=== PATIENT | female | born 1945 | race Caucasian/White ===

== ENCOUNTER → 2020-07-08 08:22 | Outpatient (BNVA) | payer MEDICARE, SELFPAY | PROVIDERS: PCP Internal Medicine; Visit Provider Internal Medicine | DX: Z86.73 Personal history of transient ischemic attack (TIA), and cerebral infarction without residual deficits (principal); Z51.81 Encounter for therapeutic drug level monitoring; Z79.01 Long term (current) use of anticoagulants | CPT/HCPCS: 85610 ==

== ENCOUNTER → 2020-07-23 08:20 | Outpatient (BNVA) | payer MEDICARE, SELFPAY | PROVIDERS: PCP Internal Medicine; Visit Provider Internal Medicine | DX: Z86.73 Personal history of transient ischemic attack (TIA), and cerebral infarction without residual deficits (principal); Z51.81 Encounter for therapeutic drug level monitoring; Z79.01 Long term (current) use of anticoagulants | CPT/HCPCS: 85610; 99211 ==

== ENCOUNTER → 2020-08-06 08:47 | Outpatient (BNVA) | payer MEDICARE, SELFPAY | PROVIDERS: PCP Internal Medicine; Visit Provider Internal Medicine | DX: Z86.73 Personal history of transient ischemic attack (TIA), and cerebral infarction without residual deficits (principal); Z79.01 Long term (current) use of anticoagulants; Z51.81 Encounter for therapeutic drug level monitoring | CPT/HCPCS: 85610; 99211 ==

== ENCOUNTER → 2020-08-25 08:59 | Outpatient (BNVA) | payer MEDICARE, SELFPAY | PROVIDERS: PCP Internal Medicine; Visit Provider Internal Medicine | DX: Z86.73 Personal history of transient ischemic attack (TIA), and cerebral infarction without residual deficits (principal); Z51.81 Encounter for therapeutic drug level monitoring; Z79.01 Long term (current) use of anticoagulants | CPT/HCPCS: 85610; 99211 ==

== ENCOUNTER → 2020-09-09 08:49 | Outpatient (BNVA) | payer MEDICARE, SELFPAY | PROVIDERS: PCP Internal Medicine; Visit Provider Internal Medicine | DX: Z86.73 Personal history of transient ischemic attack (TIA), and cerebral infarction without residual deficits (principal); Z51.81 Encounter for therapeutic drug level monitoring; Z79.01 Long term (current) use of anticoagulants | CPT/HCPCS: 85610; 99211 ==

== ENCOUNTER → 2020-09-30 08:47 | Outpatient (BNVA) | payer MEDICARE, SELFPAY | PROVIDERS: PCP Internal Medicine; Visit Provider Internal Medicine | DX: Z86.73 Personal history of transient ischemic attack (TIA), and cerebral infarction without residual deficits (principal); Z51.81 Encounter for therapeutic drug level monitoring; Z79.01 Long term (current) use of anticoagulants | CPT/HCPCS: 85610; 99211 ==

== ENCOUNTER → 2020-10-30 08:01 | Outpatient (BNVA) | payer MEDICARE, SELFPAY | PROVIDERS: PCP Internal Medicine; Visit Provider Internal Medicine | DX: Z86.73 Personal history of transient ischemic attack (TIA), and cerebral infarction without residual deficits (principal); Z51.81 Encounter for therapeutic drug level monitoring; Z79.01 Long term (current) use of anticoagulants | CPT/HCPCS: 85610; 99211 ==

== ENCOUNTER → 2020-11-27 08:00 | Outpatient (BNVA) | payer MEDICARE, SELFPAY | PROVIDERS: PCP Internal Medicine; Visit Provider Internal Medicine | DX: Z86.73 Personal history of transient ischemic attack (TIA), and cerebral infarction without residual deficits (principal); Z51.81 Encounter for therapeutic drug level monitoring; Z79.01 Long term (current) use of anticoagulants | CPT/HCPCS: 85610; 99211 ==

== ENCOUNTER → 2020-12-04 10:01 | Outpatient (BNV) | payer MEDICARE, SELFPAY | PROVIDERS: PCP Internal Medicine; Visit Provider Internal Medicine Medical Oncology | DX: Z86.711 Personal history of pulmonary embolism (principal); Z79.01 Long term (current) use of anticoagulants | CPT/HCPCS: 99212; 99213; 99214 ==

== ENCOUNTER → 2020-12-25 08:02 | Outpatient (BNVA) | payer MEDICARE, SELFPAY | PROVIDERS: PCP Internal Medicine; Visit Provider Internal Medicine | DX: Z86.718 Personal history of other venous thrombosis and embolism (principal); Z51.81 Encounter for therapeutic drug level monitoring; Z79.01 Long term (current) use of anticoagulants | CPT/HCPCS: 85610; 99211 ==

== ENCOUNTER 2021-01-14 12:29 | Emergency (ER) | payer MEDICARE, SELFPAY ==
--- NOTE | 2021-01-14 | ECG_ITS ---
Test Reason : CHEST PAIN Blood Pressure : / mmHG Vent. Rate : 097 BPM Atrial Rate : 097 BPM P-R Int : 150 ms QRS Dur : 070 ms QT Int : 368 ms P-R-T Axes : 038 -06 -09 degrees QTc Int : 467 ms Sinus rhythm with occasional Premature ventricular complexes Nonspecific T wave abnormality Abnormal ECG When compared with ECG of 01-DEC-2018 20:02, Premature ventricular complexes are now Present Referred By: Generic ED Physician Electronically Signed By:SHIRA PORTER
--- NOTE | ~2021-01-14 | XR_ITS ---
EXAMINATION: XR CHEST CLINICAL INFORMATION: Chest pain COMPARISON: Chest radiographs 12/01/2018, 04/05/2016 TECHNIQUE: Portable upright AP view of the chest was obtained. FINDINGS: There is no pneumothorax or pneumomediastinum. No airspace consolidation or definite groundglass opacity. The costophrenic sulci are clear. There is some tapering left lateral base consistent with areolar tissue. The hilar and mediastinal contours are unremarkable. No visible acute bony abnormality. XR/XR chest 1V IMPRESSION: Unremarkable examination.
--- NOTE | ~2021-01-14 | CT_ITS ---
EXAMINATION: CT ANGIOGRAM OF THE CHEST WITH AND WITHOUT CONTRAST CLINICAL INFORMATION: Reason for Exam Dissection study COMPARISON: CT chest 06/20/2014 TECHNIQUE: Prior to contrast administration, noncontrast localization images were obtained. Subsequently, multidetector volumetric imaging was performed from the thoracic inlet to the pubic symphysis through the chest, abdomen, and pelvis following the administration of 70 mL Omnipaque 350 intravenous contrast. No contrast reaction reported Sagittal, coronal, and MIP oblique sagittal (through the chest only) reformatted images were obtained on the CT workstation, uploaded to PACS, and reviewed. Images were not evaluated on an independent dedicated 3-D workstation and 3-D images were not reconstructed. This CT examination was performed using dose optimization techniques as appropriate, variously including the following: *Automated exposure control *Adjustment of mA and/or kV according to patient size (this includes techniques or standardized protocols for targeted exams where dose is matched to indication/reason for exam; i.e. extremities or head) *Use of iterative reconstruction technique Total exam dose-length product: 382 mGy-cm VASCULAR FINDINGS: The thoracic aorta appears normal without aneurysm or dissection. Motion artifact at the base of the aorta limits evaluation. A three-vessel branching pattern is present with widely patent great vessels. The small visualized portion of the abdominal aorta is unremarkable. Although not carried out for evaluation of the pulmonary arteries or pulmonary veins, no gross abnormality is seen. NONVASCULAR FINDINGS: LUNG: No focal consolidation, nodules or masses. Mild scarring is present at the right lung base. PLEURA: No pleural effusion or pneumothorax. MEDIASTINUM: Normal heart size. No pericardial effusion. No hilar or mediastinal lymphadenopathy. CHEST WALL/AXILLA: No axillary or internal mammary lymphadenopathy. OSSEOUS STRUCTURES: No acute or suspicious osseous abnormality. VISUALIZED ABDOMEN: Cholelithiasis is present. No other significant findings in the visualized upper abdomen. CT/CT angio chest IMPRESSION: No evidence of aortic dissection or aneurysm.
[2021-01-14 12:36] VITALS: BP 168/81; PULSE 99; RESP 18; TEMP 36.9; O2SAT 99; BMI 37.0
[2021-01-14 13:43] VITALS: BP 153/87; PULSE 78; RESP 18; TEMP 37.1; O2SAT 98
--- NOTE | 2021-01-14 13:48 | ED.CHESTPAIN ---
HPI - Chest Pain General Chief Complaint: Chest Pain Stated Complaint: chest pain Time Seen by Provider: 01/14/21 13:48 Source: patient Mode of arrival: ambulatory Limitations: no limitations History of Present Illness HPI narrative: 75-year-old female below noted past medical history presenting today with complaint of upper back pain states she has history of chronic back pain however she took some Tylenol did not help much. States did have some pain radiating to his chest and hard time taking a deep breath in. States the back pain is and between the shoulder blades in the upper back. She otherwise denies any recent illness. No recent travel. No sick contacts. No lower extremity swelling. MD complaint: other (Chest and upper back pain) Onset (ago): day(s) (Two days) Timing of current episode: episodic and other (Worse with certain movements resolved with holding still) Onset: other (Movement) Pain location: parasternal Pain radiation: back Severity: moderate Quality: aching Exacerbating factors: exertion Treatment prior to arrival: none Related Data Home Medications Medication Instructions Recorded Confirmed alendronate 70 mg tablet 70 mg PO QWEEK 10/30/20 10/30/20 ergocalciferol (vitamin D2) 1,250 1,250 mcg PO 10/30/20 10/30/20 mcg (50,000 unit) capsule hydrochlorothiazide 25 mg tablet 25 mg PO QAM 10/30/20 10/30/20 levothyroxine 25 mcg tablet 25 mcg PO QAM 10/30/20 10/30/20 metoprolol tartrate 25 mg tablet 25 mg PO DAILY 10/30/20 10/30/20 pantoprazole 20 mg tablet,delayed 20 mg PO DAILY 10/30/20 10/30/20 release simvastatin 20 mg tablet 20 mg PO BEDTIME 10/30/20 10/30/20 Previous Rx's Medication Instructions Recorded warfarin 2.5 mg tablet See Rx Instructions .ROUTE 07/08/20 .COMPLEX #90 tab cephalexin 250 mg PO BID 7 Days #14 tab 01/14/21 lidocaine 1 patch TOPICAL Q24H PRN #15 ea 01/14/21 Allergies Allergy/AdvReac Type Severity Reaction Status Date / Time raspberry [RASPBERRY] AdvReac Mild RASH Verified 01/14/21 12:35 cat dander [CATS] AdvReac Unknown RASH Verified 04/15/21 12:35 Review of Systems Review of Systems: Constitutional: No Weight loss, No Fever, No Chills, No Night Sweats, No Fatigue, No Malaise ENT/Mouth: No Hearing loss, No Ear Pain, No Nasal Congestion, No Sinus Pain, No Hoarseness, No sore throat, No Rhinorrhea, No Swallowing Difficulty Eyes: No Eye Pain, No Swelling, No Redness, No Foreign Body, No Discharge, No Vision Changes Cardiovascular: No SOB, No Dyspnea on Exertion, No Orthopnea, No Edema, No Palpitations Respiratory: No Cough, No Sputum, No Wheezing, No Smoke Exposure, No Dyspnea Gastrointestinal: No Nausea, No Vomiting, No Diarrhea, No Constipation, No abdominal Pain, No Hematochezia, No Melena Genitourinary: no irregular bleeding, No Dysuria, No Urinary Frequency, No Hematuria, No Urinary Incontinence, No Urgency, No Flank Pain, No Urinary Flow Changes, No Hesitancy Musculoskeletal: No joint pain, No Myalgias, No Joint Swelling, back pain is noted per HPI Skin: No Skin Lesions, No rash Neuro: No Weakness, No Numbness, No Paresthesias, No Loss of Consciousness, No Dizziness, No Headache Psych: No Social Issues Heme/Lymph: No Bruising, No Bleeding,No Lymphadenopathy Endocrine: No Polyuria, No Polydipsia, No Temperature Intolerance Yes all other systems are reviewed and are negative [facility] Past Medical History [facility] Narrative: Atrial septal aneurysm Cerebrovascular disease DVT Hypercholesteremia Hypertension Hypothyroidism Pulmonary embolism Chronically anticoagulated on Coumadin Surgical History (Updated 12/04/20 @ 10:35 by Diamante Barron MD) Hx of hernia repair Family History Family History (Updated 12/04/20 @ 10:21 by Fernanda Enrique) Mother Family hx of colon cancer Family hx of melanoma Brother Family history of throat cancer Sister Acute Crohn's disease Social History Social History (Updated 12/04/20 @ 10:19 by Fernanda Enrique) Alcohol intake: never Smoking Status: Never smoker Use of substances other than those prescribed or required for medical reasons: No Advance Directives: No Advance Directives Information Provided: Yes Physical Exam Vital Signs: Vital Signs: Last Vital Signs Temp 99.0 F 01/14/21 19:55 Pulse 75 01/14/21 19:55 Resp 14 01/14/21 19:55 BP 146/74 H 01/14/21 19:55 Pulse Ox 97 01/14/21 19:55 Body Mass Index 37.0 Reviewed Const: General: cooperative and healthy appearing; No acute distress or intoxicated appearing Nutritional Appearance: average body habitus Orientation/consciousness: patient oriented x3 HENMT: Head: Yes normal to inspection Ears: hearing grossly normal bilaterally Eyes: General: appearance normal, both eyes and all related structures Visual Alves: normal visual alves by confrontation Neck: Neck: Yes normal visual inspection, No positive Brudzinski's sign, No positive Kernig's sign and No tender Thyroid: Thyroid normal Chest: Chest palpation & inspection: normal inspection of the chest Resp: Effort & Inspection: normal respiratory effort Auscultation: clear to auscultation bilaterally Cardio: Jugular venous distension: no JVD Rhythm: regular rhythm Heart sounds: S1 normal heart sound present and S2 normal heart sound present GI: Inspection: Yes normal to inspection Palpation (GI): Soft to palpation Percussion: Yes normal to percussion Auscultation: normal bowel sounds : General: Yes no CVA tenderness Back/Spine/Pelvis: Back: no CVA tenderness Thoracic/Lumbar Spine: paraspinal muscle tenderness (Over the thoracic region mid, bilaterally.) Skin: General skin exam: no rashes or lesions noted Neuro: General: patient oriented x3 Extrem: General: Yes normal to inspection Course Reevaluation(s) Reevaluation #1: Daughter who present at bedside assisting me a history patient recently purchased a washer and dryer she has been lifting laundry basket and complaining of back pain afterwards. AP and exam consistent with pain musculoskeletal etiology, labs show overly infected UA she has no other symptoms no fever. Abdominal exam is benign. Labs otherwise without leukocytosis serial troponin without delta CT of the chest without evidence of dissection. She is anticoagulated with Coumadin elevated level advised to hold off 1 day. States her pain resolved with lidocaine patch/Tylenol. She did get a bed ambulatory with steady gait to the bathroom. Labs/findings/plan reviewed her clearly lifestyle modification daughter with sister more with her ADLs and limit which she picks up. MDM - Chest Pain Lab Data Result diagrams: 01/14/21 15:37 01/14/21 15:37 Labs: Lab Results 01/14/21 01/14/21 01/14/21 Range/Units 15:09 15:37 15:37 WBC 8.9 (4.8-10.8) X10*3/uL RBC 4.02 L (4.20-5.50) X10*6/uL Hgb 12.3 (12.0-16.0) g/dl Hct 36.3 L (37-47) % MCV 90.3 (80-98) fL MCH 30.6 (27.0-33.0) pg MCHC 33.9 (31.0-35.0) g/dl RDW 13.8 (11.0-16.0) % Plt Count 187 (160-400) X10*3/uL MPV 11.5 (9.4-12.3) fL Immature Gran % (Auto) 0.1 (0.0-0.4) % Neut % (Auto) 82.8 H (45-73) % Lymph % (Auto) 10.4 L (20-40) % [place] % (Auto) 6.6 (2-11) % Eos % (Auto) 0.0 (0-4) % Baso % (Auto) 0.1 (0-2) % Lymph # (Auto) 0.9 L (1.2-4.9) X10*3/uL [place] # (Auto) 0.6 (0.1-1.2) X10*3/uL Eos # (Auto) 0.0 (0.0-0.4) X10*3/uL Baso # (Auto) 0.0 (0.0-0.2) X10*3/uL Abs Immat Gran (auto) 0.01 (0.00-0.03) X10*3/uL Absolute Neuts (auto) 7.4 (2.0-8.3) X10*3/uL Absolute Nucleated RBC 0.000 (0.0-0.012) X10*3/uL Nucleated RBC % (auto) 0.0 (0.0-0.2) /100WBC PT 49.2 H (10.8-13.0) SEC INR 4.1 H (0.9-1.1) APTT 47.3 H (24.1-38.0) SEC Sodium (135-145) mmol/L Potassium (3.3-5.1) mmol/L Chloride (96-108) mmol/L Carbon Dioxide (22-29) mmol/L Anion Gap (12-20) BUN (9-16) mg/dL Creatinine (0.5-1.4) mg/dL Estim Creat Clear Calc Estimated GFR Random Glucose (60-115) mg/dL Calcium (8.4-10.2) mg/dL Total Bilirubin (0.0-1.0) mg/dL AST (5-31) U/L ALT (0-31) U/L Alkaline Phosphatase (39-117) U/L Troponin I High Sens (<3.5-17.0) ng/L B-Natriuretic Peptide (<100) pg/mL Total Protein (6.5-8.0) g/dL Albumin (3.5-5.0) g/dL Urine Color Urine Appearance Urine pH (5.0-8.0) Ur Specific [place] (1.005-1.025) Urine Protein (NEG-TRACE) MG/DL Urine Glucose (UA) (NEG) MG/DL Urine Ketones (NEG) MG/DL Urine Blood (NEG) Urine Nitrite (NEG) Ur Leukocyte Esterase (NEG) Urine RBC (0) /HPF Urine WBC (0-4) /HPF Ur Squamous Epith Cells /LPF Urine Bacteria /LPF COVID-19 ([place]) Cancelled COVID-19 Clin Com Cancelled 01/14/21 01/14/21 01/14/21 Range/Units 15:37 15:37 15:37 WBC (4.8-10.8) X10*3/uL RBC (4.20-5.50) X10*6/uL Hgb (12.0-16.0) g/dl Hct (37-47) % MCV (80-98) fL MCH (27.0-33.0) pg MCHC (31.0-35.0) g/dl RDW (11.0-16.0) % Plt Count (160-400) X10*3/uL MPV (9.4-12.3) fL Immature Gran % (Auto) (0.0-0.4) % Neut % (Auto) (45-73) % Lymph % (Auto) (20-40) % [place] % (Auto) (2-11) % Eos % (Auto) (0-4) % Baso % (Auto) (0-2) % Lymph # (Auto) (1.2-4.9) X10*3/uL [place] # (Auto) (0.1-1.2) X10*3/uL Eos # (Auto) (0.0-0.4) X10*3/uL Baso # (Auto) (0.0-0.2) X10*3/uL Abs Immat Gran (auto) (0.00-0.03) X10*3/uL Absolute Neuts (auto) (2.0-8.3) X10*3/uL Absolute Nucleated RBC (0.0-0.012) X10*3/uL Nucleated RBC % (auto) (0.0-0.2) /100WBC PT (10.8-13.0) SEC INR (0.9-1.1) APTT (24.1-38.0) SEC Sodium 134 L (135-145) mmol/L Potassium 4.0 (3.3-5.1) mmol/L Chloride 97 (96-108) mmol/L Carbon Dioxide 26 (22-29) mmol/L Anion Gap 15 (12-20) BUN 11 (9-16) mg/dL Creatinine 0.67 (0.5-1.4) mg/dL Estim Creat Clear Calc 72.8 Estimated GFR > 60 Random Glucose 97 (60-115) mg/dL Calcium 8.5 D (8.4-10.2) mg/dL Total Bilirubin 1.0 (0.0-1.0) mg/dL AST 15 (5-31) U/L ALT 9 (0-31) U/L Alkaline Phosphatase 58 (39-117) U/L Troponin I High Sens 6.2 (<3.5-17.0) ng/L B-Natriuretic Peptide 90 (<100) pg/mL Total Protein 6.4 L (6.5-8.0) g/dL Albumin 3.5 (3.5-5.0) g/dL Urine Color Urine Appearance Urine pH (5.0-8.0) Ur Specific [place] (1.005-1.025) Urine Protein (NEG-TRACE) MG/DL Urine Glucose (UA) (NEG) MG/DL Urine Ketones (NEG) MG/DL Urine Blood (NEG) Urine Nitrite (NEG) Ur Leukocyte Esterase (NEG) Urine RBC (0) /HPF Urine WBC (0-4) /HPF Ur Squamous Epith Cells /LPF Urine Bacteria /LPF COVID-19 ([place]) COVID-19 Clin Com 01/14/21 01/14/21 01/14/21 Range/Units 15:54 17:04 18:38 WBC (4.8-10.8) X10*3/uL RBC (4.20-5.50) X10*6/uL Hgb (12.0-16.0) g/dl Hct (37-47) % MCV (80-98) fL MCH (27.0-33.0) pg MCHC (31.0-35.0) g/dl RDW (11.0-16.0) % Plt Count (160-400) X10*3/uL MPV (9.4-12.3) fL Immature Gran % (Auto) (0.0-0.4) % Neut % (Auto) (45-73) % Lymph % (Auto) (20-40) % [place] % (Auto) (2-11) % Eos % (Auto) (0-4) % Baso % (Auto) (0-2) % Lymph # (Auto) (1.2-4.9) X10*3/uL [place] # (Auto) (0.1-1.2) X10*3/uL Eos # (Auto) (0.0-0.4) X10*3/uL Baso # (Auto) (0.0-0.2) X10*3/uL Abs Immat Gran (auto) (0.00-0.03) X10*3/uL Absolute Neuts (auto) (2.0-8.3) X10*3/uL Absolute Nucleated RBC (0.0-0.012) X10*3/uL Nucleated RBC % (auto) (0.0-0.2) /100WBC PT (10.8-13.0) SEC INR (0.9-1.1) APTT (24.1-38.0) SEC Sodium (135-145) mmol/L Potassium (3.3-5.1) mmol/L Chloride (96-108) mmol/L Carbon Dioxide (22-29) mmol/L Anion Gap (12-20) BUN (9-16) mg/dL Creatinine (0.5-1.4) mg/dL Estim Creat Clear Calc Estimated GFR Random Glucose (60-115) mg/dL Calcium (8.4-10.2) mg/dL Total Bilirubin (0.0-1.0) mg/dL AST (5-31) U/L ALT (0-31) U/L Alkaline Phosphatase (39-117) U/L Troponin I High Sens 7.0 (<3.5-17.0) ng/L B-Natriuretic Peptide (<100) pg/mL Total Protein (6.5-8.0) g/dL Albumin (3.5-5.0) g/dL Urine Color YELLOW Urine Appearance CLOUDY Urine pH 6.5 (5.0-8.0) Ur Specific [place] 1.010 (1.005-1.025) Urine Protein NEG (NEG-TRACE) MG/DL Urine Glucose (UA) NEG (NEG) MG/DL Urine Ketones 15 (NEG) MG/DL Urine Blood 3+ H (NEG) Urine Nitrite POS H (NEG) Ur Leukocyte Esterase 2+ H (NEG) Urine RBC 1-4 (0) /HPF Urine WBC 15-29 H (0-4) /HPF Ur Squamous Epith Cells TRACE /LPF Urine Bacteria 3+ /LPF COVID-19 ([place]) Negative COVID-19 Clin Com See Note Imaging Data Chest CTA: Radiologist's impression: [address] Scan ReportSigned Patient: Mary Harvey [facility]#: [id number]: 7Acct:[id number]/Sex: 75 / FADM Date: 01/14/21Loc: Victor M Evans: Ordering Physician: Ezio Snow NP Date of Service: 01/14/21 Procedure(s): CT angio chest Accession Number(s): [id number] cc: Ezio Snow [employer]~ EXAMINATION: CT ANGIOGRAM OF THE CHEST WITH AND WITHOUT CONTRAST CLINICAL INFORMATION: Reason for Exam Dissection study COMPARISON: CT chest 06/20/2014 TECHNIQUE: Prior to contrast administration, noncontrast localization images were obtained. Subsequently, multidetector volumetric imaging was performed from the thoracic inlet to the pubic symphysis through the chest, abdomen, and pelvis following the administration of 70 mL Omnipaque 350 intravenous contrast. No contrast reaction reported Sagittal, coronal, and MIP oblique sagittal (through the chest only) reformatted images were obtained on the CT workstation, uploaded to PACS, and reviewed. Images were not evaluated on an independent dedicated 3-D workstation and 3-D images were not reconstructed. This CT examination was performed using dose optimization techniques as appropriate, variously including the following: *Automated exposure control *Adjustment of mA and/or kV according to patient size (this includes techniques or standardized protocols for targeted exams where dose is matched to indication/reason for exam; i.e. extremities or head) *Use of iterative reconstruction technique Total exam dose-length product: 382 mGy-cm VASCULAR FINDINGS: The thoracic aorta appears normal without aneurysm or dissection. Motion artifact at the base of the aorta limits evaluation. A three-vessel branching pattern is present with widely patent great vessels. The small visualized portion of the abdominal aorta is unremarkable. Although not carried out for evaluation of the pulmonary arteries or pulmonary veins, no gross abnormality is seen. NONVASCULAR FINDINGS: LUNG: No focal consolidation, nodules or masses. Mild scarring is present at the right lung base. PLEURA: No pleural effusion or pneumothorax. MEDIASTINUM: Normal heart size. No pericardial effusion. No hilar or mediastinal lymphadenopathy. CHEST WALL/AXILLA: No axillary or internal mammary lymphadenopathy. OSSEOUS STRUCTURES: No acute or suspicious osseous abnormality. VISUALIZED ABDOMEN: Cholelithiasis is present. No other significant findings in the visualized upper abdomen. CT/CT angio chest IMPRESSION: No evidence of aortic dissection or aneurysm. Dictated By:SHANICE MILLER MDSigned By:<Electronically signed by SHANICE MILLER MD in [place]>01/14/21 1722 DD/ 1459TD/TT: Feather Maker: ZEV Chest x-ray: Radiologist's impression: [address] [id number] ReportSigned Patient: Mary Harvey [facility]#: [id number]: 7Acct:[id number]/Sex: 75 / FADM Date: 01/14/21Loc: HO.EDAttending Dr: Ordering Physician: Ezio Snow NP Date of Service: 01/14/21 Procedure(s): XR chest 1V Accession Number(s): [id number] cc: Ezio Snow [employer]~ EXAMINATION: XR CHEST CLINICAL INFORMATION: Chest pain COMPARISON: Chest radiographs 12/01/2018, 04/05/2016 TECHNIQUE: Portable upright AP view of the chest was obtained. FINDINGS: There is no pneumothorax or pneumomediastinum. No airspace consolidation or definite groundglass opacity. The costophrenic sulci are clear. There is some tapering left lateral base consistent with areolar tissue. The hilar and mediastinal contours are unremarkable. No visible acute bony abnormality. XR/XR chest 1V IMPRESSION: Unremarkable examination. Dictated By:SHANICE VIDALigned By:<Electronically signed by SHANICE VIDAL MD in OV>01/14/21 1437 DD/ 1349TD/TT: Feather Maker: ECG Data ECG #1: Interpretation: Sinus rhythm with occasional Premature ventricular complexes Rate 97 Nonspecific T wave abnormality Abnormal ECG When compared with ECG of 01-DEC-2018 20:02, Premature ventricular complexes are now Present Discharge Plan Discharge Clinical Impression: Acute thoracic myofascial strain, Urinary tract infection Patient Disposition: Home, Self-Care Instructions: Thoracic Back Strain (ED), Urinary Urgency and Frequency (DC) Additional Instructions: I know you have purchased your new laundry equipment You need to take it easy do not 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 The blood work and CT scan of your chest looks okay Your urine test shows a given her urinary tract infection For your back pain of IV lidocaine patch and he can also take [id number] Tylenol for the pain if needed For the urinary tract infection also on antibiotic twice a day for 7 days make sure you take the full course Follow-up with your primary care doctor in the next 3-7 days Return if any concerns or worsening symptoms Thank you Prescriptions: New cephalexin 250 mg tablet 250 mg PO BID 7 Days Qty: 14 RF: 0 lidocaine 4 % adhesive patch,medicated 1 patch topical Q24H PRN (Reason: pain) Qty: 15 RF: 0 No Action warfarin 2.5 mg tablet See Rx Instructions mg .ROUTE .COMPLEX Qty: 90 RF: 0 metoprolol tartrate 25 mg tablet 25 mg PO DAILY RF: 0 simvastatin 20 mg tablet 20 mg PO BEDTIME RF: 0 hydrochlorothiazide 25 mg tablet 25 mg PO QAM RF: 0 levothyroxine 25 mcg tablet 25 mcg PO QAM RF: 0 ergocalciferol (vitamin D2) 1,250 mcg (50,000 unit) capsule 1,250 mcg PO RF: 0 pantoprazole 20 mg tablet,delayed release (DR/EC) 20 mg PO DAILY RF: 0 alendronate 70 mg tablet 70 mg PO QWEEK RF: 0 Referrals: Larry Meyers MD [Primary Care Provider] - 3 days Interventions: ED Discharge Assessment Last Done: 01/14/21 20:08 Discharge Date/Time: 01/14/21 20:10
--- NOTE | 2021-01-14 14:10 | PC.NURSE ---
PT REPORTS SOB, CHEST PAIN, NSR ON MONITOR. LS CTA. NO EDEMA. BS HYPER-ACTIVE X4. SKIN PINK, WARM, AND DRY. PT REPORTS SHE HAD A HERNIA CONSULT SCHEDULE FOR TODAY BUT WAS RESCHEDULED TO 02/04. PT ON COUMADIN. PT SEEN BY ED PROVIDER. DAUGHTER AT BEDSIDE.
[2021-01-14] MEDS: Lidocaine 4 % Patch ADH..PATCH 1 PATCH TRANSDERMA (14:47)
[2021-01-14] MEDS: Acetaminophen 325 MG TABLET 975 MG PO (14:48)
[2021-01-14] MEDS: 0.9 % Sodium Chloride 500 ML IV (14:53)
[2021-01-14 15:43] LABS: MANUAL DIFF FLAG NO
[2021-01-14 15:45] LABS: Basophils Percent Auto 0.1 % (0-2); Hematocrit 36.3 % (37-47); Hemoglobin 12.3 g/dl (12.0-16.0); Imm Gran Abs Auto 0.01 X10*3/uL (0.00-0.03); Imm Gran Pct Auto 0.1 % (0.0-0.4); Lymphocytes Absolute Auto 0.9 X10*3/uL (1.2-4.9); Lymphocytes Percent Auto 10.4 % (20-40); Mean Corpuscular HGB Conc 33.9 g/dl (31.0-35.0); Mean Corpuscular Hemoglobin 30.6 pg (27.0-33.0); Mean Corpuscular Volume 90.3 fL (80-98); Mean Platelet Volume 11.5 fL (9.4-12.3); Monocytes Absolute Auto 0.6 X10*3/uL (0.1-1.2); Monocytes Percent Auto 6.6 % (2-11); Neutrophils Absolute Auto 7.4 X10*3/uL (2.0-8.3); Neutrophils Percent Auto 82.8 % (45-73); Platelet Count 187 X10*3/uL (160-400); Red Blood Count 4.02 X10*6/uL (4.20-5.50); Red Cell Distribution Width 13.8 % (11.0-16.0); White Blood Count 8.9 X10*3/uL (4.8-10.8)
[2021-01-14 16:12] LABS: Troponin-I High Sensitivity 6.2 ng/L (<3.5-17.0)
[2021-01-14 16:13] LABS: B Type Natriuretic Peptide 90 pg/mL (<100)
[2021-01-14 16:15] LABS: INTERNATIONAL NORM RATIO 4.1 (0.9-1.1); Prothrombin Time 49.2 SEC (10.8-13.0)
[2021-01-14 16:18] LABS: Partial Thromboplastin Time 47.3 SEC (24.1-38.0)
[2021-01-14 16:22] LABS: COVID-19 Test Negative (Negative)
[2021-01-14 16:26] LABS: Alanine Aminotransferase 9 U/L (0-31); Albumin Level 3.5 g/dL (3.5-5.0); Alkaline Phosphatase 58 U/L (39-117); Anion Gap 15 (12-20); Aspartate Amino Transferase 15 U/L (5-31); Blood Urea Nitrogen 11 mg/dL (9-16); Calcium 8.5 mg/dL (8.4-10.2); Carbon Dioxide 26 mmol/L (22-29); Chloride 97 mmol/L (96-108); Creatinine Clr Calc Pharmacy 72.8; Estimated Glomerular Filt Rate > 60; Glucose Random 97 mg/dL (60-115); Sodium 134 mmol/L (135-145); Total Protein 6.4 g/dL (6.5-8.0)
[2021-01-14] MEDS: iohexoL 350 MG/ML 100 ML INFUS..BTL IV (17:02)
[2021-01-14 17:22] LABS: Glucose Urine UA NEG (NEG); Leukocyte Esterase Urine 2+ (NEG); Nitrite Urine POS (NEG); PH 6.5 (5.0-8.0); UACC Culture Trigger YES; Urine Blood 3+ (NEG); Urine Ketones 15 MG/DL (NEG); Urine Protein NEG (NEG-TRACE)
[2021-01-14 17:25] LABS: Appearance Urine CLOUDY; Color Urine YELLOW
[2021-01-14 17:52] LABS: Bacteria Urine 3+ /LPF; Squamous Epithelial Cell Urine TRACE /LPF; UACC CULT YES
[2021-01-14 18:39] VITALS: BP 154/77; PULSE 82; RESP 16; TEMP 37.1; O2SAT 98
[2021-01-14] MEDS: cefTRIAXone sodium 1 GM in 0.9 % Sodium Chloride 50 ML IV (19:13)
[2021-01-14 19:14] VITALS: BP 136/76; PULSE 76; RESP 16; O2SAT 96
--- NOTE | 2021-01-14 19:16 | PC.NURSE ---
1gram Ceftriaxone infusing per MAR, no cultures or lactic ordered at this time per BRIQUETTE MACHINE OPERATOR
[2021-01-14 19:55] VITALS: BP 146/74; PULSE 75; RESP 14; TEMP 37.2; O2SAT 97
== END 2021-01-14 20:10 | disposition home or self-care (01) ==
PROVIDERS: Nurse Practitioner Primary Care; Emergency Provider Internal Medicine; PCP Internal Medicine
DX: S29.012A Strain of muscle and tendon of back wall of thorax, initial encounter (principal); N39.0 Urinary tract infection, site not specified; R07.9 Chest pain, unspecified; M54.6 Pain in thoracic spine; R07.81 Pleurodynia; X58.XXXA Exposure to other specified factors, initial encounter; Y93.9 Activity, unspecified; Y92.9 Unspecified place or not applicable; Y99.9 Unspecified external cause status; Z20.822 Contact with and (suspected) exposure to COVID-19; Z79.899 Other long term (current) drug therapy
CPT/HCPCS: 36415; 71045; 71275; 80053; 81001; 83880; 84484; 85025; 85610; 85730; 87086; 87088; 87186; 87635; 93005; 96361; 96365; 99285; J0696; Q9967

== ENCOUNTER → 2021-01-15 15:08 | Outpatient (BNVA) | payer MEDICARE, SELFPAY | PROVIDERS: PCP Internal Medicine; Visit Provider Internal Medicine | DX: Z86.73 Personal history of transient ischemic attack (TIA), and cerebral infarction without residual deficits (principal); Z79.01 Long term (current) use of anticoagulants; Z51.81 Encounter for therapeutic drug level monitoring | CPT/HCPCS: Q3014 ==

== ENCOUNTER → 2021-01-22 08:04 | Outpatient (BNVA) | payer MEDICARE, SELFPAY | PROVIDERS: PCP Internal Medicine; Visit Provider Internal Medicine | DX: Z86.73 Personal history of transient ischemic attack (TIA), and cerebral infarction without residual deficits (principal); Z79.01 Long term (current) use of anticoagulants; Z51.81 Encounter for therapeutic drug level monitoring | CPT/HCPCS: 85610; 99211 ==

== ENCOUNTER 2021-02-02 10:50 | Outpatient (REF) | payer MEDICARE, SELFPAY ==
[2021-02-02 11:59] LABS: Glucose Urine UA NEG (NEG); Leukocyte Esterase Urine NEG (NEG); Nitrite Urine NEG (NEG); Specific Gravity - Urine >= 1.030 (1.005-1.025); Urine Blood 1+ (NEG); Urine Ketones NEG (NEG); Urine Protein NEG (NEG-TRACE)
[2021-02-02 12:05] LABS: Appearance Urine CLEAR; Color Urine YELLOW
[2021-02-02 12:32] LABS: RBC Urine 0-2 /HPF (0); Squamous Epithelial Cell Urine 1+ /LPF
== END 2021-02-02 10:51 | disposition home or self-care (01) ==
LOC: HO.LNP 10:50
PROVIDERS: Visit Provider Internal Medicine
DX: N30.01 Acute cystitis with hematuria (principal)
CPT/HCPCS: 81001; 87086

== ENCOUNTER → 2021-02-04 10:59 | Outpatient (BNVA) | payer MEDICARE, SELFPAY | PROVIDERS: PCP Internal Medicine; Visit Provider Internal Medicine | DX: K43.2 Incisional hernia without obstruction or gangrene (principal); I26.99 Other pulmonary embolism without acute cor pulmonale; J30.81 Allergic rhinitis due to animal (cat) (dog) hair and dander; Z91.018 Allergy to other foods; Z86.73 Personal history of transient ischemic attack (TIA), and cerebral infarction without residual deficits; Z79.01 Long term (current) use of anticoagulants; Z79.899 Other long term (current) drug therapy; Z51.81 Encounter for therapeutic drug level monitoring | CPT/HCPCS: 85610; 99211; 99212 ==

== ENCOUNTER → 2021-02-18 08:51 | Outpatient (BNVA) | payer MEDICARE, SELFPAY | PROVIDERS: PCP Internal Medicine; Visit Provider Internal Medicine | DX: Z86.73 Personal history of transient ischemic attack (TIA), and cerebral infarction without residual deficits (principal); Z51.81 Encounter for therapeutic drug level monitoring; Z79.01 Long term (current) use of anticoagulants | CPT/HCPCS: 85610; 99211 ==

== ENCOUNTER → 2021-03-03 08:35 | Outpatient (BNVA) | payer MEDICARE, SELFPAY | PROVIDERS: PCP Internal Medicine; Referring Provider Internal Medicine; Visit Provider Internal Medicine | DX: I26.99 Other pulmonary embolism without acute cor pulmonale (principal); Q21.1 Atrial septal defect; I10 Essential (primary) hypertension | CPT/HCPCS: 99212 ==

== ENCOUNTER → 2021-03-11 08:02 | Outpatient (BNVA) | payer MEDICARE, SELFPAY | PROVIDERS: PCP Internal Medicine; Visit Provider Internal Medicine | DX: Z86.73 Personal history of transient ischemic attack (TIA), and cerebral infarction without residual deficits (principal); Z51.81 Encounter for therapeutic drug level monitoring; Z79.01 Long term (current) use of anticoagulants | CPT/HCPCS: 85610; 99211 ==

== ENCOUNTER → 2021-03-25 08:02 | Outpatient (BNVA) | payer MEDICARE, SELFPAY | PROVIDERS: PCP Internal Medicine; Visit Provider Internal Medicine | DX: Z86.73 Personal history of transient ischemic attack (TIA), and cerebral infarction without residual deficits (principal); Z51.81 Encounter for therapeutic drug level monitoring; Z79.01 Long term (current) use of anticoagulants | CPT/HCPCS: 85610; 99211 ==

== ENCOUNTER → 2021-04-12 08:06 | Outpatient (BNVA) | payer MEDICARE, SELFPAY | PROVIDERS: PCP Internal Medicine; Visit Provider Internal Medicine | DX: Z86.73 Personal history of transient ischemic attack (TIA), and cerebral infarction without residual deficits (principal); Z51.81 Encounter for therapeutic drug level monitoring; Z79.01 Long term (current) use of anticoagulants | CPT/HCPCS: 85610; 99211 ==

== ENCOUNTER 2021-04-12 10:09 | Outpatient (REF) | payer MEDICARE, SELFPAY ==
[2021-04-12 10:12] LABS: MANUAL DIFF FLAG NO
[2021-04-12 10:27] LABS: Basophils Percent Auto 0.6 % (0-2); Eosinophils Absolute Auto 0.1 X10*3/uL (0.0-0.4); Eosinophils Percent Auto 0.9 % (0-4); Hematocrit 39.4 % (37-47); Imm Gran Abs Auto 0.03 X10*3/uL (0.00-0.03); Imm Gran Pct Auto 0.4 % (0.0-0.4); Lymphocytes Percent Auto 29.9 % (20-40); Mean Corpuscular Hemoglobin 30.4 pg (27.0-33.0); Mean Corpuscular Volume 92.3 fL (80-98); Monocytes Absolute Auto 0.6 X10*3/uL (0.1-1.2); Monocytes Percent Auto 8.4 % (2-11); Neutrophils Absolute Auto 4.1 X10*3/uL (2.0-8.3); Neutrophils Percent Auto 59.8 % (45-73); Platelet Count 242 X10*3/uL (160-400); Red Blood Count 4.27 X10*6/uL (4.20-5.50); Red Cell Distribution Width 14.4 % (11.0-16.0); White Blood Count 6.8 X10*3/uL (4.8-10.8)
[2021-04-12 10:58] LABS: Alanine Aminotransferase 7 U/L (0-31); Albumin Level 3.8 g/dL (3.5-5.0); Alkaline Phosphatase 59 U/L (39-117); Anion Gap 18 (12-20); Aspartate Amino Transferase 16 U/L (5-31); Bilirubin Total 0.6 mg/dL (0.0-1.0); Blood Urea Nitrogen 12 mg/dL (9-16); Calcium 9.6 mg/dL (8.4-10.2); Carbon Dioxide 25 mmol/L (22-29); Chloride 98 mmol/L (96-108); Cholesterol 149 mg/dL; Estimated Glomerular Filt Rate > 60; Glucose Fasting 84 mg/dL (60-99); HDL Cholesterol 73 mg/dL; LDL Cholesterol Calculated 56 mg/dl; Potassium 3.7 mmol/L (3.3-5.1); Sodium 137 mmol/L (135-145); Total Protein 7.2 g/dL (6.5-8.0); Triglycerides 103 mg/dL
[2021-04-12 11:08] LABS: Glucose Urine UA NEG (NEG); Leukocyte Esterase Urine NEG (NEG); Nitrite Urine NEG (NEG); PH 6.5 (5.0-8.0); Specific Gravity - Urine 1.015 (1.005-1.025); Urine Blood 2+ (NEG); Urine Ketones NEG (NEG); Urine Protein NEG (NEG-TRACE)
[2021-04-12 11:12] LABS: Appearance Urine CLEAR; Color Urine YELLOW
[2021-04-12 11:20] LABS: TSH reflex Free T4 2.67 uIU/mL (0.32-4.0); Vitamin D 25-OH Total 28.4 ng/mL (>30)
[2021-04-12 11:28] LABS: Reflex LDLD? No
[2021-04-12 11:48] LABS: Renal Epithelial Cells Urine 1+ /LPF; Squamous Epithelial Cell Urine 1+ /LPF
== END 2021-04-12 10:10 | disposition home or self-care (01) ==
LOC: HO.LNP 10:09
PROVIDERS: Visit Provider Internal Medicine
DX: Z00.00 Encounter for general adult medical examination without abnormal findings (principal); E78.00 Pure hypercholesterolemia, unspecified; E03.9 Hypothyroidism, unspecified; E55.9 Vitamin D deficiency, unspecified
CPT/HCPCS: 80053; 80061; 81001; 81003; 82306; 84443; 85025

== ENCOUNTER → 2021-04-26 08:00 | Outpatient (BNVA) | payer MEDICARE, SELFPAY | PROVIDERS: PCP Internal Medicine; Visit Provider Internal Medicine | DX: Z86.73 Personal history of transient ischemic attack (TIA), and cerebral infarction without residual deficits (principal); Z51.81 Encounter for therapeutic drug level monitoring; Z79.01 Long term (current) use of anticoagulants | CPT/HCPCS: 85610; 99211 ==

== ENCOUNTER → 2021-05-10 08:35 | Outpatient (BNVA) | payer MEDICARE, SELFPAY | PROVIDERS: PCP Internal Medicine; Visit Provider Internal Medicine | DX: Z86.73 Personal history of transient ischemic attack (TIA), and cerebral infarction without residual deficits (principal); Z51.81 Encounter for therapeutic drug level monitoring; Z79.01 Long term (current) use of anticoagulants | CPT/HCPCS: 85610; 99211 ==

== ENCOUNTER → 2021-06-01 08:02 | Outpatient (BNVA) | payer MEDICARE, SELFPAY | PROVIDERS: PCP Internal Medicine; Visit Provider Internal Medicine | DX: Z86.73 Personal history of transient ischemic attack (TIA), and cerebral infarction without residual deficits (principal); Z51.81 Encounter for therapeutic drug level monitoring; Z79.01 Long term (current) use of anticoagulants | CPT/HCPCS: 85610; 99211 ==

== ENCOUNTER → 2021-06-17 08:12 | Outpatient (BNVA) | payer MEDICARE, SELFPAY | PROVIDERS: PCP Internal Medicine; Visit Provider Internal Medicine | DX: Z86.73 Personal history of transient ischemic attack (TIA), and cerebral infarction without residual deficits (principal); Z51.81 Encounter for therapeutic drug level monitoring; Z79.01 Long term (current) use of anticoagulants | CPT/HCPCS: 85610; 99211 ==

== ENCOUNTER → 2021-07-01 09:12 | Outpatient (BNVA) | payer MEDICARE, SELFPAY | PROVIDERS: PCP Internal Medicine; Visit Provider Internal Medicine | DX: Z86.73 Personal history of transient ischemic attack (TIA), and cerebral infarction without residual deficits (principal); Z51.81 Encounter for therapeutic drug level monitoring; Z79.01 Long term (current) use of anticoagulants | CPT/HCPCS: 85610; 99211 ==

== ENCOUNTER 2021-07-09 11:24 | Outpatient (REF) | payer MEDICARE, SELFPAY | END 2021-07-09 11:25 | disposition home or self-care (01) | LOC: HO.LAB 11:24 | PROVIDERS: PCP Internal Medicine; Visit Provider Internal Medicine | DX: Z20.822 Contact with and (suspected) exposure to COVID-19 (principal) | CPT/HCPCS: C9803; U0003; U0005 ==

== ENCOUNTER → 2021-07-21 08:48 | Outpatient (BNVA) | payer MEDICARE, SELFPAY | PROVIDERS: PCP Internal Medicine; Visit Provider Internal Medicine | DX: Z86.73 Personal history of transient ischemic attack (TIA), and cerebral infarction without residual deficits (principal); Z51.81 Encounter for therapeutic drug level monitoring; Z79.01 Long term (current) use of anticoagulants | CPT/HCPCS: 85610; 99211 ==

== ENCOUNTER → 2021-07-27 09:39 | Outpatient (BNVA) | payer MEDICARE, SELFPAY | PROVIDERS: PCP Internal Medicine; Visit Provider Internal Medicine | DX: Z79.01 Long term (current) use of anticoagulants (principal) | CPT/HCPCS: 85610; 99211 ==

== ENCOUNTER → 2021-08-17 09:13 | Outpatient (BNVA) | payer MEDICARE, SELFPAY | PROVIDERS: PCP Internal Medicine; Visit Provider Internal Medicine | DX: Z86.73 Personal history of transient ischemic attack (TIA), and cerebral infarction without residual deficits (principal); Z51.81 Encounter for therapeutic drug level monitoring; Z79.01 Long term (current) use of anticoagulants | CPT/HCPCS: 85610; 99211 ==

== ENCOUNTER → 2021-08-31 08:31 | Outpatient (BNVA) | payer MEDICARE, SELFPAY | PROVIDERS: PCP Internal Medicine; Visit Provider Internal Medicine | DX: Z86.73 Personal history of transient ischemic attack (TIA), and cerebral infarction without residual deficits (principal); Z51.81 Encounter for therapeutic drug level monitoring; Z79.01 Long term (current) use of anticoagulants | CPT/HCPCS: 85610; 99211 ==

== ENCOUNTER 2021-09-06 08:18 | Outpatient (REF) | payer MEDICARE, SELFPAY | END 2021-09-06 08:19 | disposition home or self-care (01) | LOC: HO.LAB 08:18 | PROVIDERS: PCP Internal Medicine; Visit Provider Internal Medicine | DX: Z20.822 Contact with and (suspected) exposure to COVID-19 (principal) | CPT/HCPCS: C9803; U0003; U0005 ==

== ENCOUNTER → 2021-09-14 08:03 | Outpatient (BNVA) | payer MEDICARE, SELFPAY | PROVIDERS: PCP Internal Medicine; Visit Provider Internal Medicine | DX: Z86.73 Personal history of transient ischemic attack (TIA), and cerebral infarction without residual deficits (principal); Z51.81 Encounter for therapeutic drug level monitoring; Z79.01 Long term (current) use of anticoagulants | CPT/HCPCS: 85610; 99211 ==

== ENCOUNTER → 2021-09-28 08:03 | Outpatient (BNVA) | payer MEDICARE, SELFPAY | PROVIDERS: PCP Internal Medicine; Visit Provider Internal Medicine | DX: Z86.73 Personal history of transient ischemic attack (TIA), and cerebral infarction without residual deficits (principal); Z51.81 Encounter for therapeutic drug level monitoring; Z79.01 Long term (current) use of anticoagulants | CPT/HCPCS: 85610; 99211 ==

== ENCOUNTER → 2021-10-12 08:01 | Outpatient (BNVA) | payer MEDICARE, SELFPAY | PROVIDERS: PCP Internal Medicine; Visit Provider Internal Medicine | DX: Z86.73 Personal history of transient ischemic attack (TIA), and cerebral infarction without residual deficits (principal); Z51.81 Encounter for therapeutic drug level monitoring; Z79.01 Long term (current) use of anticoagulants | CPT/HCPCS: 85610; 99211 ==

== ENCOUNTER 2021-10-14 10:12 | Outpatient (REF) | payer MEDICARE, SELFPAY ==
[2021-10-14 11:34] LABS: Alanine Aminotransferase 10 U/L (0-31); Albumin Level 3.9 g/dL (3.5-5.0); Alkaline Phosphatase 61 U/L (39-117); Aspartate Amino Transferase 18 U/L (5-31); Bilirubin Direct 0.3 mg/dL (0.0-0.5); Bilirubin Total 0.7 mg/dL (0.0-1.0); Cholesterol 156 mg/dL; HDL Cholesterol 73 mg/dL; LDL Cholesterol Calculated 66 mg/dl; Total Protein 7.2 g/dL (6.5-8.0); Triglycerides 88 mg/dL
[2021-10-14 11:57] LABS: Reflex LDLD? No
== END 2021-10-14 10:13 | disposition home or self-care (01) ==
LOC: HO.LNP 10:12
PROVIDERS: Visit Provider Internal Medicine
DX: E78.00 Pure hypercholesterolemia, unspecified (principal)
CPT/HCPCS: 80061; 80076

== ENCOUNTER → 2021-11-02 07:59 | Outpatient (BNVA) | payer MEDICARE, SELFPAY | PROVIDERS: PCP Internal Medicine; Visit Provider Internal Medicine | DX: Z86.73 Personal history of transient ischemic attack (TIA), and cerebral infarction without residual deficits (principal); Z51.81 Encounter for therapeutic drug level monitoring; Z79.01 Long term (current) use of anticoagulants | CPT/HCPCS: 85610; 99211 ==

== ENCOUNTER → 2021-11-30 08:10 | Outpatient (BNVA) | payer MEDICARE, SELFPAY | PROVIDERS: PCP Internal Medicine; Visit Provider Internal Medicine | DX: Z86.73 Personal history of transient ischemic attack (TIA), and cerebral infarction without residual deficits (principal); Z51.81 Encounter for therapeutic drug level monitoring; Z79.01 Long term (current) use of anticoagulants | CPT/HCPCS: 85610; 99211 ==

== ENCOUNTER → 2021-12-23 09:50 | Outpatient (BNVA) | payer MEDICARE, SELFPAY | PROVIDERS: PCP Internal Medicine; Visit Provider Internal Medicine | DX: Z86.73 Personal history of transient ischemic attack (TIA), and cerebral infarction without residual deficits (principal); Z51.81 Encounter for therapeutic drug level monitoring; Z79.01 Long term (current) use of anticoagulants | CPT/HCPCS: 85610; 99211 ==

== ENCOUNTER → 2022-01-13 08:07 | Outpatient (BNVA) | payer MEDICARE, SELFPAY | PROVIDERS: PCP Internal Medicine; Visit Provider Internal Medicine | DX: Z86.73 Personal history of transient ischemic attack (TIA), and cerebral infarction without residual deficits (principal); Z79.01 Long term (current) use of anticoagulants; Z51.81 Encounter for therapeutic drug level monitoring | CPT/HCPCS: 85610; 99211 ==

== ENCOUNTER → 2022-02-16 09:02 | Outpatient (BNVA) | payer MEDICARE, SELFPAY | PROVIDERS: PCP Internal Medicine; Visit Provider Internal Medicine | DX: Z86.73 Personal history of transient ischemic attack (TIA), and cerebral infarction without residual deficits (principal); Z79.01 Long term (current) use of anticoagulants; Z51.81 Encounter for therapeutic drug level monitoring | CPT/HCPCS: 85610; 99211 ==

== ENCOUNTER → 2022-03-03 08:33 | Outpatient (BNVA) | payer MEDICARE, SELFPAY | PROVIDERS: PCP Internal Medicine; Referring Provider Internal Medicine; Visit Provider Internal Medicine | DX: Q21.1 Atrial septal defect (principal); I26.99 Other pulmonary embolism without acute cor pulmonale; I10 Essential (primary) hypertension | CPT/HCPCS: 93005; 99212 ==

== ENCOUNTER 2022-03-09 09:28 | Emergency (ER) | payer MEDICARE, SELFPAY ==
--- NOTE | ~2022-03-09 | XR_ITS ---
EXAMINATION: XR HAND, LEFT CLINICAL INFORMATION: Tenderness COMPARISON: None TECHNIQUE: PA, lateral, and oblique views of the left hand. FINDINGS: There is degeneration at the base of the thumb. This appears moderate. There is also degeneration at the interphalangeal joint and MCP joint of the first digit. There is no evidence for an acute bony erosion. Degenerative change at the level of the styloid some calcific dystrophic change associated. Degenerative changes scattered in the wrist bones. XR/XR hand LT min 3V IMPRESSION: Degenerative changes most noted at the base of the thumb on the left. Degeneration appears moderate here. No acute finding.
[2022-03-09 09:32] VITALS: BP 160/90; PULSE 87; RESP 18; TEMP 36.6; O2SAT 97; BMI 35.2
--- NOTE | 2022-03-09 11:30 | ED_ITS ---
HPI - Extremity Problem General Chief complaint: Extremity Problem Stated complaint: L hand pain Time Seen by Provider: 03/09/22 11:30 Source: patient Mode of arrival: ambulatory Limitations: no limitations History of Present Illness HPI Narrative: 76-year-old female presents with left hand pain. Patient has had cellulitis in the hand in the past. Her hand is red and warm, the symptoms started 4 days ago. There is no trauma, patient is not sure if a bug her. Patient is not a diabetic. Related Data Home Medications Medication Instructions Recorded Confirmed alendronate 70 mg tablet 70 mg PO QWEEK 10/30/20 03/03/22 ergocalciferol (vitamin D2) 1,250 1,250 mcg PO QMONTH 10/30/20 03/03/22 mcg (50,000 unit) capsule hydrochlorothiazide 25 mg tablet 25 mg PO QAM 10/30/20 03/03/22 levothyroxine 25 mcg tablet 25 mcg PO QAM 10/30/20 03/03/22 metoprolol tartrate 25 mg tablet 25 mg PO DAILY 10/30/20 03/03/22 pantoprazole 20 mg tablet,delayed 20 mg PO DAILY 10/30/20 03/03/22 release (Protonix) simvastatin 20 mg tablet 20 mg PO BEDTIME 10/30/20 03/03/22 aspirin 81 mg tablet,delayed 81 mg PO DAILY 02/18/21 03/03/22 release (Adult Aspirin Regimen) Previous Rx's Medication Instructions Recorded warfarin 2.5 mg tablet See Rx Instructions .Route 07/08/20 .COMPLEX #90 tabs cephalexin 500 mg capsule 500 mg PO QID 7 days #28 caps 03/09/22 prednisone 20 mg tablet 60 mg PO DAILY 5 days #15 tabs 03/09/22 Allergies Allergy/AdvReac Type Severity Reaction Status Date / Time cat dander [CATS] AdvReac Mild RASH Verified 02/16/22 09:20 raspberry [RASPBERRY] AdvReac Mild RASH Verified 02/16/22 09:20 Review of Systems Constitutional: Constitutional: Denies body ache(s), Denies chills, Denies fatigue, Denies fever(s), Denies headache(s), Denies malaise and Denies weakness Eyes: Eyes: Denies diplopia ENT: Denies headache(s) Cardiovascular: Cardiovascular: Denies chest pain, Denies syncope, Denies leg edema, Denies lightheadedness, Denies Loss of Consciousness, Denies palpitations and Denies dyspnea Respiratory: Respiratory: Denies chest congestion, Denies cough and Denies dyspnea Gastrointestinal: Gastrointestinal: Denies abdominal pain, Denies hematochezia, Denies constipation, Denies diarrhea and Denies vomiting Musculoskeletal: Musculoskeletal: Reports other ( Left hand pain) Integumentary/Breasts: Skin/Breast: Reports erythema and Denies skin swelling Comments: warmth to dorsum left hand Neurologic: Denies confusion, Denies syncope, Denies headache(s) and Denies weakness Psychiatric: Psychiatric: Denies anxiety, Denies confusion and Denies depression Endocrine: Endocrine: Denies fatigue and Denies palpitations PMFSH Past Medical History Medical History Current use of anticoagulant therapy Essential hypertension Other pulmonary embolism without acute cor pulmonale PFO (patent foramen ovale) Pulmonary embolism Surgical History History of umbilical hernia repair (12/07/18) Family History Family History Mother Family hx of colon cancer Family hx of melanoma Brother Family history of throat cancer Sister Acute Crohn's disease Social History Social History Household Members: None Housing: Condominium Are you a primary director of primary care to a significant other at home: No Do you presently have visiting nurse or other home services: No Alcohol intake: never Patient Tobacco Use Status: Never used Tobacco Advance Directives: Yes Advance Directives Information Provided: No Advance Directives on File: No service: No Current occupational status: retired Physical Exam Vital Signs: Vital Signs: Last Vital Signs Temp 98 F 03/09/22 09:32 Pulse 87 03/09/22 09:32 Resp 18 03/09/22 09:32 BP 160/90 H 03/09/22 09:32 Pulse Ox 97 03/09/22 09:32 O2 Del Method 03/09/22 09:32 BMI result Body Mass Index 35.2 Const: General: No confusion Nutritional Appearance: well nourished Orientation/consciousness: No confusion Limitations: no limitations Eyes: Conjunctivae: conjunctivae normal Pupils: Equal, round and reactive pupils present EOM: EOMs intact bilaterally Neck: Neck: Yes full ROM, Yes no lymphadenopathy and Yes supple Resp: Effort & Inspection: normal respiratory effort and able to speak in complete sentences Auscultation: clear to auscultation bilaterally, no crackles, no rales, no rhonchi and no wheezes Cardio: Rate: regular rate Rhythm: regular rhythm Heart sounds: S1 normal heart sound present and S2 normal heart sound present GI: Inspection: Yes normal to inspection Palpation (GI): Soft to palpation, nontender, no guarding and not rigid Percussion: Yes normal to percussion Auscultation: normal bowel sounds Skin: General skin exam: no rashes or lesions noted Neuro: General: No confusion Cranial nerves: Yes Equal, round and reactive pupils present Extrem: Left upper extremity: normal capillary refill, no joint enlargement and hand Details: normal capillary refill, neuromotor exam normal, neurosensory exam normal, tenderness (snuffbox tenderness, and left thumb MCP joint tenderness) and normal ROM of fingers; no cyanosis and no edema Psych: Appearance: grossly normal Affect: normal affect Attitude: cooperative Thought process: Normal thought process present Course Course Course Narrative: 76-year-old female presents for atraumatic left hand pain that started 4 days ago. On exam, patient has red, and warm skin on the dorsum of her left hand, she is tender to palpate in her MCP joint of her left thumb, and she is tender over her snuffbox in her left wrist . Immobilize patient in thumb spica, prescribed prednisone and Keflex, follow up with Orthopedics XR/XR hand LT min 3V IMPRESSION: Degenerative changes most noted at the base of the thumb on the left. Degeneration appears moderate here. No acute finding. Discharge Plan Discharge Clinical Impression: Arthralgia of hand, left, Tenderness of anatomical snuffbox Patient Disposition: Home, Self-Care Additional Instructions: I have referred you to orthopedics. If you have not heard from them by the end of the day tomorrow, please call them at the following number [phone] please wear the thumb spica Velcro splint we have provided until you are seen and released by orthopedics. Please rest, ice, elevate your left hand. I have prescribed both prednisone for inflammation and an antibiotic for possible cellulitis. Prescriptions: New prednisone 20 mg tablet 60 mg PO DAILY 5 Days Qty: 15 0RF cephalexin 500 mg capsule 500 mg PO QID 7 Days Qty: 28 0RF No Action warfarin 2.5 mg tablet See Rx Instructions .ROUTE .COMPLEX Qty: 90 0RF Protocol: Dose Management Condition: Monday (Week One) Dose/Route: 3.75 mg Instruction: 1.5 x 2.5 mg tablets Condition: Monday Dose/Route: 2.5 mg Instruction: 1 x 2.5 mg tablet Condition: Monday Dose/Route: 2.5 mg Instruction: 1 x 2.5 mg tablet Condition: Monday Dose/Route: 2.5 mg Instruction: 1 x 2.5 mg tablet Condition: Dose/Route: 3.75 mg Instruction: 1.5 x 2.5 mg tablets Condition: Monday Dose/Route: 2.5 mg Instruction: 1 x 2.5 mg tablet Condition: Monday Dose/Route: 2.5 mg Instruction: 1 x 2.5 mg tablet Condition: Monday (Week Two) Dose/Route: 3.75 mg Instruction: 1.5 x 2.5 mg tablets Condition: Monday Dose/Route: 2.5 mg Instruction: 1 x 2.5 mg tablet Condition: Monday Dose/Route: 2.5 mg Instruction: 1 x 2.5 mg tablet Condition: Monday Dose/Route: 2.5 mg Instruction: 1 x 2.5 mg tablet Condition: Dose/Route: 3.75 mg Instruction: 1.5 x 2.5 mg tablets Condition: Monday Dose/Route: 2.5 mg Instruction: 1 x 2.5 mg tablet Condition: Monday Dose/Route: 2.5 mg Instruction: 1 x 2.5 mg tablet Protocol Text: Adjustment Start Date: Monday02/16/22 INR Value: 3.1 INR Date: 02/16/22 Recheck Date: 03/18/22 Additional Instructions: jolie irvin Rx Instructions: 3.75mg x4days/ 2.5mg mwf; 3.75mg x4days/ 2.5mg mwf metoprolol tartrate 25 mg tablet 25 mg PO DAILY simvastatin 20 mg tablet 20 mg PO BEDTIME hydrochlorothiazide 25 mg tablet 25 mg PO QAM levothyroxine 25 mcg tablet 25 mcg PO QAM ergocalciferol (vitamin D2) 1,250 mcg (50,000 unit) capsule 1,250 mcg PO QMONTH Rx Instructions: twice a month pantoprazole [Protonix] 20 mg tablet,delayed release (DR/EC) 20 mg PO DAILY alendronate 70 mg tablet 70 mg PO QWEEK aspirin [Adult Aspirin Regimen] 81 mg tablet,delayed release (DR/EC) 81 mg PO DAILY Referrals: Davian Man MD [Physician] - Interventions: ED Discharge Assessment Last Done: 03/09/22 13:58 Discharge Date/Time: 03/09/22 14:00
== END 2022-03-09 14:00 | disposition home or self-care (01) ==
PROVIDERS: Emergency Provider Emergency Medicine; PCP Internal Medicine
DX: M19.042 Primary osteoarthritis, left hand (principal); M79.642 Pain in left hand; I10 Essential (primary) hypertension; Z86.711 Personal history of pulmonary embolism; Z79.01 Long term (current) use of anticoagulants
CPT/HCPCS: 29125; 73130; 99283

== ENCOUNTER → 2022-03-10 13:58 | Outpatient (BNVA) | payer MEDICARE, SELFPAY | PROVIDERS: PCP Internal Medicine; Visit Provider Internal Medicine | DX: Z86.73 Personal history of transient ischemic attack (TIA), and cerebral infarction without residual deficits (principal); Z79.01 Long term (current) use of anticoagulants; Z51.81 Encounter for therapeutic drug level monitoring | CPT/HCPCS: Q3014 ==

== ENCOUNTER → 2022-03-16 08:01 | Outpatient (BNVA) | payer MEDICARE, SELFPAY | PROVIDERS: PCP Internal Medicine; Visit Provider Internal Medicine | DX: Z86.73 Personal history of transient ischemic attack (TIA), and cerebral infarction without residual deficits (principal); Z51.81 Encounter for therapeutic drug level monitoring; Z79.01 Long term (current) use of anticoagulants | CPT/HCPCS: 85610; 99211 ==

== ENCOUNTER → 2022-03-23 08:04 | Outpatient (BNVA) | payer MEDICARE, SELFPAY | PROVIDERS: PCP Internal Medicine; Visit Provider Internal Medicine | DX: Z86.73 Personal history of transient ischemic attack (TIA), and cerebral infarction without residual deficits (principal); Z79.01 Long term (current) use of anticoagulants; Z51.81 Encounter for therapeutic drug level monitoring | CPT/HCPCS: 85610; 99211 ==

== ENCOUNTER → 2022-04-13 07:55 | Outpatient (BNVA) | payer MEDICARE, SELFPAY | PROVIDERS: PCP Internal Medicine; Visit Provider Internal Medicine | DX: Z86.73 Personal history of transient ischemic attack (TIA), and cerebral infarction without residual deficits (principal); Z79.01 Long term (current) use of anticoagulants; Z51.81 Encounter for therapeutic drug level monitoring | CPT/HCPCS: 85610; 99211 ==

== ENCOUNTER 2022-04-14 10:42 | Outpatient (REF) | payer MEDICARE, SELFPAY ==
[2022-04-14 10:48] LABS: MANUAL DIFF FLAG NO
[2022-04-14 11:20] LABS: Basophils Absolute Auto 0.1 X10*3/uL (0.0-0.2); Basophils Percent Auto 0.7 % (0-2); Eosinophils Absolute Auto 0.1 X10*3/uL (0.0-0.4); Eosinophils Percent Auto 1.2 % (0-4); Hematocrit 37.7 % (37.0-47.0); Hemoglobin 12.5 g/dl (12.0-16.0); Imm Gran Abs Auto 0.03 X10*3/uL (0.00-0.03); Imm Gran Pct Auto 0.4 % (0.0-0.4); Lymphocytes Absolute Auto 2.2 X10*3/uL (1.2-4.9); Lymphocytes Percent Auto 31.7 % (20-40); Mean Corpuscular HGB Conc 33.2 g/dl (31.0-35.0); Mean Corpuscular Hemoglobin 29.8 pg (27.0-33.0); Mean Platelet Volume 12.3 fL (9.4-12.3); Monocytes Absolute Auto 0.7 X10*3/uL (0.1-1.2); Monocytes Percent Auto 10.6 % (2-11); Neutrophils Absolute Auto 3.8 x10*3/uL (2.0-8.3); Neutrophils Percent Auto 55.4 % (45-73); Platelet Count 243 X10*3/uL (160-400); Red Blood Count 4.19 X10*6/uL (4.20-5.50); Red Cell Distribution Width 15.5 % (11.0-16.0); White Blood Count 6.8 X10*3/uL (4.8-10.8)
[2022-04-14 11:22] LABS: Appearance Urine CLEAR; Color Urine YELLOW; Glucose Urine UA NEG (NEG); Leukocyte Esterase Urine TRACE (NEG); Nitrite Urine NEG (NEG); Specific Gravity - Urine 1.025 (1.005-1.025); Urine Blood 2+ (NEG); Urine Ketones NEG (NEG); Urine Protein NEG (NEG-TRACE)
[2022-04-14 11:37] LABS: Alanine Aminotransferase 10 U/L (0-31); Albumin Level 3.8 g/dL (3.5-5.0); Alkaline Phosphatase 56 U/L (39-117); Anion Gap 14 (12-20); Aspartate Amino Transferase 17 U/L (5-31); Bilirubin Total 0.7 mg/dL (0.0-1.0); Blood Urea Nitrogen 16 mg/dL (9-16); Calcium 8.9 mg/dL (8.4-10.2); Carbon Dioxide 25 mmol/L (22-29); Chloride 101 mmol/L (96-108); Cholesterol 160 mg/dL; Estimated Glomerular Filt Rate > 60; Glucose Fasting 89 mg/dL (60-99); HDL Cholesterol 69 mg/dL; LDL Cholesterol Calculated 71 mg/dl; Potassium 3.6 mmol/L (3.3-5.1); Sodium 136 mmol/L (135-145); Total Protein 6.7 g/dL (6.5-8.0); Triglycerides 100 mg/dL
[2022-04-14 12:00] LABS: TSH reflex Free T4 2.63 uIU/mL (0.32-4.0); Vitamin D 25-OH Total 27.2 ng/mL (>30)
[2022-04-14 12:51] LABS: Bacteria Urine 4+ /LPF; Squamous Epithelial Cell Urine 1+ /LPF
[2022-04-14 12:52] LABS: RBC Urine 0-2 /HPF (0)
== END 2022-04-14 10:43 | disposition home or self-care (01) ==
LOC: HO.LNP 10:42
PROVIDERS: Visit Provider Internal Medicine
DX: Z00.00 Encounter for general adult medical examination without abnormal findings (principal); E78.00 Pure hypercholesterolemia, unspecified; E03.9 Hypothyroidism, unspecified; E55.9 Vitamin D deficiency, unspecified; I10 Essential (primary) hypertension
CPT/HCPCS: 80053; 80061; 81001; 82306; 84443; 85025

== ENCOUNTER → 2022-05-11 07:58 | Outpatient (BNVA) | payer MEDICARE, SELFPAY | PROVIDERS: PCP Internal Medicine; Visit Provider Internal Medicine | DX: Z86.73 Personal history of transient ischemic attack (TIA), and cerebral infarction without residual deficits (principal); Z79.01 Long term (current) use of anticoagulants; Z51.81 Encounter for therapeutic drug level monitoring | CPT/HCPCS: 85610; 99211 ==

== ENCOUNTER → 2022-05-25 08:52 | Outpatient (BNVA) | payer MEDICARE, SELFPAY | PROVIDERS: PCP Internal Medicine; Visit Provider Internal Medicine | DX: Z86.73 Personal history of transient ischemic attack (TIA), and cerebral infarction without residual deficits (principal); Z79.01 Long term (current) use of anticoagulants; Z51.81 Encounter for therapeutic drug level monitoring | CPT/HCPCS: 85610; 99211 ==

== ENCOUNTER → 2022-06-07 09:39 | Outpatient (BNVA) | payer MEDICARE, SELFPAY | PROVIDERS: PCP Internal Medicine; Visit Provider Internal Medicine | DX: Z86.73 Personal history of transient ischemic attack (TIA), and cerebral infarction without residual deficits (principal); Z79.01 Long term (current) use of anticoagulants; Z51.81 Encounter for therapeutic drug level monitoring | CPT/HCPCS: 85610; 99211 ==

== ENCOUNTER → 2022-06-21 09:21 | Outpatient (BNVA) | payer MEDICARE, SELFPAY | PROVIDERS: PCP Internal Medicine; Visit Provider Internal Medicine | DX: Z86.73 Personal history of transient ischemic attack (TIA), and cerebral infarction without residual deficits (principal); Z79.01 Long term (current) use of anticoagulants; Z51.81 Encounter for therapeutic drug level monitoring | CPT/HCPCS: 85610; 99211 ==

== ENCOUNTER → 2022-07-05 09:05 | Outpatient (BNVA) | payer MEDICARE, SELFPAY | PROVIDERS: PCP Internal Medicine; Visit Provider Internal Medicine | DX: Z86.73 Personal history of transient ischemic attack (TIA), and cerebral infarction without residual deficits (principal); Z79.01 Long term (current) use of anticoagulants; Z51.81 Encounter for therapeutic drug level monitoring | CPT/HCPCS: 85610; 99211 ==

== ENCOUNTER → 2022-07-25 08:37 | Outpatient (BNVA) | payer MEDICARE, SELFPAY | PROVIDERS: PCP Internal Medicine; Visit Provider Internal Medicine | DX: Z86.73 Personal history of transient ischemic attack (TIA), and cerebral infarction without residual deficits (principal); Z79.01 Long term (current) use of anticoagulants; Z51.81 Encounter for therapeutic drug level monitoring | CPT/HCPCS: 85610; 99211 ==

== ENCOUNTER → 2022-08-08 08:47 | Outpatient (BNVA) | payer MEDICARE, SELFPAY | PROVIDERS: PCP Internal Medicine; Visit Provider Internal Medicine | DX: Z86.73 Personal history of transient ischemic attack (TIA), and cerebral infarction without residual deficits (principal); Z79.01 Long term (current) use of anticoagulants; Z51.81 Encounter for therapeutic drug level monitoring | CPT/HCPCS: 85610; 99211 ==

== ENCOUNTER → 2022-08-29 09:08 | Outpatient (BNVA) | payer MEDICARE, SELFPAY | PROVIDERS: PCP Internal Medicine; Visit Provider Internal Medicine | DX: Z86.73 Personal history of transient ischemic attack (TIA), and cerebral infarction without residual deficits (principal); Z79.01 Long term (current) use of anticoagulants; Z51.81 Encounter for therapeutic drug level monitoring | CPT/HCPCS: 85610; 99211 ==

== ENCOUNTER 2022-09-13 10:20 | Outpatient (REF) | payer MEDICARE, SELFPAY ==
--- NOTE | ~2022-09-13 | MM_ITS ---
EXAMINATION: BONE DENSITOMETRY CLINICAL INDICATION: Menopause. COMPARISON: Baseline BD dated 01/05/2016. TECHNIQUE: Using a [employer] DXA System (software version: 13.1) manufactured by [employer], dual-energy x-ray absorptiometry was performed of the lumbar spine and left hip. The images are of good technical quality. Summary results are attached. FINDINGS: AP SPINE L1-L4: Current: BMD 1.263 g/cm2, Z-score 1.9, T-score 0.7, normal, 23.6% increase from baseline (<5% change is not significant). Baseline: BMD 1.022 g/cm2. LEFT FEMUR, NECK: Current: BMD 0.998 g/cm2, Z-score 1.3, T-score -0.3, normal. Baseline: BMD 0.754 g/cm2. LEFT FEMUR, TOTAL: Current: BMD 0.932 g/cm2, Z-score 0.8, T-score -0.6, normal, 6.0% increase from baseline (<5% change is not significant). Baseline: BMD 0.879 g/cm2. IDENTIFIED RISK FACTORS: Menopause, hyperthyroid, secondary osteoporosis. HISTORY OF FRACTURE: None listed. MEDICATIONS: Vitamin D, bisphosphonate. MM/XR DEXA axial skeleton IMPRESSION: 1. DIAGNOSIS: Normal bone density based on the lowest T-score value of -0.6 in the total femur applying World Health Organization criteria. 2. 10-YEAR FRACTURE RISK PREDICTION, FRAX: According to the guidelines, FRAX calculation should only be performed on patients in the osteopenia bone density category. Therefore, FRAX was not performed on this patient. 3. Treatment Recommendations: NOF guidelines recommend consideration for treatment in postmenopausal women and men age 50 and older presenting with the following: -A hip or vertebral (clinical or morphometric) fracture. -T-score less than or equal to -2.5 at the femoral neck or spine after appropriate evaluation to exclude secondary causes. -Low bone mass at the hip or spine and a 10-year fracture probability by FRAX of greater than or equal to 3% for hip fracture or greater than or equal to 20% for major osteoporotic fracture based on the [place] adapted WHO algorithm. 4. Other Recommendations: All treatment decisions require clinical judgment and consideration of individual patient factors, including patient preferences, comorbidities, previous drug use, risk factors not captured in the FRAX model (e.g. frailty, falls, vitamin D deficiency, increased bone turnover, interval significant decline in bone density) and possible under or overestimation of fracture risk by FRAX. FUTURE SCAN RECOMMENDATION: People with diagnosed cases of osteoporosis or at high risk for fracture should have regular bone mineral density tests. For patients eligible for Medicare, routine testing is allowed once every 2 years. The testing frequency can be increased to one year for patients who have rapidly progressing disease, those who are receiving or discontinuing medical therapy to restore bone mass, or have additional risk factors.
== END 2022-09-13 10:21 | disposition home or self-care (01) ==
LOC: HO.MAMMO 10:20
PROVIDERS: PCP Internal Medicine; Visit Provider Internal Medicine
DX: Z13.820 Encounter for screening for osteoporosis (principal); Z78.0 Asymptomatic menopausal state
CPT/HCPCS: 77080

== ENCOUNTER → 2022-09-19 08:26 | Outpatient (BNVA) | payer MEDICARE, SELFPAY | PROVIDERS: PCP Internal Medicine; Visit Provider Internal Medicine | DX: Z86.73 Personal history of transient ischemic attack (TIA), and cerebral infarction without residual deficits (principal); Z79.01 Long term (current) use of anticoagulants; Z51.81 Encounter for therapeutic drug level monitoring | CPT/HCPCS: 85610; 99211 ==

== ENCOUNTER 2022-10-13 10:29 | Outpatient (REF) | payer MEDICARE, SELFPAY ==
[2022-10-13 12:13] LABS: Alanine Aminotransferase 13 U/L (0-31); Albumin Level 3.8 g/dL (3.5-5.0); Alkaline Phosphatase 60 U/L (39-117); Aspartate Amino Transferase 19 U/L (5-31); Bilirubin Direct 0.3 mg/dL (0.0-0.5); Bilirubin Total 0.7 mg/dL (0.0-1.0); Cholesterol 159 mg/dL; HDL Cholesterol 71 mg/dL; LDL Cholesterol Calculated 66 mg/dl; Total Protein 6.7 g/dL (6.5-8.0); Triglycerides 112 mg/dL
[2022-10-13 14:14] LABS: Reflex LDLD? No
== END 2022-10-13 10:30 | disposition home or self-care (01) ==
LOC: HO.LNP 10:29
PROVIDERS: Visit Provider Internal Medicine
DX: E78.00 Pure hypercholesterolemia, unspecified (principal)
CPT/HCPCS: 80061; 80076

== ENCOUNTER → 2022-10-17 08:40 | Outpatient (BNVA) | payer MEDICARE, SELFPAY | PROVIDERS: PCP Internal Medicine; Visit Provider Internal Medicine | DX: Z86.73 Personal history of transient ischemic attack (TIA), and cerebral infarction without residual deficits (principal); Z79.01 Long term (current) use of anticoagulants; Z51.81 Encounter for therapeutic drug level monitoring | CPT/HCPCS: 85610; 99211 ==

== ENCOUNTER → 2022-11-18 08:51 | Outpatient (BNVA) | payer MEDICARE, SELFPAY | PROVIDERS: PCP Internal Medicine; Visit Provider Internal Medicine | DX: Z86.73 Personal history of transient ischemic attack (TIA), and cerebral infarction without residual deficits (principal); Z79.01 Long term (current) use of anticoagulants; Z51.81 Encounter for therapeutic drug level monitoring | CPT/HCPCS: 85610; 99211 ==

== ENCOUNTER → 2022-12-02 08:57 | Outpatient (BNVA) | payer MEDICARE, SELFPAY | PROVIDERS: PCP Internal Medicine; Visit Provider Internal Medicine | DX: Z86.73 Personal history of transient ischemic attack (TIA), and cerebral infarction without residual deficits (principal); Z79.01 Long term (current) use of anticoagulants; Z51.81 Encounter for therapeutic drug level monitoring | CPT/HCPCS: 85610; 99211 ==

== ENCOUNTER 2022-12-17 06:48 | Emergency (ER) | payer MEDICARE, SELFPAY ==
--- NOTE | ~2022-12-17 | XR_ITS ---
EXAMINATION: XR KNEE, RIGHT CLINICAL INFORMATION: Right knee pain. COMPARISON: Right knee radiographs dated 06/19/2014. TECHNIQUE: AP and lateral views of the right knee. FINDINGS: Severe medial compartment joint space narrowing with prominent bony remodeling and subchondral sclerosis. Tricompartmental marginal osteophytes. No acute fracture or dislocation. Moderate joint effusion. Partially visualized varicosities within the peripheral soft tissues. No abnormal soft tissue calcification. XR/XR knee RT 2V IMPRESSION: Tricompartmental osteoarthritis, most severe within the medial compartment. Moderate joint effusion. Findings have significantly progressed when compared to the radiographs from 2013.
--- NOTE | ~2022-12-17 | US_ITS ---
EXAMINATION: US VENOUS WITH DOPPLER LOWER EXTREMITY, RIGHT CLINICAL INFORMATION: Right leg pain and swelling. Evaluate for deep vein thrombosis. COMPARISON: Lower extremity venous ultrasound dated 04/05/2016. TECHNIQUE: Ultrasound of the deep veins is performed from the hip to the calf with compression sonography and color and pulse Doppler assessment. Spectral analysis with color-flow imaging is performed. FINDINGS: There is normal venous compression and respiratory variation and augmented flow. The visualized common femoral vein, superficial femoral vein, profunda femoral vein, popliteal vein, and the trifurcation region shows no evidence of deep venous thrombosis. Keane's cyst within the popliteal fossa measuring up to 4.4 x 1.5 x 2.1 cm. If the patient's symptoms persist, followup ultrasound in 5 days 7 days might be of value to exclude proximal propagation from a non-visualized calf vein. US/US venous duplex LE RT IMPRESSION: 1. No DVT demonstrated in the right lower extremity. 2. Small Keane's cyst.
[2022-12-17 07:00] VITALS: BP 140/75; BP 147/84; PULSE 92; PULSE 99; RESP 20; TEMP 36.4; O2SAT 96; O2SAT 98; BMI 36.1
--- NOTE | 2022-12-17 07:37 | ED.EXTPRO ---
HPI - Extremity Problem General Chief complaint: Extremity Problem Stated complaint: Leg Pain Time Seen by Provider: 12/17/22 07:01 Source: patient and EMS Mode of arrival: EMS Limitations: no limitations History of Present Illness HPI Narrative: 77-year-old female came in by ambulance complaining of right knee pain and inability to bear weight on the right knee lower extremity. Patient declined any injury, fall, trauma to the right knee. The right knee pain is worsening with movement and walking. Related Data Home Medications Medication Instructions Recorded Confirmed ergocalciferol (vitamin D2) 1,250 1,250 mcg PO QMONTH 10/30/20 12/02/22 mcg (50,000 unit) capsule hydrochlorothiazide 25 mg tablet 25 mg PO QAM 10/30/20 12/02/22 levothyroxine 25 mcg tablet 25 mcg PO QAM 10/30/20 12/02/22 metoprolol tartrate 25 mg tablet 25 mg PO DAILY 10/30/20 12/02/22 pantoprazole 20 mg tablet,delayed 20 mg PO DAILY 10/30/20 12/02/22 release (Protonix) simvastatin 20 mg tablet 20 mg PO BEDTIME 10/30/20 12/02/22 aspirin 81 mg tablet,delayed 81 mg PO DAILY 02/18/21 12/02/22 release (Adult Aspirin Regimen) Previous Rx's Medication Instructions Recorded warfarin 2.5 mg tablet See Rx Instructions .Route 07/08/20 .COMPLEX #90 tabs Allergies Allergy/AdvReac Type Severity Reaction Status Date / Time cat dander [CATS] AdvReac Mild RASH Verified 12/02/22 08:58 raspberry [RASPBERRY] AdvReac Mild RASH Verified 12/02/22 08:58 Review of Systems Review of Systems: All other systems are reviewed and are negative Constitutional: Reports as per HPI and Reports no additional constitutional complaints Eyes: Reports as per HPI and Reports no additional eye complaints Reports system reviewed and no additional complaints, except as documented Cardiovascular: Reports as per HPI and Reports no additional cardiovascular complaints Respiratory: Reports as per HPI and Reports no additional respiratory complaints Gastrointestinal: Reports as per HPI and Reports no additional gastrointestinal complaints Genitourinary: Reports no additional female genitourinary complaints Musculoskeletal: Reports no additional musculoskeletal complaints Skin/Breast: Reports system reviewed and no additional complaints, except as docu Psychiatric: Reports no additional psychiatric complaints Endocrine: Reports no additional endocrine complaints Hematologic/Lymphatic: Reports no additional hematologic/lymphatic complaints Allergic/Immunologic: Reports no additional allergic/immunologic complaints Reports system reviewed and no additional complaints, except as documented and Reports Abnormal speech present [facility] Past Medical History Medical History Current use of anticoagulant therapy Essential hypertension Other pulmonary embolism without acute cor pulmonale PFO (patent foramen ovale) Pulmonary embolism Surgical History History of umbilical hernia repair (12/07/18) Family History Family History Mother Family hx of colon cancer Family hx of melanoma Brother Family history of throat cancer Sister Acute Crohn's disease Social History Social History Household Members: None Housing: Apartment Are you a primary critical care physician assistant to a significant other at home: No Do you presently have visiting nurse or other home services: No Alcohol intake: never Patient Tobacco Use Status: Never used Tobacco Smoked in Last 30 Days: No Use of substances other than those prescribed or required for medical reasons: No Advance Directives: Yes Advance Directives on File: No service: No Current occupational status: retired Physical Exam Vital Signs: Vital Signs: Last Vital Signs Temp 97.7 F 12/17/22 08:15 Pulse 71 12/17/22 08:15 Resp 17 12/17/22 08:15 BP 154/74 H 12/17/22 08:15 Pulse Ox 97 12/17/22 08:15 O2 Del Method 12/17/22 08:15 BMI result Body Mass Index 36.1 Vital signs have been reviewed as appeared to be correct. Blood pressure normal. Heart rate normal. Respiration rate normal. Temperature normal. Oxygen saturation normal. Appearance: Alert. Oriented X3. No acute distress. Head: Normal external exam. Normocephalic. Atraumatic. No Parra signs noted. No raccoon eyes noted Eyes: PERRLA. EOMI. Conjunctiva and sclera normal. Eyelids normal. ENT: TM's Normal. Pharynx normal. Uvula midline. Moist mucous membranes. No trismus noted. No drooling noted. No muffled voice noted. Neck: Normal inspection. Neck supple. FROM. No adenopathy. Thyroid Normal. No meningeal signs. No neck mass noted. CVS: Normal heart rate and rhythm. Heart sound normal. No murmurs noted. Pulses normal throughout. Respiratory: No respiratory distress. Painless inspiration. Breath sounds normal. No wheezes/rales/rhonchi noted. Chest nontender. No accessory muscle usage noted or decreased air movement noted. Abdomen: Soft and nontender. Bowel sounds normal in all 4 quadrants. No distention noted. No organomegaly noted. No visible injury noted. Back: No CVA tenderness. Full range of motion noted. Skin: Skin warm and dry. Normal skin color. Normal skin turgor. No rashes/lesions/lacerations noted. Extremities: Right knee exam: No deformity, step-off, neurovascular exam is intact, full range of motion of the right knee, stable ligamentous exam. Neuro: Oriented X 3. Cranial nerve exam: II-XII are grossly intact No motor deficit. No sensory deficit. Reflexes normal. Course Course Course Narrative: Right knee arthralgia and joint effusion, physical exam x-ray is consistent with possible arthritis due to gout attack. Will start the patient on 5 days of prednisone. Medical Decision Making Differential Diagnosis Differential Diagnoses: The differential diagnosis associated with the presentation includes (Ligamentous injury, fracture, dislocation/subluxation of the knee, arthritis, gout, DVT.) Independent Interpretation I performed an independent interpretation of an: Plain X-Ray (Right knee : No acute fracture or subluxation or dislocation.) and Ultrasound (Right lower extremity ultrasound: No DVT.) Radiology Impression Discussion of test interpretation with radiology: I have reviewed the radiologist's reading. Discharge Plan Discharge Clinical Impression: Arthralgia Patient Disposition: Home, Self-Care Instructions: Arthralgia (ED) Prescriptions: No Action warfarin 2.5 mg tablet See Rx Instructions .ROUTE .COMPLEX Qty: 90 0RF Protocol: Dose Management Condition: Monday (Week One) Dose/Route: 2.5 mg Instruction: 1 x 2.5 mg tablet Condition: Monday Dose/Route: 2.5 mg Instruction: 1 x 2.5 mg tablet Condition: Monday Dose/Route: 2.5 mg Instruction: 1 x 2.5 mg tablet Condition: Monday Dose/Route: 2.5 mg Instruction: 1 x 2.5 mg tablet Condition: Dose/Route: 2.5 mg Instruction: 1 x 2.5 mg tablet Condition: Monday Dose/Route: 2.5 mg Instruction: 1 x 2.5 mg tablet Condition: Monday Dose/Route: 2.5 mg Instruction: 1 x 2.5 mg tablet Condition: Monday (Week Two) Dose/Route: 2.5 mg Instruction: 1 x 2.5 mg tablet Condition: Monday Dose/Route: 2.5 mg Instruction: 1 x 2.5 mg tablet Condition: Monday Dose/Route: 2.5 mg Instruction: 1 x 2.5 mg tablet Condition: Monday Dose/Route: 2.5 mg Instruction: 1 x 2.5 mg tablet Condition: Dose/Route: 2.5 mg Instruction: 1 x 2.5 mg tablet Condition: Monday Dose/Route: 2.5 mg Instruction: 1 x 2.5 mg tablet Condition: Monday Dose/Route: 2.5 mg Instruction: 1 x 2.5 mg tablet Protocol Text: Adjustment Start Date: Monday12/02/22 INR Value: 2.2 INR Date: 12/02/22 Recheck Date: 12/30/22 Additional Instructions: EAT A MIX OF REDS AND GREENS Rx Instructions: 3.75mg x4days/ 2.5mg mwf; 3.75mg x4days/ 2.5mg mwf metoprolol tartrate 25 mg tablet 25 mg PO DAILY simvastatin 20 mg tablet 20 mg PO BEDTIME hydrochlorothiazide 25 mg tablet 25 mg PO QAM levothyroxine 25 mcg tablet 25 mcg PO QAM ergocalciferol (vitamin D2) 1,250 mcg (50,000 unit) capsule 1,250 mcg PO QMONTH Rx Instructions: twice a month pantoprazole [Protonix] 20 mg tablet,delayed release (DR/EC) 20 mg PO DAILY aspirin [Adult Aspirin Regimen] 81 mg tablet,delayed release (DR/EC) 81 mg PO DAILY Referrals: Larry Meyers MD [Primary Care Provider] - Davian Man MD [Physician] -
[2022-12-17 08:15] VITALS: BP 154/74; PULSE 71; RESP 17; TEMP 36.5; O2SAT 97
== END 2022-12-17 10:32 | disposition home or self-care (01) ==
PROVIDERS: Emergency Provider Emergency Medicine; PCP Internal Medicine
DX: M17.11 Unilateral primary osteoarthritis, right knee (principal); M71.21 Synovial cyst of popliteal space [Baker], right knee; M25.561 Pain in right knee; I10 Essential (primary) hypertension; Z86.711 Personal history of pulmonary embolism; Z79.02 Long term (current) use of antithrombotics/antiplatelets; Z79.82 Long term (current) use of aspirin; Z79.01 Long term (current) use of anticoagulants
CPT/HCPCS: 73560; 93971; 99284

== ENCOUNTER → 2022-12-23 13:58 | Outpatient (BNVA) | payer MEDICARE, SELFPAY | PROVIDERS: PCP Internal Medicine; Visit Provider Internal Medicine | DX: Z79.01 Long term (current) use of anticoagulants (principal) ==

== ENCOUNTER → 2022-12-30 08:55 | Outpatient (BNVA) | payer MEDICARE, SELFPAY | PROVIDERS: PCP Internal Medicine; Visit Provider Internal Medicine | DX: Z86.73 Personal history of transient ischemic attack (TIA), and cerebral infarction without residual deficits (principal); Z79.01 Long term (current) use of anticoagulants; Z51.81 Encounter for therapeutic drug level monitoring | CPT/HCPCS: 85610; 99211 ==

== ENCOUNTER → 2023-01-26 08:29 | Outpatient (BNVA) | payer MEDICARE, SELFPAY | PROVIDERS: PCP Internal Medicine; Visit Provider Internal Medicine | DX: Z86.73 Personal history of transient ischemic attack (TIA), and cerebral infarction without residual deficits (principal); Z79.01 Long term (current) use of anticoagulants; Z51.81 Encounter for therapeutic drug level monitoring | CPT/HCPCS: 85610; 99211 ==

== ENCOUNTER → 2023-02-23 07:59 | Outpatient (BNVA) | payer MEDICARE, SELFPAY | PROVIDERS: PCP Internal Medicine; Visit Provider Internal Medicine | DX: Z86.73 Personal history of transient ischemic attack (TIA), and cerebral infarction without residual deficits (principal); Z79.01 Long term (current) use of anticoagulants; Z51.81 Encounter for therapeutic drug level monitoring | CPT/HCPCS: 85610; 99211 ==

== ENCOUNTER → 2023-03-29 10:49 | Outpatient (BNVA) | payer MEDICARE, SELFPAY | PROVIDERS: PCP Internal Medicine; Visit Provider Internal Medicine | DX: Z86.73 Personal history of transient ischemic attack (TIA), and cerebral infarction without residual deficits (principal); Z79.01 Long term (current) use of anticoagulants; Z51.81 Encounter for therapeutic drug level monitoring | CPT/HCPCS: 85610; 99211 ==

== ENCOUNTER 2023-04-13 11:51 | Outpatient (REF) | payer MEDICARE, SELFPAY ==
[2023-04-13 11:55] LABS: MANUAL DIFF FLAG NO
[2023-04-13 12:59] LABS: Basophils Percent Auto 0.7 % (0-2); Eosinophils Absolute Auto 0.1 X10*3/uL (0.0-0.4); Eosinophils Percent Auto 1.7 % (0-4); Hematocrit 38.1 % (37.0-47.0); Hemoglobin 12.6 g/dl (12.0-16.0); Imm Gran Abs Auto 0.01 X10*3/uL (0.00-0.03); Imm Gran Pct Auto 0.2 % (0.0-0.4); Lymphocytes Absolute Auto 1.9 X10*3/uL (1.2-4.9); Lymphocytes Percent Auto 31.7 % (20-40); Mean Corpuscular HGB Conc 33.1 g/dl (31.0-35.0); Mean Corpuscular Hemoglobin 29.9 pg (27.0-33.0); Mean Corpuscular Volume 90.3 fL (80.0-98.0); Mean Platelet Volume 12.1 fL (9.4-12.3); Monocytes Absolute Auto 0.5 X10*3/uL (0.1-1.2); Monocytes Percent Auto 8.5 % (2-11); Neutrophils Absolute Auto 3.5 x10*3/uL (2.0-8.3); Neutrophils Percent Auto 57.2 % (45-73); Platelet Count 215 X10*3/uL (160-400); Red Blood Count 4.22 X10*6/uL (4.20-5.50); Red Cell Distribution Width 14.7 % (11.0-16.0)
[2023-04-13 13:05] LABS: Appearance Urine Cloudy; Color Urine Yellow; Glucose Urine UA Negative (Negative); Leukocyte Esterase Urine Large (3+) (Negative); Nitrite Urine Negative (Negative); PH 5.5 (5.0-9.0); Specific Gravity - Urine 1.015 (1.005-1.025); UMIC TRIGGER UACC YES; Urine Blood Small (1+) (Negative); Urine Ketones Negative (Negative); Urine Protein Negative (Neg-Trace)
[2023-04-13 13:23] LABS: Bacteria Urine 4+ (None Seen); Hyaline Casts Urine 0-2 /LPF (0-2); RBC Urine 0-2 /HPF (0-2); Squamous Epithelial Cell Urine 0-2 /HPF (0-2); UACC Culture Trigger YES; WBC Clumps Urine Present; WBC Urine >50 /HPF (0-5)
[2023-04-13 13:39] LABS: Alanine Aminotransferase 8 U/L (0-31); Albumin Level 3.6 g/dL (3.5-5.0); Alkaline Phosphatase 55 U/L (39-117); Anion Gap 16 (12-20); Aspartate Amino Transferase 17 U/L (5-31); Bilirubin Total 0.8 mg/dL (0.0-1.0); Blood Urea Nitrogen 14 mg/dL (9-16); Calcium 9.9 mg/dL (8.4-10.2); Carbon Dioxide 25 mmol/L (22-29); Chloride 98 mmol/L (96-108); Cholesterol 149 mg/dL; Estimated Glomerular Filt Rate > 60; Glucose Fasting 84 mg/dL (60-99); HDL Cholesterol 68 mg/dL; LDL Cholesterol Calculated 63 mg/dl; Potassium 3.8 mmol/L (3.3-5.1); Sodium 135 mmol/L (135-145); Triglycerides 92 mg/dL
[2023-04-13 13:46] LABS: TSH reflex Free T4 3.63 uIU/mL (0.32-4.0); Vitamin D 25-OH Total 26.4 ng/mL (>30)
== END 2023-04-13 11:52 | disposition home or self-care (01) ==
LOC: HO.LNP 11:51
PROVIDERS: Visit Provider Internal Medicine
DX: Z00.00 Encounter for general adult medical examination without abnormal findings (principal); E03.9 Hypothyroidism, unspecified; E78.00 Pure hypercholesterolemia, unspecified; E55.9 Vitamin D deficiency, unspecified; I10 Essential (primary) hypertension; R82.90 Unspecified abnormal findings in urine
CPT/HCPCS: 80053; 80061; 81001; 82306; 84443; 85025; 87086; 87088; 87186

== ENCOUNTER 2023-04-27 08:41 | Outpatient (AMB) | payer MEDICARE, SELFPAY ==
--- NOTE | 2023-04-27 09:02 | MHC.OFFVISCO ---
Intake Intake Visit Reasons: Anticoagulation Allergies cat dander [CATS] Adverse Reaction (Mild, Verified 04/27/23 08:52) RASH raspberry [RASPBERRY] Adverse Reaction (Mild, Verified 04/27/23 08:52) RASH Medication List - Last Reconciled 04/27/23 by Meenu Mcconnell RN aspirin (Adult Aspirin Regimen) 81 mg PO DAILY ergocalciferol (vitamin D2) 1,250 mcg PO QMONTH hydrochlorothiazide 25 mg PO QAM levothyroxine 25 mcg PO QAM metoprolol tartrate 25 mg PO DAILY pantoprazole (Protonix) 20 mg PO DAILY simvastatin 20 mg PO BEDTIME warfarin See Protocol 3.75mg x4days/ 2.5mg mwf; 3.75mg x4days/ 2.5mg mwf Nursing Note Amb to [facility] accomp by daughter, cynthia weel, sts she has an appt with Dr Qureshi after this visit Medications and supplements reviewed, sts she was on antibiotic a couple weeks ago, can't remember the name, it was for a UTI I didn't know I had gentle reminder to call us with any medication changes especially antibiotics No other changes in health, diet, medications, or supplements Denies any unusual signs and symptoms of bruising, bleeding Denies any new Chest pain, SOB, or clotting INR: 2.3 in therapeutic range Nutritional guidance given: balance greens and reds in diet, be consistent, watch the reds of summer Dose: continue usual dosing;2.5mg daily F/U INR: 4 weeks Patient verbalizes understanding of instructions given with accurate read back/ teach back of dosing Anti-Coag Initial Assessment Social Hx Patient Tobacco Use Status: Never used Tobacco alcohol intake: never Alcohol intake frequency: does not drink Coding Level of Care Code Est Patient Level 1 Diagnoses Current use of anticoagulant therapy Z79.01 Time Spent (min) 15 Results AMB INR Fingerstick AMB INR Fingerstick 2.3 Last Edit by Meenu Mcconnell RN on 04/27/23 09:01 interface failure Assessment & Plan Assessment & Plan (1) Current use of anticoagulant therapy: Code(s): Z79.01 - nursing home (current) use of anticoagulants Category: Medical
[2023-04-27 09:26] LABS: ~PT, ~INR - Anti Coag Clinic 2.3 (0.9-1.1)
== END 2023-04-27 09:09 | disposition home or self-care (01) ==
LOC: HO.ACS 08:41
PROVIDERS: PCP Internal Medicine; Visit Provider Internal Medicine
DX: Z79.01 Long term (current) use of anticoagulants (principal)

== ENCOUNTER → 2023-04-27 08:41 | Outpatient (BNVA) | payer MEDICARE, SELFPAY | PROVIDERS: PCP Internal Medicine; Visit Provider Internal Medicine | DX: Q21.10 Atrial septal defect, unspecified (principal); I26.99 Other pulmonary embolism without acute cor pulmonale; I10 Essential (primary) hypertension; Z86.73 Personal history of transient ischemic attack (TIA), and cerebral infarction without residual deficits; Z79.01 Long term (current) use of anticoagulants; Z51.81 Encounter for therapeutic drug level monitoring | CPT/HCPCS: 85610; 93005; 99211; 99212 ==

== ENCOUNTER 2023-04-27 09:12 | Outpatient (AMB) | payer MEDICARE, SELFPAY ==
--- NOTE | 2023-04-27 09:49 | MHC.OFFVIS ---
Intake Vital Signs 04/27/23 09:53 Height 5 ft Weight 180 lb 5.41 oz BMI 35.2 BP 132/86 Blood Pressure Location Lt brachial Position Sitting Pulse 67 Intake Visit Reasons: R/S 1 year follow up Intake Note: 1 year follow up Filling Hauler Required: No Accompanied by: Self / Same As Patient Allergies cat dander [CATS] Adverse Reaction (Mild, Verified 04/27/23 09:54) RASH raspberry [RASPBERRY] Adverse Reaction (Mild, Verified 04/27/23 09:54) RASH Medication List - Last Reconciled 04/27/23 by Raman Qureshi MD aspirin (Adult Aspirin Regimen) 81 mg PO DAILY ergocalciferol (vitamin D2) 1,250 mcg PO QMONTH hydrochlorothiazide 25 mg PO QAM levothyroxine 25 mcg PO QAM metoprolol tartrate 25 mg PO DAILY pantoprazole (Protonix) 20 mg PO DAILY simvastatin 20 mg PO BEDTIME warfarin See Protocol 3.75mg x4days/ 2.5mg mwf; 3.75mg x4days/ 2.5mg mwf HPI HPI Comments History of Present Illness Details Mary returns for follow-up regarding patent foramen ovale and prior strokes. Overall, no specific cardiac symptoms. No complaints like angina or shortness of breath or palpitations or in fact anything cardiac sounding. [facility] Medical History Current use of anticoagulant therapy Essential hypertension Other pulmonary embolism without acute cor pulmonale PFO (patent foramen ovale) Pulmonary embolism Surgical History History of umbilical hernia repair (12/07/18) Family History Mother Family hx of colon cancer Family hx of melanoma Brother Family history of throat cancer Sister Acute Crohn's disease Social History Household Members: None Housing: Apartment Are you a primary assistant child care teacher to a significant other at home: No Do you presently have visiting nurse or other home services: No Alcohol intake: never Patient Tobacco Use Status: Never used Tobacco service: No Current occupational status: retired Review of Systems Const Denies chills, Denies fatigue, Denies fever(s), Denies frequent falls, Denies weakness, Denies weight gain and Denies weight loss ENT Denies dizziness Card Denies chest pain, Denies leg edema, Denies lightheadedness, Denies palpitations, Denies dyspnea, Denies dyspnea on exertion, Denies orthopnea and Denies other (Loss of consciousness) Resp Denies cough, Denies dyspnea and Denies dyspnea on exertion GI Denies hematochezia and Denies change in bowel habits Musc Denies abnormal gait, Denies muscle weakness, Denies numbness, Denies radiating pain into limb and Denies tingling Neuro Denies abnormal gait, Denies dizziness, Denies frequent falls, Denies numbness, Denies tingling and Denies weakness Endo Denies fatigue and Denies palpitations Physical Exam Vital Signs: Last Vital Signs Pulse 67 04/27/23 09:53 BP 132/86 04/27/23 09:53 BMI result Body Mass Index 35.2 Const General: comfortable and no acute distress Orientation/consciousness: patient oriented x3 HEENT Other: Unremarkable Head: Yes normal to inspection Neck Neck: Yes normal visual inspection Chest Chest palpation & inspection: normal inspection of the chest Resp Auscultation: clear to auscultation bilaterally Cardio Palpation: normal PMI Heart sounds: S1 normal heart sound present, S2 normal heart sound present, no gallops, no murmurs and no rubs GI Palpation (GI): Soft to palpation Back/Spine/Pelvis Other: unremarkable Skin General skin exam: no rashes or lesions noted Neuro General: patient oriented x3 Extrem General: Yes normal to inspection Psych Mental Status: mental status grossly normal Office Procedures EKG Details: EKG with sinus rhythm at 67/Min; no significant ST-T changes and otherwise unremarkable. [place] [address]-[id number], Complete Results AMB INR Fingerstick AMB INR Fingerstick 2.3 Last Edit by Meenu Mcconnell RN on 04/27/23 09:01 interface failure Assessment & Plan Assessment & Plan (1) PFO (patent foramen ovale): Code(s): Q21.1 - Atrial septal defect Plan: Diagnosed in 2006. She has been on aspirin and Coumadin for the last few years and generally doing good. She started Coumadin only in 2013 after the diagnosis of pulmonary embolism and has not had any events since. No further changes at this time. (2) Other pulmonary embolism without acute cor pulmonale: Code(s): I26.99 - Other pulmonary embolism without acute cor pulmonale Plan: In 2013. Fairly extensive and unprovoked. Long-term anticoagulation. No concerns from patient. (3) Essential hypertension: Code(s): I10 - Essential (primary) hypertension Plan: Stable. Coding Level of Care Code Est Pt Level 3 (34117) Diagnoses PFO (patent foramen ovale) Q21.1 Other pulmonary embolism without acute cor pulmonale I26.99 Essential hypertension I10 CPT Codes EKG - CPT: 42897-[id number], Complete ([id number])
[2023-04-27 09:53] VITALS: BP 132/86; PULSE 67; BMI 35.2
== END 2023-04-27 10:13 | disposition home or self-care (01) ==
PROVIDERS: PCP Internal Medicine; Referring Provider Internal Medicine; Visit Provider Internal Medicine
DX: Q21.10 Atrial septal defect, unspecified (principal); I26.99 Other pulmonary embolism without acute cor pulmonale; I10 Essential (primary) hypertension
CPT/HCPCS: 93010; 99213

== ENCOUNTER 2023-05-01 17:52 | Outpatient (REF) | payer MEDICARE, SELFPAY ==
[2023-05-01 18:01] LABS: Appearance Urine Clear; Color Urine Yellow; Glucose Urine UA Negative (Negative); Leukocyte Esterase Urine Negative (Negative); Nitrite Urine Negative (Negative); UMIC TRIGGER UACC YES; Urine Blood Trace (Negative); Urine Ketones Negative (Negative); Urine Protein Negative (Neg-Trace)
[2023-05-01 18:06] LABS: Bacteria Urine None Seen (None Seen); Hyaline Casts Urine 0-2 /LPF (0-2); WBC Urine 0-5 /HPF (0-5)
== END 2023-05-01 17:53 | disposition home or self-care (01) ==
LOC: HO.LNP 17:52
PROVIDERS: PCP Internal Medicine; Visit Provider Internal Medicine
DX: R31.9 Hematuria, unspecified (principal)
CPT/HCPCS: 81001

== ENCOUNTER 2023-05-25 08:11 | Outpatient (AMB) | payer MEDICARE, SELFPAY ==
[2023-05-25 08:21] LABS: Prothrombin Time Whole Bld POC 28.4 sec (11.1-13.5); ~PT, ~INR - Anti Coag Clinic 2.4 (0.9-1.1)
--- NOTE | 2023-05-25 08:21 | MHC.OFFVISCO ---
Intake Intake Visit Reasons: Anticoagulation Allergies cat dander [CATS] Adverse Reaction (Mild, Verified 05/25/23 08:17) RASH raspberry [RASPBERRY] Adverse Reaction (Mild, Verified 05/25/23 08:17) RASH Medication List - Last Reconciled 05/25/23 by Yolande Vogt RN aspirin (Adult Aspirin Regimen) 81 mg PO DAILY ergocalciferol (vitamin D2) 1,250 mcg PO QMONTH hydrochlorothiazide 25 mg PO QAM levothyroxine 25 mcg PO QAM metoprolol tartrate 25 mg PO DAILY pantoprazole (Protonix) 20 mg PO DAILY simvastatin 20 mg PO BEDTIME warfarin See Protocol 3.75mg x4days/ 2.5mg mwf; 3.75mg x4days/ 2.5mg mwf Nursing Note INR: [2.4-in therapeutic range Medications and supplements reviewed- no changes No changes in health, diet, medications, or supplements, Denies any signs and symptoms of bleeding or bruising or clotting. Bleeding, bruising, clotting discussed Nutritional guidance given Dose: 2.5mg x 7 F/U INR: 4 weeks Patient verbalizes understanding of instructions given kris rendon present for visit Anti-Coag Initial Assessment Social Hx Patient Tobacco Use Status: Never used Tobacco alcohol intake: never Alcohol intake frequency: does not drink Coding Level of Care Code Est Patient Level 1 Diagnoses Current use of anticoagulant therapy Z79.01 Results AMB INR Fingerstick AMB INR Fingerstick 2.4 Last Edit by Yolande Vogt RN on 05/25/23 08:21 Assessment & Plan Assessment & Plan (1) Current use of anticoagulant therapy: 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
== END 2023-05-25 08:30 | disposition home or self-care (01) ==
LOC: HO.ACS 08:11
PROVIDERS: PCP Internal Medicine; Visit Provider Internal Medicine
DX: Z79.01 Long term (current) use of anticoagulants (principal)

== ENCOUNTER → 2023-05-25 08:11 | Outpatient (BNVA) | payer MEDICARE, SELFPAY | PROVIDERS: PCP Internal Medicine; Visit Provider Internal Medicine | DX: Z86.73 Personal history of transient ischemic attack (TIA), and cerebral infarction without residual deficits (principal); Z79.01 Long term (current) use of anticoagulants; Z51.81 Encounter for therapeutic drug level monitoring | CPT/HCPCS: 85610; 99211 ==

== ENCOUNTER → 2023-06-22 09:04 | Outpatient (BNVA) | payer MEDICARE, SELFPAY | PROVIDERS: PCP Internal Medicine; Visit Provider Internal Medicine | DX: Z86.73 Personal history of transient ischemic attack (TIA), and cerebral infarction without residual deficits (principal); Z79.01 Long term (current) use of anticoagulants; Z51.81 Encounter for therapeutic drug level monitoring | CPT/HCPCS: 85610; 99211 ==

== ENCOUNTER 2023-07-20 09:01 | Outpatient (AMB) | payer MEDICARE, SELFPAY ==
--- NOTE | 2023-07-20 09:22 | MHC.OFFVISCO ---
Intake Intake Visit Reasons: Anticoagulation Allergies cat dander [CATS] Adverse Reaction (Mild, Verified 07/20/23 09:17) RASH raspberry [RASPBERRY] Adverse Reaction (Mild, Verified 07/20/23 09:17) RASH Medication List - Last Reconciled 07/20/23 by Yolande Vogt, RN aspirin (Adult Aspirin Regimen) 81 mg PO DAILY ergocalciferol (vitamin D2) 1,250 mcg PO QMONTH hydrochlorothiazide 25 mg PO QAM levothyroxine 25 mcg PO QAM metoprolol tartrate 25 mg PO DAILY pantoprazole (Protonix) 20 mg PO DAILY simvastatin 20 mg PO BEDTIME warfarin See Protocol 3.75mg x4days/ 2.5mg mwf; 3.75mg x4days/ 2.5mg mwf Nursing Note INR: 2.3- in therapeutic range 2-3 Medications and supplements reviewed- flu shot 3 weeks ago No changes in health, diet, medications, or supplements, Denies any signs and symptoms of bleeding or bruising or clotting. Bleeding, bruising, clotting discussed Nutritional guidance given Dose: 2.5mg x 7 F/U INR: 4 weeks Patient verbalizes understanding of instructions given pt with increased stress with grandaughter miscarriage, issues with daughter Anti-Coag Initial Assessment Social Hx Patient Tobacco Use Status: Never used Tobacco alcohol intake: never Alcohol intake frequency: does not drink Coding Level of Care Code Est Patient Level 1 Diagnoses Current use of anticoagulant therapy Z79.01 Assessment & Plan Assessment & Plan (1) Current use of anticoagulant therapy: Code(s): Z79.01 - residential (current) use of anticoagulants Category: Medical Medications: Changed From warfarin See Protocol 3.75mg x4days/ 2.5mg mwf; 3.75mg x4days/ 2.5mg mwf 90 tabs 0RF To warfarin 2.5 mg See Protocol PO DAILY 90 tabs 0RF
[2023-07-20 09:23] LABS: Prothrombin Time Whole Bld POC 27.8 sec (11.1-13.5); ~PT, ~INR - Anti Coag Clinic 2.3 (0.9-1.1)
== END 2023-07-20 09:29 | disposition home or self-care (01) ==
LOC: HO.ACS 09:01
PROVIDERS: PCP Internal Medicine; Visit Provider Internal Medicine
DX: Z79.01 Long term (current) use of anticoagulants (principal)

== ENCOUNTER → 2023-07-20 09:01 | Outpatient (BNVA) | payer MEDICARE, SELFPAY | PROVIDERS: PCP Internal Medicine; Visit Provider Internal Medicine | DX: Z86.73 Personal history of transient ischemic attack (TIA), and cerebral infarction without residual deficits (principal); Z79.01 Long term (current) use of anticoagulants; Z51.81 Encounter for therapeutic drug level monitoring | CPT/HCPCS: 85610; 99211 ==

== ENCOUNTER 2023-08-18 10:20 | Outpatient (AMB) | payer MEDICARE, SELFPAY ==
[2023-08-18 10:42] LABS: Prothrombin Time Whole Bld POC 24.2 sec (11.1-13.5)
--- NOTE | 2023-08-18 10:45 | MHC.OFFVISCO ---
Intake Intake Visit Reasons: Anticoagulation Allergies cat dander [CATS] Adverse Reaction (Mild, Verified 08/18/23 10:36) RASH raspberry [RASPBERRY] Adverse Reaction (Mild, Verified 08/18/23 10:36) RASH Medication List - Last Reconciled 08/18/23 by Fany Leger RN aspirin (Adult Aspirin Regimen) 81 mg PO DAILY ergocalciferol (vitamin D2) 1,250 mcg PO QMONTH hydrochlorothiazide 25 mg PO QAM levothyroxine 25 mcg PO QAM metoprolol tartrate 25 mg PO DAILY pantoprazole (Protonix) 20 mg PO DAILY simvastatin 20 mg PO BEDTIME warfarin 2.5 mg See Protocol PO DAILY Nursing Note INR: 2.0 in therapeutic range Medications and supplements reviewed No changes in health, diet, medications, or supplements, Denies any signs and symptoms of bleeding or bruising or clotting. Bleeding, bruising, clotting discussed Nutritional guidance given Dose: 2.5MG DAILY F/U INR: 4 WEEKS Patient verbalizes understanding of instructions given Anti-Coag Initial Assessment Social Hx Patient Tobacco Use Status: Never used Tobacco alcohol intake: never Alcohol intake frequency: does not drink Coding Level of Care Code Est Patient Level 1 Diagnoses Current use of anticoagulant therapy Z79.01 Assessment & Plan Assessment & Plan (1) Current use of anticoagulant therapy: Code(s): Z79.01 - [facility] (current) use of anticoagulants Category: Medical
== END 2023-08-18 10:47 | disposition home or self-care (01) ==
LOC: HO.ACS 10:20
PROVIDERS: PCP Internal Medicine; Visit Provider Internal Medicine
DX: Z79.01 Long term (current) use of anticoagulants (principal)

== ENCOUNTER → 2023-08-18 10:20 | Outpatient (BNVA) | payer MEDICARE, SELFPAY | PROVIDERS: PCP Internal Medicine; Visit Provider Internal Medicine | DX: Z86.73 Personal history of transient ischemic attack (TIA), and cerebral infarction without residual deficits (principal); Z79.01 Long term (current) use of anticoagulants; Z51.81 Encounter for therapeutic drug level monitoring | CPT/HCPCS: 85610; 99211 ==

== ENCOUNTER 2023-09-15 09:41 | Outpatient (AMB) | payer MEDICARE, SELFPAY ==
[2023-09-15 09:51] LABS: Prothrombin Time Whole Bld POC 29.8 sec (11.1-13.5); ~PT, ~INR - Anti Coag Clinic 2.5 (0.9-1.1)
--- NOTE | 2023-09-15 09:55 | MHC.OFFVISCO ---
Intake Intake Visit Reasons: Anticoagulation Allergies cat dander [CATS] Adverse Reaction (Mild, Verified 09/15/23 09:44) RASH raspberry [RASPBERRY] Adverse Reaction (Mild, Verified 09/15/23 09:44) RASH Medication List - Last Reconciled 09/15/23 by Fany Leger RN aspirin (Adult Aspirin Regimen) 81 mg PO DAILY ergocalciferol (vitamin D2) 1,250 mcg PO QMONTH hydrochlorothiazide 25 mg PO QAM levothyroxine 25 mcg PO QAM metoprolol tartrate 25 mg PO DAILY pantoprazole (Protonix) 20 mg PO DAILY simvastatin 20 mg PO BEDTIME warfarin 2.5 mg See Protocol PO DAILY Nursing Note INR: 2.5 in therapeutic range Medications and supplements reviewed No changes in health, diet, medications, or supplements, Denies any signs and symptoms of bleeding or bruising or clotting. 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
== END 2023-09-15 09:57 | disposition home or self-care (01) ==
LOC: HO.ACS 09:41
PROVIDERS: PCP Internal Medicine; Visit Provider Internal Medicine
DX: Z79.01 Long term (current) use of anticoagulants (principal)

== ENCOUNTER → 2023-09-15 09:41 | Outpatient (BNVA) | payer MEDICARE, SELFPAY | PROVIDERS: PCP Internal Medicine; Visit Provider Internal Medicine | DX: Z86.73 Personal history of transient ischemic attack (TIA), and cerebral infarction without residual deficits (principal); Z79.01 Long term (current) use of anticoagulants; Z51.81 Encounter for therapeutic drug level monitoring | CPT/HCPCS: 85610; 99211 ==

== ENCOUNTER → 2023-10-19 10:49 | Outpatient (BNVA) | payer MEDICARE, SELFPAY | PROVIDERS: PCP Internal Medicine; Visit Provider Internal Medicine | DX: Z86.73 Personal history of transient ischemic attack (TIA), and cerebral infarction without residual deficits (principal); Z79.01 Long term (current) use of anticoagulants; Z51.81 Encounter for therapeutic drug level monitoring | CPT/HCPCS: 85610; 99211 ==

== ENCOUNTER 2023-10-23 11:50 | Outpatient (REF) | payer MEDICARE, SELFPAY ==
[2023-10-23 12:53] LABS: Alanine Aminotransferase 9 U/L (0-31); Albumin Level 3.9 g/dL (3.5-5.0); Alkaline Phosphatase 60 U/L (39-117); Aspartate Amino Transferase 19 U/L (5-31); Bilirubin Direct 0.3 mg/dL (0.0-0.5); Bilirubin Total 0.7 mg/dL (0.0-1.0); Cholesterol 153 mg/dL (<200); HDL Cholesterol 76 mg/dL (>40); LDL Cholesterol Calculated 56 mg/dL (<100); Total Protein 7.5 g/dL (6.5-8.0); Triglycerides 109 mg/dL (<150)
[2023-10-23 14:47] LABS: Reflex LDLD? No
== END 2023-10-23 11:51 | disposition home or self-care (01) ==
LOC: HO.LNP 11:50
PROVIDERS: Visit Provider Internal Medicine
DX: E78.00 Pure hypercholesterolemia, unspecified (principal)
CPT/HCPCS: 80061; 80076

== ENCOUNTER 2023-11-02 09:43 | Outpatient (AMB) | payer MEDICARE, SELFPAY ==
[2023-11-02 09:57] LABS: Prothrombin Time Whole Bld POC 23.7 sec (11.1-13.5)
--- NOTE | 2023-11-02 10:02 | MHC.OFFVISCO ---
Intake Intake Visit Reasons: Anticoagulation Allergies cat dander [CATS] Adverse Reaction (Mild, Verified 11/02/23 09:55) RASH raspberry [RASPBERRY] Adverse Reaction (Mild, Verified 11/02/23 09:55) RASH Medication List - Last Reconciled 11/02/23 by Fany Leger RN aspirin (Adult Aspirin Regimen) 81 mg PO DAILY ergocalciferol (vitamin D2) 1,250 mcg PO QMONTH hydrochlorothiazide 25 mg PO QAM levothyroxine 25 mcg PO QAM metoprolol tartrate 25 mg PO DAILY pantoprazole (Protonix) 20 mg PO DAILY simvastatin 20 mg PO BEDTIME warfarin 2.5 mg See Protocol PO DAILY Nursing Note INR: 2.0 in therapeutic range Medications and supplements reviewed RECOVERED FROM COLD ATE SEVERAL GREENS TO LOWER PREVIOUS INR S/P COLD Denies any signs and symptoms of bleeding or bruising or clotting. Bleeding, bruising, clotting discussed Nutritional guidance given Dose: 2.5MG DAILY F/U INR: BACK TO 1 MONTH Patient verbalizes understanding of instructions given Anti-Coag Initial Assessment Social Hx Patient Tobacco Use Status: Never used Tobacco alcohol intake: never Alcohol intake frequency: does not drink Coding Level of Care Code Est Patient Level 1 Diagnoses Current use of anticoagulant therapy Z79.01 Assessment & Plan Assessment & Plan (1) Current use of anticoagulant therapy: Code(s): Z79.01 - custodial (current) use of anticoagulants Category: Medical
== END 2023-11-02 10:05 | disposition home or self-care (01) ==
LOC: HO.ACS 09:43
PROVIDERS: PCP Internal Medicine; Visit Provider Internal Medicine
DX: Z79.01 Long term (current) use of anticoagulants (principal)

== ENCOUNTER → 2023-11-02 09:43 | Outpatient (BNVA) | payer MEDICARE, SELFPAY | PROVIDERS: PCP Internal Medicine; Visit Provider Internal Medicine | DX: Z86.73 Personal history of transient ischemic attack (TIA), and cerebral infarction without residual deficits (principal); Z51.81 Encounter for therapeutic drug level monitoring; Z79.01 Long term (current) use of anticoagulants | CPT/HCPCS: 85610; 99211 ==

== ENCOUNTER 2023-11-30 09:33 | Outpatient (AMB) | payer MEDICARE, SELFPAY ==
[2023-11-30 09:48] LABS: Prothrombin Time Whole Bld POC 38.5 sec (11.1-13.5); ~PT, ~INR - Anti Coag Clinic 3.2 (0.9-1.1)
--- NOTE | 2023-11-30 09:54 | MHC.OFFVISCO ---
Intake Intake Visit Reasons: Anticoagulation Allergies cat dander [CATS] Adverse Reaction (Mild, Verified 11/30/23 09:38) RASH raspberry [RASPBERRY] Adverse Reaction (Mild, Verified 11/30/23 09:38) RASH Medication List - Last Reconciled 11/30/23 by Fany Leger RN aspirin (Adult Aspirin Regimen) 81 mg PO DAILY ergocalciferol (vitamin D2) 1,250 mcg PO QMONTH hydrochlorothiazide 25 mg PO QAM levothyroxine 25 mcg PO QAM metoprolol tartrate 25 mg PO DAILY pantoprazole (Protonix) 20 mg PO DAILY simvastatin 20 mg PO BEDTIME warfarin 2.5 mg See Protocol PO DAILY Nursing Note INR: 3.2 OUT OF therapeutic range Medications and supplements reviewed- taking more tylenol for arthritis Had less greens because INR was 2.0 last visit Denies any signs and symptoms of bleeding or bruising or clotting. Bleeding, bruising, clotting discussed Nutritional guidance given- review food list weekly, when taking more tylenol than usual eat an extra serving of greens Dose: keep same dose for now 2.5mg daily, if INR cont be to over range then decrease weekly dose F/U INR: 4wks Patient verbalizes understanding of instructions given Anti-Coag Initial Assessment Social Hx Patient Tobacco Use Status: Never used Tobacco alcohol intake: never Alcohol intake frequency: does not drink Coding Level of Care Code Est Patient Level 1 Diagnoses Current use of anticoagulant therapy Z79.01 Assessment & Plan Assessment & Plan (1) Current use of anticoagulant therapy: Code(s): Z79.01 - intermediate (current) use of anticoagulants Category: Medical
== END 2023-11-30 09:58 | disposition home or self-care (01) ==
LOC: HO.ACS 09:33
PROVIDERS: PCP Internal Medicine; Visit Provider Internal Medicine
DX: Z79.01 Long term (current) use of anticoagulants (principal)

== ENCOUNTER → 2023-11-30 09:33 | Outpatient (BNVA) | payer MEDICARE, SELFPAY | PROVIDERS: PCP Internal Medicine; Visit Provider Internal Medicine | DX: Z95.2 Presence of prosthetic heart valve (principal); Z79.01 Long term (current) use of anticoagulants; Z51.81 Encounter for therapeutic drug level monitoring | CPT/HCPCS: 85610; 99211 ==

== ENCOUNTER 2023-12-28 08:02 | Outpatient (AMB) | payer MEDICARE, SELFPAY ==
[2023-12-28 08:15] LABS: Prothrombin Time Whole Bld POC 24.2 sec (11.1-13.5)
--- NOTE | 2023-12-28 08:18 | MHC.OFFVISCO ---
Intake Intake Visit Reasons: Anticoagulation Allergies cat dander [CATS] Adverse Reaction (Mild, Verified 12/28/23 08:09) RASH raspberry [RASPBERRY] Adverse Reaction (Mild, Verified 12/28/23 08:09) RASH Medication List - Last Reconciled 12/28/23 by Meenu Mcconnell RN aspirin (Adult Aspirin Regimen) 81 mg PO DAILY ergocalciferol (vitamin D2) 1,250 mcg PO QMONTH hydrochlorothiazide 25 mg PO QAM levothyroxine 25 mcg PO QAM metoprolol tartrate 25 mg PO DAILY pantoprazole (Protonix) 20 mg PO DAILY simvastatin 20 mg PO BEDTIME warfarin 2.5 mg See Protocol PO DAILY Nursing Note Amb to [facility] accomp by daughter, feeling well Medications and supplements reviewed No changes in health, diet, medications, or supplements Denies any unusual signs and symptoms of bruising, bleeding Denies any new Chest pain, SOB, or clotting INR: 2.0 just in therapeutic range Nutritional guidance given: no greens today or tomorrow then balance greens and reds in diet sts she is not really a green eater but then she sts she does eat brocolli, asparagus, and sometime the canned spinach- reviewed power of those greens and to keep them to once or twice a week sts that is what she usually does Dose: continue usual dosing;2.5mg daily F/U INR: 4 weeks Patient and daughter verbalizes understanding of instructions given with accurate read back/ teach back of dosing Anti-Coag Initial Assessment Social Hx Patient Tobacco Use Status: Never used Tobacco alcohol intake: never Alcohol intake frequency: does not drink Coding Level of Care Code Est Patient Level 1 Diagnoses Current use of anticoagulant therapy Z79.01 Time Spent (min) 15 Assessment & Plan Assessment & Plan (1) Current use of anticoagulant therapy: 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
== END 2023-12-28 08:23 | disposition home or self-care (01) ==
LOC: HO.ACS 08:02
PROVIDERS: PCP Internal Medicine; Visit Provider Internal Medicine
DX: Z79.01 Long term (current) use of anticoagulants (principal)

== ENCOUNTER → 2023-12-28 08:02 | Outpatient (BNVA) | payer MEDICARE, SELFPAY | PROVIDERS: PCP Internal Medicine; Visit Provider Internal Medicine | DX: Z86.73 Personal history of transient ischemic attack (TIA), and cerebral infarction without residual deficits (principal); Z79.01 Long term (current) use of anticoagulants; Z51.81 Encounter for therapeutic drug level monitoring | CPT/HCPCS: 85610; 99211 ==

== ENCOUNTER 2024-01-25 07:59 | Outpatient (AMB) | payer MEDICARE, SELFPAY ==
[2024-01-25 08:12] LABS: Prothrombin Time Whole Bld POC 29.9 sec (11.1-13.5); ~PT, ~INR - Anti Coag Clinic 2.5 (0.9-1.1)
--- NOTE | 2024-01-25 08:13 | MHC.OFFVISCO ---
Intake Intake Visit Reasons: Anticoagulation Allergies cat dander [CATS] Adverse Reaction (Mild, Verified 01/25/24 08:07) RASH raspberry [RASPBERRY] Adverse Reaction (Mild, Verified 01/25/24 08:07) RASH Medication List - Last Reconciled 01/25/24 by Fany Leger RN aspirin (Adult Aspirin Regimen) 81 mg PO DAILY ergocalciferol (vitamin D2) 1,250 mcg PO QMONTH hydrochlorothiazide 25 mg PO QAM levothyroxine 25 mcg PO QAM metoprolol tartrate 25 mg PO DAILY pantoprazole (Protonix) 20 mg PO DAILY simvastatin 20 mg PO BEDTIME warfarin 2.5 mg See Protocol PO DAILY Nursing Note INR: 2.5 in therapeutic range Medications and supplements reviewed No changes in health, diet, medications, or supplements, Denies any signs and symptoms of bleeding or bruising or clotting. Bleeding, bruising, clotting discussed Nutritional guidance given - REVEIW LIST WEEKLY EAT A MIX Dose: 2.5MG DAILY F/U INR: 4 WEEKS Patient verbalizes understanding of instructions given Anti-Coag Initial Assessment Social Hx Patient Tobacco Use Status: Never used Tobacco alcohol intake: never Alcohol intake frequency: does not drink Coding Level of Care Code Est Patient Level 1 Diagnoses Current use of anticoagulant therapy Z79.01 Assessment & Plan Assessment & Plan (1) Current use of anticoagulant therapy: Code(s): Z79.01 - assisted (current) use of anticoagulants Category: Medical
== END 2024-01-25 08:16 | disposition home or self-care (01) ==
LOC: HO.ACS 07:59
PROVIDERS: PCP Internal Medicine; Visit Provider Internal Medicine
DX: Z79.01 Long term (current) use of anticoagulants (principal)

== ENCOUNTER → 2024-01-25 07:59 | Outpatient (BNVA) | payer MEDICARE, SELFPAY | PROVIDERS: PCP Internal Medicine; Visit Provider Internal Medicine | DX: Z86.73 Personal history of transient ischemic attack (TIA), and cerebral infarction without residual deficits (principal); Z51.81 Encounter for therapeutic drug level monitoring; Z79.01 Long term (current) use of anticoagulants | CPT/HCPCS: 85610; 99211 ==

== ENCOUNTER 2024-02-22 07:59 | Outpatient (AMB) | payer MEDICARE, SELFPAY ==
[2024-02-22 08:10] LABS: Prothrombin Time Whole Bld POC 24.6 sec (11.1-13.5)
--- NOTE | 2024-02-22 08:10 | MHC.OFFVISCO ---
Intake Intake Visit Reasons: Anticoagulation Allergies cat dander [CATS] Adverse Reaction (Mild, Verified 02/22/24 08:06) RASH raspberry [RASPBERRY] Adverse Reaction (Mild, Verified 02/22/24 08:06) RASH Medication List - Last Reconciled 02/22/24 by Yolande Vogt RN aspirin (Adult Aspirin Regimen) 81 mg PO DAILY ergocalciferol (vitamin D2) 1,250 mcg PO QMONTH hydrochlorothiazide 25 mg PO QAM levothyroxine 25 mcg PO QAM metoprolol tartrate 25 mg PO DAILY pantoprazole (Protonix) 20 mg PO DAILY simvastatin 20 mg PO BEDTIME warfarin 2.5 mg See Protocol PO DAILY Nursing Note INR: 2.0- in therapeutic range of 2-3 Medications and supplements reviewed- no changes No changes in health, diet, medications, or supplements, Denies any signs and symptoms of bleeding or bruising or clotting. 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
== END 2024-02-22 08:14 | disposition home or self-care (01) ==
LOC: HO.ACS 07:59
PROVIDERS: PCP Internal Medicine; Visit Provider Internal Medicine
DX: Z79.01 Long term (current) use of anticoagulants (principal)

== ENCOUNTER → 2024-02-22 07:59 | Outpatient (BNVA) | payer MEDICARE, SELFPAY | PROVIDERS: PCP Internal Medicine; Visit Provider Internal Medicine | DX: Z86.73 Personal history of transient ischemic attack (TIA), and cerebral infarction without residual deficits (principal); Z79.01 Long term (current) use of anticoagulants; Z51.81 Encounter for therapeutic drug level monitoring | CPT/HCPCS: 85610; 99211 ==

== ENCOUNTER 2024-03-21 08:01 | Outpatient (AMB) | payer MEDICARE, SELFPAY ==
[2024-03-21 08:14] LABS: Prothrombin Time Whole Bld POC 28.6 sec (11.1-13.5); ~PT, ~INR - Anti Coag Clinic 2.4 (0.9-1.1)
--- NOTE | 2024-03-21 08:17 | MHC.OFFVISCO ---
Intake Intake Visit Reasons: Anticoagulation Allergies cat dander [CATS] Adverse Reaction (Mild, Verified 03/21/24 08:09) RASH raspberry [RASPBERRY] Adverse Reaction (Mild, Verified 03/21/24 08:09) RASH Medication List - Last Reconciled 03/21/24 by Meenu Mcconnell, RN aspirin (Adult Aspirin Regimen) 81 mg PO DAILY ergocalciferol (vitamin D2) 1,250 mcg PO QMONTH hydrochlorothiazide 25 mg PO QAM levothyroxine 25 mcg PO QAM metoprolol tartrate 25 mg PO DAILY pantoprazole (Protonix) 20 mg PO DAILY simvastatin 20 mg PO BEDTIME warfarin 2.5 mg See Protocol PO DAILY Nursing Note Amb to [facility] feeling well, accomp by daughter Medications and supplements reviewed No changes in health, diet, medications, or supplements, Denies any signs and symptoms of bleeding, bruising, or clotting. 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
== END 2024-03-21 08:21 | disposition home or self-care (01) ==
LOC: HO.ACS 08:01
PROVIDERS: PCP Internal Medicine; Visit Provider Internal Medicine
DX: Z79.01 Long term (current) use of anticoagulants (principal)

== ENCOUNTER → 2024-03-21 08:01 | Outpatient (BNVA) | payer MEDICARE, SELFPAY | PROVIDERS: PCP Internal Medicine; Visit Provider Internal Medicine | DX: Z86.73 Personal history of transient ischemic attack (TIA), and cerebral infarction without residual deficits (principal); Z79.01 Long term (current) use of anticoagulants; Z51.81 Encounter for therapeutic drug level monitoring | CPT/HCPCS: 85610; 99211 ==

== ENCOUNTER 2024-04-16 11:14 | Outpatient (REF) | payer MEDICARE, SELFPAY ==
[2024-04-16 11:18] LABS: MANUAL DIFF FLAG NO
[2024-04-16 11:36] LABS: Appearance Urine Hazy; Color Urine Yellow; Glucose Urine UA Negative (Negative); Leukocyte Esterase Urine Large (3+) (Negative); Nitrite Urine Negative (Negative); UMIC TRIGGER UACC YES; Urine Blood Moderate (2+) (Negative); Urine Ketones Negative (Negative); Urine Protein Trace mg/dL (Neg-Trace)
[2024-04-16 11:42] LABS: Basophils Absolute Auto 0.1 X10*3/uL (0.0-0.2); Basophils Percent Auto 0.9 % (0-2); Eosinophils Absolute Auto 0.1 X10*3/uL (0.0-0.4); Eosinophils Percent Auto 1.7 % (0-4); Hematocrit 37.6 % (37.0-47.0); Hemoglobin 12.7 g/dl (12.0-16.0); Imm Gran Abs Auto 0.01 X10*3/uL (0.00-0.03); Imm Gran Pct Auto 0.1 % (0.0-0.4); Lymphocytes Absolute Auto 2.4 X10*3/uL (1.2-4.9); Lymphocytes Percent Auto 34.2 % (20-40); Mean Corpuscular HGB Conc 33.8 g/dl (31.0-35.0); Mean Corpuscular Hemoglobin 30.2 pg (27.0-33.0); Mean Corpuscular Volume 89.5 fL (80.0-98.0); Mean Platelet Volume 11.5 fL (9.4-12.3); Monocytes Absolute Auto 0.6 X10*3/uL (0.1-1.2); Monocytes Percent Auto 8.6 % (2-11); Neutrophils Absolute Auto 3.7 x10*3/uL (2.0-8.3); Neutrophils Percent Auto 54.5 % (45-73); Platelet Count 269 X10*3/uL (160-400); Red Cell Distribution Width 14.8 % (11.0-16.0); White Blood Count 6.9 X10*3/uL (4.8-10.8)
[2024-04-16 11:47] LABS: Bacteria Urine 4+ (None Seen); Hyaline Casts Urine 0-2 /LPF (0-2); Squamous Epithelial Cell Urine 0-2 /HPF (0-2); UACC Culture Trigger YES; WBC Urine >50 /HPF (0-5)
[2024-04-16 12:11] LABS: Alanine Aminotransferase 10 U/L (0-31); Albumin Level 3.8 g/dL (3.5-5.0); Alkaline Phosphatase 57 U/L (39-117); Anion Gap 17 (12-20); Aspartate Amino Transferase 18 U/L (5-31); Bilirubin Total 0.8 mg/dL (0.0-1.0); Blood Urea Nitrogen 13 mg/dL (9-16); Calcium 9.8 mg/dL (8.4-10.2); Carbon Dioxide 24 mmol/L (22-29); Chloride 98 mmol/L (96-108); Cholesterol 148 mg/dL (<200); Estimated Glomerular Filt Rate > 60; Glucose Fasting 87 mg/dL (60-99); HDL Cholesterol 65 mg/dL (>40); LDL Cholesterol Calculated 61 mg/dL (<100); Potassium 3.5 mmol/L (3.3-5.1); Sodium 135 mmol/L (135-145); TSH reflex Free T4 3.73 uIU/mL (0.32-4.0); Total Protein 7.1 g/dL (6.5-8.0); Triglycerides 112 mg/dL (<150); Vitamin D 25-OH Total 7.7 ng/mL (>30)
== END 2024-04-16 11:15 | disposition home or self-care (01) ==
LOC: HO.LNP 11:14
PROVIDERS: Visit Provider Internal Medicine
DX: Z00.00 Encounter for general adult medical examination without abnormal findings (principal); E78.00 Pure hypercholesterolemia, unspecified; E03.9 Hypothyroidism, unspecified; E55.9 Vitamin D deficiency, unspecified; I10 Essential (primary) hypertension; R82.90 Unspecified abnormal findings in urine
CPT/HCPCS: 80053; 80061; 81001; 82306; 84443; 85025; 87086; 87088; 87186

== ENCOUNTER 2024-04-18 08:01 | Outpatient (AMB) | payer MEDICARE, SELFPAY ==
[2024-04-18 08:10] LABS: Prothrombin Time Whole Bld POC 22.3 sec (11.1-13.5); ~PT, ~INR - Anti Coag Clinic 1.9 (0.9-1.1)
--- NOTE | 2024-04-18 08:12 | MHC.OFFVISCO ---
Intake Intake Visit Reasons: Anticoagulation Allergies cat dander [CATS] Adverse Reaction (Mild, Verified 04/18/24 08:04) RASH raspberry [RASPBERRY] Adverse Reaction (Mild, Verified 04/18/24 08:04) RASH Medication List - Last Reconciled 04/18/24 by Fany Leger RN aspirin (Adult Aspirin Regimen) 81 mg PO DAILY ergocalciferol (vitamin D2) 1,250 mcg PO QMONTH hydrochlorothiazide 25 mg PO QAM levothyroxine 25 mcg PO QAM metoprolol tartrate 25 mg PO DAILY pantoprazole (Protonix) 20 mg PO DAILY simvastatin 20 mg PO BEDTIME warfarin 2.5 mg See Protocol PO DAILY Nursing Note INR: 1.9 ALMOST in therapeutic range- STARTED INSTANT BREAKFAST Medications and supplements reviewed No changes in health, medications, or supplements, Denies any signs and symptoms of bleeding or bruising or clotting. 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
== END 2024-04-18 08:16 | disposition home or self-care (01) ==
LOC: HO.ACS 08:01
PROVIDERS: PCP Internal Medicine; Visit Provider Internal Medicine
DX: Z79.01 Long term (current) use of anticoagulants (principal)

== ENCOUNTER → 2024-04-18 08:01 | Outpatient (BNVA) | payer MEDICARE, SELFPAY | PROVIDERS: PCP Internal Medicine; Visit Provider Internal Medicine | DX: Z86.73 Personal history of transient ischemic attack (TIA), and cerebral infarction without residual deficits (principal); Z79.01 Long term (current) use of anticoagulants; Z51.81 Encounter for therapeutic drug level monitoring | CPT/HCPCS: 85610; 99211 ==

== ENCOUNTER → 2024-04-22 10:30 | Outpatient (BNVA) | payer MEDICARE, SELFPAY | PROVIDERS: PCP Internal Medicine; Visit Provider Internal Medicine | DX: Z79.01 Long term (current) use of anticoagulants (principal) ==

== ENCOUNTER 2024-04-29 09:56 | Outpatient (AMB) | payer MEDICARE, SELFPAY ==
[2024-04-29 10:06] VITALS: BP 120/64; PULSE 79; BMI 36.2
--- NOTE | 2024-04-29 10:06 | A.OFFVIS_ITS ---
Vital Signs 04/29/24 10:06 Height 5 ft Weight 185 lb 3.013 oz BMI 36.2 BP 120/64 Blood Pressure Location Lt brachial Position Sitting Pulse 79 Pulse Source Monitor Intake Visit Reasons: 1 yr f/up Allergies cat dander [CATS] Adverse Reaction (Mild, Verified 04/22/24 10:20) RASH raspberry [RASPBERRY] Adverse Reaction (Mild, Verified 04/22/24 10:20) RASH Medication List - Last Reconciled 04/29/24 by Raman Qureshi MD aspirin (Adult Aspirin Regimen) 81 mg PO DAILY ergocalciferol (vitamin D2) 1,250 mcg PO QMONTH hydrochlorothiazide 25 mg PO QAM levothyroxine 25 mcg PO QAM metoprolol tartrate 25 mg PO DAILY pantoprazole (Protonix) 20 mg PO DAILY simvastatin 20 mg PO BEDTIME warfarin 2.5 mg See Protocol PO DAILY HPI Comments Details: Mary returns for follow-up regarding patent foramen ovale and prior strokes. Clinically, she states she is feeling excellent. Absolutely no cardiac symptoms like angina or in fact anything of concern. She is getting along well with no limitations. [facility] Medical History Current use of anticoagulant therapy Essential hypertension Other pulmonary embolism without acute cor pulmonale PFO (patent foramen ovale) Pulmonary embolism Surgical History History of umbilical hernia repair (12/07/18) Family History Mother Family hx of colon cancer Family hx of melanoma Brother Family history of throat cancer Sister Acute Crohn's disease Social History Household Members: None Housing: Apartment Are you a primary after school caregiver to a significant other at home: No Do you presently have visiting nurse or other home services: No Alcohol intake: never Patient Tobacco Use Status: Never used Tobacco service: No Current occupational status: retired Review of Systems Const Denies weakness ENT Denies dizziness Card Denies chest pain, Denies chest pain with activity, Denies syncope, Denies rapid heart rate, Denies pedal edema, Denies edema, Denies leg edema, Denies lightheadedness, Denies palpitations, Denies dyspnea, Denies dyspnea on exertion and Denies orthopnea Resp Denies cough, Denies dyspnea and Denies dyspnea on exertion GI Denies hematochezia and Denies change in stool character Musc Denies abnormal gait, Denies muscle cramps, Denies muscle weakness, Denies numbness, Denies radiating pain into limb and Denies tingling Neuro Denies abnormal gait, Denies dizziness, Denies syncope, Denies numbness, Denies tingling and Denies weakness Endo Denies palpitations Physical Exam Vital Signs: Last Vital Signs Pulse 79 04/29/24 10:06 BP 120/64 04/29/24 10:06 BMI result Body Mass Index 36.2 Const General: comfortable and no acute distress Orientation/consciousness: patient oriented x3 HEENT Other: Unremarkable Head: Yes normal to inspection Neck Neck: Yes normal visual inspection Chest Chest palpation & inspection: normal inspection of the chest Resp Auscultation: clear to auscultation bilaterally Cardio Palpation: normal PMI Heart sounds: S1 normal heart sound present, S2 normal heart sound present, no gallops, no murmurs and no rubs GI Palpation (GI): Soft to palpation Back/Spine/Pelvis Other: unremarkable Skin General skin exam: no rashes or lesions noted Neuro General: patient oriented x3 Extrem General: Yes normal to inspection Psych Mental Status: mental status grossly normal Office Procedures EKG Details: EKG with sinus rhythm at 79/Min; left ventricle hypertrophy pattern; low-voltage complexes in the anterior leads suspect mostly related to lead placement. Of note, even in the past she has had low-voltage complexes in the anterior leads. [id number]-[id number], Complete Assessment & Plan Assessment & Plan (1) PFO (patent foramen ovale): Code(s): Q21.1 - Atrial septal defect Category: Medical Plan: Diagnosed in 2006. She has been on aspirin and Coumadin for many years and generally doing good. She started Coumadin only in 2013 after the diagnosis of pulmonary embolism and has not had any events since. No further changes at this time. (2) Other pulmonary embolism without acute cor pulmonale: Code(s): I26.99 - Other pulmonary embolism without acute cor pulmonale Category: Medical Plan: In 2013. Fairly extensive and unprovoked. Long-term anticoagulation. No concerns from patient. (3) Essential hypertension: Code(s): I10 - Essential (primary) hypertension Category: Medical Plan: Reviewing the blood pressure trend over the last few years, it has been up and down. The last 3 record blood pressures are within range. However, EKG does show LVH findings. We can get an echocardiogram as there is also low voltage in anterior leads -which is probably all from lead placement. We will ensure the re is no wall motion finding. Orders: Orders CA echo transthoracic complete Today I10 - Essential (primary) hypertension, R94.31 - Abnormal electrocardiogram [ECG] [EKG] Coding Level of Care Code Est Pt Level 4 (51196) Diagnoses PFO (patent foramen ovale) Q21.1 Other pulmonary embolism without acute cor pulmonale I26.99 Essential hypertension I10 CPT Codes EKG - CPT: 32169-[id number], Complete ([id number])
== END 2024-04-29 10:26 | disposition home or self-care (01) ==
PROVIDERS: PCP Internal Medicine; Visit Provider Internal Medicine
DX: Q21.10 Atrial septal defect, unspecified (principal); I26.99 Other pulmonary embolism without acute cor pulmonale; I10 Essential (primary) hypertension
CPT/HCPCS: 93010; 99214

== ENCOUNTER → 2024-04-29 09:56 | Outpatient (BNVA) | payer MEDICARE, SELFPAY | PROVIDERS: PCP Internal Medicine; Visit Provider Internal Medicine | DX: Q21.12 Patent foramen ovale (principal); I26.99 Other pulmonary embolism without acute cor pulmonale; R94.31 Abnormal electrocardiogram [ECG] [EKG]; I10 Essential (primary) hypertension; I69.30 Unspecified sequelae of cerebral infarction; Z79.01 Long term (current) use of anticoagulants; Z51.81 Encounter for therapeutic drug level monitoring | CPT/HCPCS: 81001; 85610; 87086; 93005; 99211; 99212 ==

== ENCOUNTER 2024-04-29 10:31 | Outpatient (AMB) | payer MEDICARE, SELFPAY ==
[2024-04-29 11:01] LABS: Prothrombin Time Whole Bld POC 23.8 sec (11.1-13.5)
--- NOTE | 2024-04-29 11:20 | MHC.OFFVISCO ---
Intake Intake Visit Reasons: Anticoagulation Allergies cat dander [CATS] Adverse Reaction (Mild, Verified 04/29/24 10:49) RASH raspberry [RASPBERRY] Adverse Reaction (Mild, Verified 04/29/24 10:49) RASH Medication List - Last Reconciled 04/29/24 by Fany Leger RN aspirin (Adult Aspirin Regimen) 81 mg PO DAILY ergocalciferol (vitamin D2) 1,250 mcg PO QMONTH hydrochlorothiazide 25 mg PO QAM levothyroxine 25 mcg PO QAM metoprolol tartrate 25 mg PO DAILY pantoprazole (Protonix) 20 mg PO DAILY simvastatin 20 mg PO BEDTIME warfarin 2.5 mg See Protocol PO DAILY Nursing Note PT.STATES THAT SHE FINISHED ANTIBIOTIC 3-4 DAYS AGO. SHE DENIES ANY CP,SOB,DIET/MED CHANGES,FALLS OR SX OF BLEEDING. WILL RESUME 2.5MGM DAILY AND FOLLOW-UP ON 05/23. GOOD UNDERSTANDING OF DOSING INSTR. Anti-Coag Initial Assessment Social Hx Patient Tobacco Use Status: Never used Tobacco alcohol intake: never Alcohol intake frequency: does not drink Coding Level of Care Code Est Patient Level 1 Diagnoses Current use of anticoagulant therapy Z79.01 Results AMB INR Fingerstick AMB INR Fingerstick 2.0 Last Edit by Consuelo Knowles RN on 04/29/24 10:58 Assessment & Plan Assessment & Plan (1) Current use of anticoagulant therapy: Code(s): Z79.01 - residential (current) use of anticoagulants Category: Medical
== END 2024-04-29 11:22 | disposition home or self-care (01) ==
LOC: HO.ACS 10:31
PROVIDERS: PCP Internal Medicine; Visit Provider Internal Medicine
DX: Z79.01 Long term (current) use of anticoagulants (principal)

== ENCOUNTER 2024-04-29 11:23 | Outpatient (REF) | payer MEDICARE, SELFPAY ==
[2024-04-29 11:46] LABS: Appearance Urine Clear; Color Urine Yellow; Glucose Urine UA Negative (Negative); Leukocyte Esterase Urine Small (1+) (Negative); Nitrite Urine Negative (Negative); UMIC TRIGGER UACC YES; Urine Blood Moderate (2+) (Negative); Urine Ketones Negative (Negative); Urine Protein Trace mg/dL (Neg-Trace)
[2024-04-29 11:53] LABS: Bacteria Urine None Seen (None Seen); Squamous Epithelial Cell Urine >20 /HPF (0-2); UACC Culture Trigger YES
== END 2024-04-29 11:24 | disposition home or self-care (01) ==
LOC: HO.LNP 11:23
PROVIDERS: Visit Provider Internal Medicine
DX: Z13.89 Encounter for screening for other disorder (principal)
CPT/HCPCS: 81001; 87086

== ENCOUNTER → 2024-05-13 09:44 | Outpatient (REF) | payer MEDICARE, SELFPAY ==
--- NOTE | 2024-05-13 09:46 | CA_ITS ---
Transthoracic Echocardiogram Patient (Last, First, Middle): Mary Harvey A Gender: Female Date of : 1945 Age: 79 Procedure Date: 05/13/2024 Procedure Type: Transthoracic Echocardiogram Location: OP Height: 152.4 cm Weight: 82.1 kg BSA: 1.79 m2 Heart Rate: bpm BP: 120 / 64 mmHg Hospice Case Manager: MARTIN Referring MD: Raman Qureshi MD Symptoms: R94.31 - Abnormal electrocardiogram [ECG] [EKG] Study Quality: Fair ECG Rhythm: Sinus Conclusions: - The left ventricular systolic function is normal. The calculated ejection fraction is 58% by biplane method. - The left atrium is moderately dilated. - No obvious valvular pathology seen on this study. Findings Left Ventricle Normal left ventricular cavity size. There is normal left ventricular wall thickness. The left ventricular systolic function is normal. The calculated ejection fraction is 58% by biplane method. There is no evidence of regional wall motion abnormalities. Diastolic function is normal for age. Right Ventricle Mildly increased right ventricular cavity size. There is normal right ventricular systolic function. Atria The left atrium is moderately dilated. The right atrium is normal in size. Aortic Valve There is mild calcification of the aortic valve. There is no aortic valve stenosis. There is no aortic valve regurgitation. Mitral Valve The mitral valve appears normal. There is trace mitral valve regurgitation. There is no mitral valve stenosis. Pulmonic Valve The pulmonic valve is likely normal. Tricuspid Valve There is trace tricuspid valve regurgitation. Tricuspid regurgitation envelope is inadequate for calculation of right ventricular systolic pressure. Great Vessels The aortic annulus, sinuses of valsalva, sino tubular ridge, and asc aorta are normal in size. Venous The inferior vena cava is normal in size and collapses greater than 50% with inspiration. Pericardium/Pleural There is no evidence of pericardial effusion. Prior Study Comparison No significant change compared to prior study dated: 01/16/2019. Recommendations, Care & Conclusions No obvious valvular pathology seen on this study. Measurements 2D Linear Measurements IVSd: 0.91 0.6-0.9/0.6-1.0 cm LVIDd: 3.94 3.9-5.3/4.2-5.9 cm LVIDd Index: 2.20 2.4-3.2/2.2-3.1 cm/m2 LVIDs: 2.17 2.0-3.6 cm LVPWd: 0.92 0.7-1.1 cm LA Diam: 3.70 2.7-3.8/3.0-4.0 cm LAIDs Index: 2.07 1.5-2.3 cm/m2 LV Mass: 136.28 67-162/88-224 g LV Mass Index: 76.13 43-95/49-115 g/m2 LVOT Diam: 1.90 3.0+(-)1.3 cm 2D Systolic Function EF 4C: 62.70 >55% EF 2C: 59.80 >55% EF BiP: 57.80 >55% Mitral Valve MV Pk E: 0.84 MV PK A: 0.69 MV Decel Time: 240.00 E/A: 1.20 E'Lateral: 9.14 E'Medial: 7.94 E/E' Med: 10.60 E/E' Lat: 9.20 PHT: 70.00 MVA PHT: 3.14 Decel [place]: 3.52 Aortic Valve AoV Pk Ha: 1.27 AoV Mn Ha: 0.85 AoV VTI: 0.27 AoV Pk Grad: 6.00 Aov Mn Grad: 3.00 PEDRO Cont.VTI: 2.16 LVOT LVOT Pk Ha: 0.99 LVOT Mn Ha: 0.62 LVOT VTI: 0.21 LVOT Pk Grad: 4.00 LVOT Mn Grad: 2.00 LVOT Diam: 1.90 LVOT Area: 2.84 Diastolic Function MV Pk E: 0.84 MV Pk A: 0.69 E/A: 1.20 E'Medial: 7.94 E/E' Med: 10.60 E' Laterial: 9.14 E/E' Lat: 9.20 Right Ventricle TAPSE (mm): 23.20 TVS' Ha: 14.90 Tricuspid Valve RA Press: 3.00 Great Vessels Aorta Sinus of Valsalva: 3.17 2.0-3.[address] [place]: 2.84 1.7-3.4 cm Ao Asc: 3.40 2.1-3.4 cm Updated in Other Vendor System with Status of Final Raman Qureshi MD electronically signed on 05/13/2024 11:57:06 AM with status of Final
== END ==
LOC: HO.CARD 09:44
PROVIDERS: PCP Internal Medicine; Visit Provider Internal Medicine
DX: I10 Essential (primary) hypertension (principal); R94.31 Abnormal electrocardiogram [ECG] [EKG]
CPT/HCPCS: 93306

== ENCOUNTER → 2024-05-13 09:46 | Outpatient (BNV) | payer MEDICARE, SELFPAY | PROVIDERS: PCP Internal Medicine; Visit Provider Internal Medicine | DX: I35.8 Other nonrheumatic aortic valve disorders (principal) | CPT/HCPCS: 93306 ==

== ENCOUNTER 2024-05-23 08:00 | Outpatient (AMB) | payer MEDICARE, SELFPAY ==
[2024-05-23 08:12] LABS: Prothrombin Time Whole Bld POC 29.2 sec (11.1-13.5); ~PT, ~INR - Anti Coag Clinic 2.4 (0.9-1.1)
--- NOTE | 2024-05-23 08:16 | MHC.OFFVISCO ---
Intake Intake Visit Reasons: Anticoagulation Allergies cat dander [CATS] Adverse Reaction (Mild, Verified 05/23/24 08:02) RASH raspberry [RASPBERRY] Adverse Reaction (Mild, Verified 05/23/24 08:02) RASH Medication List - Last Reconciled 05/23/24 by Fany Leger RN aspirin (Adult Aspirin Regimen) 81 mg PO DAILY ergocalciferol (vitamin D2) 1,250 mcg PO QMONTH hydrochlorothiazide 25 mg PO QAM levothyroxine 25 mcg PO QAM metoprolol tartrate 25 mg PO DAILY pantoprazole (Protonix) 20 mg PO DAILY simvastatin 20 mg PO BEDTIME warfarin 2.5 mg See Protocol PO DAILY Nursing Note INR: 2.4 in therapeutic range Medications and supplements reviewed No changes in health, diet, medications, or supplements, Denies any signs and symptoms of bleeding or bruising or clotting. Bleeding, bruising, clotting discussed Nutritional guidance given Dose: 2.5MG DAILY F/U INR: 4 WEEKS Patient verbalizes understanding of instructions given Anti-Coag Initial Assessment Social Hx Patient Tobacco Use Status: Never used Tobacco alcohol intake: never Alcohol intake frequency: does not drink Coding Level of Care Code Est Patient Level 1 Diagnoses Current use of anticoagulant therapy Z79.01 Results AMB INR Fingerstick AMB INR Fingerstick 2.4 Last Edit by Fany Leger RN on 05/23/24 08:13 MANUAL ENTRY Assessment & Plan Assessment & Plan (1) Current use of anticoagulant therapy: Code(s): Z79.01 - FPC (current) use of anticoagulants Category: Medical
== END 2024-05-23 08:17 | disposition home or self-care (01) ==
LOC: HO.ACS 08:00
PROVIDERS: PCP Internal Medicine; Visit Provider Internal Medicine
DX: Z79.01 Long term (current) use of anticoagulants (principal)

== ENCOUNTER → 2024-05-23 08:00 | Outpatient (BNVA) | payer MEDICARE, SELFPAY | PROVIDERS: PCP Internal Medicine; Visit Provider Internal Medicine | DX: Z86.73 Personal history of transient ischemic attack (TIA), and cerebral infarction without residual deficits (principal); Z79.01 Long term (current) use of anticoagulants; Z51.81 Encounter for therapeutic drug level monitoring | CPT/HCPCS: 85610; 99211 ==

== ENCOUNTER 2024-06-20 08:44 | Outpatient (AMB) | payer MEDICARE, SELFPAY ==
[2024-06-20 08:55] LABS: Prothrombin Time Whole Bld POC 31.4 sec (11.1-13.5); ~PT, ~INR - Anti Coag Clinic 2.6 (0.9-1.1)
--- NOTE | 2024-06-20 09:01 | MHC.OFFVISCO ---
Intake Intake Visit Reasons: Anticoagulation Allergies cat dander [CATS] Adverse Reaction (Mild, Verified 06/20/24 08:50) RASH raspberry [RASPBERRY] Adverse Reaction (Mild, Verified 06/20/24 08:50) RASH Medication List - Last Reconciled 06/20/24 by Consuelo Knowles RN aspirin (Adult Aspirin Regimen) 81 mg PO DAILY ergocalciferol (vitamin D2) 1,250 mcg PO QMONTH hydrochlorothiazide 25 mg PO QAM levothyroxine 25 mcg PO QAM metoprolol tartrate 25 mg PO DAILY pantoprazole (Protonix) 20 mg PO DAILY simvastatin 20 mg PO BEDTIME warfarin 2.5 mg See Protocol PO DAILY Nursing Note NO CP,SOB,DIET/MED CHANGES,FALLS OR SX OF BLEEDING. CONTINUE 2.5MGM DAILY AND FOLLOW-UP IN 4 WEEKS. GOOD UNDERSTANDING OF DOSING INSTR. 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
== END 2024-06-20 09:03 | disposition home or self-care (01) ==
LOC: HO.ACS 08:44
PROVIDERS: PCP Internal Medicine; Visit Provider Internal Medicine
DX: Z79.01 Long term (current) use of anticoagulants (principal)

== ENCOUNTER → 2024-06-20 08:44 | Outpatient (BNVA) | payer MEDICARE, SELFPAY | PROVIDERS: PCP Internal Medicine; Visit Provider Internal Medicine | DX: Z86.73 Personal history of transient ischemic attack (TIA), and cerebral infarction without residual deficits (principal); Z79.01 Long term (current) use of anticoagulants; Z51.81 Encounter for therapeutic drug level monitoring | CPT/HCPCS: 85610; 99211 ==

== ENCOUNTER 2024-07-18 09:02 | Outpatient (AMB) | payer MEDICARE, SELFPAY ==
[2024-07-18 09:09] LABS: Prothrombin Time Whole Bld POC 39.3 sec (11.1-13.5); ~PT, ~INR - Anti Coag Clinic 3.3 (0.9-1.1)
--- NOTE | 2024-07-18 09:17 | MHC.OFFVISCO ---
Intake Intake Visit Reasons: Anticoagulation Allergies cat dander [CATS] Adverse Reaction (Mild, Verified 07/18/24 09:04) RASH raspberry [RASPBERRY] Adverse Reaction (Mild, Verified 07/18/24 09:04) RASH Medication List - Last Reconciled 07/18/24 by Meenu Chaney RN aspirin (Adult Aspirin Regimen) 81 mg PO DAILY ergocalciferol (vitamin D2) 1,250 mcg PO QMONTH hydrochlorothiazide 25 mg PO QAM levothyroxine 25 mcg PO QAM metoprolol tartrate 25 mg PO DAILY pantoprazole (Protonix) 20 mg PO DAILY simvastatin 20 mg PO BEDTIME warfarin 2.5 mg See Protocol PO DAILY Nursing Note INR 3.3?out of therapeutic range of 2-3 Medications and supplements reviewed Patient status: well Medications or supplements: no changes Diet: usual diet for pt Denies any signs and symptoms of bleeding or clotting or unusual bruising Bleeding, bruising, clotting discussed Nutritional guidance given: to have a serving of greens today. Food list reviewed. Pt states she doesn't like greens and will have ensure today and tomorrow. Dose: decrease today's dose to 1.25mg (2.5mg) then resume usual dose of 2.5mg daily F/U INR Date : 4 weeks?? Patient verbalizing understanding of instructions given. 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
== END 2024-07-18 09:21 | disposition home or self-care (01) ==
LOC: HO.ACS 09:02
PROVIDERS: PCP Internal Medicine; Visit Provider Internal Medicine
DX: Z79.01 Long term (current) use of anticoagulants (principal)

== ENCOUNTER → 2024-07-18 09:02 | Outpatient (BNVA) | payer MEDICARE, SELFPAY | PROVIDERS: PCP Internal Medicine; Visit Provider Internal Medicine | DX: Z86.73 Personal history of transient ischemic attack (TIA), and cerebral infarction without residual deficits (principal); Z79.01 Long term (current) use of anticoagulants; Z51.81 Encounter for therapeutic drug level monitoring | CPT/HCPCS: 85610; 99211 ==

== ENCOUNTER 2024-08-15 08:25 | Outpatient (AMB) | payer MEDICARE, SELFPAY ==
[2024-08-15 08:32] LABS: ~PT, ~INR - Anti Coag Clinic 2.1 (0.9-1.1)
--- NOTE | 2024-08-15 08:38 | MHC.OFFVISCO ---
Intake Intake Visit Reasons: Anticoagulation Allergies cat dander [CATS] Adverse Reaction (Mild, Verified 08/15/24 08:26) RASH raspberry [RASPBERRY] Adverse Reaction (Mild, Verified 08/15/24 08:26) RASH Medication List - Last Reconciled 08/15/24 by Meenu Chaney, RN aspirin (Adult Aspirin Regimen) 81 mg PO DAILY ergocalciferol (vitamin D2) 1,250 mcg PO QMONTH hydrochlorothiazide 25 mg PO QAM levothyroxine 25 mcg PO QAM metoprolol tartrate 25 mg PO DAILY pantoprazole (Protonix) 20 mg PO DAILY simvastatin 20 mg PO BEDTIME warfarin 2.5 mg See Protocol PO DAILY Nursing Note INR: 2.1 in therapeutic range of 2-3 Medications and supplements reviewed No changes in health, diet, medications, or supplements, Denies any signs and symptoms of bleeding or bruising or clotting. 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
== END 2024-08-15 08:39 | disposition home or self-care (01) ==
LOC: HO.ACS 08:25
PROVIDERS: PCP Internal Medicine; Visit Provider Internal Medicine
DX: Z79.01 Long term (current) use of anticoagulants (principal)

== ENCOUNTER → 2024-08-15 08:25 | Outpatient (BNVA) | payer MEDICARE, SELFPAY | PROVIDERS: PCP Internal Medicine; Visit Provider Internal Medicine | DX: Z86.73 Personal history of transient ischemic attack (TIA), and cerebral infarction without residual deficits (principal); Z79.01 Long term (current) use of anticoagulants; Z51.81 Encounter for therapeutic drug level monitoring | CPT/HCPCS: 85610; 99211 ==

== ENCOUNTER 2024-09-12 08:04 | Outpatient (AMB) | payer MEDICARE, SELFPAY ==
--- OUTSIDE RECORDS SUMMARY | 2024-09-12 08:08 | XMS_ITS ---
Author Organization Larry Meyers MD Address [address] [place] [phone] Care Team Providers Care Telegraphic Service Dispatcher Name Role Phone Larry Meyers Primary Care Provider [phone] ALLERGIES No Known Allergies REASON FOR VISIT CBACK HEMATURIA, Audio [phone] MEDICATIONS Medication SIG (Take, Route, Frequency, Duration) Notes [...] Active Vitamin D (Ergocalciferol) 1 .25 MG (25370 UT) take 1 capsule by mouth 2 times a month.. Orally once a week for 90 days Active Aspir-81 81 MG 1 tablet Orally Once a day for 30 day(s) Active Simvastatin 20 MG 1 tablet in the evening Orally Once a day for 90 days Active PROBLEMS Problem Type ICD Code Onset Dates Problem Status W/U Status Risk SNOMED Code Notes Problem Microscopic hematuria (R31.29) Active confirmed [id number] VITAL SIGNS BMI 37.62 kg/m2 05/16/2024 Height 58 in 05/16/2024 Weight 180 lbs 05/16/2024 weight 180 at home BP not ta marcela at home Encounters Encounter Location Date Provider Diagnosis Larry Meyers MD [address] [place] [phone] 05/16/2024 Larry Meyers Microscopic hematuria R31.29 ASSESSMENTS Encounter Date Diagnosis Assessment Notes Treatment Notes Treatment Clinical Notes 05/16/2024 Microscopic hematuria (ICD-10 - R31.29) has been evaluated with cysto and cat scan so no need for further evaluation PLAN OF TREATMENT Treatment Notes Assessment Notes Microscopic hematuria has been evaluated with cysto and cat scan so no need for further evaluation Next Appt Details Provider Name:Larry house, 10/24/2024 07:45:00 AM, [address] [place] [address], [phone], Provider Name:Larry house, 04/21/2025 07:15:00 AM, [address] [place] [address], [phone], Provider Name:Larry house, 04/28/2025 10:30:00 AM, [address] [place] [address], [phone], History and Physical Notes * HPI (History of Present Illness) Category Sub-Category Detail Notes Symptom(s) Telehealth Location of prov ider rendering services:: [address] [place] [address], [place] [phone] Location of patient:: at address listed in [...]
--- OUTSIDE RECORDS SUMMARY | 2024-09-12 08:08 | XMS_ITS | Patient Health Record ---
Author Organization Larry Meyers MD Address [address] [place] [id number] Care Team Providers Care Senior Integration Developer Name Role Phone Larry Meyers Primary Care Provider ALLERGIES No Known Allergies RESULTS Component Value Reference Range Notes INR WHOLE BLOOD POC Reviewed date:09/15/2023 10:49:50 AM Interpretation: Performing Lab:[facility], [address] [place] [phone] Notes/Report: PT, INR - Anti Coag Clinic 2.5 0.9-1.1 METER #: [id number] INTERNATIONAL NORMALIZED RATIO (INR) REFERENCE RANGES Reference Range For patients not on anticoagulant therapy: 0.9 - 1.1 INR ranges for oral anticoagulant therapy: For prevention and treatment of venous thrombosis and pulmonary embolism: 2.0 - 3.0 For acute myocardial infarction with aspirin therapy: 2.0 - 3.0 For acute myocardial infarction without aspirin therapy: 3.0 - 4.0 For patients with mechanical prosthetic heart valves: 2.5 - 3.5 Prothrombin Time Whole Bld P OC Reviewed date:09/15/2023 12:24:28 PM Interpretation: Performing Lab:[facility], [address] [place] [phone] Notes/Report: Prothrombin Time Whole Bld POC 29.8 11.1-13.5 sec INR WHOLE BLOOD POC Reviewed date:10/19/2023 11:47:53 AM Interpretation: Performing Lab:[facility], [address] [place] [phone] Notes/Report: PT, INR - Anti Coag Clinic 3.7 0.9-1.1 METER #: [id number] INTERNATIONAL NORMALIZED RATIO (INR) REFERENCE RANGES Reference Range For patients not on anticoagulant therapy: 0.9 - 1.1 INR ranges for oral anticoagulant therapy: For prevention and treatment of venous thrombosis and pulmonary embolism: 2.0 - 3.0 For acute myocardial infarction with aspirin therapy: 2.0 - 3.0 For acute myocardial infarction without aspirin therapy: 3.0 - 4.0 For patients with mechanical prosthetic heart valves: 2.5 - 3.5 Prothrombin Time Whole Bld P OC Reviewed date:10/19/2023 11:48:02 AM Interpretation: Performing Lab:[facility], [address] [place] [phone] Notes/Report: Prothrombin Time Whole Bld POC 44.2 11.1-13.5 sec Hold Gold Reviewed date:10/23/2023 12:25:48 PM Interpretation: Performing Lab:[facility], [address] [place] [phone] Notes/Report: Hold Gold See Note Specimen held untested for 24 hours; Call to request Chemistry testing. Liver Panel Reviewed date:10/23/2023 05:14:27 PM Interpretation: Performing Lab:[facility], [address] [place] [phone] Notes/Report: Bilirubin Total 0.7 0.0-1.0 mg/dL Bilirubin Direct 0.3 0.0-0.5 mg/dL Aspartate Amino Transferase 19 5-31 U/L Alanine Aminotransferase 9 0-31 U/L Total Protein 7.5 6.5-8.0 g/dL Albumin Level 3.9 3.5-5.0 g/dL Alkaline Phosphatase 60 39-117 U/L Lipid Panel with Reflex Reviewed date:10/23/2023 05:14:00 PM Interpretation: Performing Lab:[facility], [address] [place] [phone] Notes/Report: Triglycerides 109 <150 mg/dL Desirable Triglyceride: less than 150 mg/dL Borderline High Triglyceride 150-199 mg/dL High Triglyceride: 200-499 mg/dL Very High Triglyceride: greater than or equal to 5OO mg/dL Cholesterol 153 <200 mg/dL Desirable Cholesterol: less than 200 mg/dL Borderline High Cholesterol: 200-239 mg/dL High Cholesterol: greater than 239 mg/dL LDL Cholesterol Calculated 56 <100 mg/dL Desirable LDL: less than 100 mg/dL Near Optimal/Above Optimal LDL: 110-129 mg/dL Borderline High LDL: 130-159 mg/dL High LDL: 160-189 mg/dL Very High LDL: greater than or equal to 190 mg/dL HDL Cholesterol 76 >40 mg/dL Desirable HDL: greater than 40 mg/dL Note: This HDL assay may give artificially low results in patients with liver disease. INR WHOLE BLOOD POC Reviewed date:11/02/2023 12:12:43 PM Interpretation: Performing Lab:[facility], [address] [place] [phone] Notes/Report: PT, INR - Anti Coag Clinic 2.0 0.9-1.1 METER #: [id number] INTERNATIONAL NORMALIZED RATIO (INR) REFERENCE RANGES Reference Range For patients not on anticoagulant therapy: 0.9 - 1.1 INR ranges for oral anticoagulant therapy: For prevention and treatment of venous thrombosis and pulmonary embolism: 2.0 - 3.0 For acute myocardial infarction with aspirin therapy: 2.0 - 3.0 For acute myocardial infarction without aspirin therapy: 3.0 - 4.0 For patients with mechanical prosthetic heart valves: 2.5 - 3.5 Prothrombin Time Whole Bld P OC Reviewed date:11/02/2023 12:13:01 PM Interpretation: Performing Lab:[facility], [address] [place] [phone] Notes/Report: Prothrombin Time Whole Bld POC 23.7 11.1-13.5 sec INR WHOLE BLOOD POC Reviewed date:11/30/2023 12:33:39 PM Interpretation: Performing Lab:[facility], [address] [place] [phone] Notes/Report: PT, INR - Anti Coag Clinic 3.2 0.9-1.1 METER #: [id number] INTERNATIONAL NORMALIZED RATIO (INR) REFERENCE RANGES Reference Range For patients not on anticoagulant therapy: 0.9 - 1.1 INR ranges for oral anticoagulant therapy: For prevention and treatment of venous thrombosis and pulmonary embolism: 2.0 - 3.0 For acute myocardial infarction with aspirin therapy: 2.0 - 3.0 For acute myocardial infarction without aspirin therapy: 3.0 - 4.0 For patients with mechanical prosthetic heart valves: 2.5 - 3.5 Prothrombin Time Whole Bld P OC Reviewed date:11/30/2023 12:37:53 PM Interpretation: Performing Lab:[facility], [address] [place] [phone] Notes/Report: Prothrombin Time Whole Bld POC 38.5 11.1-13.5 sec INR WHOLE BLOOD POC Reviewed date:12/28/2023 12:42:50 PM Interpretation: Performing Lab:[facility], [address] [place] [phone] Notes/Report: PT, INR - Anti Coag Clinic 2.0 0.9-1.1 METER #: [id number] INTERNATIONAL NORMALIZED RATIO (INR) REFERENCE RANGES Reference Range For patients not on anticoagulant therapy: 0.9 - 1.1 INR ranges for oral anticoagulant therapy: For prevention and treatment of venous thrombosis and pulmonary embolism: 2.0 - 3.0 For acute myocardial infarction with aspirin therapy: 2.0 - 3.0 For acute myocardial infarction without aspirin therapy: 3.0 - 4.0 For patients with mechanical prosthetic heart valves: 2.5 - 3.5 Prothrombin Time Whole Bld P OC Reviewed date:12/28/2023 12:43:22 PM Interpretation: Performing Lab:[address] [phone] Notes/Report: Prothrombin Time Whole Bld POC 24.2 11.1-13.5 sec INR WHOLE BLOOD POC Reviewed date:01/25/2024 12:26:20 PM Interpretation: Performing Lab:[address] [phone] Notes/Report: PT, INR - Anti Coag Clinic 2.5 0.9-1.1 METER #: [id number] INTERNATIONAL NORMALIZED RATIO (INR) REFERENCE RANGES Reference Range For patients not on anticoagulant therapy: 0.9 - 1.1 INR ranges for oral anticoagulant therapy: For prevention and treatment of venous thrombosis and pulmonary embolism: 2.0 - 3.0 For acute myocardial infarction with aspirin therapy: 2.0 - 3.0 For acute myocardial infarction without aspirin therapy: 3.0 - 4.0 For patients with mechanical prosthetic heart valves: 2.5 - 3.5 Prothrombin Time Whole Bld P OC Reviewed date:01/25/2024 04:56:46 PM Interpretation: Performing Lab:[facility], [address] [place] [phone] Notes/Report: Prothrombin Time Whole Bld POC 29.9 11.1-13.5 sec INR WHOLE BLOOD POC Reviewed date:02/22/2024 12:25:12 PM Interpretation: Performing Lab:[facility], [address] [place] [phone] Notes/Report: PT, INR - Anti Coag Clinic 2.0 0.9-1.1 METER #: [id number] INTERNATIONAL NORMALIZED RATIO (INR) REFERENCE RANGES Reference Range For patients not on anticoagulant therapy: 0.9 - 1.1 INR ranges for oral anticoagulant therapy: For prevention and treatment of venous thrombosis and pulmonary embolism: 2.0 - 3.0 For acute myocardial infarction with aspirin therapy: 2.0 - 3.0 For acute myocardial infarction without aspirin therapy: 3.0 - 4.0 For patients with mechanical prosthetic heart valves: 2.5 - 3.5 Prothrombin Time Whole Bld P OC Reviewed date:02/22/2024 12:25:19 PM Interpretation: Performing Lab:[facility], [address] [place] [phone] Notes/Report: Prothrombin Time Whole Bld POC 24.6 11.1-13.5 sec INR WHOLE BLOOD POC Reviewed date:03/21/2024 01:21:54 PM Interpretation: Performing Lab:[facility], [address] [place] [phone] Notes/Report: PT, INR - Anti Coag Clinic 2.4 0.9-1.1 METER #: [id number] INTERNATIONAL NORMALIZED RATIO (INR) REFERENCE RANGES Reference Range For patients not on anticoagulant therapy: 0.9 - 1.1 INR ranges for oral anticoagulant therapy: For prevention and treatment of venous thrombosis and pulmonary embolism: 2.0 - 3.0 For acute myocardial infarction with aspirin therapy: 2.0 - 3.0 For acute myocardial infarction without aspirin therapy: 3.0 - 4.0 For patients with mechanical prosthetic heart valves: 2.5 - 3.5 Prothrombin Time Whole Bld P OC Reviewed date:03/21/2024 05:06:31 PM Interpretation: Performing Lab:[facility], [address] [place] [phone] Notes/Report: Prothrombin Time Whole Bld POC 28.6 11.1-13.5 sec Urine Culture Reviewed date:04/18/2024 12:41:01 PM Interpretation: Performing Lab:[facility], [address] [place] [phone] Notes/Report: O:ESCCOL Escherichia coli Urine Culture Quant Urine Culture > 100,000 cfu/mL Ampicillin 8 Ceftriaxone <=0.25 Gentamicin <=1 Levofloxacin <=0.12 Nitrofurantoin <=16 Trimethoprim/Sulfamethoxaz ole <=20 Complete Blood Count Auto Di ff Reviewed date:04/16/2024 12:40:26 PM Interpretation: Performing Lab:[facility], [address] [place] [phone] Notes/Report: White Blood Count 6.9 4.8-10.8 X10*3/uL Red Blood Count 4.20 4.20-5.50 X10*6/uL Hemoglobin 12.7 12.0-16.0 g/dl Hematocrit 37.6 37.0-47.0 % Mean Corpuscular Volume 89.5 80.0-98.0 fL Mean Corpuscular Hemoglobin 30.2 27.0-33.0 pg Mean Corpuscular HGB Conc 33.8 31.0-35.0 g/dl Red Cell Distribution Width 14.8 11.0-16.0 % Platelet Count 269 160-400 X10*3/uL Mean Platelet Volume 11.5 9.4-12.3 fL Neutrophils Percent Auto 54.5 45-73 % Imm Gran Pct Auto 0.1 0.0-0.4 % Lymphocytes Percent Auto 34.2 20-40 % Monocytes Percent Auto 8.6 2-11 % Eosinophils Percent Auto 1.7 0-4 % Basophils Percent Auto 0.9 0-2 % NRBC Pct Auto 0.0 0.0-0.2 /100WBC Neutrophils Absolute Auto 3.7 2.0-8.3 x10*3/u L Imm Gran Abs Auto 0.01 0.00-0.03 X10*3/uL Lymphocytes Absolute Auto 2.4 1.2-4.9 X10*3/u L Monocytes Absolute Auto 0.6 0.1-1.2 X10*3/uL Eosinophils Absolute Auto 0.1 0.0-0.4 X10*3/u L Basophils Absolute Auto 0.1 0.0-0.2 X10*3/uL NRBC Abs Auto 0.000 0.0-0.012 X10*3/uL Comprehensive [place]. Panel Fa st Reviewed date:04/16/2024 12:39:33 PM Interpretation: Performing Lab:[address] [phone] Notes/Report: Sodium 135 135-145 mmol/L Potassium 3.5 3.3-5.1 mmol/L Chloride 98 96-108 mmol/L Carbon Dioxide 24 22-29 mmol/L Anion Gap 17 12-20 Blood Urea Nitrogen 13 9-16 mg/dL Creatinine 0.82 0.5-1.4 mg/dL Estimated Glomerular Filt Rate > 60 NOTE: For -[place] individuals, multiply the result by 1.210. Chronic Kidney Disease: Estimated GFR < 60 mL/min/1.73m2 Severe Kidney Disease: Estimated GFR < 15 mL/min/1.73m2 Glucose Fasting 87 60-99 mg/dL Calcium 9.8 8.4-10.2 mg/dL Bilirubin Total 0.8 0.0-1.0 mg/dL Aspartate Amino Transferase 18 5-31 U/L Alanine Aminotransferase 10 0-31 U/L Total Protein 7.1 6.5-8.0 g/dL Albumin Level 3.8 3.5-5.0 g/dL Alkaline Phosphatase 57 39-117 U/L Lipid Panel Reviewed date:04/16/2024 12:31:07 PM Interpretation: Performing Lab:[address], [place] [address] Notes/Report: Triglycerides 112 <150 mg/dL Desirable Triglyceride: less than 150 mg/dL Borderline High Triglyceride 150-199 mg/dL High Triglyceride: 200-499 mg/dL Very High Triglyceride: greater than or equal to 5OO mg/dL Cholesterol 148 <200 mg/dL Desirable Cholesterol: less than 200 mg/dL Borderline High Cholesterol: 200-239 mg/dL High Cholesterol: greater than 239 mg/dL LDL Cholesterol Calculated 61 <100 mg/dL Desirable LDL: less than 100 mg/dL Near Optimal/Above Optimal LDL: 110-129 mg/dL Borderline High LDL: 130-159 mg/dL High LDL: 160-189 mg/dL Very High LDL: greater than or equal to 190 mg/dL HDL Cholesterol 65 >40 mg/dL Desirable HDL: greater than 40 mg/dL Note: This HDL assay may give artificially low results in patients with liver disease. Vitamin D 25-OH Total Reviewed date:04/23/2024 12:41:55 PM Interpretation:see back 04-23-24 Performing Lab:[address] [phone] Notes/Report: Vitamin D 25-OH Total 7.7 >30 ng/mL Health Based Reference Values* < 20 ng/mL Deficient 20-30 ng/mL Insufficient > 30 ng/mL Sufficient *Thang JEROME. N Engl J Med. 2007;357:266-280 Care must be taken in interpreting Vitamin D results from different laboratories and methodologies. Published data demonstrated that results from patients undergoing hemodialysis may show a negative bias when tested with various automated 25-OH vitamin D assays when compared to LC-MS/MS. When testing samples from patients whose predominant form of Vitamin D is Vitamin D2, such as patients receiving Vitamin D2 supplementation, results that are subtherapeutic should be confirmed with another method such as LC-MS/MS. TSH reflex Free T4 Reviewed date:04/16/2024 12:29:07 PM Interpretation: Performing Lab:[address] [phone] Notes/Report: TSH reflex Free T4 3.73 0.32-4.0 uIU/mL UA ClnCatch+Micro w/rflx Cul t Reviewed date:04/16/2024 12:42:18 PM Interpretation: Performing Lab:[facility], [address] [place] [phone] Notes/Report: Urine, Clean Catch Color Urine Yellow Appearance Urine Hazy PH 7.0 5.0-9.0 Glucose Urine UA Negative Negative mg/dL Urine Blood Moderate (2+) Negative Specific [place] - Urine 1.010 1.005-1.025 Urine Protein Trace Neg-Trace mg/dL Urine Ketones Negative Negative mg/dL Nitrite Urine Negative Negative Leukocyte Esterase Urine Large (3+) Negative RBC Urine 11-20 0-2 /HPF WBC Urine >50 0-5 /HPF Squamous Epithelial Cell Urine 0-2 0-2 /HPF Bacteria Urine 4+ None Seen Hyaline Casts Urine 0-2 0-2 /LPF INR WHOLE BLOOD POC Reviewed date:04/18/2024 11:55:43 AM Interpretation: Performing Lab:[facility], [address] [place] [phone] Notes/Report: PT, INR - Anti Coag Clinic 1.9 0.9-1.1 METER #: [id number] INTERNATIONAL NORMALIZED RATIO (INR) REFERENCE RANGES Reference Range For patients not on anticoagulant therapy: 0.9 - 1.1 INR ranges for oral anticoagulant therapy: For prevention and treatment of venous thrombosis and pulmonary embolism: 2.0 - 3.0 For acute myocardial infarction with aspirin therapy: 2.0 - 3.0 For acute myocardial infarction without aspirin therapy: 3.0 - 4.0 For patients with mechanical prosthetic heart valves: 2.5 - 3.5 Prothrombin Time Whole Bld P OC Reviewed date:04/18/2024 11:37:30 AM Interpretation: Performing Lab:[facility], [address] [place] [phone] Notes/Report: Prothrombin Time Whole Bld POC 22.3 11.1-13.5 sec UA ClnCatch+Micro w/rflx Cul t Reviewed date:05/16/2024 08:57:31 AM Interpretation:YSABEL 05/16 Performing Lab:[facility], [address] [place] [phone] Notes/Report: Urine, Clean Catch Color Urine Yellow Appearance Urine Clear PH 6.0 5.0-9.0 Glucose Urine UA Negative Negative mg/dL Urine Blood Moderate (2+) Negative Specific [place] - Urine 1.020 1.005-1.025 Urine Protein Trace Neg-Trace mg/dL Urine Ketones Negative Negative mg/dL Nitrite Urine Negative Negative Leukocyte Esterase Urine Small (1+) Negative RBC Urine 6-10 0-2 /HPF WBC Urine 6-10 0-5 /HPF Squamous Epithelial Cell Urine >20 0-2 /HPF Bacteria Urine None Seen None Seen Hyaline Casts Urine 3-5 0-2 /LPF INR WHOLE BLOOD POC Reviewed date:04/29/2024 12:07:08 PM Interpretation: Performing Lab:[facility], [address] [place] [phone] Notes/Report: PT, INR - Anti Coag Clinic 2.0 0.9-1.1 METER #: [id number] INTERNATIONAL NORMALIZED RATIO (INR) REFERENCE RANGES Reference Range For patients not on anticoagulant therapy: 0.9 - 1.1 INR ranges for oral anticoagulant therapy: For prevention and treatment of venous thrombosis and pulmonary embolism: 2.0 - 3.0 For acute myocardial infarction with aspirin therapy: 2.0 - 3.0 For acute myocardial infarction without aspirin therapy: 3.0 - 4.0 For patients with mechanical prosthetic heart valves: 2.5 - 3.5 Prothrombin Time Whole Bld P OC Reviewed date:04/29/2024 12:10:17 PM Interpretation: Performing Lab:[facility], [address] [place] [phone] Notes/Report: Prothrombin Time Whole Bld POC 23.8 11.1-13.5 sec Urine Culture Reviewed date:04/30/2024 12:30:43 PM Interpretation: Performing Lab:[facility], [address] [place] [phone] Notes/Report: Urine Culture No growth. INR WHOLE BLOOD POC Reviewed date:05/23/2024 02:14:47 PM Interpretation: Performing Lab:[facility], [address] [place] [phone] Notes/Report: PT, INR - Anti Coag Clinic 2.4 0.9-1.1 METER #: [id number] INTERNATIONAL NORMALIZED RATIO (INR) REFERENCE RANGES Reference Range For patients not on anticoagulant therapy: 0.9 - 1.1 INR ranges for oral anticoagulant therapy: For prevention and treatment of venous thrombosis and pulmonary embolism: 2.0 - 3.0 For acute myocardial infarction with aspirin therapy: 2.0 - 3.0 For acute myocardial infarction without aspirin therapy: 3.0 - 4.0 For patients with mechanical prosthetic heart valves: 2.5 - 3.5 Prothrombin Time Whole Bld P OC Reviewed date:05/23/2024 12:36:22 PM Interpretation: Performing Lab:[facility], [address] [place] [phone] Notes/Report: Prothrombin Time Whole Bld POC 29.2 11.1-13.5 sec INR WHOLE BLOOD POC Reviewed date:06/20/2024 12:15:42 PM Interpretation: Performing Lab:[facility], [address] [place] [phone] Notes/Report: PT, INR - Anti Coag Clinic 2.6 0.9-1.1 METER #: [id number] INTERNATIONAL NORMALIZED RATIO (INR) REFERENCE RANGES Reference Range For patients not on anticoagulant therapy: 0.9 - 1.1 INR ranges for oral anticoagulant therapy: For prevention and treatment of venous thrombosis and pulmonary embolism: 2.0 - 3.0 For acute myocardial infarction with aspirin therapy: 2.0 - 3.0 For acute myocardial infarction without aspirin therapy: 3.0 - 4.0 For patients with mechanical prosthetic heart valves: 2.5 - 3.5 Prothrombin Time Whole Bld P OC Reviewed date:06/20/2024 11:32:36 AM Interpretation: Performing Lab:[facility], [address] [place] [phone] Notes/Report: Prothrombin Time Whole Bld POC 31.4 11.1-13.5 sec INR WHOLE BLOOD POC Reviewed date:07/18/2024 05:14:34 PM Interpretation: Performing Lab:[facility], [address] [place] [phone] Notes/Report: PT, INR - Anti Coag Clinic 3.3 0.9-1.1 METER #: [id number] INTERNATIONAL NORMALIZED RATIO (INR) REFERENCE RANGES Reference Range For patients not on anticoagulant therapy: 0.9 - 1.1 INR ranges for oral anticoagulant therapy: For prevention and treatment of venous thrombosis and pulmonary embolism: 2.0 - 3.0 For acute myocardial infarction with aspirin therapy: 2.0 - 3.0 For acute myocardial infarction without aspirin therapy: 3.0 - 4.0 For patients with mechanical prosthetic heart valves: 2.5 - 3.5 Prothrombin Time Whole Bld P OC Reviewed date:07/18/2024 09:21:50 PM Interpretation: Performing Lab:[facility], [address] [place] [phone] Notes/Report: Prothrombin Time Whole Bld POC 39.3 11.1-13.5 sec INR WHOLE BLOOD POC Reviewed date:08/15/2024 12:42:03 PM Interpretation: Performing Lab:[facility], [address] [place] [phone] Notes/Report: PT, INR - Anti Coag Clinic 2.1 0.9-1.1 METER #: [id number] INTERNATIONAL NORMALIZED RATIO (INR) REFERENCE RANGES Reference Range For patients not on anticoagulant therapy: 0.9 - 1.1 INR ranges for oral anticoagulant therapy: For prevention and treatment of venous thrombosis and pulmonary embolism: 2.0 - 3.0 For acute myocardial infarction with aspirin therapy: 2.0 - 3.0 For acute myocardial infarction without aspirin therapy: 3.0 - 4.0 For patients with mechanical prosthetic heart valves: 2.5 - 3.5 Prothrombin Time Whole Bld P OC Reviewed date:08/15/2024 12:41:55 PM Interpretation: Performing Lab:[facility], [address] [place] [phone] Notes/Report: Prothrombin Time Whole Bld POC 25.0 11.1-13.5 sec REASON FOR REFERRAL No Information MEDICATIONS Medication SIG (Take, Route, Frequency, Duration) Notes Start Date End Date Status Cephalexin 500 MG 1 capsule Orally 2 times a day for 7 days 04/17/2023 Active Vitamin D (Ergocalciferol) 1 .25 MG (25981 UT) take 1 capsule by mouth 2 times a month.. Orally once a week for 90 days Active Warfarin Sodium 2.5 MG 1 tablet Orally O nce a day Active hydroCHLOROthiazide 25 MG TAKE ONE TABLE T BY MOUTH EVERY MORNING for 90 Active Metoprolol Tartrate 25 MG TAKE ONE TABLE T BY MOUTH EVERY DAY WITH FOOD Orally ONCE A DAY for 90 days Active Levothyroxine Sodium 25 MCG TAKE ONE TAB LET BY MOUTH EVERY MORNING ON AN EMPTY STOMACH for 90 Active Simvastatin 20 MG TAKE ONE TABLET BY MOUTH EVERY DAY IN THE EVENING for 90 Active Pantoprazole Sodium 20 MG TAKE ONE TABLE T BY MOUTH EVERY DAY for 30 Active Aspir-81 81 MG 1 tablet Orally Once a day for 30 day(s) Active IMMUNIZATIONS Vaccine Route Administration Date Status Comme nts Flu Vaccine IM Intramuscular 05/24/2017 Administered Had f geno vaccine while a patient of Dr. Ace Delacruz's. PPSV23 (Pnemovax) Unknown 06/19/2014 Administered Had a t C Tetanus IM Intramuscular 12/25/[address] [facility] Fluarix Quadrivalent IM Intramuscular [facility] IM Intramuscular 10/29/2018 Administered Fluarix Quadrivalent IM Intramuscular 06/11/2019 [facility] PPSV23 (Pnemovax) IM Intramuscular 06/20/2019 Administered Fluarix Quadrivalent IM Intramuscular [facility] Influenza High Dose IM Intramuscular 08/02/2021 Administer ed Influenza High Dose IM Intramuscular 07/08/2022 Administer ed Influenza High Dose IM Intramuscular 06/23/2023 Administer ed Influenza High Dose IM Intramuscular 06/10/2024 Administer ed Covid Vaccine Unknown 04/15/2021 Refused SOCIAL HISTORY Tobacco Use: Social History Observation Description Date Details (start date - stop date) Never Smoker NA - NA Sex Assigned At : Social History Observation Description Sex Assigned At Unknown Tobacco Use/Smoking Question Answer Notes Patient is a nonsmoker Additional Findings: Tobacco Non-User Cu rrent non-smoker, currently using no form of tobacco Alcohol Screen Question Answer Notes Did you have a drink containing alcohol in the p ast year? 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) Active confirmed 00238894 Problem History of CVA (cerebrovascular accident) (Z86.73) Active confirmed 024765517 Problem PFO (patent foramen ovale) (Q21.1) Active confirmed 596108536 Problem Reflux gastritis (K29.60) Active confirmed 05228310 Problem Other specified menopausal and perimenopausal disorders (N95.8) Active confirmed 145612999 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 42501803 Problem Vitamin D deficiency (E55.9) Active confirmed 41996815 Problem Essential hypertensi on (I10) Active confirmed 26846063 Problem Hypercholesteremia (E78.00) Active confirmed 58970096 Problem Acute idiopathic gou t of right hand (M10.041) Active confirmed Problem Age-related osteoporosis without current pathological fracture (M81.0) Active confirmed [id number] Problem Microscopic hematuri a (R31.29) Active confirmed [id number] VITAL SIGNS Blood pressure diastolic 80 mm Hg 04/23/2024 km ght is up 8 pounds since 10-30-23 Height 58 in 05/16/2024 weight 180 at h ome BP not taken at home Blood pressure systolic 124 mm Hg 04/23/2024 weig ht is up 8 pounds since 10-30-23 Weight 180 lbs 05/16/2024 weight 180 at h ome BP not taken at home BMI 37.62 kg/m2 05/16/2024 weight 180 at h ome BP not taken at home Encounters Encounter Location Date Provider Diagnosis Larry Meyers MD [address] [place] [address] [id number] 04/23/2024 Larry Meyers Vitamin D deficiency E55.9 ; Annual physical exam Z00.00 ; Microscopic hematuria R31.29 ; History of pulmonary embolism Z86.711 ; Clotting disorder D68.9 ; Acquired hypothyroidism E03.9 ; Reflux gastritis K29.60 ; Essential hypertension I10 and Depression screening Z13.31 Larry Meyers MD [address] [place] [address] [id number] 04/16/2024 Larry Meyers Blood tests for routine general physical examination Z00.00 ; Elevated cholesterol E78.00 ; Acquired hypothyroidism E03.9 ; Vitamin D deficiency E55.9 and Essential hypertension I10 Larry Meyers MD [address] [place] [address] [id number] 10/23/2023 Larry Meyers Elevated cholesterol E78.00 Larry Meyers MD [address] [place] [address] [id number] 04/29/2024 Larry Meyers After care Z51.89 Larry Meyers MD [address] [place] [address] [id number] 06/10/2024 Larry Meyers Encounter for immunization Z23 Larry Meyers MD [address] [place] [address] [id number] 01/02/2024 Larry Meyers Vitamin D deficiency E55.9 Larry Meyers MD [address] [place] [address] [id number] 04/18/2024 Larry Meyers Acute cystitis with hematuria N30.01 Larry Meyers MD [address] [place] [address] [id number] 09/09/2024 Larry Meyers Essential hypertensi on I10 Larry Meyers MD [address] [place] [address] [id number] 10/30/2023 Larry Meyers Viral syndrome B34.9 Larry Meyers MD [address] [place] [address] [id number] 05/16/2024 Larry Meyers Microscopic hematuri a R31.29 ASSESSMENTS Encounter Date Diagnosis Assessment Notes Treatment Notes Treatment Clinical Notes 04/23/2024 Vitamin D deficiency (ICD-10 - E55.9) stable, will continue current regiment 04/23/2024 Annual physical exam (ICD-10 - Z00.00) labs reviewed and discussed with patient 04/16/2024 Elevated cholesterol (ICD-10 - E78.00) 04/16/2024 Blood tests for routine general physical examination (ICD-10 - Z00.00) 10/23/2023 Elevated cholesterol (ICD-10 - E78.00) 06/10/2024 Encounter for immunization (ICD-10 - Z23) 01/02/2024 Vitamin D deficiency (ICD-10 - E55.9) 04/18/2024 Acute cystitis with hematuria (ICD-10 - N30.01) 09/09/2024 Essential hypertension (ICD-10 - I10) 10/30/2023 Viral syndrome (ICD-10 - B34.9) never got vaccine for covid. had been exposed. will recheck in next 2 days 05/16/2024 Microscopic hematuri a (ICD-10 - R31.29) has been evaluated with cysto and cat scan so no need for further evaluation 04/23/2024 Microscopic hematuri a (ICD-10 - R31.29) evaluated by dr liang 04/16/2024 Acquired hypothyroidism (ICD-10 - E03.9) 04/29/2024 After care (ICD-10 - Z51.89) 04/23/2024 History of pulmonary embolism (ICD-10 - Z86.711) nno further problems on warfarin 04/16/2024 Vitamin D deficiency (ICD-10 - E55.9) 04/23/2024 Clotting disorder (ICD-10 - D68.9) 04/16/2024 Essential hypertension (ICD-10 - I10) 04/23/2024 Acquired hypothyroidism (ICD-10 - E03.9) stable, will continue current regiment 04/23/2024 Reflux gastritis (ICD-10 - K29.60) stable, will continue current regiment 04/23/2024 Essential hypertension (ICD-10 - I10) stable, will continue current regiment 04/23/2024 Depression screening (ICD-10 - Z13.31) negative screen PLAN OF TREATMENT Pending Test Test Name Order Date BONE DENSITY DEXA 04/14/2020 MAMMOGRAM DIGITAL BILATERAL SCREEN 04/14 XR DEXA axial skeleton 04/19/2022 Future Test Test Name Order Date Vitamin D 25-OH Total 10/24/2024 Next Appt Details Provider Name:Larry house, 10/24/2024 07:45:00 AM, [address] [place] [address], [address], [phone], Provider Name:Larry danielsonr, 04/21/2025 07:15:00 AM, [address] [place] [address], [address], [phone], Provider Name:Larry house, 04/28/2025 10:30:00 AM, [address] [place] [address], [address], [phone], Insurance Providers Payer Name Payer Address Payer Phone Subscriber Number Group Number Insured Name Patient Relationship to Insured Coverage Start Date Coverage End Date [facility] are [employer] [address] [address] [place] [address] [phone] [id number] Regina Mary trejo Self - patient is the insured MEDICARE NHIC [employer] [address] [place] [id number] Mary Turcios Self - patient is the insured MEDICAL (GENERAL) HISTORY Medical History History ICD Code Stroke X 2 in 11/08 and 08/10 Refuses Colonoscopy 04/20/18; refused 04/02 019 hematuria chronic and has been evaluated Surgical History Surgery Date(Month/Year) Repair gallstone ileius & Umbilical Serg ia (Dr. Wilson) 11/2018
--- OUTSIDE RECORDS SUMMARY | 2024-09-12 08:08 | XMS_ITS ---
Author Organization Larry Meyers MD Address [address] [place] [address] [phone] Care Team Providers Care Entry Level Assistant Manager Name Role Phone Larry Meyers Primary Care Provider [phone] REASON FOR VISIT HDF IMMUNIZATIONS Vaccine Route Administration Date Status Comme nts Influenza High Dose IM Intramuscular 06/10/2024 Administer ed Encounters Encounter Location Date Provider Diagnosis Larry Meyers MD [address] [place] [address] [place] [address] [id number] 06/10/2024 Larry Meyers Encounter for immunization Z23 ASSESSMENTS Encounter Date Diagnosis Assessment Notes Treatment Notes Treatment Clinical Notes 06/10/2024 Encounter for immunization (ICD-10 - Z23) PLAN OF TREATMENT Next Appt Details Provider Name:Larry house, 10/24/2024 07:45:00 AM, [address] [place] [address], [phone], Provider Name:Larry house, 04/21/2025 07:15:00 AM, [address] [place] [address], [phone], Provider Name:Larry house, 04/28/2025 10:30:00 AM, [address], [address], [place], [place], [phone],
--- OUTSIDE RECORDS SUMMARY | 2024-09-12 08:08 | XMS_ITS ---
Author Organization Larry Meyers MD Address [address] [place] [address] [phone] Care Team Providers Care Machine Maintenance Repairer Name Role Phone Mira Larry Primary Care Provider [phone] REASON FOR VISIT REFILL METAPROLOL MEDICATIONS Medication SIG (Take, Route, Frequency, Duration) Notes Start Date End Date Status Metoprolol Tartrate 25 MG TAKE ONE TABLE T BY MOUTH EVERY DAY WITH FOOD Orally ONCE A DAY for 90 days Active Encounters Encounter Location Date Provider Diagnosis Larry Meyers MD [address] [place] [address] [id number] 09/09/2024 Larry Meyers Essential hypertension I10 ASSESSMENTS Encounter Date Diagnosis Assessment Notes Treatment Notes Treatment Clinical Notes 09/09/2024 Essential hypertension (ICD-10 - I10) PLAN OF TREATMENT Medication Medication Name Sig Start Date Stop Date Notes Metoprolol Tartrate 25 MG TAKE ONE TABLE T BY MOUTH EVERY DAY WITH FOOD Orally ONCE A DAY for 90 days Next Appt Details Provider Name:Larry house, 10/24/2024 07:45:00 AM, 10 [facility], [address] [place] [address], [phone], Provider Name:Larry house, 04/21/2025 07:15:00 AM, [address], [address], [place], [phone], Provider Name:Larry house, 04/28/2025 10:30:00 AM, [address] [place] [address], [address], [place], [phone],
[2024-09-12 08:19] LABS: Prothrombin Time Whole Bld POC 28.3 sec (11.1-13.5); ~PT, ~INR - Anti Coag Clinic 2.4 (0.9-1.1)
--- NOTE | 2024-09-12 08:22 | MHC.OFFVISCO ---
Intake Intake Visit Reasons: Anticoagulation Allergies cat dander [CATS] Adverse Reaction (Mild, Verified 09/12/24 08:15) RASH raspberry [RASPBERRY] Adverse Reaction (Mild, Verified 09/12/24 08:15) RASH Medication List - Last Reconciled 09/12/24 by Meenu Chaney, RN aspirin (Adult Aspirin Regimen) 81 mg PO DAILY ergocalciferol (vitamin D2) 1,250 mcg PO QMONTH hydrochlorothiazide 25 mg PO QAM levothyroxine 25 mcg PO QAM metoprolol tartrate 25 mg PO DAILY pantoprazole (Protonix) 20 mg PO DAILY simvastatin 20 mg PO BEDTIME warfarin 2.5 mg See Protocol PO DAILY Nursing Note INR: 2.4 in therapeutic range of 2-3 Medications and supplements reviewed No changes in health, diet, medications, or supplements, Denies any signs and symptoms of bleeding or bruising or clotting. 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
== END 2024-09-12 08:23 | disposition home or self-care (01) ==
LOC: HO.ACS 08:04
PROVIDERS: PCP Internal Medicine; Visit Provider Internal Medicine
DX: Z79.01 Long term (current) use of anticoagulants (principal)

== ENCOUNTER → 2024-09-12 08:04 | Outpatient (BNVA) | payer MEDICARE, SELFPAY | PROVIDERS: PCP Internal Medicine; Visit Provider Internal Medicine | DX: Z86.73 Personal history of transient ischemic attack (TIA), and cerebral infarction without residual deficits (principal); Z79.01 Long term (current) use of anticoagulants; Z51.81 Encounter for therapeutic drug level monitoring | CPT/HCPCS: 85610; 99211 ==

== ENCOUNTER 2024-10-10 09:58 | Outpatient (AMB) | payer MEDICARE, SELFPAY ==
--- NOTE | 2024-10-10 10:12 | MHC.OFFVISCO ---
Intake Intake Visit Reasons: Anticoagulation Allergies cat dander [CATS] Adverse Reaction (Mild, Verified 10/10/24 09:59) RASH raspberry [RASPBERRY] Adverse Reaction (Mild, Verified 10/10/24 09:59) RASH Medication List - Last Reconciled 10/10/24 by Fany Leger RN aspirin (Adult Aspirin Regimen) 81 mg PO DAILY ergocalciferol (vitamin D2) 1,250 mcg PO QMONTH hydrochlorothiazide 25 mg PO QAM levothyroxine 25 mcg PO QAM metoprolol tartrate 25 mg PO DAILY pantoprazole (Protonix) 20 mg PO DAILY simvastatin 20 mg PO BEDTIME warfarin 2.5 mg See Protocol PO DAILY Nursing Note INR: 3.4 OUT therapeutic range Medications and supplements reviewed- TAKING MORE TYLENOL RECENTLY FOR ARTHRITIS WAS WELL OVER THE HOLIDAYS Denies any signs and symptoms of bleeding or bruising or clotting. Bleeding, bruising, clotting discussed Nutritional guidance given - make sure to eat more greens during the week when taking more tylenol Dose: keep same dose - eat greens today F/U INR: 1 month Patient verbalizes understanding of instructions given Anti-Coag Initial Assessment Social Hx Patient Tobacco Use Status: Never used Tobacco alcohol intake: never Alcohol intake frequency: does not drink Questionnaires HAS-BLED Does the patient had uncontrolled Hypertension?: No Does the patient have renal disease?: No Does the patient have liver disease?: No Does the patient have a history of stroke?: Yes Has the patient had major bleeding or predisposition to bleeding?: No Does the patient have labile INRs?: No Is the patient over 65 years of age?: Yes Is the patient on medications that gives them a predisposition to bleeding?: Yes Does the patient use alcohol?: No HAS-BLED Score: 3 CHADSVASC Age: 75 or over Gender: Female Does the patient have a history of CHF?: No Does the patient have a history of Hypertension?: Yes Does the patient have a history of Stroke/TIA/Thromboembolism?: Yes Does the patient have a history of Vascular Disease (prior GA, PAD or aortic plaque)?: No Does the patient have a history of Diabetes?: No CHADS VACS Score: 6 Ana Prediction Score Rsk VTE Active Cancer: No Previous VTE, excluding superficial vein thrombosis: Yes Reduced mobility: Yes Already known Thrombophilic Condition: No With-in last month Trauma and/or Surgery: No Elderly 70 year or older: Yes Heart and/or Respiratory Failure: No Acute Myocardial infarction and/or Ischemic Stroke: Yes Acute Infection and/or Rheumatologic Disorder: Yes Obesity (BMI 30 or greater): Yes Ongoing Hormonal Treatment: No Score: 10 Ana Score less than 4; Low Risk of VTE Ana Score 4 or greater; High Risk of VTE Coding Level of Care Code Est Patient Level 1 Diagnoses Current use of anticoagulant therapy Z79.01 Results AMB INR Fingerstick AMB INR Fingerstick 3.4 Last Edit by Fany Leger RN on 10/10/24 10:06 MANUAL ENTRY Assessment & Plan Assessment & Plan (1) Current use of anticoagulant therapy: Code(s): Z79.01 - intermediate frame tender (current) use of anticoagulants Category: Medical
--- OUTSIDE RECORDS SUMMARY | 2024-10-10 10:28 | XMS_ITS ---
Author Organization Larry Meyers MD Address [address] [place] [address] [phone] Care Team Providers Care Switchboard Wire Worker Helper Name Role Phone Larry Meyers Primary Care Provider REASON FOR VISIT HDF IMMUNIZATIONS Vaccine Route Administration Date Status Comme nts Influenza High Dose IM Intramuscular 06/10/2024 Administer ed Encounters Encounter Location Date Provider Diagnosis Larry Meyers MD 10 [facility] [address] [place] [address] [phone] 06/10/2024 Larry Meyers Encounter for immunization Z23 ASSESSMENTS Encounter Date Diagnosis Assessment Notes Treatment Notes Treatment Clinical Notes 06/10/2024 Encounter for immunization (ICD-10 - Z23) PLAN OF TREATMENT Next Appt Details Provider Name:Larry house, 10/24/2024 07:45:00 AM, [address] [place] [address], [phone], Provider Name:Larry house, 04/21/2025 07:15:00 AM, [address] [place] [address], [phone], Provider Name:Larry house, 04/28/2025 10:30:00 AM, [address], [address], [place], [place], [phone],
--- OUTSIDE RECORDS SUMMARY | 2024-10-10 10:28 | XMS_ITS ---
Author Organization Larry Meyers MD Address [address] [place] [address] [phone] Care Team Providers Care Hot Shot Name Role Phone Mira Larry Primary Care Provider REASON FOR VISIT refill MEDICATIONS Medication SIG (Take, Route, Fr equency, Duration) Notes Start Date End Date Status Warfarin Sodium 2.5 MG 1 tablet Orally O nce a day for 90 days Active Encounters Encounter Location Date Provider Diagnosis Larry Meyers MD [address] [place] [address] [phone] 10/08/2024 Larry Meyers Clotting disorder D68.9 ASSESSMENTS Encounter Date Diagnosis Assessment Notes Treatment Notes Treatment Clinical Notes 10/08/2024 Clotting disorder (ICD-10 - D68.9) PLAN OF TREATMENT Medication Medication Name Sig Start Date Stop Date Notes Warfarin Sodium 2.5 MG 1 tablet Orally O nce a day for 90 days Next Appt Details Provider Name:Larry house, 10/24/2024 07:45:00 AM, 10 [facility], [address] [place] [address], [phone], Provider Name:Larry house, 04/21/2025 07:15:00 AM, [address], [address], [place], [phone], Provider Name:Larry house, 04/28/2025 10:30:00 AM, [address], [address], [place], [phone],
--- OUTSIDE RECORDS SUMMARY | 2024-10-10 10:28 | XMS_ITS ---
Author Organization Larry Meyers MD Address [address] [place] [phone] Care Team Providers Care Psychologist Experimental Name Role Phone Mira Larry Primary Care Provider [phone] REASON FOR VISIT REFILL METAPROLOL MEDICATIONS Medication SIG (Take, Route, Frequency, Duration) Notes Start Date End Date Status Metoprolol Tartrate 25 MG TAKE ONE TABLE T BY MOUTH EVERY DAY WITH FOOD Orally ONCE A DAY for 90 days Active Encounters Encounter Location Date Provider Diagnosis Larry Meyers MD [address] [place] [id number] 09/09/2024 Larry Meyers Essential hypertension I10 ASSESSMENTS [...] Provider Name:Larry house, 10/24/2024 07:45:00 AM, [address] [facility], [address] [place] [address], [phone], Provider Name:Larry house, 04/21/2025 07:15:00 AM, [address], [address], [place], [phone], Provider Name:Larry house, 04/28/2025 10:30:00 AM, [address] [place] [address], [address], [place], [phone],
--- OUTSIDE RECORDS SUMMARY | 2024-10-10 10:29 | XMS_ITS | Patient Health Record ---
Author Organization Larry Meyers MD Address [address] [place] [phone] Care Team Providers Care Cork Sorter Name Role Phone Larry Meyers Primary Care Provider [phone] ALLERGIES No Known Allergies RESULTS Component Value Reference Range Notes INR WHOLE BLOOD POC Reviewed date:10/19/2023 11:47:53 AM Interpretation: Performing Lab:[facility], [address] [place] [phone] Notes/Report: PT, INR - [facility] 3.7 0.9-1.1 METER #: [id number] INTERNATIONAL NORMALIZED RATIO (INR) REFERENCE RANGES Reference [...] OC Reviewed date:10/19/2023 11:48:02 AM Interpretation: Performing Lab:[facility], [address] [place] [phone] Notes/Report: Prothrombin Time Whole Bld POC 44.2 11.1-13.5 sec Darien Rodriguez Reviewed date:10/23/2023 12:25:48 PM Interpretation: Performing Lab:[facility], [address] [place] [phone] Notes/Report: Darien Rodriguez See Note Specimen held untested for 24 hours; Call to request Chemistry testing. Liver Panel Reviewed date:10/23/2023 05:14:27 PM Interpretation: Performing Lab:[facility], [address] [place] [phone] Notes/Report: Bilirubin Total 0.7 0.0-1.0 mg/dL Bilirubin Direct 0.3 0.0-0.5 mg/dL Aspartate Amino Transferase 19 5-31 U/L Alanine Aminotransferase 9 0-31 U/L Total Protein 7.5 6.5-8.0 g/dL Albumin Level 3.9 3.5-5.0 g/dL Alkaline Phosphatase 60 39-117 U/L Lipid Panel with Reflex Reviewed date:10/23/2023 05:14:00 PM Interpretation: Performing Lab:[facility], [address] [place] [phone] Notes/Report: Triglycerides 109 <150 mg/dL Desirable Triglyceride: [...] POC Reviewed date:11/02/2023 12:12:43 PM Interpretation: Performing Lab:[facility], [address] [place] [phone] Notes/Report: PT, INR - [facility] 2.0 0.9-1.1 METER #: [id number] INTERNATIONAL NORMALIZED RATIO (INR) REFERENCE RANGES Reference [...] OC Reviewed date:11/02/2023 12:13:01 PM Interpretation: Performing Lab:[facility], [address] [place] [phone] Notes/Report: Prothrombin Time Whole Bld POC 23.7 11.1-13.5 sec INR WHOLE BLOOD POC Reviewed date:11/30/2023 12:33:39 PM Interpretation: Performing Lab:[facility], [address] [place] [phone] Notes/Report: PT, INR - [facility] 3.2 0.9-1.1 METER #: [id number] INTERNATIONAL NORMALIZED RATIO (INR) REFERENCE RANGES Reference [...] OC Reviewed date:11/30/2023 12:37:53 PM Interpretation: Performing Lab:[facility], [address] [place] [phone] Notes/Report: Prothrombin Time Whole Bld POC 38.5 11.1-13.5 sec INR WHOLE BLOOD POC Reviewed date:12/28/2023 12:42:50 PM Interpretation: Performing Lab:[facility], [address] [place] [phone] Notes/Report: PT, INR - [facility] 2.0 0.9-1.1 METER #: [id number] INTERNATIONAL NORMALIZED RATIO (INR) REFERENCE RANGES Reference [...] OC Reviewed date:12/28/2023 12:43:22 PM Interpretation: Performing Lab:[facility], [address] [place] [phone] Notes/Report: Prothrombin Time Whole Bld POC 24.2 11.1-13.5 sec INR WHOLE BLOOD POC Reviewed date:01/25/2024 12:26:20 PM Interpretation: Performing Lab:[facility], [address] [place] [phone] Notes/Report: PT, INR - [facility] 2.5 0.9-1.1 METER #: [id number] INTERNATIONAL NORMALIZED RATIO (INR) REFERENCE RANGES Reference [...] OC Reviewed date:01/25/2024 04:56:46 PM Interpretation: Performing Lab:[facility], [address] [place] [phone] Notes/Report: Prothrombin Time Whole Bld POC 29.9 11.1-13.5 sec INR WHOLE BLOOD POC Reviewed date:02/22/2024 12:25:12 PM Interpretation: Performing Lab:[facility], [address] [place] [phone] Notes/Report: PT, INR - [facility] 2.0 0.9-1.1 METER #: [id number] INTERNATIONAL NORMALIZED RATIO (INR) REFERENCE RANGES Reference [...] OC Reviewed date:02/22/2024 12:25:19 PM Interpretation: Performing Lab:[address] [phone] Notes/Report: Prothrombin Time Whole Bld POC 24.6 11.1-13.5 sec INR WHOLE BLOOD POC Reviewed date:03/21/2024 01:21:54 PM Interpretation: Performing Lab:[facility], [address] [place] [phone] Notes/Report: PT, INR - [facility] 2.4 0.9-1.1 METER #: [id number] INTERNATIONAL NORMALIZED RATIO (INR) REFERENCE RANGES Reference [...] OC Reviewed date:03/21/2024 05:06:31 PM Interpretation: Performing Lab:[facility], [address] [place] [phone] Notes/Report: Prothrombin Time Whole Bld POC 28.6 11.1-13.5 sec Urine Culture Reviewed date:04/18/2024 12:41:01 PM Interpretation: Performing Lab:[facility], [address] [place] [phone] Notes/Report: O:ESCCOL Escherichia coli Urine Culture Quant Urine Culture > 100,000 cfu/mL Ampicillin 8 Ceftriaxone <=0.25 Gentamicin <=1 Levofloxacin <=0.12 Nitrofurantoin <=16 Trimethoprim/Sulfamethoxaz ole <=20 Complete Blood Count Auto Di ff Reviewed date:04/16/2024 12:40:26 PM Interpretation: Performing Lab:[facility], [address] [place] [phone] Notes/Report: White Blood Count 6.9 4.8-10.8 X10*3/uL [...] NRBC Abs Auto 0.000 0.0-0.012 X10*3/uL Comprehensive [place]. Panel Fa st Reviewed date:04/16/2024 12:39:33 PM Interpretation: Performing Lab:[facility], [address] [place] [phone] Notes/Report: Sodium 135 135-145 mmol/L Potassium 3.5 3.3-5.1 mmol/L Chloride 98 96-108 mmol/L Carbon Dioxide 24 22-29 mmol/L Anion Gap 17 12-20 Blood Urea Nitrogen 13 9-16 mg/dL Creatinine 0.82 0.5-1.4 mg/dL Estimated Glomerular Filt Rate > 60 NOTE: For -[place]old[place] individuals, multiply the result by 1.210. Chronic [...] Panel Reviewed date:04/16/2024 12:31:07 PM Interpretation: Performing Lab:[facility], [address] [place] [phone] Notes/Report: Triglycerides 112 <150 mg/dL Desirable Triglyceride: [...] date:04/23/2024 12:41:55 PM Interpretation:see back 04-23-24 Performing Lab:[facility], [address] [place] [phone] Notes/Report: Vitamin D 25-OH Total 7.7 >30 [...] T4 Reviewed date:04/16/2024 12:29:07 PM Interpretation: Performing Lab:[facility], [address] [place] [phone] Notes/Report: TSH reflex Free T4 3.73 0.32-4.0 uIU/mL UA ClnCatch+Micro w/rflx Cul t Reviewed date:04/16/2024 12:42:18 PM Interpretation: Performing Lab:[facility], [address] [place] [phone] Notes/Report: Urine, Clean Catch Color Urine Yellow Appearance Urine Hazy PH 7.0 5.0-9.0 Glucose Urine UA Negative Negative mg/dL Urine Blood Moderate (2+) Negative Specific [place] - Urine 1.010 1.005-1.025 Urine Protein Trace Neg-Trace mg/dL Urine Ketones Negative Negative mg/dL Nitrite Urine Negative Negative Leukocyte Esterase Urine Large (3+) Negative RBC Urine 11-20 0-2 /HPF WBC Urine >50 0-5 /HPF Squamous Epithelial Cell Urine 0-2 0-2 /HPF Bacteria Urine 4+ None Seen Hyaline Casts Urine 0-2 0-2 /LPF INR WHOLE BLOOD POC Reviewed date:04/18/2024 11:55:43 AM Interpretation: Performing Lab:[facility], [address] [place] [phone] Notes/Report: PT, INR - Anti Coag Clinic 1.9 0.9-1.1 METER #: [id number] INTERNATIONAL NORMALIZED RATIO (INR) REFERENCE RANGES Reference [...] OC Reviewed date:04/18/2024 11:37:30 AM Interpretation: Performing Lab:[facility], [address] [place] [phone] Notes/Report: Prothrombin Time Whole Bld POC 22.3 11.1-13.5 sec UA ClnCatch+Micro w/rflx Cul t Reviewed date:05/16/2024 08:57:31 AM Interpretation:YSABEL 05/16 Performing Lab:[facility], [address] [place] [phone] Notes/Report: Urine, Clean Catch Color Urine Yellow Appearance Urine Clear PH 6.0 5.0-9.0 Glucose Urine UA Negative Negative mg/dL Urine Blood Moderate (2+) Negative Specific [place] - Urine 1.020 1.005-1.025 Urine Protein Trace Neg-Trace mg/dL Urine Ketones Negative Negative mg/dL Nitrite Urine Negative Negative Leukocyte Esterase Urine Small (1+) Negative RBC Urine 6-10 0-2 /HPF WBC Urine 6-10 0-5 /HPF Squamous Epithelial Cell Urine >20 0-2 /HPF Bacteria Urine None Seen None Seen Hyaline Casts Urine 3-5 0-2 /LPF INR WHOLE BLOOD POC Reviewed date:04/29/2024 12:07:08 PM Interpretation: Performing Lab:[facility], [address] [place] [phone] Notes/Report: PT, INR - [facility]ag Clinic 2.0 0.9-1.1 METER #: [id number] INTERNATIONAL NORMALIZED RATIO (INR) REFERENCE RANGES Reference [...] OC Reviewed date:04/29/2024 12:10:17 PM Interpretation: Performing Lab:[facility], [address] [place] [phone] Notes/Report: Prothrombin Time Whole Bld POC 23.8 11.1-13.5 sec Urine Culture Reviewed date:04/30/2024 12:30:43 PM Interpretation: Performing Lab:[facility], [address] [place] [phone] Notes/Report: Urine Culture No growth. INR WHOLE BLOOD POC Reviewed date:05/23/2024 02:14:47 PM Interpretation: Performing Lab:[facility], [address] [place] [phone] Notes/Report: PT, INR - [facility]ag [facility] 2.4 0.9-1.1 METER #: [id number] INTERNATIONAL NORMALIZED RATIO (INR) REFERENCE RANGES Reference [...] OC Reviewed date:05/23/2024 12:36:22 PM Interpretation: Performing Lab:[facility], [address] [place] [phone] Notes/Report: Prothrombin Time Whole Bld POC 29.2 11.1-13.5 sec INR WHOLE BLOOD POC Reviewed date:06/20/2024 12:15:42 PM Interpretation: Performing Lab:[facility], [address] [place] [phone] Notes/Report: PT, INR - [facility] 2.6 0.9-1.1 METER #: [id number] INTERNATIONAL NORMALIZED RATIO (INR) REFERENCE RANGES Reference [...] OC Reviewed date:06/20/2024 11:32:36 AM Interpretation: Performing Lab:[facility], [address] [place] [phone] Notes/Report: Prothrombin Time Whole Bld POC 31.4 11.1-13.5 sec INR WHOLE BLOOD POC Reviewed date:07/18/2024 05:14:34 PM Interpretation: Performing Lab:[facility], [address] [place] [phone] Notes/Report: PT, INR - [facility] 3.3 0.9-1.1 METER #: [id number] INTERNATIONAL NORMALIZED RATIO (INR) REFERENCE RANGES Reference [...] OC Reviewed date:07/18/2024 09:21:50 PM Interpretation: Performing Lab:[facility], [address] [place] [phone] Notes/Report: Prothrombin Time Whole Bld POC 39.3 11.1-13.5 sec INR WHOLE BLOOD POC Reviewed date:08/15/2024 12:42:03 PM Interpretation: Performing Lab:[facility], [address] [place] [phone] Notes/Report: PT, INR - [facility] 2.1 0.9-1.1 METER #: [id number] INTERNATIONAL NORMALIZED RATIO (INR) REFERENCE RANGES Reference [...] OC Reviewed date:08/15/2024 12:41:55 PM Interpretation: Performing Lab:[facility], [address] [place] [phone] Notes/Report: Prothrombin Time Whole Bld POC 25.0 11.1-13.5 sec INR WHOLE BLOOD POC Reviewed date:09/12/2024 08:28:06 AM Interpretation: Performing Lab:[facility], [address] [place] [phone] Notes/Report: PT, INR - [facility] 2.4 0.9-1.1 METER #: [id number] INTERNATIONAL NORMALIZED RATIO (INR) REFERENCE RANGES Reference [...] Prothrombin Time Whole Bld P OC Reviewed date:09/12/2024 08:28:13 AM Interpretation: Performing Lab:[facility], [address] [place] [phone] Notes/Report: Prothrombin Time Whole Bld POC 28.3 11.1-13.5 sec REASON FOR REFERRAL No Information MEDICATIONS Medication SIG (Take, Route, Frequency, Duration) Notes Start Date End Date Status Cephalexin 500 MG 1 capsule Orally 2 times a day for 7 days 04/17/2023 Active Vitamin D (Ergocalciferol) 1 .25 MG (12700 UT) take 1 capsule by mouth 2 times a month.. Orally once a week for 90 days Active hydroCHLOROthiazide 25 MG TAKE ONE TABLE [...] Once a day for 30 day(s) Active Warfarin Sodium 2.5 MG 1 tablet Orally O nce a day for 90 days Active IMMUNIZATIONS Vaccine Route Administration Date Status Comme nts Flu Vaccine IM Intramuscular 05/24/2017 Administered Had f geno vaccine while a patient of Dr. Ace Delacruz's. PPSV23 (Pnemovax) Unknown 06/19/2014 Administered Had a t [facility] Tetanus IM Intramuscular 12/25/[address] [facility] Fluarix Quadrivalent IM Intr[facility]cular [facility] 13 IM Intramuscular 10/29/2018 Administered Fluarix Quadrivalent IM Intramuscular 06/11/2019 [facility] PPSV23 (Pnemovax) IM Intramuscular 06/20/2019 Administered Fluarix Quadrivalent IM Intramuscular 05/27/2020 [facility] Influenza High Dose IM Intramuscular [...] History of pulmonary embolism (Z86.711) Active confirmed 398390078 Problem Clotting disorder (D68.9) Active confirmed 54318541 Problem Elevated cholesterol (E78.00) Active confirmed 01516184 Problem Acquired hypothyroidism (E03.9) Active confirmed 547839205 Problem 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) Active confirmed 27976346 Problem History of CVA (cerebrovascular accident) (Z86.73) Active confirmed 057765644 Problem PFO (patent foramen ovale) (Q21.1) Active confirmed 038864688 Problem Reflux gastritis (K29.60) Active confirmed 45642273 Problem Other specified menopausal and perimenopausal disorders (N95.8) Active confirmed 378088563 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 02941414 Problem Vitamin D deficiency (E55.9) Active confirmed 68713035 Problem Essential hypertensi on (I10) Active confirmed 37899856 Problem Hypercholesteremia (E78.00) Active confirmed 91419138 Problem Acute idiopathic gou t of right hand (M10.041) Active confirmed Problem Age-related osteoporosis without current pathological fracture (M81.0) Active confirmed 05311161 Problem Microscopic hematuri a (R31.29) Active confirmed 711486761 VITAL SIGNS Blood pressure diastolic 80 mm [...] Larry Meyers MD [address] [place] [id number] 04/23/2024 Larry Meyers Vitamin D deficiency E55.9 ; Annual physical exam Z00.00 ; Microscopic hematuria R31.29 ; History of pulmonary embolism Z86.711 ; Clotting disorder D68.9 ; Acquired hypothyroidism E03.9 ; Reflux gastritis K29.60 ; Essential hypertension I10 and Depression screening Z13.31 Larry Meyers MD [address] [place] [id number] 04/16/2024 Larry Meyers Blood tests for routine general physical examination Z00.00 ; Elevated cholesterol E78.00 ; Acquired hypothyroidism E03.9 ; Vitamin D deficiency E55.9 and Essential hypertension I10 Larry Meyers MD [address] [place] [id number] 10/23/2023 Larry Meyers Elevated cholesterol E78.00 Larry Meyers MD [address] [place] [id number] 04/29/2024 Larry Meyers After care Z51.89 Larry Meyers MD [address] [place] [id number] 06/10/2024 Larry Meyers Encounter for immunization Z23 Larry Meyers MD [address] [place] [id number] 01/02/2024 Larry Meyers Vitamin D deficiency E55.9 Larry Meyers MD [address] [place] [address] [id number] 04/18/2024 Larry Meyers Acute cystitis with hematuria N30.01 Larry Meyers MD [address] [place] [id number] 09/09/2024 Larry Meyers Essential hypertensi on I10 Larry Meyers MD [address] [place] [address] [id number] 10/08/2024 Larry Meyers Clotting disorder D68.9 Larry Meyers MD [address] [place] [id number] 10/30/2023 Larry Meyers Viral syndrome B34.9 Larry Meyers MD [address] [place] [id number] 05/16/2024 Larry Meyers Microscopic hematuri a R31.29 [...] N30.01) 09/09/2024 Essential hypertension (ICD-10 - I10) 10/08/2024 Clotting disorder (ICD-10 - D68.9) 10/30/2023 Viral syndrome (ICD-10 - B34.9) never [...] Details Provider Name:Larry house, 10/24/2024 07:45:00 AM, [address] [place] [address] Drive, [address], [place], [place], [phone], Provider Name:Larry house, 04/21/2025 07:15:00 AM, [address] [place] [address] Drive, [address], [place], [place], [phone], Provider Name:Larry house, 04/28/2025 10:30:00 AM, [address] [facility] [address], [address], [place], [place], [phone], Insurance Providers Payer Name Payer Address Payer Phone Subscriber Number Group Number Insured Name Patient Relationship to Insured Coverage Start Date Coverage End Date [facility] are [employer] [address] [address] [place] [address] [phone] [id number] Mary Turcios Self - patient is the insured MEDICARE [employer] [address] [place] [phone] [id number] Regina trejo Mary Self - patient is the insured MEDICAL (GENERAL) HISTORY Medical History History ICD Code Stroke X 2 in 11/08 and 08/10 Refuses Colonoscopy 04/20/18; refused 04/02 019 hematuria chronic and has been evaluated Surgical History Surgery Date(Month/Year) Repair gallstone ileius & Umbilical Serg ia (Dr. Wilson) 11/2018
[2024-10-10 10:56] LABS: Prothrombin Time Whole Bld POC 40.5 sec (11.1-13.5); ~PT, ~INR - Anti Coag Clinic 3.4 (0.9-1.1)
== END 2024-10-10 10:14 | disposition home or self-care (01) ==
LOC: HO.ACS 09:58
PROVIDERS: PCP Internal Medicine; Visit Provider Internal Medicine
DX: Z79.01 Long term (current) use of anticoagulants (principal)

== ENCOUNTER → 2024-10-10 09:58 | Outpatient (BNVA) | payer MEDICARE, SELFPAY | PROVIDERS: PCP Internal Medicine; Visit Provider Internal Medicine | DX: Z86.73 Personal history of transient ischemic attack (TIA), and cerebral infarction without residual deficits (principal); Z79.01 Long term (current) use of anticoagulants; Z51.81 Encounter for therapeutic drug level monitoring | CPT/HCPCS: 85610; 99211 ==

== ENCOUNTER 2024-10-24 13:40 | Outpatient (REF) | payer MEDICARE, SELFPAY ==
[2024-10-24 14:16] LABS: Vitamin D 25-OH Total 23.7 ng/mL (>30)
--- OUTSIDE RECORDS SUMMARY | 2024-10-24 16:05 | XMS_ITS ---
Author Organization Larry Meyers MD Address [address] [place] [phone] Care Team Providers Care Body Shop Technician Name Role Phone MiraLarry Primary Care Provider REASON FOR VISIT refill Medications Medication SIG (Take, Route, Fr equency, Duration) Notes Start Date End Date Status Warfarin Sodium 2.5 MG 1 tablet Orally O nce a day for 90 days Active Encounters Encounter Location Date Provider Diagnosis Larry Meyers MD [address] [place] [phone] 10/08/2024 Larry Meyers Clotting disorder D68.9 Assessments Encounter Date Diagnosis (ICD Code) Assessment Notes Treatment Notes Treatment Clinical Notes Section Notes 10/08/2024 Clotting disorder (ICD-10 - D68.9) Plan Of Treatment Medication Medication Name Sig Start Date Stop Date Notes Warfarin Sodium 2.5 MG 1 tablet Orally O nce a day for 90 days Next Appt Details Provider Name:Larry house, 04/21/2025 07:15:00 AM, 10 [facility], [address] [place] [address], [phone], Provider Name:Larry Munguialata lacy, 04/28/2025 10:30:00 AM, 10 [facility], [address], [place], [place], [phone], Progress Notes * ZITAYaneth BRAMBILAOB:1944 (79 yo F)Acc No.[id number]:10/08/2024 Patient:?Mary Harvey :1945???Age:79 Y???Sex:Female Address:[address] [place] [address], [address] * Refills? Refill Warfarin Sodium Tablet, 2.5 MG, Orally, 90 Tablet, 1 tablet, Once a day, 90 days * true * Date:? Generated for Marc olivera/Britta/Filomenasmitting on:?10/24/2024 04:05 PM EST
--- OUTSIDE RECORDS SUMMARY | 2024-10-24 16:05 | XMS_ITS ---
Author Organization Larry Meyers MD Address [address] [place] [phone] Care Team Providers Care Real Estate Internship Name Role Phone MiraLarry Primary Care Provider [phone] Results Component Value Reference Range Notes Vitamin D 25-OH Total (Not y et reviewed by provider) Interpretation: Performing Lab:[facility], [address] [place] [phone] Notes/Report: Vitamin D 25-OH Total 23.7 >30 [...] Larry Meyers MD [address] [place], [place] [phone] 10/24/2024 Larry Meyers Vitamin D deficiency E55.9 Assessments Encounter Date Diagnosis (ICD Code) Assessment Notes Treatment Notes Treatment Clinical Notes Section Notes 10/24/2024 Vitamin D deficiency (ICD-10 - E55.9) Plan Of Treatment Pending Test Test Name Order Date Vitamin D 25-OH Total 10/24/2024 Next Appt Details Provider Name:Larry Emery iewaldemar, 04/21/2025 07:15:00 AM, [address], [address], [place], [place], [phone], Provider Name:Larry house, 04/28/2025 10:30:00 AM, [address], [address], [place], [place], [phone], Progress Notes * Yaneth HARVEYOB:1944 (79 yo F)Acc No.[id number]:10/24/2024 Progress Note Patient:?Mary HARVEY Provider:?Larry Meyers MD :1945???Age:79 Y???Sex:Female D ate:10/24/2024 Address:[address] [place], [place] [phone] Subjective: * Chief Complaints: * ???1. vitmain D 25-OH total. * Medical History:? Objective: * Vitals:? Assessment: * Assessment: 1.?Vitamin D deficiency - E5 5.9 (Primary)??? Plan: * Treatment: * Procedure Codes:?94921 VENIP UNCT, ROUTINE* * * The named appointment provid er may or may not be the originator of this progress note, and it is not deemed complete until electronically signed by the appointment provider. Sign off status: Pending * Provider:?Larry Meyers MD Date:?0 10/24/2024 Generated for Marc loivera/Britta/eTransmitting on:?10/24/2024 04:05 PM EST
--- OUTSIDE RECORDS SUMMARY | 2024-10-24 16:06 | XMS_ITS ---
Author Organization Larry Meyers MD Address [address] [place] [phone] Care Team Providers Care Drier Operator Name Role Phone Mira Larry Primary Care Provider REASON FOR VISIT REFILL METAPROLOL Medications Medication SIG (Take, Route, Frequency, Duration) Notes Start Date End Date Status Metoprolol Tartrate 25 MG TAKE ONE TABLE T BY MOUTH EVERY DAY WITH FOOD Orally ONCE A DAY for 90 days Active Encounters Encounter Location Date Provider Diagnosis Larry Meyers MD [address] [place] [phone] 09/09/2024 Larry Meyers Essential hypertension I10 Assessments [...] Provider Name:Larry house, 04/21/2025 07:15:00 AM, 10 [facility], [address] [place] [address], [phone], Provider Name:Larry Emery lacy, 04/28/2025 10:30:00 AM, [address] [place] [address], [facility], [place], [phone], Progress Notes * ORI MayeJasonOB:1944 (79 yo F)Acc No.[id number]:09/09/2024 Patient:?Mary Harvey :1945???Age:79 Y???Sex:Female Address:[address] [place] [address], [address] * Refills? Refill Metoprolol Tartrate Tablet, 25 MG, Orally, 90, TAKE ONE TABLET BY MOUTH EVERY DAY WITH FOOD, ONCE A DAY, 90 days, Refills=4 * true * Date:? Generated for Marc olivera/Britta/Filomenasmitting on:?10/24/2024 04:05 PM EST
== END 2024-10-24 13:41 | disposition home or self-care (01) ==
LOC: HO.LNP 13:40
PROVIDERS: Visit Provider Internal Medicine
DX: E55.9 Vitamin D deficiency, unspecified (principal)
CPT/HCPCS: 82306

== ENCOUNTER 2024-11-11 08:26 | Outpatient (AMB) | payer MEDICARE, SELFPAY ==
[2024-11-11 08:45] LABS: Prothrombin Time Whole Bld POC 26.1 sec (11.1-13.5); ~PT, ~INR - Anti Coag Clinic 2.2 (0.9-1.1)
--- NOTE | 2024-11-11 08:49 | MHC.OFFVISCO ---
Intake Intake Visit Reasons: Anticoagulation Allergies cat dander [CATS] Adverse Reaction (Mild, Verified 10/10/24 09:59) RASH raspberry [RASPBERRY] Adverse Reaction (Mild, Verified 10/10/24 09:59) RASH Medication List - Last Reconciled 11/11/24 by Fany Leger RN aspirin (Adult Aspirin Regimen) 81 mg PO DAILY ergocalciferol (vitamin D2) 1,250 mcg PO QMONTH hydrochlorothiazide 25 mg PO QAM levothyroxine 25 mcg PO QAM metoprolol tartrate 25 mg PO DAILY pantoprazole (Protonix) 20 mg PO DAILY simvastatin 20 mg PO BEDTIME warfarin 2.5 mg See Protocol PO DAILY Nursing Note INR: 2.2 in therapeutic range Medications and supplements reviewed No changes in health, diet, medications, or supplements, Denies any signs and symptoms of bleeding or bruising or clotting. Bleeding, bruising, clotting discussed Nutritional guidance given Dose: same 2.5mg daily F/U INR: 1 maura Patient verbalizes understanding of instructions given Anti-Coag Initial Assessment Social Hx Patient Tobacco Use Status: Never used Tobacco alcohol intake: never Alcohol intake frequency: does not drink Coding Level of Care Code Est Patient Level 1 Diagnoses Current use of anticoagulant therapy Z79.01 Assessment & Plan Assessment & Plan (1) Current use of anticoagulant therapy: Code(s): Z79.01 - snf (current) use of anticoagulants Category: Medical
== END 2024-11-11 08:50 | disposition home or self-care (01) ==
LOC: HO.ACS 08:26
PROVIDERS: PCP Internal Medicine; Visit Provider Internal Medicine
DX: Z79.01 Long term (current) use of anticoagulants (principal)

== ENCOUNTER → 2024-11-11 08:26 | Outpatient (BNVA) | payer MEDICARE, SELFPAY | PROVIDERS: PCP Internal Medicine; Visit Provider Internal Medicine | DX: Z86.73 Personal history of transient ischemic attack (TIA), and cerebral infarction without residual deficits (principal); Z79.01 Long term (current) use of anticoagulants; Z51.81 Encounter for therapeutic drug level monitoring | CPT/HCPCS: 85610; 99211 ==

== ENCOUNTER 2024-12-09 08:49 | Outpatient (AMB) | payer MEDICARE, SELFPAY ==
--- NOTE | 2024-12-09 09:04 | MHC.OFFVISCO ---
Intake Intake Visit Reasons: Anticoagulation Allergies cat dander [CATS] Adverse Reaction (Mild, Verified 12/09/24 08:52) RASH raspberry [RASPBERRY] Adverse Reaction (Mild, Verified 12/09/24 08:52) RASH Medication List - Last Reconciled 12/09/24 by Fany Leger RN aspirin (Adult Aspirin Regimen) 81 mg PO DAILY ergocalciferol (vitamin D2) 1,250 mcg PO QMONTH hydrochlorothiazide 25 mg PO QAM levothyroxine 25 mcg PO QAM metoprolol tartrate 25 mg PO DAILY pantoprazole (Protonix) 20 mg PO DAILY simvastatin 20 mg PO BEDTIME warfarin 2.5 mg See Protocol PO DAILY Nursing Note ambulates with cane and comes with daughter- she is well - no changes INR: 3.1 just out of therapeutic range 2.0-3.0 Medications and supplements reviewed No changes in health, diet, medications, or supplements, Denies any signs and symptoms of bleeding or bruising or clotting. Bleeding, bruising, clotting discussed Nutritional guidance given - remember weekly greens Dose: keep same dose 2.5mg daily F/U INR: 1 month Patient verbalizes understanding of instructions given with read back Anti-Coag Initial Assessment Social Hx Patient Tobacco Use Status: Never used Tobacco alcohol intake: never Alcohol intake frequency: does not drink Coding Level of Care Code Est Patient Level 1 Diagnoses Current use of anticoagulant therapy Z79.01 Results AMB INR Fingerstick AMB INR Fingerstick 3.1 Last Edit by Fany Leger RN on 12/09/24 09:05 manual entry Assessment & Plan Assessment & Plan (1) Current use of anticoagulant therapy: Code(s): Z79.01 - jail (current) use of anticoagulants Category: Medical
--- OUTSIDE RECORDS SUMMARY | 2024-12-09 09:08 | XMS_ITS ---
Author Organization Larry Meyers MD Address [address] [place] [phone] Care Team Providers Care Revenue Accounting Manager Name Role Phone Mira Larry Primary Care Provider REASON FOR VISIT REFILL METAPROLOL Medications Medication SIG (Take, Route, Frequency, Duration) Notes Start Date End Date Status Metoprolol Tartrate 25 MG TAKE ONE TABLE T BY MOUTH EVERY DAY WITH FOOD Orally ONCE A DAY for 90 days Active Encounters Encounter Location Date Provider Diagnosis Larry Meyers MD [address] [place] [phone] 09/09/2024 Larry Meyers Essential hypertension I10 Assessments [...] Provider Name:Larry house, 04/21/2025 07:15:00 AM, 10 [facility], [address] [place] [address], [phone], Provider Name:Larry Summers Ezralata lacy, 04/28/2025 10:30:00 AM, [address] [place] [address], [facility], [place], [phone], Progress Notes * ORI MayeJasonOB:1944 (79 yo F)Acc No.[id number]:09/09/2024 Patient:?Mary Harvey :1945???Age:79 Y???Sex:Female Address:[address] [place] [address], [address] * Refills? Refill Metoprolol Tartrate Tablet, 25 MG, Orally, 90, TAKE ONE TABLET BY MOUTH EVERY DAY WITH FOOD, ONCE A DAY, 90 days, Refills=4 * true * Date:? Generated for Marc olivera/Britta/eTlaurynsmitting on:?12/09/2024 09:07 AM EDT
--- OUTSIDE RECORDS SUMMARY | 2024-12-09 09:08 | XMS_ITS ---
Author Organization Larry Meyers MD Address [address] [place] [phone] Care Team Providers Care Stamping Die Maker Name Role Phone MiraLarry Primary Care Provider REASON FOR VISIT refill Medications Medication SIG (Take, Route, Fr equency, Duration) Notes Start Date End Date Status Warfarin Sodium 2.5 MG 1 tablet Orally O nce a day for 90 days Active Encounters Encounter Location Date Provider Diagnosis Larry Meyers MD [address] [place] [phone] 10/08/2024 Larry Meyers Clotting disorder D68.9 Assessments Encounter Date Diagnosis (ICD Code) Assessment Notes Treatment Notes Treatment Clinical Notes Section Notes 10/08/2024 Clotting disorder (ICD-10 - D68.9) Plan Of Treatment Medication Medication Name Sig Start Date Stop Date Notes Warfarin Sodium 2.5 MG 1 tablet Orally O nce a day for 90 days Next Appt Details Provider Name:Larry house, 04/21/2025 07:15:00 AM, 10 [facility], [address] [place] [address], [phone], Provider Name:Larry Munguialata lacy, 04/28/2025 10:30:00 AM, 10 [facility], [place] [address], [place], [place], [phone], Progress Notes * ZITAYaneth BRAMBILAOB:1944 (79 yo F)Acc No.[id number]:10/08/2024 Patient:?Mary Harvey :1945???Age:79 Y???Sex:Female Address:[address] [place] [address], [address] * Refills? Refill Warfarin Sodium Tablet, 2.5 MG, Orally, 90 Tablet, 1 tablet, Once a day, 90 days * true * Date:? Generated for Marc olivera/Britta/Filomenasmitting on:?12/09/2024 09:07 AM EDT
--- OUTSIDE RECORDS SUMMARY | 2024-12-09 09:08 | XMS_ITS ---
Author Organization Larry Meyers MD Address [address] [place] [phone] Care Team Providers Care Nuclear Station Operator Name Role Phone MiraBennien Primary Care Provider [phone] Results Component Value Reference Range Notes Vitamin D 25-OH Total Reviewed date:10/24/2024 05:34:57 PM Interpretation: Performing Lab:[facility], [address] [place] [phone] Notes/Report: Vitamin D 25-OH Total 23.7 >30 [...] Larry Meyers MD [address] [place] [phone] 10/24/2024 Larry Meyers Vitamin D deficiency E55.9 Assessments Encounter Date Diagnosis (ICD Code) Assessment Notes Treatment Notes Treatment Clinical Notes Section Notes 10/24/2024 Vitamin D deficiency (ICD-10 - E55.9) Plan Of Treatment Next Appt Details Provider Name:Larry house, 04/21/2025 07:15:00 AM, [address], Suite [facility], [place], [place], [phone], Provider Name:Larry house, 04/28/2025 10:30:00 AM, 10 [facility], Suite [facility], [place], [place], [phone], Progress Notes * ZITAYaneth BRAMBILAOB:1944 (79 yo F)Acc No.[id number]:10/24/2024 Progress Note Patient:?Mary HARVEY Provider:?Larry Meyers MD :1945???Age:79 Y???Sex:Female D ate:10/24/2024 Address:[address] [place], [place] [phone] Subjective: * Chief Complaints: * ???1. vitmain D 25-OH total. * Medical History:? Objective: * Vitals:? Assessment: * Assessment: 1.?Vitamin D deficiency - E5 5.9 (Primary)??? Plan: * Treatment: * Procedure Codes:?66899 VENIP UNCT, ROUTINE* * * The named appointment provid er may or may not be the originator of this progress note, and it is not deemed complete until electronically signed by the appointment provider. Sign off status: Pending * Provider:?Larry Meyers MD Date:?0 10/24/2024 Generated for Marc olivera/Britta/eTransmitting on:?12/09/2024 09:07 AM EDT
[2024-12-09 09:09] LABS: Prothrombin Time Whole Bld POC 37.8 sec (11.1-13.5); ~PT, ~INR - Anti Coag Clinic 3.1 (0.9-1.1)
== END 2024-12-09 09:10 | disposition home or self-care (01) ==
LOC: HO.ACS 08:49
PROVIDERS: PCP Internal Medicine; Visit Provider Internal Medicine
DX: Z79.01 Long term (current) use of anticoagulants (principal)

== ENCOUNTER → 2024-12-09 08:49 | Outpatient (BNVA) | payer MEDICARE, SELFPAY | PROVIDERS: PCP Internal Medicine; Visit Provider Internal Medicine | DX: Z86.73 Personal history of transient ischemic attack (TIA), and cerebral infarction without residual deficits (principal); Z79.01 Long term (current) use of anticoagulants; Z51.81 Encounter for therapeutic drug level monitoring | CPT/HCPCS: 85610; 99211 ==

== ENCOUNTER 2025-01-01 08:20 | Outpatient (AMB) | payer MEDICARE, SELFPAY ==
[2025-01-01 08:29] LABS: Prothrombin Time Whole Bld POC 24.8 sec (11.1-13.5); ~PT, ~INR - Anti Coag Clinic 2.1 (0.9-1.1)
--- OUTSIDE RECORDS SUMMARY | 2025-01-01 08:32 | XMS_ITS ---
Author Organization Larry Meyers MD Address [address] [place] [phone] Care Team Providers Care Splitter Operator Name Role Phone Mira Larry Primary Care Provider REASON FOR VISIT REFILL METAPROLOL Medications Medication SIG (Take, Route, Frequency, Duration) Notes Start Date End Date Status Metoprolol Tartrate 25 MG TAKE ONE TABLE T BY MOUTH EVERY DAY WITH FOOD Orally ONCE A DAY for 90 days Active Encounters Encounter Location Date Provider Diagnosis Larry Meyers MD [address] [place] [phone] 09/09/2024 Larry Meyers Essential hypertension I10 Assessments [...] Provider Name:Larry house, 04/21/2025 07:15:00 AM, 10 [facility], [address] [place] [address], [phone], Provider Name:Larry Summers Ezralata lacy, 04/28/2025 10:30:00 AM, [address] [place] [address], [facility] [address], [place], [phone], Progress Notes * ORI MayeJasonOB:1944 (79 yo F)Acc No.[id number]:09/09/2024 Patient:?Mary Harvey :1945???Age:79 Y???Sex:Female Address:[address] [place] [address], [address] * Refills? Refill Metoprolol Tartrate Tablet, 25 MG, Orally, 90, TAKE ONE TABLET BY MOUTH EVERY DAY WITH FOOD, ONCE A DAY, 90 days, Refills=4 * true * Date:? Generated for Marc olivera/Britta/eTransmitting on:?01/01/2025 08:32 AM EDT
--- OUTSIDE RECORDS SUMMARY | 2025-01-01 08:32 | XMS_ITS ---
Author Organization Larry Meyers MD Address [address] [place] [phone] Care Team Providers Care Pipe Processor Name Role Phone MiraLarry Primary Care Provider REASON FOR VISIT refill Medications Medication SIG (Take, Route, Fr equency, Duration) Notes Start Date End Date Status Warfarin Sodium 2.5 MG 1 tablet Orally O nce a day for 90 days Active Encounters Encounter Location Date Provider Diagnosis Larry Meyers MD [address] [place] [phone] 10/08/2024 Larry Meyers Clotting disorder D68.9 Assessments Encounter Date Diagnosis (ICD Code) Assessment Notes Treatment Notes Treatment Clinical Notes Section Notes 10/08/2024 Clotting disorder (ICD-10 - D68.9) Plan Of Treatment Medication Medication Name Sig Start Date Stop Date Notes Warfarin Sodium 2.5 MG 1 tablet Orally O nce a day for 90 days Next Appt Details Provider Name:Larry house, 04/21/2025 07:15:00 AM, 10 [facility], [address] [place] [address], [phone], Provider Name:Larry Munguialata lacy, 04/28/2025 10:30:00 AM, 10 [facility], [place] [address], [place], [place], [phone], Progress Notes * ZITAYaneth BRAMBILAOB:1944 (79 yo F)Acc No.[id number]:10/08/2024 Patient:?Mary Harvey :1945???Age:79 Y???Sex:Female Address:[address] [place] [address], [address] * Refills? Refill Warfarin Sodium Tablet, 2.5 MG, Orally, 90 Tablet, 1 tablet, Once a day, 90 days * true * Date:? Generated for Marc olivera/Britta/Polyransmitting on:?01/01/2025 08:32 AM EDT
--- OUTSIDE RECORDS SUMMARY | 2025-01-01 08:32 | XMS_ITS ---
Author Organization Larry Meyers MD Address [address] [place] [phone] Care Team Providers Care Peach Grower Name Role Phone MiraBennien Primary Care Provider Results Component Value Reference Range Notes Vitamin D 25-OH Total Reviewed date:10/24/2024 05:34:57 PM Interpretation: Performing Lab:[facility], [address] [place] [phone] Notes/Report: Vitamin D 25-OH Total 23.7 >30 [...] Larry Meyers MD [address] [place] [phone] 10/24/2024 Larry Meyers Vitamin D deficiency E55.9 Assessments Encounter Date Diagnosis (ICD Code) Assessment Notes Treatment Notes Treatment Clinical Notes Section Notes 10/24/2024 Vitamin D deficiency (ICD-10 - E55.9) Plan Of Treatment Next Appt Details Provider Name:Laryr house, 04/21/2025 07:15:00 AM, [address], [address] [facility], [place], [place], [phone], Provider Name:Larry house, 04/28/2025 10:30:00 AM, 10 [facility], Suite [facility], [place], [place], [phone], Progress Notes * ZITAYaneth BRAMBILAOB:1944 (79 yo F)Acc No.[id number]:10/24/2024 Progress Note Patient:?Mary HARVEY Provider:?Larry Meyers MD :1945???Age:79 Y???Sex:Female D ate:10/24/2024 Address:[address] [place], [place] [phone] Subjective: * Chief Complaints: * ???1. vitmain D 25-OH total. * Medical History:? Objective: * Vitals:? Assessment: * Assessment: 1.?Vitamin D deficiency - E5 5.9 (Primary)??? Plan: * Treatment: * Procedure Codes:?67040 VENIP UNCT, ROUTINE* * * The named appointment provid er may or may not be the originator of this progress note, and it is not deemed complete until electronically signed by the appointment provider. Sign off status: Pending * Provider:?Larry Meyers MD Date:?0 10/24/2024 Generated for Marc olivera/Britta/eTransmitting on:?01/01/2025 08:32 AM EDT
--- NOTE | 2025-01-01 08:33 | MHC.OFFVISCO ---
Intake Intake Visit Reasons: Anticoagulation Allergies cat dander [CATS] Adverse Reaction (Mild, Verified 01/01/25 08:23) RASH raspberry [RASPBERRY] Adverse Reaction (Mild, Verified 01/01/25 08:23) RASH Medication List - Last Reconciled 01/01/25 by Consuelo Knowles RN aspirin (Adult Aspirin Regimen) 81 mg PO DAILY ergocalciferol (vitamin D2) 1,250 mcg PO QMONTH hydrochlorothiazide 25 mg PO QAM levothyroxine 25 mcg PO QAM metoprolol tartrate 25 mg PO DAILY pantoprazole (Protonix) 20 mg PO DAILY simvastatin 20 mg PO BEDTIME warfarin 2.5 mg See Protocol PO DAILY Nursing Note NO CP,SOB,DIET/MED CHANGES,FALLS OR SX OF BLEEDING. CONTINUE 2.5MGM DAILY AND FOLOW-UP IN 4 WEEKS. GOOD UNDERSTANDING OF DOSING INSTR. Anti-Coag Initial Assessment Social Hx Patient Tobacco Use Status: Never used Tobacco alcohol intake: never Alcohol intake frequency: does not drink Coding Level of Care Code Est Patient Level 1 Diagnoses Current use of anticoagulant therapy Z79.01 Assessment & Plan Assessment & Plan (1) Current use of anticoagulant therapy: Code(s): Z79.01 - manager terminal (current) use of anticoagulants Category: Medical
== END 2025-01-01 08:34 | disposition home or self-care (01) ==
LOC: HO.ACS 08:20
PROVIDERS: PCP Internal Medicine; Visit Provider Internal Medicine Medical Oncology
DX: Z79.01 Long term (current) use of anticoagulants (principal)

== ENCOUNTER → 2025-01-01 08:20 | Outpatient (BNVA) | payer MEDICARE, SELFPAY | PROVIDERS: PCP Internal Medicine; Visit Provider Internal Medicine Medical Oncology | DX: Z86.73 Personal history of transient ischemic attack (TIA), and cerebral infarction without residual deficits (principal); Z79.01 Long term (current) use of anticoagulants; Z51.81 Encounter for therapeutic drug level monitoring | CPT/HCPCS: 85610; 99211 ==

== ENCOUNTER 2025-01-30 08:08 | Outpatient (AMB) | payer MEDICARE, SELFPAY ==
[2025-01-30 08:16] LABS: Prothrombin Time Whole Bld POC 26.7 sec (11.1-13.5); ~PT, ~INR - Anti Coag Clinic 2.2 (0.9-1.1)
--- NOTE | 2025-01-30 08:20 | MHC.OFFVISCO ---
Intake Intake Visit Reasons: Anticoagulation Allergies cat dander [CATS] Adverse Reaction (Mild, Verified 01/30/25 08:10) RASH raspberry [RASPBERRY] Adverse Reaction (Mild, Verified 01/30/25 08:10) RASH Medication List - Last Reconciled 01/30/25 by Meenu Chaney, RN aspirin (Adult Aspirin Regimen) 81 mg PO DAILY ergocalciferol (vitamin D2) 1,250 mcg PO QMONTH hydrochlorothiazide 25 mg PO QAM levothyroxine 25 mcg PO QAM metoprolol tartrate 25 mg PO DAILY pantoprazole (Protonix) 20 mg PO DAILY simvastatin 20 mg PO BEDTIME warfarin 2.5 mg See Protocol PO DAILY Nursing Note INR: 2.2 in therapeutic range of 2-3 Medications and supplements reviewed No changes in health, diet, medications, or supplements, Denies any signs and symptoms of bleeding or bruising or clotting. Bleeding, bruising, clotting discussed Nutritional guidance given Dose: same dose of 2.5mg daily F/U INR: 4 weeks Patient verbalizes understanding of instructions given Anti-Coag Initial Assessment Social Hx Patient Tobacco Use Status: Never used Tobacco alcohol intake: never Alcohol intake frequency: does not drink Coding Level of Care Code Est Patient Level 1 Diagnoses Current use of anticoagulant therapy Z79.01 Assessment & Plan Assessment & Plan (1) Current use of anticoagulant therapy: Code(s): Z79.01 - continuity coordinator (current) use of anticoagulants Category: Medical
== END 2025-01-30 08:21 | disposition home or self-care (01) ==
LOC: HO.ACS 08:08
PROVIDERS: PCP Internal Medicine; Visit Provider Internal Medicine Medical Oncology
DX: Z79.01 Long term (current) use of anticoagulants (principal)

== ENCOUNTER → 2025-01-30 08:08 | Outpatient (BNVA) | payer MEDICARE, SELFPAY | PROVIDERS: PCP Internal Medicine; Visit Provider Internal Medicine Medical Oncology | DX: Z86.73 Personal history of transient ischemic attack (TIA), and cerebral infarction without residual deficits (principal); Z51.81 Encounter for therapeutic drug level monitoring; Z79.01 Long term (current) use of anticoagulants | CPT/HCPCS: 85610; 99211 ==

== ENCOUNTER 2025-02-27 08:01 | Outpatient (AMB) | payer MEDICARE, SELFPAY ==
--- OUTSIDE RECORDS SUMMARY | 2025-02-27 08:04 | XMS_ITS ---
Author Organization Larry Meyers MD Address [address] [facility] [address] [place] [phone] Care Team Providers Care Home Visits Nurse Name Role Phone MiraLarry Primary Care Provider REASON FOR VISIT refill Medications Medication SIG (Take, Route, Fr equency, Duration) Notes Start Date End Date Status Warfarin Sodium 2.5 MG 1 tablet Orally O nce a day for 90 days Active Encounters Encounter Location Date Provider Diagnosis Larry Meyers MD [address] [facility] [address] [place] [phone] 10/08/2024 Larry Meyers Clotting disorder D68.9 Assessments Encounter Date Diagnosis (ICD Code) Assessment Notes Treatment Notes Treatment Clinical Notes Section Notes 10/08/2024 Clotting disorder (ICD-10 - D68.9) Plan Of Treatment Medication Medication Name Sig Start Date Stop Date Notes Warfarin Sodium 2.5 MG 1 tablet Orally O nce a day for 90 days Next Appt Details Provider Name:Larry house, 04/21/2025 07:15:00 AM, 10 [facility], [address] [place] [address], [phone], Provider Name:Larry Munguialata lacy, 04/28/2025 10:30:00 AM, [address] [facility], [place] [address], [place], [place], [phone], Progress Notes * ZITAYaneth BRAMBILAOB:1944 (79 yo F)Acc No.[id number]:10/08/2024 Patient:?Mary Harvey :1945???Age:79 Y???Sex:Female Address:[address] [place] [address], [phone] * Refills? Refill Warfarin Sodium Tablet, 2.5 MG, Orally, 90 Tablet, 1 tablet, Once a day, 90 days * true * Date:? Generated for Marc olivera/Britta/Filomenasmitting on:?02/27/2025 08:03 AM EDT
--- NOTE | 2025-02-27 08:17 | MHC.OFFVISCO ---
Intake Intake Visit Reasons: Anticoagulation Allergies cat dander [CATS] Adverse Reaction (Mild, Verified 02/27/25 08:06) RASH raspberry [RASPBERRY] Adverse Reaction (Mild, Verified 02/27/25 08:06) RASH Medication List - Last Reconciled 02/27/25 by Fany Leger RN aspirin (Adult Aspirin Regimen) 81 mg PO DAILY ergocalciferol (vitamin D2) 1,250 mcg PO QMONTH hydrochlorothiazide 25 mg PO QAM levothyroxine 25 mcg PO QAM metoprolol tartrate 25 mg PO DAILY pantoprazole (Protonix) 20 mg PO DAILY simvastatin 20 mg PO BEDTIME warfarin 2.5 mg See Protocol PO DAILY Nursing Note INR: 3.0 in therapeutic range Medications and supplements reviewed No changes in health, diet, medications, or supplements, Denies any signs and symptoms of bleeding or bruising or clotting. Bleeding, bruising, clotting discussed Nutritional guidance given- remember your greens Dose: 2.5mg daily F/U INR: 1 month Patient verbalizes understanding of instructions given Anti-Coag Initial Assessment Social Hx Patient Tobacco Use Status: Never used Tobacco alcohol intake: never Alcohol intake frequency: does not drink Coding Level of Care Code Est Patient Level 1 Diagnoses Current use of anticoagulant therapy Z79.01 Results AMB INR Fingerstick AMB INR Fingerstick 3.0 Last Edit by Fany Leger RN on 02/27/25 08:14 manual entry Assessment & Plan Assessment & Plan (1) Current use of anticoagulant therapy: Code(s): Z79.01 - skilled nursing (current) use of anticoagulants Category: Medical
[2025-02-27 08:21] LABS: Prothrombin Time Whole Bld POC 36.1 sec (11.1-13.5)
== END 2025-02-27 08:21 | disposition home or self-care (01) ==
LOC: HO.ACS 08:01
PROVIDERS: PCP Internal Medicine; Visit Provider Internal Medicine Medical Oncology
DX: Z79.01 Long term (current) use of anticoagulants (principal)

== ENCOUNTER → 2025-02-27 08:01 | Outpatient (BNVA) | payer MEDICARE, SELFPAY | PROVIDERS: PCP Internal Medicine; Visit Provider Internal Medicine Medical Oncology | DX: Z86.73 Personal history of transient ischemic attack (TIA), and cerebral infarction without residual deficits (principal); Z79.01 Long term (current) use of anticoagulants; Z51.81 Encounter for therapeutic drug level monitoring | CPT/HCPCS: 85610; 99211 ==

== ENCOUNTER 2025-03-27 08:01 | Outpatient (AMB) | payer MEDICARE, SELFPAY ==
--- OUTSIDE RECORDS SUMMARY | 2024-10-08 05:32 | XMS_ITS ---
Author Organization Larry Meyers MD Address [address] [place] [address] [phone] Care Team Providers Care Disability Advocate Name Role Phone MiraLarry Primary Care Provider [phone] REASON FOR VISIT refill Medications Medication SIG (Take, Route, Fr equency, Duration) Notes Start Date End Date Status Warfarin Sodium 2.5 MG 1 tablet Orally O nce a day for 90 days Active Encounters Encounter Location Date Provider Diagnosis Larry Meyers MD [address] [place] [address] [phone] 10/08/2024 Larry Meyers Clotting disorder D68.9 Assessments Encounter Date Diagnosis (ICD Code) Assessment Notes Treatment Notes Treatment Clinical Notes Section Notes 10/08/2024 Clotting disorder (ICD-10 - D68.9) Plan Of Treatment Medication Medication Name Sig Start Date Stop Date Notes Warfarin Sodium 2.5 MG 1 tablet Orally O nce a day for 90 days Next Appt Details Provider Name:Larry house, 04/21/2025 07:15:00 AM, [address] [facility], [address] [place] [address], [phone], Provider Name:Larry Kristopher Emery ier, 04/28/2025 10:30:00 AM, [address] [facility], [address] [place] [address], [phone], Progress Notes * Yaneth HARVEYOB:1944 (79 yo F)Acc No.[id number]:10/08/2024 Patient: Mary Qureshi :1945 A ge:79 Y S ex:Female Address:[address] [place] [address], [phone] * Refills Refill Warfarin Sodium Tablet, 2.5 MG, Orally, 90 Tablet, 1 tablet, Once a day, 90 days * true * Date: Generated for Marc olivera/Britta/Dennisitting on: 0 03/27/2025 08:06 AM EDT
[2025-03-27 08:12] LABS: Prothrombin Time Whole Bld POC 25.2 sec (11.1-13.5); ~PT, ~INR - Anti Coag Clinic 2.1 (0.9-1.1)
--- NOTE | 2025-03-27 08:16 | MHC.OFFVISCO ---
Intake Intake Visit Reasons: Anticoagulation Allergies cat dander (CATS) Adverse Reaction (Mild, Verified 03/27/25 08:06) RASH raspberry (RASPBERRY) Adverse Reaction (Mild, Verified 03/27/25 08:06) RASH Medication List - Last Reconciled 03/27/25 by Meenu Chaney, RN aspirin (Adult Aspirin Regimen) 81 mg PO DAILY ergocalciferol (vitamin D2) 1,250 mcg PO QMONTH hydrochlorothiazide 25 mg PO QAM levothyroxine 25 mcg PO QAM metoprolol tartrate 25 mg PO DAILY pantoprazole (Protonix) 20 mg PO DAILY simvastatin 20 mg PO BEDTIME warfarin 2.5 mg See Protocol PO DAILY Nursing Note Pt to [facility] accompanied by daughter INR: 2.1 in therapeutic range of 2-3 Medications and supplements reviewed No changes in health, diet, medications, or supplements, Denies any signs and symptoms of bleeding or bruising or clotting. Bleeding, bruising, clotting discussed Nutritional guidance given to avoid greens for next 2 days and to have a serving of foods that raise the INR. Food list reviewed. 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
== END 2025-03-27 08:20 | disposition home or self-care (01) ==
LOC: HO.ACS 08:01
PROVIDERS: PCP Internal Medicine; Visit Provider Internal Medicine Medical Oncology
DX: Z79.01 Long term (current) use of anticoagulants (principal)

== ENCOUNTER → 2025-03-27 08:01 | Outpatient (BNVA) | payer MEDICARE, SELFPAY | PROVIDERS: PCP Internal Medicine; Visit Provider Internal Medicine Medical Oncology | DX: Z86.73 Personal history of transient ischemic attack (TIA), and cerebral infarction without residual deficits (principal); Z79.01 Long term (current) use of anticoagulants; Z51.81 Encounter for therapeutic drug level monitoring | CPT/HCPCS: 85610; 99211 ==

== ENCOUNTER 2025-04-21 07:15 | Outpatient (REF) | payer MEDICARE, SELFPAY ==
--- OUTSIDE RECORDS SUMMARY | 2024-10-08 05:32 | XMS_ITS ---
Author Organization Larry Meyers MD Address [address] [place] [phone] Care Team Providers Care Rocket Test Fire Worker Name Role Phone MiraLarry Primary Care Provider REASON FOR VISIT refill Medications Medication SIG (Take, Route, Fr equency, Duration) Notes Start Date End Date Status Warfarin Sodium 2.5 MG 1 tablet Orally O nce a day for 90 days Active Encounters Encounter Location Date Provider Diagnosis Larry Meyers MD [address] [place] [address] [phone] 10/08/2024 Larry Meyers Clotting disorder D68.9 Assessments Encounter Date Diagnosis (ICD Code) Assessment Notes Treatment Notes Treatment Clinical Notes Section Notes 10/08/2024 Clotting disorder (ICD-10 - D68.9) Plan Of Treatment Medication Medication Name Sig Start Date Stop Date Notes Warfarin Sodium 2.5 MG 1 tablet Orally O nce a day for 90 days Next Appt Details Provider Name:Larry house, 04/28/2025 10:30:00 AM, 10 [facility], [address] [place] [address], [phone], Progress Notes * Yaneth HARVEYOB:1944 (79 yo F)Acc No.[id number]:10/08/2024 Patient: Mary Qureshi :1945 A ge:79 Y S ex:Female Address:[address] [place] [address] * Refills Refill Warfarin Sodium Tablet, 2.5 MG, Orally, 90 Tablet, 1 tablet, Once a day, 90 days * true * Date: Generated for Marc olivera/Britta/Dennisitting on: 0 04/21/2025 11:20 AM EDT
[2025-04-21 10:27] LABS: MANUAL DIFF FLAG NO
[2025-04-21 10:41] LABS: Appearance Urine Turbid; Glucose Urine UA Negative (Negative); Hematocrit 36.2 % (37.0-47.0); Hemoglobin 12.2 g/dl (12.0-16.0); Imm Gran Abs Auto 0.01 X10*3/uL (0.00-0.03); Imm Gran Pct Auto 0.2 % (0.0-0.4); Lymphocytes Absolute Auto 1.7 X10*3/uL (1.2-4.9); Mean Corpuscular HGB Conc 33.7 g/dl (31.0-35.0); Mean Corpuscular Hemoglobin 29.4 pg (27.0-33.0); Mean Corpuscular Volume 87.2 fL (80.0-98.0); NRBC Abs Auto 0.000 X10*3/uL (0.0-0.012); NRBC Pct Auto 0.0 /100WBC (0.0-0.2); PH 6.5 (5.0-9.0); Platelet Count 245 X10*3/uL (160-400); Red Blood Count 4.15 X10*6/uL (4.20-5.50); Specific Gravity - Urine 1.015 (1.005-1.025); UMIC TRIGGER UACC YES; White Blood Count 5.7 X10*3/uL (4.8-10.8)
[2025-04-21 10:44] LABS: UACC Culture Trigger YES
[2025-04-21 11:13] LABS: Alanine Aminotransferase 6 U/L (0-31); Albumin Level 3.9 g/dL (3.5-5.0); Alkaline Phosphatase 59 U/L (39-117); Anion Gap 17 (12-20); Aspartate Amino Transferase 27 U/L (5-31); Blood Urea Nitrogen 11 mg/dL (9-16); Calcium 9.3 mg/dL (8.4-10.2); Carbon Dioxide 26 mmol/L (22-29); Chloride 96 mmol/L (96-108); Cholesterol 142 mg/dL (<200); Estimated Glomerular Filt Rate > 60; HDL Cholesterol 72 mg/dL (>40); Potassium 3.9 mmol/L (3.3-5.1); Sodium 135 mmol/L (135-145); Total Protein 7.1 g/dL (6.5-8.0); Triglycerides 78 mg/dL (<150)
== END 2025-04-21 07:16 | disposition home or self-care (01) ==
LOC: HO.LNP 07:15
PROVIDERS: Visit Provider Internal Medicine
DX: Z00.00 Encounter for general adult medical examination without abnormal findings (principal); E78.00 Pure hypercholesterolemia, unspecified; E03.9 Hypothyroidism, unspecified; E55.9 Vitamin D deficiency, unspecified
CPT/HCPCS: 80053; 80061; 81001; 82306; 84443; 85025; 87086; 87088; 87186

== ENCOUNTER 2025-04-24 09:26 | Outpatient (AMB) | payer MEDICARE, SELFPAY ==
--- OUTSIDE RECORDS SUMMARY | 2024-10-08 05:32 | XMS_ITS ---
Author Organization Larry Meyers MD Address [address] [place] [address] [phone] Care Team Providers Care Manager Bar Name Role Phone MiraLarry Primary Care Provider [phone] REASON FOR VISIT refill Medications Medication SIG (Take, Route, Fr equency, Duration) Notes Start Date End Date Status Warfarin Sodium 2.5 MG 1 tablet Orally O nce a day for 90 days Active Encounters Encounter Location Date Provider Diagnosis Larry Meyers MD [address] [place] [address] [phone] 10/08/2024 Larry Meyers Clotting disorder D68.9 Assessments Encounter Date Diagnosis (ICD Code) Assessment Notes Treatment Notes Treatment Clinical Notes Section Notes 10/08/2024 Clotting disorder (ICD-10 - D68.9) Plan Of Treatment Medication Medication Name Sig Start Date Stop Date Notes Warfarin Sodium 2.5 MG 1 tablet Orally O nce a day for 90 days Next Appt Details Provider Name:Larry house, 04/28/2025 10:30:00 AM, 10 [facility], [address] [place] [address], [phone], Progress Notes * Yaneth HARVEYOB:1944 (79 yo F)Acc No.[id number]:10/08/2024 Patient: Mary Qureshi :1945 A ge:79 Y S ex:Female Address:[address] [place] [address] * Refills Refill Warfarin Sodium Tablet, 2.5 MG, Orally, 90 Tablet, 1 tablet, Once a day, 90 days * true * Date: Generated for Marc olivera/Britta/Dennisitting on: 0 04/24/2025 10:00 AM EDT
--- NOTE | 2025-04-24 09:39 | MHC.OFFVISCO ---
Intake Intake Visit Reasons: Anticoagulation Allergies cat dander (CATS) Adverse Reaction (Mild, Verified 04/24/25 09:31) RASH raspberry (RASPBERRY) Adverse Reaction (Mild, Verified 04/24/25 09:31) RASH Medication List - Last Reconciled 04/24/25 by Meenu Chaney RN aspirin (Adult Aspirin Regimen) 81 mg PO DAILY ergocalciferol (vitamin D2) 1,250 mcg PO QMONTH hydrochlorothiazide 25 mg PO QAM levothyroxine 25 mcg PO QAM metoprolol tartrate 25 mg PO DAILY pantoprazole (Protonix) 20 mg PO DAILY simvastatin 20 mg PO BEDTIME warfarin 2.5 mg See Protocol PO DAILY Nursing Note INR: 3.0 in therapeutic range of 2-3 Medications and supplements reviewed No changes in health, diet, medications, or supplements, Denies any signs and symptoms of bleeding or bruising or clotting. Bleeding, bruising, clotting discussed Nutritional guidance given to have a serving of greens today Dose: 2.5mg daily F/U INR: 4 weeks Patient verbalizes understanding of instructions given Anti-Coag Initial Assessment Social Hx Patient Tobacco Use Status: Never used Tobacco alcohol intake: never Alcohol intake frequency: does not drink Coding Level of Care Code Est Patient Level 1 Diagnoses Current use of anticoagulant therapy Z79.01 Results AMB INR Fingerstick AMB INR Fingerstick 3.0 Last Edit by Meenu Chaney RN on 04/24/25 09:37 interface delay Assessment & Plan Assessment & Plan (1) Current use of anticoagulant therapy: Code(s): Z79.01 - FPC (current) use of anticoagulants Category: Medical
[2025-04-24 09:51] LABS: Prothrombin Time Whole Bld POC 36.3 sec (11.1-13.5); ~PT, ~INR - Anti Coag Clinic 3.0 (0.9-1.1)
== END 2025-04-24 09:41 | disposition home or self-care (01) ==
LOC: HO.ACS 09:26
PROVIDERS: PCP Internal Medicine; Visit Provider Internal Medicine Medical Oncology
DX: Z79.01 Long term (current) use of anticoagulants (principal)

== ENCOUNTER → 2025-04-24 09:26 | Outpatient (BNVA) | payer MEDICARE, SELFPAY | PROVIDERS: PCP Internal Medicine; Visit Provider Internal Medicine Medical Oncology | DX: Z86.73 Personal history of transient ischemic attack (TIA), and cerebral infarction without residual deficits (principal); Z79.01 Long term (current) use of anticoagulants; Z51.81 Encounter for therapeutic drug level monitoring; Q21.12 Patent foramen ovale; I26.99 Other pulmonary embolism without acute cor pulmonale; I10 Essential (primary) hypertension | CPT/HCPCS: 85610; 93005; 99211; 99212 ==

== ENCOUNTER 2025-04-24 09:52 | Outpatient (AMB) | payer MEDICARE, SELFPAY ==
[2025-04-24 10:05] VITALS: BP 118/62; PULSE 76; BMI 34.4
--- NOTE | 2025-04-24 10:05 | MHC.OFFVIS ---
Vital Signs 04/24/25 10:05 Height 5 ft Weight 176 lb 5.917 oz BMI 34.4 BP 118/62 Blood Pressure Location Lt brachial Position Sitting Pulse 76 Pulse Source Monitor Intake Visit Reasons: 1 yr /fup Allergies cat dander (CATS) Adverse Reaction (Mild, Verified 04/24/25 09:31) RASH raspberry (RASPBERRY) Adverse Reaction (Mild, Verified 04/24/25 09:31) RASH Medication List - Last Reconciled 04/24/25 by Raman Qureshi MD aspirin (Adult Aspirin Regimen) 81 mg PO DAILY ergocalciferol (vitamin D2) 1,250 mcg PO QMONTH hydrochlorothiazide 25 mg PO QAM levothyroxine 25 mcg PO QAM metoprolol tartrate 25 mg PO DAILY pantoprazole (Protonix) 20 mg PO DAILY simvastatin 20 mg PO BEDTIME warfarin 2.5 mg See Protocol PO DAILY HPI Comments Details: Mary returns for follow-up regarding patent foramen ovale and prior strokes. Overall, doing well, no cardiac symptoms. [facility] Medical History Current use of anticoagulant therapy Essential hypertension Other pulmonary embolism without acute cor pulmonale PFO (patent foramen ovale) Pulmonary embolism Surgical History History of umbilical hernia repair (12/07/18) Family History Mother Family hx of colon cancer Family hx of melanoma Brother Family history of throat cancer Sister Acute Crohn's disease Social History Household Members: None Housing: Apartment Are you a primary care management specialist to a significant other at home: No Do you presently have visiting nurse or other home services: No Alcohol intake: never Patient Tobacco Use Status: Never used Tobacco service: No Current occupational status: retired Review of Systems Const Denies weakness ENT Denies dizziness Card Denies chest pain, Denies chest pain with activity, Denies syncope, Denies rapid heart rate, Denies pedal edema, Denies edema, Denies leg edema, Denies lightheadedness, Denies palpitations, Denies dyspnea, Denies dyspnea on exertion and Denies orthopnea Resp Denies cough, Denies dyspnea and Denies dyspnea on exertion GI Denies hematochezia and Denies change in stool character Musc Denies abnormal gait, Denies muscle cramps, Denies muscle weakness, Denies numbness, Denies radiating pain into limb and Denies tingling Neuro Denies abnormal gait, Denies dizziness, Denies syncope, Denies numbness, Denies tingling and Denies weakness Endo Denies palpitations Physical Exam Vital Signs: Last Vital Signs Pulse 76 04/24/25 10:05 BP 118/62 04/24/25 10:05 BMI result Body Mass Index 34.4 Const General: comfortable and no acute distress Orientation/consciousness: patient oriented x3 HEENT Other: Unremarkable Head: Yes normal to inspection Neck Neck: Yes normal visual inspection Chest Chest palpation & inspection: normal inspection of the chest Resp Auscultation: clear to auscultation bilaterally Cardio Palpation: normal PMI Heart sounds: S1 normal heart sound present, S2 normal heart sound present, no gallops, no murmurs and no rubs GI Palpation (GI): Soft to palpation Back/Spine/Pelvis Other: unremarkable Skin General skin exam: no rashes or lesions noted Neuro General: patient oriented x3 Extrem General: Yes normal to inspection Psych Mental Status: mental status grossly normal Office Procedures EKG Details: EKG with underlying sinus rhythm at 76/Min; voltage criteria for LVH versus normal variant; low-voltage complexes along the anterior leads most likely from body habitus. Similar to prior. [id number], Complete Results AMB INR Fingerstick AMB INR Fingerstick 3.0 Last Edit by Meenu Chaney RN on 04/24/25 09:37 interface delay Assessment & Plan Assessment & Plan (1) PFO (patent foramen ovale): Code(s): Q21.1 - Atrial septal defect Category: Medical Plan: Diagnosed in 2006. She has been on aspirin and Coumadin for many years and generally doing good. She started Coumadin only in 2013 after the diagnosis of pulmonary embolism and has not had any events since. (2) Other pulmonary embolism without acute cor pulmonale: Code(s): I26.99 - Other pulmonary embolism without acute cor pulmonale Category: Medical Plan: In 2013. Fairly extensive and unprovoked. Long-term anticoagulation. No concerns from patient. (3) Essential hypertension: Code(s): I10 - Essential (primary) hypertension Category: Medical Plan: On HCTZ. Stable. Plan Due to low voltage in the EKG, echocardiogram was completed and that shows normal LVEF with no wall motion abnormalities. Hence most likely all from body habitus. Discussion Notes I discussed with the patient the importance of maintaining her current Coumadin therapy, given her stable INR levels. We agreed that no changes are needed at this time, and she should continue her follow-up appointments to monitor her condition. Patient was informed and verbally consented to the use of an ambient scribe for clinic note documentation during this visit. Patient Instructions: - Continue taking Coumadin as prescribed. - Monitor for any signs of bleeding and report them to your healthcare provider. - Attend all scheduled follow-up appointments. Coding Level of Care Code Est Pt Level 4 (18656) Diagnoses PFO (patent foramen ovale) Q21.1 Other pulmonary embolism without acute cor pulmonale I26.99 Essential hypertension I10 CPT Codes EKG - CPT: 43820-[id number], Complete ([id number])
== END 2025-04-24 11:17 | disposition home or self-care (01) ==
LOC: HO.HCS 09:52
PROVIDERS: PCP Internal Medicine; Visit Provider Internal Medicine
DX: Q21.10 Atrial septal defect, unspecified (principal); I26.99 Other pulmonary embolism without acute cor pulmonale; I10 Essential (primary) hypertension
CPT/HCPCS: 93010; 99214

== ENCOUNTER 2025-05-01 09:00 | Outpatient (AMB) | payer MEDICARE, SELFPAY ==
--- OUTSIDE RECORDS SUMMARY | 2024-10-24 03:45 | XMS_ITS ---
Author Organization Larry Meyers MD Address [address] [place] [phone] Care Team Providers Care Ampoule Filler Name Role Phone KennyBennie maaraln Primary Care Provider Results Component Value Reference Range Notes Vitamin D 25-OH Total Reviewed date:10/24/2024 05:34:57 PM Interpretation: Performing Lab:[facility], [address] [place] [phone] Notes/Report: Vitamin D 25-OH Total 23.7 >30 [...] Larry Meyers MD [address] [place] [phone] 10/24/2024 Larry Meyers Vitamin D deficiency E55.9 Assessments Encounter Date Diagnosis (ICD Code) Assessment Notes Treatment Notes Treatment Clinical Notes Section Notes 10/24/2024 Vitamin D deficiency (ICD-10 - E55.9) Plan Of Treatment Next Appt Details Provider Name:Larry Emery ier, 05/23/2025 02:30:00 PM, [address], [address], [place], [place], [phone], Progress Notes * Yaneth HARVEYOB:1944 (80 yo F)Acc No.[id number]:10/24/2024 Progress Note Patient: Mary TOVAR Provider: Nicho Meyers MD :1945 A ge:79 Y S ex:Female Date:10/24/2024 Address:[address] [place], [place] [phone] Subjective: * Chief Complaints: * 1 . [...] MD Date: 0 10/24/2024 Generated for Marc olivera/Britta/Dennisitting on: 0 05/01/2025 09:19 AM EDT
[2025-05-01 09:09] LABS: Prothrombin Time Whole Bld POC 19.5 sec (11.1-13.5); ~PT, ~INR - Anti Coag Clinic 1.6 (0.9-1.1)
--- NOTE | 2025-05-01 09:19 | MHC.OFFVISCO ---
Intake Intake Visit Reasons: Anticoagulation Allergies cat dander (CATS) Adverse Reaction (Mild, Verified 05/01/25 09:02) RASH raspberry (RASPBERRY) Adverse Reaction (Mild, Verified 05/01/25 09:02) RASH Medication List - Last Reconciled 05/01/25 by Fany Leger RN aspirin (Adult Aspirin Regimen) 81 mg PO DAILY cephalexin 250 mg PO BID ergocalciferol (vitamin D2) 1,250 mcg PO QMONTH hydrochlorothiazide 25 mg PO QAM levothyroxine 25 mcg PO QAM metoprolol tartrate 25 mg PO DAILY pantoprazole (Protonix) 20 mg PO DAILY simvastatin 20 mg PO BEDTIME warfarin 2.5 mg See Protocol PO DAILY Nursing Note INR 1.6 out of therapeutic range Medications and supplements reviewed Patient status: * Pt is completing antbx today for UTI - feels better- she ate a lot of greens plus ensure to keep INR from going to high while on antbx- She over compensated on the greens and ensure, plus a warfarin dose was held monday Medications or supplements: no other changes Diet: good Denies any signs and symptoms of bleeding or clotting or unusual bruising Bleeding, bruising, clotting discussed Nutritional guidance given: avoid greens x 3 days Dose: due to hx of CVA and PE increase dose to 5mg today then resume 2.5mg daily F/U INR Date : 1 week ?? Patient verbalizing understanding of instructions given. Anti-Coag Initial Assessment Social Hx Patient Tobacco Use Status: Never used Tobacco alcohol intake: never Alcohol intake frequency: does not drink Coding Level of Care Code Est Patient Level 1 Diagnoses Current use of anticoagulant therapy Z79.01 Results AMB INR Fingerstick AMB INR Fingerstick 1.6 Last Edit by Fany Leger RN on 05/01/25 09:13 MANUAL ENTRY Assessment & Plan Assessment & Plan (1) Current use of anticoagulant therapy: Code(s): Z79.01 - medical terminologist (current) use of anticoagulants Category: Medical
== END 2025-05-01 09:23 | disposition home or self-care (01) ==
LOC: HO.ACS 09:00
PROVIDERS: PCP Internal Medicine; Visit Provider Internal Medicine Medical Oncology
DX: Z79.01 Long term (current) use of anticoagulants (principal)

== ENCOUNTER → 2025-05-01 09:00 | Outpatient (BNVA) | payer MEDICARE, SELFPAY | PROVIDERS: PCP Internal Medicine; Visit Provider Internal Medicine Medical Oncology | DX: Z51.81 Encounter for therapeutic drug level monitoring (principal); Z79.01 Long term (current) use of anticoagulants | CPT/HCPCS: 85610; 99211 ==

== ENCOUNTER 2025-05-09 14:03 | Outpatient (AMB) | payer MEDICARE, SELFPAY ==
--- OUTSIDE RECORDS SUMMARY | 2024-10-24 03:45 | XMS_ITS ---
Author Organization Larry Meyers MD Address [address] [place] [phone] Care Team Providers Care Personnel Clerks Supervisor Name Role Phone MiraBennien Primary Care Provider Results Component Value Reference Range Notes Vitamin D 25-OH Total Reviewed date:10/24/2024 05:34:57 PM Interpretation: Performing Lab:[facility], [address] [place] [phone] Notes/Report: Vitamin D 25-OH Total 23.7 >30 [...] Larry Meyers MD [address] [place] [phone] 10/24/2024 Larry Myeers Vitamin D deficiency E55.9 Assessments Encounter Date Diagnosis (ICD Code) Assessment Notes Treatment Notes Treatment Clinical Notes Section Notes 10/24/2024 Vitamin D deficiency (ICD-10 - E55.9) Plan Of Treatment Next Appt Details Provider Name:Larry Emery ier, 05/23/2025 02:30:00 PM, [address], [address], [place], [place], [phone], Progress Notes * Yaneth REHMANOB:1944 (80 yo F)Acc No.[id number]:10/24/2024 Progress Note Patient: Mary TOVAR Provider: Nicho Meyers MD :1945 A ge:79 Y S ex:Female Date:10/24/2024 Address:[address] [place], [place] [phone] Subjective: * Chief Complaints: * 1 . [...] 10/24/2024 Generated for Marc olivera/Britta/Dennisitting on: 0 05/09/2025 02:05 PM EDT
--- NOTE | 2025-05-09 14:33 | MHC.OFFVISCO ---
Intake Intake Visit Reasons: Anticoagulation Allergies cat dander (CATS) Adverse Reaction (Mild, Verified 05/09/25 14:20) RASH raspberry (RASPBERRY) Adverse Reaction (Mild, Verified 05/09/25 14:20) RASH Medication List - Last Reconciled 05/09/25 by Fany Leger RN aspirin (Adult Aspirin Regimen) 81 mg PO DAILY ergocalciferol (vitamin D2) 1,250 mcg PO QMONTH hydrochlorothiazide 25 mg PO QAM levothyroxine 25 mcg PO QAM metoprolol tartrate 25 mg PO DAILY pantoprazole (Protonix) 20 mg PO DAILY simvastatin 20 mg PO BEDTIME warfarin 2.5 mg See Protocol PO DAILY Nursing Note INR: 2.3 in therapeutic range- pt feeling well now that she completed the antbx Medications and supplements reviewed No changes in diet, medications, or supplements, Denies any signs and symptoms of bleeding or bruising or clotting. Bleeding, bruising, clotting discussed Nutritional guidance given Dose: Resume 2.5mg daily F/U INR: 1 month Patient verbalizes understanding of instructions given Anti-Coag Initial Assessment Social Hx Patient Tobacco Use Status: Never used Tobacco alcohol intake: never Alcohol intake frequency: does not drink Coding Level of Care Code Est Patient Level 1 Diagnoses Current use of anticoagulant therapy Z79.01 Results AMB INR Fingerstick AMB INR Fingerstick 2.3 Last Edit by Fany Leger RN on 05/09/25 14:27 MANUAL ENTRY Assessment & Plan Assessment & Plan (1) Current use of anticoagulant therapy: Code(s): Z79.01 - assisted (current) use of anticoagulants Category: Medical
[2025-05-09 15:47] LABS: Prothrombin Time Whole Bld POC 27.8 sec (11.1-13.5); ~PT, ~INR - Anti Coag Clinic 2.3 (0.9-1.1)
== END 2025-05-09 14:35 | disposition home or self-care (01) ==
LOC: HO.ACS 14:03
PROVIDERS: PCP Internal Medicine; Visit Provider Internal Medicine Medical Oncology
DX: Z79.01 Long term (current) use of anticoagulants (principal)

== ENCOUNTER → 2025-05-09 14:03 | Outpatient (BNVA) | payer MEDICARE, SELFPAY | PROVIDERS: PCP Internal Medicine; Visit Provider Internal Medicine Medical Oncology | DX: Z51.81 Encounter for therapeutic drug level monitoring (principal); Z79.01 Long term (current) use of anticoagulants | CPT/HCPCS: 85610; 99211 ==

== ENCOUNTER 2025-06-06 07:59 | Outpatient (AMB) | payer MEDICARE, SELFPAY ==
--- OUTSIDE RECORDS SUMMARY | 2024-10-24 03:45 | XMS_ITS ---
Author Organization Larry Meyers MD Address [address] [place] [phone] Care Team Providers Care Meat Boner Name Role Phone MiraBennien Primary Care Provider Results Component Value Reference Range Notes Vitamin D 25-OH Total Reviewed date:10/24/2024 05:34:57 PM Interpretation: Performing Lab:[facility], [address] [place] [phone] Notes/Report: Vitamin D 25-OH Total 23.7 >30 [...] Location Date Provider Diagnosis Larry Meyers MD [address] [place] [address] [place] [id number] 10/24/2024 Larry Meyers Vitamin D deficiency E55.9 Assessments Encounter Date Diagnosis (ICD Code) Assessment Notes Treatment Notes Treatment Clinical Notes Section Notes 10/24/2024 Vitamin D deficiency (ICD-10 - E55.9) Plan Of Treatment Next Appt Details Provider Name:Larry house, 11/18/2025 07:00:00 AM, [address] [place] [address], [address] [place] [address], [phone], Provider Name:Larry house, 11/25/2025 11:00:00 AM, [address] [place] [address], [address], [phone], Provider Name:Larry house, 05/21/2026 07:30:00 AM, [address] [place] [address], [address], [phone], Provider Name:Larry house, 05/28/2026 11:00:00 AM, [address] [place] [address], [address], [phone], Progress Notes * VALDOMaye CORNELLJasonOB:1944 (80 yo F)Acc No.[id number]:10/24/2024 Progress Note Patient: Mary TOVAR Provider: Nicho Meyers MD :1945 A ge:79 Y S ex:Female Date:10/24/2024 Address:[address] [place], [place] [phone] Subjective: * Chief Complaints: * 1 . [...] 0 10/24/2024 Generated for Marc olivera/Britta/Rosemary on: 0 06/06/2025 08:02 AM EDT
--- OUTSIDE RECORDS SUMMARY | 2025-04-21 03:15 | XMS_ITS ---
Author Organization Larry Meyers MD Address [address] [place] [phone] Care Team Providers Care Principal Technologist Name Role Phone MiraBennien Primary Care Provider Results Component Value Reference Range Notes Complete Blood Count Auto Di ff Reviewed date:04/21/2025 07:32:40 PM Interpretation: Performing Lab:[facility], [address] [place] [phone] Notes/Report: White Blood Count 5.7 4.8-10.8 X10*3/uL [...] NRBC Abs Auto 0.000 0.0-0.012 X10*3/uL Comprehensive [place]. Panel Fa st Reviewed date:04/21/2025 07:31:28 PM Interpretation: Performing Lab:[facility], [address] [place] [phone] Notes/Report: Sodium 135 135-145 mmol/L Potassium 3.9 [...] Panel Reviewed date:04/21/2025 12:37:23 PM Interpretation: Performing Lab:[facility], [address] [place] [phone] Notes/Report: Triglycerides 78 <150 mg/dL Desirable Triglyceride: [...] Total Reviewed date:04/21/2025 12:38:15 PM Interpretation: Performing Lab:[facility], [address] [place] [phone] Notes/Report: Vitamin D 25-OH Total 25.8 >30 [...] T4 Reviewed date:04/21/2025 12:38:06 PM Interpretation: Performing Lab:[facility], [address] [place] [phone] Notes/Report: TSH reflex Free T4 3.84 0.32-4.0 uIU/mL UA ClnCatch+Micro w/rflx Cul t Reviewed date:04/21/2025 07:32:21 PM Interpretation: Performing Lab:[facility], [address] [place] [phone] Notes/Report: Urine, Clean Catch Color Urine Yellow Appearance Urine Turbid PH 6.5 5.0-9.0 Glucose Urine UA Negative Negative mg/dL Urine Blood Moderate (2+) Negative Specific [place] - Urine 1.015 1.005-1.025 Urine Protein Trace [...] Location Date Provider Diagnosis Larry Meyers MD [address] [place] [address] [place] [phone] 04/21/2025 Larry Meyers Blood tests for routine [...] Provider Name:Larry house, 11/18/2025 07:00:00 AM, [address], [address], [place], [place], [phone], Provider Name:Larry house, 11/25/2025 11:00:00 AM, [address] [facility], [address], [place], [place], [phone], Provider Name:Larry Emery ier, 05/21/2026 07:30:00 AM, [address] [facility], Suite [facility], [place], [place], [phone], Provider Name:Larry Emery ier, 05/28/2026 11:00:00 AM, [address] [facility], [address], [place], [place], [phone], Progress Notes * Yaneth HARVEYOB:1944 (80 yo F)Acc No.[id number]:04/21/2025 Progress Note Patient: Mary TOVAR Provider: Nicho Meyers MD :1945 A ge:80 Y S ex:Female Date:04/21/2025 Address:[address] [place], [place] [phone] Subjective: * Chief Complaints: * 1 . [...] - 04/21/2025 07:15 AM) L AB: Comprehensive [place]. Panel Fast (Collection Date & Time - [...] - 04/21/2025 07:15 AM) L AB: Comprehensive [place]. Panel Fast (Collection Date & Time - [...] - 04/21/2025 07:15 AM) L AB: Comprehensive [place]. Panel Fast (Collection Date & Time - [...] MD Date: 0 04/21/2025 Generated for Marc olivera/Britta/eTtitoitting on: 0 06/06/2025 08:02 AM EDT
--- OUTSIDE RECORDS SUMMARY | 2025-04-24 08:44 | XMS_ITS ---
Author Organization Larry Meyers MD Address [address] [place] [phone] Care Team Providers Care Rapid Transit Operator Name Role Phone Mira Larry Primary Care Provider Medications Medication SIG (Take, Route, Fr equency, Duration) Notes Start Date End Date Status Cephalexin 250 MG 1 capsule Orally twi ce a day for 7 days 04/24/2025 Active Encounters Encounter Location Date Provider Diagnosis Larry Meyers MD 10 [facility] [address] [place] [phone] 04/24/2025 Larry Meyers Plan Of Treatment Medication Medication Name Sig Start Date Stop Date Notes Cephalexin 250 MG 1 capsule Orally twice a day for 7 days 04/24/2025 Next Appt Details Provider Name:Larry house, 11/18/2025 07:00:00 AM, [address] [place] [address], [address] [place] [address], [phone], Provider Name:Larry house, 11/25/2025 11:00:00 AM, [address] [place] [address], [address], [phone], Provider Name:Larry Emery erumr, 05/21/2026 07:30:00 AM, [address] [facility], [address], [place], [phone], Provider Name:Larry Emery erumr, 05/28/2026 11:00:00 AM, [address] [facility], [address], [place], [phone], Progress Notes * Yaneth HARVEYOB:1944 (80 yo F)Acc No.[id number]:04/24/2025 Patient: Mary TOVAR :1945 A ge:80 Y S ex:Female Address:[address] [place] [address], [address] * Refills Start Cephalexin Capsule, 250 MG, Orally, 14 Capsule, 1 capsule, twice a day, 7 days * true * Date: Generated for Marc olivera/Britta/eTransmitting on: 0 06/06/2025 08:02 AM EDT
--- OUTSIDE RECORDS SUMMARY | 2025-05-23 07:00 | XMS_ITS ---
Author Organization Larry Meyers MD Address [address] [place] [phone] Care Team Providers Care Marriage And Family Social Worker Name Role Phone Larry Meyers Primary Care [...] Active Vitamin D (Ergocalciferol) 1 .25 MG (76702 UT) take 1 capsule by mouth 2 [...] Date Provider Diagnosis Larry Meyers MD [address] [place] [address] [place] [phone] 05/23/2025 Larry Meyers Annual physical exam Z00.00 [...] Reason: Provider Name:Larry house, 11/18/2025 07:00:00 AM, [address] [place] [address], [address], [phone], Provider Name:Larry house, 11/25/2025 11:00:00 AM, [address] [place] [address], [address], [phone], Provider Name:Larry house, 05/21/2026 07:30:00 AM, [address] [facility], [address], [place], [place], [phone], Provider Name:Larry Emery ier, 05/28/2026 11:00:00 AM, [address] [facility], [address], [place], [place], [phone], Progress Notes * Yaneth HARVEYOB:1944 (80 yo F)Acc No.[id number]:05/23/2025 Progress Notes Patient: Mary TOVAR Provider: Nicho Meyers MD :1945 A ge:80 Y S ex:Female Date:05/23/2025 Address:[address] [place], [place] [phone] Subjective: * Chief Complaints: * A nnual [...] a day Vitamin D (Ergocalciferol) 1.25 MG (73477 UT) Capsule take 1 capsule by mouth [...] day Taking Vitamin D (Ergocalciferol) 1.25 MG (67394 UT) Capsule take 1 capsule by mouth [...] Auto 0.000 0.0-0.012 - X10*3/uL L ab:Comprehensive [place]. Panel Fast (Order Date - 04/21/2025) (Collection [...] Blood Moderate (2+) A Negative - Specific [place] - Urine 1.015 1.005-1.025 - Urine Protein [...] 0 05/23/2025 Generated for Marc olivera/Britta/Filomenasmitting on: 0 06/06/2025 08:01 AM EDT History and Physical Notes * [...]
--- OUTSIDE RECORDS SUMMARY | 2025-06-06 03:45 | XMS_ITS ---
Author Organization Larry Meyers MD Address [address] [place] [phone] Care Team Providers Care Video Games Storywriter Name Role Phone Larry Meyers Primary Care Provider REASON FOR VISIT HDF Immunizations Vaccine Route Administration Date Status Comme nts Influenza High Dose IM Intramuscular 06/06/2025 Administer ed Encounters Encounter Location Date Provider Diagnosis Larry Meyers MD 10 [facility] [address] [place] [phone] 06/06/2025 Larry Meyers Encounter for administration of vaccine Z23 Assessments Encounter Date Diagnosis (ICD Code) Assessment Notes Treatment Notes Treatment Clinical Notes Section Notes 06/06/2025 Encounter for administration of vaccine (ICD-10 - Z23) Plan Of Treatment Next Appt Details Provider Name:Larry house, 11/18/2025 07:00:00 AM, [address] [place] [address], [address], [phone], Provider Name:Larry house, 11/25/2025 11:00:00 AM, [address] [place] [address], [address], [place], [place], [phone], Provider Name:Larry Emery ier, 05/21/2026 07:30:00 AM, [address], [address], [place], [phone], Provider Name:Larry Emery ier, 05/28/2026 11:00:00 AM, [address] [facility], [address], [place], [place], [phone], Progress Notes * Yaneth HARVEYOB:1944 (80 yo F)Acc No.[id number]:06/06/2025 Progress Note Patient: Mary TOVAR Provider: Nicho Meyers MD :1945 A ge:80 Y S ex:Female Date:06/06/2025 Address:[address] [place], [place] [phone] Subjective: * Chief Complaints: * 1 . [...] 0 06/06/2025 Generated for Marc olivera/Britta/Rosemary on: 06/06/2025 08:01 AM EDT
--- OUTSIDE RECORDS SUMMARY | 2025-06-06 08:03 | XMS_ITS | Patient Health Record ---
Author Organization Larry Meyers MD Address [address] [place] [address] [phone] Care Team Providers Care [employer] Professor Name Role Phone Mira Larry Primary Care Provider Allergies No Known Allergies Results Component Value Reference Range Notes Vitamin D 25-OH Total Reviewed date:10/24/2024 05:34:57 PM Interpretation: Performing Lab:[facility], [address] [place] [phone] Notes/Report: Vitamin D 25-OH Total 23.7 >30 [...] confirmed with another method such as LC-MS/MS. Complete Blood Count Auto Di ff Reviewed date:04/21/2025 07:32:40 PM Interpretation: Performing Lab:[facility], [address] [place] [phone] Notes/Report: White Blood Count 5.7 4.8-10.8 X10*3/uL [...] NRBC Abs Auto 0.000 0.0-0.012 X10*3/uL Comprehensive [place]. Panel Fa st Reviewed date:04/21/2025 07:31:28 PM Interpretation: Performing Lab:[facility], [address] [place] [phone] Notes/Report: Sodium 135 135-145 mmol/L Potassium 3.9 [...] Panel Reviewed date:04/21/2025 12:37:23 PM Interpretation: Performing Lab:[address] [phone] Notes/Report: Triglycerides 78 <150 mg/dL Desirable Triglyceride: [...] Total Reviewed date:04/21/2025 12:38:15 PM Interpretation: Performing Lab:[address] [phone] Notes/Report: Vitamin D 25-OH Total 25.8 >30 [...] T4 Reviewed date:04/21/2025 12:38:06 PM Interpretation: Performing Lab:[address] [phone] Notes/Report: TSH reflex Free T4 3.84 0.32-4.0 uIU/mL UA ClnCatch+Micro w/rflx Cul t Reviewed date:04/21/2025 07:32:21 PM Interpretation: Performing Lab:[address] [phone] Notes/Report: Urine, Clean Catch Color Urine Yellow Appearance Urine Turbid PH 6.5 5.0-9.0 Glucose Urine UA Negative Negative mg/dL Urine Blood Moderate (2+) Negative Specific [place] - Urine 1.015 1.005-1.025 Urine Protein Trace Neg-Trace mg/dL Urine Ketones Negative Negative mg/dL Nitrite Urine Positive Negative Leukocyte Esterase Urine Large (3+) Negative RBC Urine 11-20 0-2 /HPF WBC Urine >50 0-5 /HPF Squamous Epithelial Cell Urine 3-5 0-2 /HPF Bacteria Urine 4+ None Seen Hyaline Casts Urine 0-2 0-2 /LPF INR WHOLE BLOOD POC Reviewed date:06/20/2024 12:15:42 PM Interpretation: Performing Lab:[address] [phone] Notes/Report: PT, INR - [facility] 2.6 0.9-1.1 METER #: [id number] INTERNATIONAL NORMALIZED RATIO (INR) REFERENCE RANGES Reference [...] Reviewed date:06/20/2024 11:32:36 AM Interpretation: Performing Lab:[facility], [address] [place] [phone] Notes/Report: Prothrombin Time Whole Bld POC 31.4 11.1-13.5 sec INR WHOLE BLOOD POC Reviewed date:07/18/2024 05:14:34 PM Interpretation: Performing Lab:[facility], [address] [place] [phone] Notes/Report: PT, INR - [facility] 3.3 0.9-1.1 METER #: [id number] INTERNATIONAL NORMALIZED RATIO (INR) REFERENCE RANGES Reference [...] Reviewed date:07/18/2024 09:21:50 PM Interpretation: Performing Lab:[facility], [address] [place] [phone] Notes/Report: Prothrombin Time Whole Bld POC 39.3 11.1-13.5 sec INR WHOLE BLOOD POC Reviewed date:08/15/2024 12:42:03 PM Interpretation: Performing Lab:[facility], [address] [place] [phone] Notes/Report: PT, INR - [facility] 2.1 0.9-1.1 METER #: [id number] INTERNATIONAL NORMALIZED RATIO (INR) REFERENCE RANGES Reference [...] Reviewed date:08/15/2024 12:41:55 PM Interpretation: Performing Lab:[facility], [address] [place] [phone] Notes/Report: Prothrombin Time Whole Bld POC 25.0 11.1-13.5 sec INR WHOLE BLOOD POC Reviewed date:09/12/2024 08:28:06 AM Interpretation: Performing Lab:[facility], [address] [place] [phone] Notes/Report: PT, INR - [facility] 2.4 0.9-1.1 METER #: [id number] INTERNATIONAL NORMALIZED RATIO (INR) REFERENCE RANGES Reference [...] Reviewed date:09/12/2024 08:28:13 AM Interpretation: Performing Lab:[facility], [address] [place] [phone] Notes/Report: Prothrombin Time Whole Bld POC 28.3 11.1-13.5 sec INR WHOLE BLOOD POC Reviewed date:10/10/2024 12:28:00 PM Interpretation: Performing Lab:[facility], [address] [place] [phone] Notes/Report: PT, INR - [facility] 3.4 0.9-1.1 METER #: [id number] INTERNATIONAL NORMALIZED RATIO (INR) REFERENCE RANGES Reference [...] Prothrombin Time Whole Bld P OC Reviewed date:10/10/2024 12:28:08 PM Interpretation: Performing Lab:[facility], [address] [place] [phone] Notes/Report: Prothrombin Time Whole Bld POC 40.5 11.1-13.5 sec INR WHOLE BLOOD POC Reviewed date:11/11/2024 12:31:06 PM Interpretation: Performing Lab:[facility], [address] [place] [phone] Notes/Report: PT, INR - [facility] 2.2 0.9-1.1 METER #: [id number] INTERNATIONAL NORMALIZED RATIO (INR) REFERENCE RANGES Reference [...] Prothrombin Time Whole Bld P OC Reviewed date:11/11/2024 12:30:58 PM Interpretation: Performing Lab:[facility], [address] [place] [phone] Notes/Report: Prothrombin Time Whole Bld POC 26.1 11.1-13.5 sec INR WHOLE BLOOD POC Reviewed date:12/09/2024 12:45:34 PM Interpretation: Performing Lab:[facility], [address] [place] [phone] Notes/Report: PT, INR - [facility] 3.1 0.9-1.1 METER #: [id number] INTERNATIONAL NORMALIZED RATIO (INR) REFERENCE RANGES Reference [...] Prothrombin Time Whole Bld P OC Reviewed date:12/09/2024 12:33:13 PM Interpretation: Performing Lab:[facility], [address] [place] [phone] Notes/Report: Prothrombin Time Whole Bld POC 37.8 11.1-13.5 sec INR WHOLE BLOOD POC Reviewed date:01/01/2025 02:06:32 PM Interpretation: Performing Lab:[facility], [address] [place] [phone] Notes/Report: PT, INR - [facility] 2.1 0.9-1.1 METER #: [id number] INTERNATIONAL NORMALIZED RATIO (INR) REFERENCE RANGES Reference [...] Prothrombin Time Whole Bld P OC Reviewed date:01/01/2025 02:06:39 PM Interpretation: Performing Lab:[facility], [address] [place] [phone] Notes/Report: Prothrombin Time Whole Bld POC 24.8 11.1-13.5 sec INR WHOLE BLOOD POC Reviewed date:01/30/2025 01:25:36 PM Interpretation: Performing Lab:[address] [phone] Notes/Report: PT, INR - [facility] 2.2 0.9-1.1 METER #: [id number] INTERNATIONAL NORMALIZED RATIO (INR) REFERENCE RANGES Reference [...] Prothrombin Time Whole Bld P OC Reviewed date:01/30/2025 02:55:34 PM Interpretation: Performing Lab:[facility], [address] [place] [phone] Notes/Report: Prothrombin Time Whole Bld POC 26.7 11.1-13.5 sec INR WHOLE BLOOD POC Reviewed date:02/27/2025 12:33:32 PM Interpretation: Performing Lab:[facility], [address] [place] [phone] Notes/Report: PT, INR - [facility] 3.0 0.9-1.1 METER #: [id number] INTERNATIONAL NORMALIZED RATIO (INR) REFERENCE RANGES Reference [...] Prothrombin Time Whole Bld P OC Reviewed date:02/27/2025 12:35:18 PM Interpretation: Performing Lab:[facility], [address] [place] [phone] Notes/Report: Prothrombin Time Whole Bld POC 36.1 11.1-13.5 sec INR WHOLE BLOOD POC Reviewed date:03/27/2025 01:50:34 PM Interpretation: Performing Lab:[facility], [address] [place] [phone] Notes/Report: PT, INR - [facility] 2.1 0.9-1.1 METER #: [id number] INTERNATIONAL NORMALIZED RATIO (INR) REFERENCE RANGES Reference [...] Prothrombin Time Whole Bld P OC Reviewed date:03/27/2025 02:15:19 PM Interpretation: Performing Lab:[facility], [address] [place] [phone] Notes/Report: Prothrombin Time Whole Bld POC 25.2 11.1-13.5 sec Hold Gold Reviewed date:04/21/2025 12:36:24 PM Interpretation: Performing Lab:[facility], [address] [place] [phone] Notes/Report: Hold Gold See Note Specimen held untested for 24 hours; Call to request Chemistry testing. Urine Culture Reviewed date:04/24/2025 12:37:00 PM Interpretation: Performing Lab:[facility], [address] [place] [phone] Notes/Report: O:ESCCOL Escherichia coli Urine Culture Quant Urine Culture > 100,000 cfu/mL Ampicillin <=2 Cefazolin (Urine) <=1 Cefepime <=0.12 Ceftriaxone <=0.25 Ciprofloxacin <=0.06 Gentamicin <=1 Nitrofurantoin <=16 Trimethoprim/Sulfamethoxaz ole <=20 INR WHOLE BLOOD POC Reviewed date:04/24/2025 12:31:15 PM Interpretation: Performing Lab:[address] [phone] Notes/Report: PT, INR - [facility] 3.0 0.9-1.1 METER #: [id number] INTERNATIONAL NORMALIZED RATIO (INR) REFERENCE RANGES Reference [...] Prothrombin Time Whole Bld P OC Reviewed date:04/24/2025 12:31:23 PM Interpretation: Performing Lab:[facility], [address] [place] [phone] Notes/Report: Prothrombin Time Whole Bld POC 36.3 11.1-13.5 sec INR WHOLE BLOOD POC Reviewed date:05/01/2025 02:46:11 PM Interpretation: Performing Lab:[facility], [address] [place] [phone] Notes/Report: PT, INR - [facility] 1.6 0.9-1.1 METER #: [id number] INTERNATIONAL NORMALIZED RATIO (INR) REFERENCE RANGES Reference [...] Prothrombin Time Whole Bld P OC Reviewed date:05/01/2025 02:46:04 PM Interpretation: Performing Lab:[facility], [address] [place] [phone] Notes/Report: Prothrombin Time Whole Bld POC 19.5 11.1-13.5 sec INR WHOLE BLOOD POC Reviewed date:05/09/2025 04:18:34 PM Interpretation: Performing Lab:[facility], [address] [place] [phone] Notes/Report: PT, INR - [facility] 2.3 0.9-1.1 METER #: [id number] INTERNATIONAL NORMALIZED RATIO (INR) REFERENCE RANGES Reference [...] Prothrombin Time Whole Bld P OC Reviewed date:05/09/2025 04:18:24 PM Interpretation: Performing Lab:[facility], [address] [place] [phone] Notes/Report: Prothrombin Time Whole Bld POC 27.8 11.1-13.5 sec Reason For Referral No Information Medications Medication SIG (Take, Route, Frequency, Duration) [...] Active Vitamin D (Ergocalciferol) 1 .25 MG (87136 UT) take 1 capsule by mouth 2 times a month.. Orally once a week for 90 days Active Immunizations Vaccine Route Administration Date Status Comme nts Flu Vaccine IM Intramuscular 05/24/2017 Administered Had f geno vaccine while a patient of Dr. Ace Delacruz's. PPSV23 (Pnemovax) Unknown 06/19/2014 Administered [place] [facility] [place] Intramuscular 12/25/[address] [facility] Fluarix Quadrivalent IM Intramuscular 06/25/[facility] 13 IM Intramuscular 10/29/2018 Administered Fluarix Quadrivalent IM Intramuscular 06/11/2019 [facility] PPSV23 (Pnemovax) IM Intramuscular 06/20/2019 Administered Fluarix Quadrivalent IM Intramuscular 05/27/2020 [facility] Influenza High Dose IM Intramuscular 08/02/2021 Administer ed Influenza High Dose IM Intramuscular 07/08/2022 Administer ed Influenza High Dose IM Intramuscular 06/23/2023 Administer ed Influenza High Dose IM Intramuscular 06/10/2024 Administer ed Influenza High Dose IM Intramuscular 06/06/2025 Administer ed Covid Vaccine Unknown 04/15/2021 Refused Social History Tobacco Use: Social History Observation [...] ast year? 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) Active confirmed Problem 655585998 Other specified menopausal and perimenopausal disorders (N95.8) Active confirmed Problem 08094268 Essential hypert ension (I10) Active confirmed Problem 782528520 Acquired hypothyroidism (E03.9) Active confirmed Problem 180845825 History of pulmo nary embolism (Z86.711) Active confirmed Problem 009047042 History of CVA (cerebrovascular accident) (Z86.73) Active confirmed Problem 12125156 Reflux gastritis (K29.60) Active confirmed Problem Acute idiopathic gout of right hand (M10.041) Active confirmed Problem 49513715 Elevated cholest rena (E78.00) Active confirmed Problem 888875702 Microscopic qamar turia (R31.29) Active confirmed Problem 69881269 Hypercholesterem ia (E78.00) Active confirmed Problem 41948712 Clotting disorde r (D68.9) Active confirmed Problem 015993564 PFO (patent fora men ovale) (Q21.1) Active confirmed Problem 55773507 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 Vital Signs Blood pressure diastolic 84 mm Hg 05/23/2025 km ght is up 3 pounds since 05-16-24 Height 58 in 05/23/2025 weight is up 3 pounds since 05-16-24 Blood pressure systolic 118 mm Hg 05/23/2025 weig ht is up 3 pounds since 05-16-24 Weight 183 lbs 05/23/2025 weight is up 3 pounds since 05-16-24 BMI 38.24 kg/m2 05/23/2025 weight is up 3 pounds since 05-16-24 Encounters Encounter Location Date Provider Diagnosis Larry Meyers MD [address] [place], [place] [id number] 06/10/2024 Larry Meyers Encounter for immunization Z23 Larry Meyers MD [address] [place] [id number] 10/24/2024 Larry Meyers Vitamin D deficiency E55.9 Larry Meyers MD [address] [place] [id number] 04/21/2025 Larry Meyers Blood tests for routine general physical examination Z00.00 ; Elevated cholesterol E78.00 ; Acquired hypothyroidism E03.9 and Vitamin D deficiency E55.9 Larry Meyers MD [address] [place] [id number] 06/06/2025 Larry Meyers Encounter for administration of vaccine Z23 Larry Meyers MD [address] [place] [id number] 05/23/2025 Larry Meyers Annual physical exam Z00.00 ; Acquired hypothyroidism E03.9 ; PFO (patent foramen ovale) Q21.1 and Incisional hernia without obstruction or gangrene K43.2 Larry eMyers MD [address] [place] [address] [id number] 09/09/2024 Larry Meyers Essential hypertensi on I10 Larry Meyers MD [address] [place] [id number] 10/08/2024 Larry Meyers Clotting disorder D68.9 Larry Meyers MD [address] [place] [address] [address] [id number] 04/24/2025 Larry Meyers Assessments Encounter Date Diagnosis (ICD Code) Assessment Notes Treatment Notes Treatment Clinical Notes Section Notes 06/10/2024 Encounter for immunization (ICD-10 - Z23) 10/24/2024 Vitamin D deficiency (ICD-10 - E55.9) 04/21/2025 Blood tests for routine general physical examination (ICD-10 - Z00.00) 06/06/2025 Encounter for administration of vaccine (ICD-10 - Z23) 05/23/2025 Annual physical exam (ICD-10 - Z00.00) Labs reviewed and discussed with patient 05/23/2025 Acquired hypothyroidism (ICD-10 - E03.9) doing well 09/09/2024 Essential hypertension (ICD-10 - I10) 10/08/2024 Clotting disorder (ICD-10 - D68.9) 04/21/2025 Elevated cholesterol (ICD-10 - E78.00) 05/23/2025 PFO (patent foramen ovale) (ICD-10 - Q21.1) remains on coumadin 04/21/2025 Acquired hypothyroidism (ICD-10 - E03.9) 05/23/2025 Incisional hernia without obstruction or gangrene (ICD-10 - K43.2) 04/21/2025 Vitamin D deficiency (ICD-10 - E55.9) Plan Of Treatment Pending Test Test Name Order Date BONE DENSITY DEXA 04/14/2020 MAMMOGRAM DIGITAL BILATERAL SCREEN 04/14 XR DEXA axial skeleton 04/19/2022 Next Appt Details Provider Name:Larry Emery ier, 11/18/2025 07:00:00 AM, [address] [place] [address], [address], [phone], Provider Name:Larry Emery ier, 11/25/2025 11:00:00 AM, [address] [place] [address], [phone], Provider Name:Larry Emery ier, 05/21/2026 07:30:00 AM, [address] [place] [address], [address], [phone], Provider Name:Larry Emery ier, 05/28/2026 11:00:00 AM, [address] [place] [address], [address], [phone], Insurance Providers Payer Name Payer Address Payer Phone Subscriber Number Group Number Insured Name Patient Relationship to Insured Coverage Start Date Coverage End Date [facility] are [employer] [address] [address] [place] [address] [id number] Regina Mary trejo Self - patient is the insured MEDICARE [employer] [address] [place] [id number] Iselajadyn Mary trejo Self - patient is the insured Medical (General) History Medical History History ICD Code Stroke X 2 in 11/08 and 08/10 Refuses Colonoscopy 04/20/18; refused 04/02 019 hematuria chronic and has been evaluated Surgical History Surgery Date(Month/Year) Repair gallstone ileius & Umbilical Serg ia (Dr. Wilson) 11/2018
[2025-06-06 08:06] LABS: Prothrombin Time Whole Bld POC 25.4 sec (11.1-13.5); ~PT, ~INR - Anti Coag Clinic 2.1 (0.9-1.1)
--- NOTE | 2025-06-06 08:08 | MHC.OFFVISCO ---
Intake Intake Visit Reasons: Anticoagulation Allergies cat dander (CATS) Adverse Reaction (Mild, Verified 06/06/25 08:01) RASH raspberry (RASPBERRY) Adverse Reaction (Mild, Verified 06/06/25 08:01) RASH Medication List - Last Reconciled 06/06/25 by Meenu Chaney, RN aspirin (Adult Aspirin Regimen) 81 mg PO DAILY ergocalciferol (vitamin D2) 1,250 mcg PO QMONTH hydrochlorothiazide 25 mg PO QAM levothyroxine 25 mcg PO QAM metoprolol tartrate 25 mg PO DAILY pantoprazole (Protonix) 20 mg PO DAILY simvastatin 20 mg PO BEDTIME warfarin 2.5 mg See Protocol PO DAILY Nursing Note INR: 2.1 in therapeutic range of 2-3 Medications and supplements reviewed No changes in health, diet, medications, or supplements, Denies any signs and symptoms of bleeding or bruising or clotting. Bleeding, bruising, clotting discussed Nutritional guidance given to avoid greens X 2 days and to focus on foods that raise the INR. Food list discussed. Dose: 2.5mg daily F/U INR: 4 weeks Patient verbalizes understanding of instructions given Anti-Coag Initial Assessment Social Hx Patient Tobacco Use Status: Never used Tobacco alcohol intake: never Alcohol intake frequency: does not drink Coding Level of Care Code Est Patient Level 1 Diagnoses Current use of anticoagulant therapy Z79.01 Assessment & Plan Assessment & Plan (1) Current use of anticoagulant therapy: Code(s): Z79.01 - jail (current) use of anticoagulants Category: Medical
== END 2025-06-06 08:11 | disposition home or self-care (01) ==
LOC: HO.ACS 07:59
PROVIDERS: PCP Internal Medicine; Visit Provider Internal Medicine Medical Oncology
DX: Z79.01 Long term (current) use of anticoagulants (principal)

== ENCOUNTER → 2025-06-06 07:59 | Outpatient (BNVA) | payer MEDICARE, SELFPAY | PROVIDERS: PCP Internal Medicine; Visit Provider Internal Medicine Medical Oncology | DX: Z51.81 Encounter for therapeutic drug level monitoring (principal); Z79.01 Long term (current) use of anticoagulants | CPT/HCPCS: 85610; 99211 ==

== ENCOUNTER 2025-07-04 07:57 | Outpatient (AMB) | payer MEDICARE, SELFPAY ==
--- OUTSIDE RECORDS SUMMARY | 2024-10-24 03:45 | XMS_ITS ---
Author Organization Larry Meyers MD Address [address] [place] [phone] Care Team Providers Care Diet Assistant Name Role Phone MiraBennien Primary Care Provider Results Component Value Reference Range Notes Vitamin D 25-OH Total Reviewed date:10/24/2024 05:34:57 PM Interpretation: Performing Lab:[facility], [address] [place] [phone] Notes/Report: Vitamin D 25-OH Total 23.7 >30 [...] Location Date Provider Diagnosis Larry Meyers MD [address] [place] [address] [place] [phone] 10/24/2024 Larry Meyers Vitamin D deficiency E55.9 Assessments Encounter Date Diagnosis (ICD Code) Assessment Notes Treatment Notes Treatment Clinical Notes Section Notes 10/24/2024 Vitamin D deficiency (ICD-10 - E55.9) Plan Of Treatment Next Appt Details Provider Name:Larry house, 11/18/2025 07:00:00 AM, [address] [place] [address], [address] [place] [address], [phone], Provider Name:Larry house, 11/25/2025 11:00:00 AM, [address] [place] [address], [address], [phone], Provider Name:Larry house, 05/21/2026 07:30:00 AM, [address] [place] [address], [address], [phone], Provider Name:Larry house, 05/28/2026 11:00:00 AM, [address] [place] [address], [address], [phone], Progress Notes * VALDOMaye CORNELLJasonOB:1944 (80 yo F)Acc No.[id number]:10/24/2024 Progress Note Patient: Mary TOVAR Provider: Nicho Meyers MD :1945 A ge:79 Y S ex:Female Date:10/24/2024 Address:[address] [place], [place] [phone] Subjective: * Chief Complaints: * 1 . [...] 0 10/24/2024 Generated for Marc olivera/Britta/Rosemary on: 08:00 AM EDT
--- OUTSIDE RECORDS SUMMARY | 2025-04-21 03:15 | XMS_ITS ---
Author Organization Larry Meyers MD Address [address] [place] [phone] Care Team Providers Care Watch Caser Name Role Phone MiraBennien Primary Care Provider [phone] Results Component Value Reference Range Notes Complete Blood Count Auto Di ff Reviewed date:04/21/2025 07:32:40 PM Interpretation: Performing Lab:[facility], [address] [place] [phone] Notes/Report: White Blood Count 5.7 4.8-10.8 X10*3/uL [...] NRBC Abs Auto 0.000 0.0-0.012 X10*3/uL Comprehensive [place]. Panel Fa st Reviewed date:04/21/2025 07:31:28 PM Interpretation: Performing Lab:[facility], [address] [place] [phone] Notes/Report: Sodium 135 135-145 mmol/L Potassium 3.9 [...] Panel Reviewed date:04/21/2025 12:37:23 PM Interpretation: Performing Lab:[facility], [address] [place] [phone] Notes/Report: Triglycerides 78 <150 mg/dL Desirable Triglyceride: [...] Total Reviewed date:04/21/2025 12:38:15 PM Interpretation: Performing Lab:[facility], [address] [place] [phone] Notes/Report: Vitamin D 25-OH Total 25.8 >30 [...] T4 Reviewed date:04/21/2025 12:38:06 PM Interpretation: Performing Lab:[facility], [address] [place] [phone] Notes/Report: TSH reflex Free T4 3.84 0.32-4.0 uIU/mL UA ClnCatch+Micro w/rflx Cul t Reviewed date:04/21/2025 07:32:21 PM Interpretation: Performing Lab:[facility], [address] [place] [phone] Notes/Report: Urine, Clean Catch Color Urine Yellow Appearance Urine Turbid PH 6.5 5.0-9.0 Glucose Urine UA Negative Negative mg/dL Urine Blood Moderate (2+) Negative Specific [place] - Urine 1.015 1.005-1.025 Urine Protein Trace [...] Location Date Provider Diagnosis Larry Meyers MD [address] [place] [address] [place] [phone] 04/21/2025 Larry Meyers Blood tests for routine [...] Provider Name:Larry house, 11/18/2025 07:00:00 AM, [address], [address], [place], [place], [phone], Provider Name:Larry house, 11/25/2025 11:00:00 AM, [address] [facility], [address], [place], [place], [phone], Provider Name:Larry Emery ier, 05/21/2026 07:30:00 AM, [address] [facility], Suite [facility], [place], [place], [phone], Provider Name:Larry Emery ier, 05/28/2026 11:00:00 AM, [address] [facility], [address], [place], [place], [phone], Progress Notes * Yaneth HARVEYOB:1944 (80 yo F)Acc No.[id number]:04/21/2025 Progress Note Patient: Mary TOVAR Provider: Nicho Meyers MD :1945 A ge:80 Y S ex:Female Date:04/21/2025 Address:[address] [place], [place] [phone] Subjective: * Chief Complaints: * 1 . [...] - 04/21/2025 07:15 AM) L AB: Comprehensive [place]. Panel Fast (Collection Date & Time - [...] - 04/21/2025 07:15 AM) L AB: Comprehensive [place]. Panel Fast (Collection Date & Time - [...] - 04/21/2025 07:15 AM) L AB: Comprehensive [place]. Panel Fast (Collection Date & Time - [...] 04/21/2025 Generated for Marc olivera/Britta/Dennisitting on: 1 08:00 AM EDT
--- OUTSIDE RECORDS SUMMARY | 2025-04-24 08:44 | XMS_ITS ---
Author Organization Larry Meyers MD Address [address] [facility] [place] [phone] Care Team Providers Care Tax Lawyer Name Role Phone Mira Larry Primary Care Provider Medications Medication SIG (Take, Route, Fr equency, Duration) Notes Start Date End Date Status Cephalexin 250 MG 1 capsule Orally twi ce a day for 7 days 04/24/2025 Active Encounters Encounter Location Date Provider Diagnosis Larry Meyers MD [address] [facility] [address] [place] [phone] 04/24/2025 Larry Meyers Plan Of Treatment Medication Medication Name Sig Start Date Stop Date Notes Cephalexin 250 MG 1 capsule Orally twice a day for 7 days 04/24/2025 Next Appt Details Provider Name:Larry house, 11/18/2025 07:00:00 AM, [address] [place] [address], [address] [place] [address], [phone], Provider Name:Larry house, 11/25/2025 11:00:00 AM, [address] [place] [address], [address], [phone], Provider Name:Larry Emery erumr, 05/21/2026 07:30:00 AM, [address] [facility], [address], [place], [phone], Provider Name:Larry Emery erumr, 05/28/2026 11:00:00 AM, [address] [facility], [address], [place], [phone], Progress Notes * Yaneth HARVEYOB:1944 (80 yo F)Acc No.[id number]:04/24/2025 Patient: Mary TOVAR :1945 A ge:80 Y S ex:Female Address:[address] [place] [address], [place] [address] * Refills Start Cephalexin Capsule, 250 MG, Orally, 14 Capsule, 1 capsule, twice a day, 7 days * true * Date: Generated for Marc olivera/Britta/eTransmitting on: 1 08:00 AM EDT
--- OUTSIDE RECORDS SUMMARY | 2025-05-23 07:00 | XMS_ITS ---
Author Organization Larry Meyers MD Address [address] [place] [phone] Care Team Providers Care Sewer Inspector Name Role Phone Larry Meyers Primary Care [...] Active Vitamin D (Ergocalciferol) 1 .25 MG (89191 UT) take 1 capsule by mouth 2 [...] Date Provider Diagnosis Larry Meyers MD [address] [place] [address] [place] [phone] 05/23/2025 Larry Meyers Annual physical exam Z00.00 [...] Provider Name:Larry house, 11/18/2025 07:00:00 AM, [address] [place] [address], [address], [phone], Provider Name:Larry house, 11/25/2025 11:00:00 AM, [address] [place] [address], [address], [phone], Provider Name:Larry house, 05/21/2026 07:30:00 AM, [address] [facility], [address], [place], [place], [phone], Provider Name:Larry Emery ier, 05/28/2026 11:00:00 AM, [address] [facility], [address], [place], [place], [phone], Progress Notes * Yaneth HARVEYOB:1944 (80 yo F)Acc No.[id number]:05/23/2025 Progress Notes Patient: Mary TOVAR Provider: Nicho Meyers MD :1945 A ge:80 Y S ex:Female Date:05/23/2025 Address:[address] [place], [place] [phone] Subjective: * Chief Complaints: * A nnual [...] a day Vitamin D (Ergocalciferol) 1.25 MG (99592 UT) Capsule take 1 capsule by mouth [...] day Taking Vitamin D (Ergocalciferol) 1.25 MG (83030 UT) Capsule take 1 capsule by mouth [...] Auto 0.000 0.0-0.012 - X10*3/uL L ab:Comprehensive [place]. Panel Fast (Order Date - 04/21/2025) (Collection [...] Blood Moderate (2+) A Negative - Specific [place] - Urine 1.015 1.005-1.025 - Urine Protein [...] 05/23/2025 Generated for Marc olivera/Britta/Filomenasmitting on: 1 08:00 AM EDT History and Physical Notes * [...]
--- OUTSIDE RECORDS SUMMARY | 2025-06-06 03:45 | XMS_ITS ---
Author Organization Larry Meyers MD Address [address] [place] [phone] Care Team Providers Care Desktop Technician Name Role Phone Larry Meyers Primary Care Provider REASON FOR VISIT HDF Immunizations Vaccine Route Administration Date Status Comme nts Influenza High Dose IM Intramuscular 06/06/2025 Administer ed Encounters Encounter Location Date Provider Diagnosis Larry Meyers MD 10 [facility] [address] [place] [phone] 06/06/2025 Larry Meyers Encounter for administration of vaccine Z23 Assessments Encounter Date Diagnosis (ICD Code) Assessment Notes Treatment Notes Treatment Clinical Notes Section Notes 06/06/2025 Encounter for administration of vaccine (ICD-10 - Z23) Plan Of Treatment Next Appt Details Provider Name:Larry house, 11/18/2025 07:00:00 AM, [address] [place] [address], [address], [phone], Provider Name:Larry house, 11/25/2025 11:00:00 AM, [address] [place] [address], [address], [place], [place], [phone], Provider Name:Larry Emery ier, 05/21/2026 07:30:00 AM, [address], [address], [place], [phone], Provider Name:Larry Emery ier, 05/28/2026 11:00:00 AM, [facility], [address], [place], [place], [phone], Progress Notes * Yaneth HARVEYOB:1944 (80 yo F)Acc No.[id number]:06/06/2025 Progress Note Patient: Mary TOVAR Provider: Nicho Meyers MD :1945 A ge:80 Y S ex:Female Date:06/06/2025 Address:[address] [place], [place] [phone] Subjective: * Chief Complaints: * 1 . [...] MD Date: 0 06/06/2025 Generated for Marc olivera/Britta/Dennisitting on: 1 08:00 AM EDT
--- OUTSIDE RECORDS SUMMARY | 2025-07-04 08:01 | XMS_ITS | Patient Health Record ---
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 Name Role Phone Mira Larry Primary Care Provider Allergies No Known Allergies Results Component Value Reference Range Notes Vitamin D 25-OH Total Reviewed date:10/24/2024 05:34:57 PM Interpretation: Performing Lab:[facility], [address] [place] [phone] Notes/Report: Vitamin D 25-OH Total 23.7 >30 [...] ff Reviewed date:04/21/2025 07:32:40 PM Interpretation: Performing Lab:[facility], [address] [place] [phone] Notes/Report: White Blood Count 5.7 4.8-10.8 X10*3/uL [...] NRBC Abs Auto 0.000 0.0-0.012 X10*3/uL Comprehensive [place]. Panel Fa st Reviewed date:04/21/2025 07:31:28 PM Interpretation: Performing Lab:[facility], [address] [place] [phone] Notes/Report: Sodium 135 135-145 mmol/L Potassium 3.9 [...] Panel Reviewed date:04/21/2025 12:37:23 PM Interpretation: Performing Lab:[address] [phone] Notes/Report: Triglycerides 78 <150 mg/dL Desirable Triglyceride: [...] Total Reviewed date:04/21/2025 12:38:15 PM Interpretation: Performing Lab:[address] [phone] Notes/Report: Vitamin D 25-OH Total 25.8 >30 [...] T4 Reviewed date:04/21/2025 12:38:06 PM Interpretation: Performing Lab:[address] [phone] Notes/Report: TSH reflex Free T4 3.84 0.32-4.0 uIU/mL UA ClnCatch+Micro w/rflx Cul t Reviewed date:04/21/2025 07:32:21 PM Interpretation: Performing Lab:[address] [phone] Notes/Report: Urine, Clean Catch Color Urine Yellow Appearance Urine Turbid PH 6.5 5.0-9.0 Glucose Urine UA Negative Negative mg/dL Urine Blood Moderate (2+) Negative Specific [place] - Urine 1.015 1.005-1.025 Urine Protein Trace Neg-Trace mg/dL Urine Ketones Negative Negative mg/dL Nitrite Urine Positive Negative Leukocyte Esterase Urine Large (3+) Negative RBC Urine 11-20 0-2 /HPF WBC Urine >50 0-5 /HPF Squamous Epithelial Cell Urine 3-5 0-2 /HPF Bacteria Urine 4+ None Seen Hyaline Casts Urine 0-2 0-2 /LPF INR WHOLE BLOOD POC Reviewed date:07/18/2024 05:14:34 PM Interpretation: Performing Lab:[address] [phone] Notes/Report: PT, INR - [facility] 3.3 0.9-1.1 METER #: [id number] INTERNATIONAL NORMALIZED RATIO (INR) REFERENCE RANGES Reference [...] OC Reviewed date:07/18/2024 09:21:50 PM Interpretation: Performing Lab:[facility], [address] [place] [phone] Notes/Report: Prothrombin Time Whole Bld POC 39.3 11.1-13.5 sec INR WHOLE BLOOD POC Reviewed date:08/15/2024 12:42:03 PM Interpretation: Performing Lab:[facility], [address] [place] [phone] Notes/Report: PT, INR - [facility] 2.1 0.9-1.1 METER #: [id number] INTERNATIONAL NORMALIZED RATIO (INR) REFERENCE RANGES Reference [...] OC Reviewed date:08/15/2024 12:41:55 PM Interpretation: Performing Lab:[facility], [address] [place] [phone] Notes/Report: Prothrombin Time Whole Bld POC 25.0 11.1-13.5 sec INR WHOLE BLOOD POC Reviewed date:09/12/2024 08:28:06 AM Interpretation: Performing Lab:[facility], [address] [place] [phone] Notes/Report: PT, INR - [facility] 2.4 0.9-1.1 METER #: [id number] INTERNATIONAL NORMALIZED RATIO (INR) REFERENCE RANGES Reference [...] OC Reviewed date:09/12/2024 08:28:13 AM Interpretation: Performing Lab:[facility], [address] [place] [phone] Notes/Report: Prothrombin Time Whole Bld POC 28.3 11.1-13.5 sec INR WHOLE BLOOD POC Reviewed date:10/10/2024 12:28:00 PM Interpretation: Performing Lab:[facility], [address] [place] [phone] Notes/Report: PT, INR - [facility] 3.4 0.9-1.1 METER #: [id number] INTERNATIONAL NORMALIZED RATIO (INR) REFERENCE RANGES Reference [...] OC Reviewed date:10/10/2024 12:28:08 PM Interpretation: Performing Lab:[facility], [address] [place] [phone] Notes/Report: Prothrombin Time Whole Bld POC 40.5 11.1-13.5 sec INR WHOLE BLOOD POC Reviewed date:11/11/2024 12:31:06 PM Interpretation: Performing Lab:[facility], [address] [place] [phone] Notes/Report: PT, INR - [facility] 2.2 0.9-1.1 METER #: [id number] INTERNATIONAL NORMALIZED RATIO (INR) REFERENCE RANGES Reference [...] OC Reviewed date:11/11/2024 12:30:58 PM Interpretation: Performing Lab:[facility], [address] [place] [phone] Notes/Report: Prothrombin Time Whole Bld POC 26.1 11.1-13.5 sec INR WHOLE BLOOD POC Reviewed date:12/09/2024 12:45:34 PM Interpretation: Performing Lab:[facility], [address] [place] [phone] Notes/Report: PT, INR - [facility] 3.1 0.9-1.1 METER #: [id number] INTERNATIONAL NORMALIZED RATIO (INR) REFERENCE RANGES Reference [...] OC Reviewed date:12/09/2024 12:33:13 PM Interpretation: Performing Lab:[facility], [address] [place] [phone] Notes/Report: Prothrombin Time Whole Bld POC 37.8 11.1-13.5 sec INR WHOLE BLOOD POC Reviewed date:01/01/2025 02:06:32 PM Interpretation: Performing Lab:[facility], [address] [place] [phone] Notes/Report: PT, INR - [facility] 2.1 0.9-1.1 METER #: [id number] INTERNATIONAL NORMALIZED RATIO (INR) REFERENCE RANGES Reference [...] OC Reviewed date:01/01/2025 02:06:39 PM Interpretation: Performing Lab:[facility], [address] [place] [phone] Notes/Report: Prothrombin Time Whole Bld POC 24.8 11.1-13.5 sec INR WHOLE BLOOD POC Reviewed date:01/30/2025 01:25:36 PM Interpretation: Performing Lab:[facility], [address] [place] [phone] Notes/Report: PT, INR - [facility] 2.2 0.9-1.1 METER #: [id number] INTERNATIONAL NORMALIZED RATIO (INR) REFERENCE RANGES Reference [...] OC Reviewed date:01/30/2025 02:55:34 PM Interpretation: Performing Lab:[facility], [address] [place] [phone] Notes/Report: Prothrombin Time Whole Bld POC 26.7 11.1-13.5 sec INR WHOLE BLOOD POC Reviewed date:02/27/2025 12:33:32 PM Interpretation: Performing Lab:[address] [phone] Notes/Report: PT, INR - [facility] 3.0 0.9-1.1 METER #: [id number] INTERNATIONAL NORMALIZED RATIO (INR) REFERENCE RANGES Reference [...] OC Reviewed date:02/27/2025 12:35:18 PM Interpretation: Performing Lab:[facility], [address] [place] [phone] Notes/Report: Prothrombin Time Whole Bld POC 36.1 11.1-13.5 sec INR WHOLE BLOOD POC Reviewed date:03/27/2025 01:50:34 PM Interpretation: Performing Lab:[facility], [address] [place] [phone] Notes/Report: PT, INR - [facility] 2.1 0.9-1.1 METER #: [id number] INTERNATIONAL NORMALIZED RATIO (INR) REFERENCE RANGES Reference [...] OC Reviewed date:03/27/2025 02:15:19 PM Interpretation: Performing Lab:[facility], [address] [place] [phone] Notes/Report: Prothrombin Time Whole Bld POC 25.2 11.1-13.5 sec Hold Gold Reviewed date:04/21/2025 12:36:24 PM Interpretation: Performing Lab:[facility], [address] [place] [phone] Notes/Report: Darien Rodriguez See Note Specimen held untested for 24 hours; Call to request Chemistry testing. Urine Culture Reviewed date:04/24/2025 12:37:00 PM Interpretation: Performing Lab:[facility], [address] [place] [phone] Notes/Report: O:ESCCOL Escherichia coli Urine Culture Quant Urine Culture > 100,000 cfu/mL Ampicillin <=2 Cefazolin (Urine) <=1 Cefepime <=0.12 Ceftriaxone <=0.25 Ciprofloxacin <=0.06 Gentamicin <=1 Nitrofurantoin <=16 Trimethoprim/Sulfamethoxaz ole <=20 INR WHOLE BLOOD POC Reviewed date:04/24/2025 12:31:15 PM Interpretation: Performing Lab:[facility], [address] [place] [phone] Notes/Report: PT, INR - [facility] 3.0 0.9-1.1 METER #: [id number] INTERNATIONAL NORMALIZED RATIO (INR) REFERENCE RANGES Reference [...] OC Reviewed date:04/24/2025 12:31:23 PM Interpretation: Performing Lab:[facility], [address] [place] [phone] Notes/Report: Prothrombin Time Whole Bld POC 36.3 11.1-13.5 sec INR WHOLE BLOOD POC Reviewed date:05/01/2025 02:46:11 PM Interpretation: Performing Lab:[facility], [address] [place] [phone] Notes/Report: PT, INR - [facility] 1.6 0.9-1.1 METER #: [id number] INTERNATIONAL NORMALIZED RATIO (INR) REFERENCE RANGES Reference [...] OC Reviewed date:05/01/2025 02:46:04 PM Interpretation: Performing Lab:[facility], [address] [place] [phone] Notes/Report: Prothrombin Time Whole Bld POC 19.5 11.1-13.5 sec INR WHOLE BLOOD POC Reviewed date:05/09/2025 04:18:34 PM Interpretation: Performing Lab:[facility], [address] [place] [phone] Notes/Report: PT, INR - [facility]ag Clinic 2.3 0.9-1.1 METER #: [id number] INTERNATIONAL NORMALIZED RATIO (INR) REFERENCE RANGES Reference [...] OC Reviewed date:05/09/2025 04:18:24 PM Interpretation: Performing Lab:[facility], [address] [place] [phone] Notes/Report: Prothrombin Time Whole Bld POC 27.8 11.1-13.5 sec INR WHOLE BLOOD POC Reviewed date:06/06/2025 12:46:50 PM Interpretation: Performing Lab:[facility], [address] [place] [phone] Notes/Report: PT, INR - Anti Coag Clinic 2.1 0.9-1.1 METER #: [id number] INTERNATIONAL NORMALIZED RATIO (INR) REFERENCE RANGES Reference [...] Prothrombin Time Whole Bld P OC Reviewed date:06/06/2025 12:48:16 PM Interpretation: Performing Lab:[facility], [address] [place] [phone] Notes/Report: Prothrombin Time Whole Bld POC 25.4 11.1-13.5 sec Reason For Referral No Information Medications Medication SIG (Take, Route, Frequency, Duration) Notes Start Date End Date Status hydroCHLOROthiazide 25 MG TAKE ONE TABLE T BY MOUTH EVERY MORNING for 90 Active Metoprolol Tartrate 25 MG TAKE ONE TABLE T BY MOUTH EVERY DAY WITH FOOD Orally ONCE A DAY for 90 days Active Jantoven 2.5 MG TAKE 1 TABLET BY MOUTH ONCE A DAY. for 90 Active Pantoprazole Sodium 20 MG TAKE ONE TABLE T BY MOUTH EVERY DAY for 30 Active Simvastatin 20 MG TAKE ONE TABLET BY MOUTH EVERY DAY IN THE EVENING for 90 Active Levothyroxine Sodium 25 MCG TAKE ONE TAB LET BY MOUTH EVERY MORNING ON AN EMPTY STOMACH for 90 Active Aspir-81 81 MG 1 tablet Orally Once a day for 30 day(s) Active Vitamin D (Ergocalciferol) 1 .25 MG (53323 UT) TAKE 1 CAPSULE BY MOUTH ONCE WEEKLY for 84 Active Immunizations Vaccine Route Administration Date Status Comme nts Flu Vaccine IM Intramuscular 05/24/2017 Administered Had f geno vaccine while a patient of Dr. Ace Dleacruz's. PPSV23 (Pnemovax) Unknown 06/19/2014 Administered Had a t [facility] Tetanus IM Intramuscular 12/25/[address] [facility] Fluarix Quadrivalent IM [facility]cular [facility] 10/29/2018 Administered Fluarix Quadrivalent IM Intramuscular 06/11/2019 Caesar dotson PPSV23 (Pnemovax) IM Intramuscular 06/20/2019 Administered Fluarix Quadrivalent IM Intramuscular 05/27/2020 [facility] Influenza High Dose IM Intramuscular [...] Problem Status W/U Status Risk Notes Problem 32617415 Age-related osteoporosis without current pathological fracture (M81.0) Active confirmed Problem 40486918 Vitamin D defici ency (E55.9) Active confirmed Problem 88524642 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) Active confirmed Problem 678988794 Other specified menopausal and perimenopausal disorders (N95.8) Active confirmed Problem 50699644 Essential hypert ension (I10) Active confirmed Problem 820258585 Acquired hypothyroidism (E03.9) Active confirmed Problem 435731403 History of pulmo nary embolism (Z86.711) Active confirmed Problem 815942479 History of CVA (cerebrovascular accident) (Z86.73) Active confirmed Problem 43273886 Reflux gastritis (K29.60) Active confirmed Problem Acute idiopathic gout of right hand (M10.041) Active confirmed Problem 70563461 Elevated cholest rena (E78.00) Active confirmed Problem 307583978 Microscopic qamar turia (R31.29) Active confirmed Problem 20986132 Hypercholesterem ia (E78.00) Active confirmed Problem 05652235 Clotting disorde r (D68.9) Active confirmed Problem 739982856 PFO (patent fora men ovale) (Q21.1) Active confirmed Problem 44862880 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 Vital [...] Larry Meyers MD [address] [place] [id number] 10/24/2024 Larry Meyers Vitamin D deficiency E55.9 Larry Meyers MD [address] [place] [id number] 04/21/2025 Larry Meyers Blood tests for routine general physical examination Z00.00 ; Elevated cholesterol E78.00 ; Acquired hypothyroidism E03.9 and Vitamin D deficiency E55.9 Larry Meyers MD [address] [place] [id number] 06/06/2025 Larry Meyers Encounter for administration of vaccine Z23 Larry Meyers MD [address] [place] [id number] 05/23/2025 Larry Meyers Annual physical exam Z00.00 ; Acquired hypothyroidism E03.9 ; PFO (patent foramen ovale) Q21.1 and Incisional hernia without obstruction or gangrene K43.2 Larry Meyers MD [address] [place] [id number] 09/09/2024 Larry Meyers Essential hypertensi on I10 Larry Meyers MD [address] [place] [id number] 10/08/2024 Larry Meyers Clotting disorder D68.9 Larry Meyers MD [address] [place] [id number] 04/24/2025 Larry Meyers Assessments Encounter Date Diagnosis [...] Provider Name:Larry Emery ier, 11/18/2025 07:00:00 AM, [address] [place] [address], [address] [place] [address], [id number], Provider Name:Larry Emery ier, 11/25/2025 11:00:00 AM, [address] [place] [address], [address] [place] [address], [id number], Provider Name:Larry Emery ier, 05/21/2026 07:30:00 AM, [address] [place] [address], [address], [phone], Provider Name:Larry Emery ier, 05/28/2026 11:00:00 AM, [address] [place] [address], [address], [phone], Insurance Providers Payer Name Payer Address Payer Phone Subscriber Number Group Number Insured Name Patient Relationship to Insured Coverage Start Date Coverage End Date [facility] are [employer] [address] [address] [place] [address] [id number] Iselajadyn Mary trejo Self - patient is the insured MEDICARE [employer] [address] [place] [id number] Mary Turcios Self - patient is the insured Medical (General) History Medical History History ICD Code Stroke X 2 in 11/08 and 08/10 Refuses Colonoscopy 04/20/18; refused 04/02 019 hematuria chronic and has been evaluated Surgical History Surgery Date(Month/Year) Repair gallstone ileius & Umbilical Serg ia (Dr. Wilson) 11/2018
[2025-07-04 08:09] LABS: Prothrombin Time Whole Bld POC 39.4 sec (11.1-13.5); ~PT, ~INR - Anti Coag Clinic 3.3 (0.9-1.1)
--- NOTE | 2025-07-04 08:14 | MHC.OFFVISCO ---
Intake Intake Visit Reasons: Anticoagulation Allergies cat dander (CATS) Adverse Reaction (Mild, Verified 07/04/25 08:04) RASH raspberry (RASPBERRY) Adverse Reaction (Mild, Verified 07/04/25 08:04) RASH Medication List - Last Reconciled 07/04/25 by Meenu Chaney, RN aspirin (Adult Aspirin Regimen) 81 mg PO DAILY ergocalciferol (vitamin D2) 1,250 mcg PO QMONTH hydrochlorothiazide 25 mg PO QAM levothyroxine 25 mcg PO QAM metoprolol tartrate 25 mg PO DAILY pantoprazole (Protonix) 20 mg PO DAILY simvastatin 20 mg PO BEDTIME warfarin 2.5 mg See Protocol PO DAILY Nursing Note INR: 3.3?out of therapeutic range of 2-3 Pt is s/p covid from 1 week ago. She comes with her dght who was covid + and admitted to hospital with pneumonia. Pt denies any symptoms or feeling ill. Medications and supplements reviewed Patient status: feels well Medications or supplements: no changes Diet: usual diet Denies any signs and symptoms of bleeding or clotting or unusual bruising Bleeding, bruising, clotting discussed Nutritional guidance given: to have a serving of greens today. Pt states she does not like greens so will have a can of ensure which she doesn't usually have everyday. Dose: 2.5mg daily F/U INR Date: due to Covid, will bring pt back sooner than 1 month. Will retest in 2 weeks? Patient verbalizing understanding of instructions given. Anti-Coag Initial Assessment Social Hx Patient Tobacco Use Status: Never used Tobacco alcohol intake: never Alcohol intake frequency: does not drink Coding Level of Care Code Est Patient Level 1 Diagnoses Current use of anticoagulant therapy Z79.01 Assessment & Plan Assessment & Plan (1) Current use of anticoagulant therapy: Code(s): Z79.01 - detention (current) use of anticoagulants Category: Medical
== END 2025-07-04 08:24 | disposition home or self-care (01) ==
LOC: HO.ACS 07:57
PROVIDERS: PCP Internal Medicine; Visit Provider Internal Medicine Medical Oncology
DX: Z79.01 Long term (current) use of anticoagulants (principal)

== ENCOUNTER → 2025-07-04 07:57 | Outpatient (BNVA) | payer MEDICARE, SELFPAY | PROVIDERS: PCP Internal Medicine; Visit Provider Internal Medicine Medical Oncology | DX: Z51.81 Encounter for therapeutic drug level monitoring (principal); Z79.01 Long term (current) use of anticoagulants | CPT/HCPCS: 85610; 99211 ==

== ENCOUNTER 2025-07-17 09:36 | Outpatient (AMB) | payer MEDICARE, SELFPAY ==
--- OUTSIDE RECORDS SUMMARY | 2024-10-24 03:45 | XMS_ITS ---
Author Organization Larry Meyers MD Address [address] [place] [phone] Care Team Providers Care Healthcare Administrative Assistant Name Role Phone KennyBennie amaraln Primary Care Provider [phone] Results Component Value Reference Range Notes Vitamin D 25-OH Total Reviewed date:10/24/2024 05:34:57 PM Interpretation: Performing Lab:[facility], [address] [place] [phone] Notes/Report: Vitamin D 25-OH Total 23.7 >30 [...] Location Date Provider Diagnosis Larry Meyers MD [address] [place] [address] [place] [phone] 10/24/2024 Larry Meyers Vitamin D deficiency E55.9 Assessments Encounter Date Diagnosis (ICD Code) Assessment Notes Treatment Notes Treatment Clinical Notes Section Notes 10/24/2024 Vitamin D deficiency (ICD-10 - E55.9) Plan Of Treatment Next Appt Details Provider Name:Larry house, 11/18/2025 07:00:00 AM, [address] [place] [address], [address] [place] [address], [phone], Provider Name:Larry house, 11/25/2025 11:00:00 AM, [address] [place] [address], [address], [phone], Provider Name:Larry house, 05/21/2026 07:30:00 AM, [address] [place] [address], [address], [phone], Provider Name:Larry house, 05/28/2026 11:00:00 AM, [address] [place] [address], [address], [phone], Progress Notes * VALDOMaye CORNELLJasonOB:1944 (80 yo F)Acc No.[id number]:10/24/2024 Progress Note Patient: Mary TOVAR Provider: Nicho Meyers MD :1945 A ge:79 Y S ex:Female Date:10/24/2024 Address:[address] [place], [place] [phone] Subjective: * Chief Complaints: * 1 . [...] 0 10/24/2024 Generated for Marc olivera/Britta/Rosemary on: 11:00 AM EDT
--- OUTSIDE RECORDS SUMMARY | 2025-04-21 03:15 | XMS_ITS ---
Author Organization Larry Meyers MD Address [address] [place] [phone] Care Team Providers Care Catalyst Operator Name Role Phone MiraBennien Primary Care Provider Results Component Value Reference Range Notes Complete Blood Count Auto Di ff Reviewed date:04/21/2025 07:32:40 PM Interpretation: Performing Lab:[facility], [address] [place] [phone] Notes/Report: White Blood Count 5.7 4.8-10.8 X10*3/uL [...] NRBC Abs Auto 0.000 0.0-0.012 X10*3/uL Comprehensive [place]. Panel Fa st Reviewed date:04/21/2025 07:31:28 PM Interpretation: Performing Lab:[facility], [address] [place] [phone] Notes/Report: Sodium 135 135-145 mmol/L Potassium 3.9 [...] Panel Reviewed date:04/21/2025 12:37:23 PM Interpretation: Performing Lab:[facility], [address] [place] [phone] Notes/Report: Triglycerides 78 <150 mg/dL Desirable Triglyceride: [...] Total Reviewed date:04/21/2025 12:38:15 PM Interpretation: Performing Lab:[facility], [address] [place] [phone] Notes/Report: Vitamin D 25-OH Total 25.8 >30 [...] T4 Reviewed date:04/21/2025 12:38:06 PM Interpretation: Performing Lab:[facility], [address] [place] [phone] Notes/Report: TSH reflex Free T4 3.84 0.32-4.0 uIU/mL UA ClnCatch+Micro w/rflx Cul t Reviewed date:04/21/2025 07:32:21 PM Interpretation: Performing Lab:[facility], [address] [place] [phone] Notes/Report: Urine, Clean Catch Color Urine Yellow Appearance Urine Turbid PH 6.5 5.0-9.0 Glucose Urine UA Negative Negative mg/dL Urine Blood Moderate (2+) Negative Specific [place] - Urine 1.015 1.005-1.025 Urine Protein Trace [...] Location Date Provider Diagnosis Larry Meyers MD [address] [place] [address] [place] [phone] 04/21/2025 Larry Meyers Blood tests for routine [...] Provider Name:Larry house, 11/18/2025 07:00:00 AM, [address], [address], [place], [place], [phone], Provider Name:Larry house, 11/25/2025 11:00:00 AM, [address] [facility], [address], [place], [place], [phone], Provider Name:Larry Emery ier, 05/21/2026 07:30:00 AM, [address] [facility], Suite [facility], [place], [place], [phone], Provider Name:Larry Emery ier, 05/28/2026 11:00:00 AM, [address] [facility], [address], [place], [place], [phone], Progress Notes * Yaneth HARVEYOB:1944 (80 yo F)Acc No.[id number]:04/21/2025 Progress Note Patient: Mary TOVAR Provider: Nicho Meyers MD :1945 A ge:80 Y S ex:Female Date:04/21/2025 Address:[address] [place], [place] [phone] Subjective: * Chief Complaints: * 1 . [...] - 04/21/2025 07:15 AM) L AB: Comprehensive [place]. Panel Fast (Collection Date & Time - [...] - 04/21/2025 07:15 AM) L AB: Comprehensive [place]. Panel Fast (Collection Date & Time - [...] - 04/21/2025 07:15 AM) L AB: Comprehensive [place]. Panel Fast (Collection Date & Time - [...] 0 04/21/2025 Generated for Marc olivera/Britta/eTtitoitting on: 1 11:01 AM EDT
--- OUTSIDE RECORDS SUMMARY | 2025-04-24 08:44 | XMS_ITS ---
Author Organization Larry Meyers MD Address [address] [facility] [address] [place] [phone] Care Team Providers Care Guest Services Associate Name Role Phone Mira Larry Primary Care Provider Medications Medication SIG (Take, Route, Fr equency, Duration) Notes Start Date End Date Status Cephalexin 250 MG 1 capsule Orally twi ce a day for 7 days 04/24/2025 Active Encounters Encounter Location Date Provider Diagnosis Larry Meyers MD 10 [facility] [address] [place] [phone] 04/24/2025 Larry Meyers Plan Of Treatment Medication Medication Name Sig Start Date Stop Date Notes Cephalexin 250 MG 1 capsule Orally twice a day for 7 days 04/24/2025 Next Appt Details Provider Name:Larry house, 11/18/2025 07:00:00 AM, [address] [place] [address], [address] [place] [address], [phone], Provider Name:Larry house, 11/25/2025 11:00:00 AM, [address] [place] [address], [address], [phone], Provider Name:Larry Emery erumr, 05/21/2026 07:30:00 AM, [address] [facility], [address], [place], [phone], Provider Name:Larry Emery erumr, 05/28/2026 11:00:00 AM, [address] [facility], [address], [place], [phone], Progress Notes * Yaneth HARVEYOB:1944 (80 yo F)Acc No.[id number]:04/24/2025 Patient: Mary TOVAR :1945 A ge:80 Y S ex:Female Address:[address] [place] [address], [place] [address] * Refills Start Cephalexin Capsule, 250 MG, Orally, 14 Capsule, 1 capsule, twice a day, 7 days * true * Date: Generated for Marc olivera/Britta/eTransmitting on: 1 11:01 AM EDT
--- OUTSIDE RECORDS SUMMARY | 2025-05-23 07:00 | XMS_ITS ---
Author Organization Larry Meyers MD Address [address] [place] [phone] Care Team Providers Care Escrow Processor Name Role Phone Larry Meyers Primary Care [...] Active Vitamin D (Ergocalciferol) 1 .25 MG (16609 UT) take 1 capsule by mouth 2 [...] Location Date Provider Diagnosis Larry Meyers MD [address] [place] [address] [place] [phone] 05/23/2025 Larry Meyers Annual physical exam Z00.00 [...] Reason: Provider Name:Larry house, 11/18/2025 07:00:00 AM, [address] [place] [address], [address], [phone], Provider Name:Larry house, 11/25/2025 11:00:00 AM, [address] [place] [address], [address], [phone], Provider Name:Larry house, 05/21/2026 07:30:00 AM, [address] [facility], [address], [place], [place], [phone], Provider Name:Larry Emery ier, 05/28/2026 11:00:00 AM, [address] [facility], [address], [place], [place], [phone], Progress Notes * Yaneth HARVEYOB:1944 (80 yo F)Acc No.[id number]:05/23/2025 Progress Notes Patient: Mary TOVAR Provider: Nicho Meyers MD :1945 A ge:80 Y S ex:Female Date:05/23/2025 Address:[address] [place], [place] [phone] Subjective: * Chief Complaints: * A nnual [...] a day Vitamin D (Ergocalciferol) 1.25 MG (57933 UT) Capsule take 1 capsule by mouth [...] day Taking Vitamin D (Ergocalciferol) 1.25 MG (05717 UT) Capsule take 1 capsule by mouth [...] Auto 0.000 0.0-0.012 - X10*3/uL L ab:Comprehensive [place]. Panel Fast (Order Date - 04/21/2025) (Collection [...] Blood Moderate (2+) A Negative - Specific [place] - Urine 1.015 1.005-1.025 - Urine Protein [...] 0 05/23/2025 Generated for Marc olivera/Britta/Filomenasmitting on: 1 11:00 AM EDT History and Physical Notes * HPI (History [...]
--- OUTSIDE RECORDS SUMMARY | 2025-06-06 03:45 | XMS_ITS ---
Author Organization Larry Meyers MD Address [address] [facility] [place] [phone] Care Team Providers Care Print Production Coordinator Name Role Phone Larry Meyers Primary Care Provider REASON FOR VISIT HDF Immunizations Vaccine Route Administration Date Status Comme nts Influenza High Dose IM Intramuscular 06/06/2025 Administer ed Encounters Encounter Location Date Provider Diagnosis Larry Meyers MD 10 [facility] [address] [place] [phone] 06/06/2025 Larry Meyers Encounter for administration of vaccine Z23 Assessments Encounter Date Diagnosis (ICD Code) Assessment Notes Treatment Notes Treatment Clinical Notes Section Notes 06/06/2025 Encounter for administration of vaccine (ICD-10 - Z23) Plan Of Treatment Next Appt Details Provider Name:Larry house, 11/18/2025 07:00:00 AM, [address] [place] [address], [address], [phone], Provider Name:Larry house, 11/25/2025 11:00:00 AM, [address] [place] [address], [address], [place], [place], [phone], Provider Name:Larry Emery ier, 05/21/2026 07:30:00 AM, [address], [address], [place], [phone], Provider Name:Larry Emery ier, 05/28/2026 11:00:00 AM, [address] [facility], [address], [place], [place], [phone], Progress Notes * Yaneth HARVEYOB:1944 (80 yo F)Acc No.[id number]:06/06/2025 Progress Note Patient: Mary TOVAR Provider: Nicho Meyers MD :1945 A ge:80 Y S ex:Female Date:06/06/2025 Address:[address] [place], [place] [phone] Subjective: * Chief Complaints: * 1 . [...] 0 06/06/2025 Generated for Marc olivera/Britta/Rosemary on: 1 11:00 AM EDT
[2025-07-17 09:50] LABS: Prothrombin Time Whole Bld POC 30.2 sec (11.1-13.5); ~PT, ~INR - Anti Coag Clinic 2.5 (0.9-1.1)
--- NOTE | 2025-07-17 09:53 | MHC.OFFVISCO ---
Intake Intake Visit Reasons: Anticoagulation Allergies cat dander (CATS) Adverse Reaction (Mild, Verified 07/17/25 09:42) RASH raspberry (RASPBERRY) Adverse Reaction (Mild, Verified 07/17/25 09:42) RASH Medication List - Last Reconciled 07/17/25 by Meenu Chaney, RN aspirin (Adult Aspirin Regimen) 81 mg PO DAILY ergocalciferol (vitamin D2) 1,250 mcg PO QMONTH hydrochlorothiazide 25 mg PO QAM levothyroxine 25 mcg PO QAM metoprolol tartrate 25 mg PO DAILY pantoprazole (Protonix) 20 mg PO DAILY simvastatin 20 mg PO BEDTIME warfarin 2.5 mg See Protocol PO DAILY Nursing Note INR: 2.5 in therapeutic range of 2-3 Medications and supplements reviewed No changes in health, diet, medications, or supplements, Denies any signs and symptoms of bleeding or bruising or clotting. 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
--- OUTSIDE RECORDS SUMMARY | 2025-07-17 11:01 | XMS_ITS | Patient Health Record ---
Author Organization Larry Meyers MD Address [address] [place] [phone] Care Team Providers Care Glass Mechanic Name Role Phone Mira Larry Primary Care Provider [phone] Allergies No Known Allergies Results Component Value Reference Range Notes Vitamin D 25-OH Total Reviewed date:10/24/2024 05:34:57 PM Interpretation: Performing Lab:[facility], [address] [place] [phone] Notes/Report: Vitamin D 25-OH Total 23.7 >30 [...] ff Reviewed date:04/21/2025 07:32:40 PM Interpretation: Performing Lab:[facility], [address] [place] [phone] Notes/Report: White Blood Count 5.7 4.8-10.8 X10*3/uL [...] NRBC Abs Auto 0.000 0.0-0.012 X10*3/uL Comprehensive [place]. Panel Fa st Reviewed date:04/21/2025 07:31:28 PM Interpretation: Performing Lab:[facility], [address] [place] [phone] Notes/Report: Sodium 135 135-145 mmol/L Potassium 3.9 [...] Panel Reviewed date:04/21/2025 12:37:23 PM Interpretation: Performing Lab:[address] [phone] Notes/Report: Triglycerides 78 <150 mg/dL Desirable Triglyceride: [...] Total Reviewed date:04/21/2025 12:38:15 PM Interpretation: Performing Lab:[address] [phone] Notes/Report: Vitamin D 25-OH Total 25.8 >30 [...] T4 Reviewed date:04/21/2025 12:38:06 PM Interpretation: Performing Lab:[address] [phone] Notes/Report: TSH reflex Free T4 3.84 0.32-4.0 uIU/mL UA ClnCatch+Micro w/rflx Cul t Reviewed date:04/21/2025 07:32:21 PM Interpretation: Performing Lab:[address] [phone] Notes/Report: Urine, Clean Catch Color Urine Yellow Appearance Urine Turbid PH 6.5 5.0-9.0 Glucose Urine UA Negative Negative mg/dL Urine Blood Moderate (2+) Negative Specific Mason - Urine 1.015 1.005-1.025 Urine Protein Trace Neg-Trace mg/dL Urine Ketones Negative Negative mg/dL Nitrite Urine Positive Negative Leukocyte Esterase Urine Large (3+) Negative RBC Urine 11-20 0-2 /HPF WBC Urine >50 0-5 /HPF Squamous Epithelial Cell Urine 3-5 0-2 /HPF Bacteria Urine 4+ None Seen Hyaline Casts Urine 0-2 0-2 /LPF INR WHOLE BLOOD POC Reviewed date:07/18/2024 05:14:34 PM Interpretation: Performing Lab:[address] [phone] Notes/Report: PT, INR - [facility] 3.3 0.9-1.1 METER #: [id number] INTERNATIONAL NORMALIZED RATIO (INR) REFERENCE RANGES Reference [...] OC Reviewed date:07/18/2024 09:21:50 PM Interpretation: Performing Lab:[facility], [address] [place] [phone] Notes/Report: Prothrombin Time Whole Bld POC 39.3 11.1-13.5 sec INR WHOLE BLOOD POC Reviewed date:08/15/2024 12:42:03 PM Interpretation: Performing Lab:[facility], [address] [place] [phone] Notes/Report: PT, INR - [facility] 2.1 0.9-1.1 METER #: [id number] INTERNATIONAL NORMALIZED RATIO (INR) REFERENCE RANGES Reference [...] OC Reviewed date:08/15/2024 12:41:55 PM Interpretation: Performing Lab:[facility], [address] [place] [phone] Notes/Report: Prothrombin Time Whole Bld POC 25.0 11.1-13.5 sec INR WHOLE BLOOD POC Reviewed date:09/12/2024 08:28:06 AM Interpretation: Performing Lab:[facility], [address] [place] [phone] Notes/Report: PT, INR - [facility] 2.4 0.9-1.1 METER #: [id number] INTERNATIONAL NORMALIZED RATIO (INR) REFERENCE RANGES Reference [...] OC Reviewed date:09/12/2024 08:28:13 AM Interpretation: Performing Lab:[facility], [address] [place] [phone] Notes/Report: Prothrombin Time Whole Bld POC 28.3 11.1-13.5 sec INR WHOLE BLOOD POC Reviewed date:10/10/2024 12:28:00 PM Interpretation: Performing Lab:[facility], [address] [place] [phone] Notes/Report: PT, INR - [facility] 3.4 0.9-1.1 METER #: [id number] INTERNATIONAL NORMALIZED RATIO (INR) REFERENCE RANGES Reference [...] OC Reviewed date:10/10/2024 12:28:08 PM Interpretation: Performing Lab:[facility], [address] [place] [phone] Notes/Report: Prothrombin Time Whole Bld POC 40.5 11.1-13.5 sec INR WHOLE BLOOD POC Reviewed date:11/11/2024 12:31:06 PM Interpretation: Performing Lab:[facility], [address] [place] [phone] Notes/Report: PT, INR - [facility] 2.2 0.9-1.1 METER #: [id number] INTERNATIONAL NORMALIZED RATIO (INR) REFERENCE RANGES Reference [...] OC Reviewed date:11/11/2024 12:30:58 PM Interpretation: Performing Lab:[facility], [address] [place] [phone] Notes/Report: Prothrombin Time Whole Bld POC 26.1 11.1-13.5 sec INR WHOLE BLOOD POC Reviewed date:12/09/2024 12:45:34 PM Interpretation: Performing Lab:[facility], [address] [place] [phone] Notes/Report: PT, INR - [facility] 3.1 0.9-1.1 METER #: [id number] INTERNATIONAL NORMALIZED RATIO (INR) REFERENCE RANGES Reference [...] OC Reviewed date:12/09/2024 12:33:13 PM Interpretation: Performing Lab:[facility], [address] [place] [phone] Notes/Report: Prothrombin Time Whole Bld POC 37.8 11.1-13.5 sec INR WHOLE BLOOD POC Reviewed date:01/01/2025 02:06:32 PM Interpretation: Performing Lab:[facility], [address] [place] [phone] Notes/Report: PT, INR - [facility] 2.1 0.9-1.1 METER #: [id number] INTERNATIONAL NORMALIZED RATIO (INR) REFERENCE RANGES Reference [...] OC Reviewed date:01/01/2025 02:06:39 PM Interpretation: Performing Lab:[facility], [address] [place] [phone] Notes/Report: Prothrombin Time Whole Bld POC 24.8 11.1-13.5 sec INR WHOLE BLOOD POC Reviewed date:01/30/2025 01:25:36 PM Interpretation: Performing Lab:[facility], [address] [place] [phone] Notes/Report: PT, INR - [facility] 2.2 0.9-1.1 METER #: [id number] INTERNATIONAL NORMALIZED RATIO (INR) REFERENCE RANGES Reference [...] OC Reviewed date:01/30/2025 02:55:34 PM Interpretation: Performing Lab:[facility], [address] [place] [phone] Notes/Report: Prothrombin Time Whole Bld POC 26.7 11.1-13.5 sec INR WHOLE BLOOD POC Reviewed date:02/27/2025 12:33:32 PM Interpretation: Performing Lab:[address] [phone] Notes/Report: PT, INR - [facility] 3.0 0.9-1.1 METER #: [id number] INTERNATIONAL NORMALIZED RATIO (INR) REFERENCE RANGES Reference [...] OC Reviewed date:02/27/2025 12:35:18 PM Interpretation: Performing Lab:[facility], [address] [place] [phone] Notes/Report: Prothrombin Time Whole Bld POC 36.1 11.1-13.5 sec INR WHOLE BLOOD POC Reviewed date:03/27/2025 01:50:34 PM Interpretation: Performing Lab:[facility], [address] [place] [phone] Notes/Report: PT, INR - [facility] 2.1 0.9-1.1 METER #: [id number] INTERNATIONAL NORMALIZED RATIO (INR) REFERENCE RANGES Reference [...] OC Reviewed date:03/27/2025 02:15:19 PM Interpretation: Performing Lab:[facility], [address] [place] [phone] Notes/Report: Prothrombin Time Whole Bld POC 25.2 11.1-13.5 sec Hold Gold Reviewed date:04/21/2025 12:36:24 PM Interpretation: Performing Lab:[facility], [address] [place] [phone] Notes/Report: Darien Rodriguez See Note Specimen held untested for 24 hours; Call to request Chemistry testing. Urine Culture Reviewed date:04/24/2025 12:37:00 PM Interpretation: Performing Lab:[facility], [address] [place] [phone] Notes/Report: O:ESCCOL Escherichia coli Urine Culture Quant Urine Culture > 100,000 cfu/mL Ampicillin <=2 Cefazolin (Urine) <=1 Cefepime <=0.12 Ceftriaxone <=0.25 Ciprofloxacin <=0.06 Gentamicin <=1 Nitrofurantoin <=16 Trimethoprim/Sulfamethoxaz ole <=20 INR WHOLE BLOOD POC Reviewed date:04/24/2025 12:31:15 PM Interpretation: Performing Lab:[facility], [address] [place] [phone] Notes/Report: PT, INR - [facility] 3.0 0.9-1.1 METER #: [id number] INTERNATIONAL NORMALIZED RATIO (INR) REFERENCE RANGES Reference [...] OC Reviewed date:04/24/2025 12:31:23 PM Interpretation: Performing Lab:[facility], [address] [place] [phone] Notes/Report: Prothrombin Time Whole Bld POC 36.3 11.1-13.5 sec INR WHOLE BLOOD POC Reviewed date:05/01/2025 02:46:11 PM Interpretation: Performing Lab:[facility], [address] [place] [phone] Notes/Report: PT, INR - [facility] 1.6 0.9-1.1 METER #: [id number] INTERNATIONAL NORMALIZED RATIO (INR) REFERENCE RANGES Reference [...] OC Reviewed date:05/01/2025 02:46:04 PM Interpretation: Performing Lab:[facility], [address] [place] [phone] Notes/Report: Prothrombin Time Whole Bld POC 19.5 11.1-13.5 sec INR WHOLE BLOOD POC Reviewed date:05/09/2025 04:18:34 PM Interpretation: Performing Lab:[facility], [address] [place] [phone] Notes/Report: PT, INR - [facility] 2.3 0.9-1.1 METER #: [id number] INTERNATIONAL NORMALIZED RATIO (INR) REFERENCE RANGES Reference [...] OC Reviewed date:05/09/2025 04:18:24 PM Interpretation: Performing Lab:[facility], [address] [place] [phone] Notes/Report: Prothrombin Time Whole Bld POC 27.8 11.1-13.5 sec INR WHOLE BLOOD POC Reviewed date:06/06/2025 12:46:50 PM Interpretation: Performing Lab:[facility], [address] [place] [phone] Notes/Report: PT, INR - [facility] 2.1 0.9-1.1 METER #: [id number] INTERNATIONAL NORMALIZED RATIO (INR) REFERENCE RANGES Reference [...] OC Reviewed date:06/06/2025 12:48:16 PM Interpretation: Performing Lab:[facility], [address] [place] [phone] Notes/Report: Prothrombin Time Whole Bld POC 25.4 11.1-13.5 sec INR WHOLE BLOOD POC Reviewed date:07/04/2025 11:43:53 AM Interpretation: Performing Lab:[facility], [address] [place] [phone] Notes/Report: PT, INR - [facility] 3.3 0.9-1.1 METER #: [id number] INTERNATIONAL NORMALIZED RATIO (INR) REFERENCE RANGES Reference [...] Prothrombin Time Whole Bld P OC Reviewed date:07/04/2025 11:40:32 AM Interpretation: Performing Lab:[facility], [address] [place] [phone] Notes/Report: Prothrombin Time Whole Bld POC 39.4 11.1-13.5 sec INR WHOLE BLOOD POC (Not yet reviewed by provider) Interpretation: Performing Lab:[address] [phone] Notes/Report: PT, INR - [facility] 2.5 0.9-1.1 METER #: [id number] INTERNATIONAL NORMALIZED RATIO (INR) REFERENCE RANGES Reference [...] 3.5 Prothrombin Time Whole Bld P OC (Not yet reviewed by provider) Interpretation: Performing Lab:[address] [phone] Notes/Report: Prothrombin Time Whole Bld POC 30.2 11.1-13.5 sec Reason For Referral No Information [...] Active Vitamin D (Ergocalciferol) 1 .25 MG (94051 UT) TAKE 1 CAPSULE BY MOUTH ONCE WEEKLY for 84 Active Immunizations Vaccine Route Administration Date Status Comme nts Flu Vaccine IM Intramuscular 05/24/2017 Administered Had f geno vaccine while a patient of Dr. Ace Delacruz's. PPSV23 (Pnemovax) Unknown 06/19/2014 Administered Had a [facility] Tetanus IM Intramuscular 12/25/[address] [facility] Fluarix Quadrivalent IM Intramuscular 06/25/2018 [facility] Prevnar 13 IM Intramuscular 10/29/2018 Administered Fluarix Quadrivalent IM Intramuscular 06/11/2019 [facility] PPSV23 (Pnemovax) IM Intramuscular 06/20/2019 Administered Fluarix Quadrivalent IM Intramuscular 05/27/2020 [facility] Influenza High Dose IM Intramuscular [...] Problem Status W/U Status Risk Notes Problem 43749689 Age-related osteoporosis without current pathological fracture (M81.0) Active confirmed Problem 08817548 Vitamin D defici ency (E55.9) Active confirmed Problem 36340597 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) Active confirmed Problem 351870247 Other specified menopausal and perimenopausal disorders (N95.8) Active confirmed Problem 68535063 Essential hypert ension (I10) Active confirmed Problem 502941371 Acquired hypothyroidism (E03.9) Active confirmed Problem 107312419 History of pulmo nary embolism (Z86.711) Active confirmed Problem 143143388 History of CVA (cerebrovascular accident) (Z86.73) Active confirmed Problem 35358306 Reflux gastritis (K29.60) Active confirmed Problem Acute idiopathic gout of right hand (M10.041) Active confirmed Problem 66306030 Elevated cholest rena (E78.00) Active confirmed Problem 147489266 Microscopic qamar turia (R31.29) Active confirmed Problem 85431559 Hypercholesterem ia (E78.00) Active confirmed Problem 48229599 Clotting disorde r (D68.9) Active confirmed Problem 652011638 PFO (patent fora men ovale) (Q21.1) Active confirmed Problem 14526402 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 Vital [...] Larry Meyers MD [address] [place] [id number] 10/24/2024 Larry Meyers Vitamin D deficiency E55.9 Larry Meyers MD [address] [place] [id number] 04/21/2025 Larry Meyers Blood tests for routine general physical examination Z00.00 ; Elevated cholesterol E78.00 ; Acquired hypothyroidism E03.9 and Vitamin D deficiency E55.9 Larry Meyers MD [address] [place] [id number] 06/06/2025 Larry Meyers Encounter for administration of vaccine Z23 Larry Meyers MD [address] [place] [id number] 05/23/2025 Larry Meyers Annual physical exam Z00.00 ; Acquired hypothyroidism E03.9 ; PFO (patent foramen ovale) Q21.1 and Incisional hernia without obstruction or gangrene K43.2 Larry Meyers MD [address] [place] [id number] 09/09/2024 Larry Meyers Essential hypertensi on I10 Larry Meyers MD [address] [place] [id number] 10/08/2024 Larry Meyers Clotting disorder D68.9 Larry Meyers MD [address] [place] [address] [id number] 04/24/2025 Larry Meyers Assessments Encounter Date Diagnosis [...] DEXA 04/14/2020 MAMMOGRAM DIGITAL BILATERAL SCREEN 04/14 INR WHOLE BLOOD POC 07/17/2025 Prothrombin Time Whole Bld POC 5 XR DEXA axial skeleton 04/19/2022 Next Appt Details Provider Name:Larry Emery ier, 11/18/2025 07:00:00 AM, [address] [place] [address], [address] [place] [address], [phone], Provider Name:Larry Emery ier, 11/25/2025 11:00:00 AM, [address] [place] [address], Suite [facility], [place], [place], [phone], Provider Name:Larry Emery ier, 05/21/2026 07:30:00 AM, [address] [place] [address], Suite [facility], [place], [place], [phone], Provider Name:Larry Emery ier, 05/28/2026 11:00:00 AM, [address] [place] [address], Suite [facility], [place], [place], [phone], Insurance Providers Payer Name Payer Address Payer Phone Subscriber Number Group Number Insured Name Patient Relationship to Insured Coverage Start Date Coverage End Date [facility] are [employer] [address] [address] [place] [address] [id number] Iselajadyn Mary trejo Self - patient is the insured MEDICARE NH[employer] [address] [place] [id number] Iselajadyn Mary trejo Self - patient is the insured Medical (General) History Medical History History ICD Code Stroke X 2 in 11/08 and 08/10 Refuses Colonoscopy 04/20/18; refused 04/02 019 hematuria chronic and has been evaluated Surgical History Surgery Date(Month/Year) Repair gallstone ileius & Umbilical Serg ia (Dr. Wilson) 11/2018
== END 2025-07-17 09:55 | disposition home or self-care (01) ==
LOC: HO.ACS 09:36
PROVIDERS: PCP Internal Medicine; Visit Provider Internal Medicine Medical Oncology
DX: Z79.01 Long term (current) use of anticoagulants (principal)

== ENCOUNTER → 2025-07-17 09:36 | Outpatient (BNVA) | payer MEDICARE, SELFPAY | PROVIDERS: PCP Internal Medicine; Visit Provider Internal Medicine Medical Oncology | DX: Z86.73 Personal history of transient ischemic attack (TIA), and cerebral infarction without residual deficits (principal); Z51.81 Encounter for therapeutic drug level monitoring; Z79.01 Long term (current) use of anticoagulants | CPT/HCPCS: 85610; 99211 ==

== ENCOUNTER 2025-08-14 07:59 | Outpatient (AMB) | payer MEDICARE, SELFPAY ==
--- OUTSIDE RECORDS SUMMARY | 2024-05-16 03:15 | XMS_ITS ---
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 Role Phone Larry Meyers Primary Care Provider Allergies No Known Allergies REASON FOR VISIT CBACK HEMATURIA, Audio [phone] Medications Medication SIG (Take, Route, Frequency, Duration) Notes Start Date End Date Status Warfarin Sodium 2.5 MG 1 tablet Orally O nce a day Active hydroCHLOROthiazide 25 MG TAKE ONE TABLE T BY MOUTH EVERY MORNING for 90 Active Levothyroxine Sodium 25 MCG TAKE ONE TAB LET BY MOUTH EVERY MORNING ON AN EMPTY STOMACH for 90 Active Metoprolol Tartrate 25 MG TAKE ONE TABLE T BY MOUTH EVERY DAY WITH FOOD Orally ONCE A DAY Active Pantoprazole Sodium 20 MG TAKE ONE TABLE T BY MOUTH EVERY DAY Active Cephalexin 500 MG 1 capsule Orally 2 times a day for 7 days 04/17/2023 Active Vitamin D (Ergocalciferol) 1 .25 MG (71728 UT) take 1 capsule by mouth 2 times a month.. Orally once a week for 90 days Active Aspir-81 81 MG 1 tablet Orally Once a day for 30 day(s) Active Simvastatin 20 MG 1 tablet in the evening Orally Once a day for 90 days Active Problems Problem Type SNOMED Code ICD Code Onset Dates Problem Status W/U Status Risk Notes Problem [id number] Microscopic hematuria (R31.29) Active confirmed Vital Signs Height 58 in 05/16/2024 Weight 180 lbs 05/16/2024 BMI 37.62 kg/m2 05/16/2024 weight 180 at home BP not ta marcela at home Encounters Encounter Location Date Provider Diagnosis Larry Meyers MD [address] [place] [address] [phone] 05/16/2024 Larry Meyers Microscopic hematuria R31.29 Assessments Encounter Date Diagnosis (ICD Code) Assessment Notes Treatment Notes Treatment Clinical Notes Section Notes 05/16/2024 Microscopic hematuria (ICD-10 - R31.29) has been evaluated with cysto and cat scan so no need for further evaluation Plan Of Treatment Treatment Notes Assessment Notes Microscopic hematuria has been evaluated with cysto and cat scan so no need for further evaluation Next Appt Details Provider Name:Larry house, 11/18/2025 07:00:00 AM, [address] [place] [address], [phone], Provider Name:Larry house, 11/25/2025 11:00:00 AM, [address] [place] [address], [phone], Provider Name:Larry house, 05/21/2026 07:30:00 AM, [address] [place] [address], [phone], Provider Name:Larry danielsonr, 05/28/2026 11:00:00 AM, [address] [place] [address], [phone], Progress Notes * Yaneth HARVEYOB:1944 (79 yo F)Acc No.[id number]:05/16/2024 Patient: Zafar bradyMayee Provider: Nicho Meyers MD :1945 A ge:79 Y S ex:Female Date:05/16/2024 Address:[address] [place], [place] [phone] Subjective: * Chief Complaints: * C BACK HEMATURIAAudio [phone] * HPI: S ymptom(s): Telehealth L ocation of provider rendering services: [address], [address], L ocation of patient: a t address listed in demographics for today's visit, P atient identification confirmed using: N fabián, , SSN, Insurance information, T elehealth method: T elephone only. Patient not visible to care provider., C onsent: P atient verbally consented to treatment, Patient verbally consented to billing insurance company, Patient informed of any privacy concerns related to method of visit, T otal time spend talking with patient (minutes) 2 0. patient is a 79 yo female audio telehealth visit, here for follow up of hematuria. daughter is sick and granddaughter had surgery. * ROS: G eneral/Constitutional: Denies C hills. D enies F atigue. D enies F ever. D enies H eadache. E NT: Patient denies d ecreased sense of smell , any loss of taste , sore throat. D enies S ore throat. R espiratory: Denies C ough. D enies S hortness of breath at rest. D enies S hortness of breath with exertion. G astrointestinal: Denies D iarrhea. D enies N ausea. M usculoskeletal: Patient denies m uscle aches. P eripheral Vascular: Patient denies r ed and blue toes. * Medical History: * Surgical History: * Hospitalization/Major Diagno stic Procedure: * Medications: T akingAspir-81 81 MG Tablet Delayed Release 1 tablet Orally Once a daySimvastatin 20 MG Tablet 1 tablet in the evening Orally Once a dayCephalexin 500 MG Capsule 1 capsule Orally 2 times a dayVitamin D (Ergocalciferol) 1.25 MG (30980 UT) Capsule take 1 capsule by mouth 2 times a month.. Orally once a weekWarfarin Sodium 2.5 MG Tablet 1 tablet Orally Once a dayMetoprolol Tartrate 25 MG Tablet TAKE ONE TABLET BY MOUTH EVERY DAY WITH FOOD Orally ONCE A DAYPantoprazole Sodium 20 MG Tablet Delayed Release TAKE ONE TABLET BY MOUTH EVERY DAY hydroCHLOROthiazide 25 MG Tablet TAKE ONE TABLET BY MOUTH EVERY MORNING Levothyroxine Sodium 25 MCG Tablet TAKE ONE TABLET BY MOUTH EVERY MORNING ON AN EMPTY STOMACH Medication List reviewed and reconciled with the patientTaking Aspir-81 81 MG Tablet Delayed Release 1 tablet Orally Once a dayTaking Simvastatin 20 MG Tablet 1 tablet in the evening Orally Once a dayTaking Cephalexin 500 MG Capsule 1 capsule Orally 2 times a dayTaking Vitamin D (Ergocalciferol) 1.25 MG (30234 UT) Capsule take 1 capsule by mouth 2 times a month.. Orally once a weekTaking Warfarin Sodium 2.5 MG Tablet 1 tablet Orally Once a dayTaking Metoprolol Tartrate 25 MG Tablet TAKE ONE TABLET BY MOUTH EVERY DAY WITH FOOD Orally ONCE A DAYTaking Pantoprazole Sodium 20 MG Tablet Delayed Release TAKE ONE TABLET BY MOUTH EVERY DAY Taking hydroCHLOROthiazide 25 MG Tablet TAKE ONE TABLET BY MOUTH EVERY MORNING Taking Levothyroxine Sodium 25 MCG Tablet TAKE ONE TABLET BY MOUTH EVERY MORNING ON AN EMPTY STOMACH Medication List reviewed and reconciled with the patient * Allergies: N .K.D.A.yes[Allergies Verified] Objective: * Vitals: H t: 58, Wt:180, BMI:37.62 weight 180 at home BP not taken at home. Assessment: * Assessment: 1. M icroscopic hematuria - R31.29 (Primary) Plan: * Treatment: * Procedure Codes: * * Sign off status: Completed true * Provider: Nicho Meyers MD Date: 0 05/16/2024 Generated for Marc olivera/Britta/Rosemary on: 10/14/2024 08:02 AM EST History and Physical Notes * HPI (History of Present Illness) Category Sub-Category Detail Notes Category Not es Symptom(s) Telehealth Location of [facility] rendering services:: [address], [address] patient is a 79 yo female audio telehealth visit, here for follow up of hematuria. daughter is sick and granddaughter had surgery Location of patient:: at address listed in demographics for today's visit Patient identification confirmed using:: Name, , SSN, Insurance information Telehealth method:: Telephone only. Jeanine ent not visible to care provider. Consent:: Patient verbally c onsented to treatment, Patient verbally consented to billing insurance company, Patient informed of any privacy concerns related to method of visit Total time spend talking with patient (m inutes): 20
--- OUTSIDE RECORDS SUMMARY | 2024-06-10 08:30 | XMS_ITS ---
Author Organization Larry Meyers MD Address [address] [place] [phone] Care Team Providers Care Case Technician Name Role Phone Mira Larry Primary Care Provider REASON FOR VISIT HDF Immunizations Vaccine Route Administration Date Status Comme nts Influenza High Dose IM Intramuscular 06/10/2024 Administer ed Encounters Encounter Location Date Provider Diagnosis Larry Meyers MD [address] [facility] [address] [place] [phone] 06/10/2024 Larry Meyers Encounter for immunization Z23 Assessments Encounter Date Diagnosis (ICD Code) Assessment Notes Treatment Notes Treatment Clinical Notes Section Notes 06/10/2024 Encounter for immunization (ICD-10 - Z23) Plan Of Treatment Next Appt Details Provider Name:Larry house, 11/18/2025 07:00:00 AM, [address] [place] [address], [phone], Provider Name:Larry house, 11/25/2025 11:00:00 AM, [address] [place] [address], [phone], Provider Name:Larry Emery ier, 05/21/2026 07:30:00 AM, [address], [address], [place], [phone], Provider Name:Larry Emery ier, 05/28/2026 11:00:00 AM, [address], [address], [place], [phone], Progress Notes * Yaneth HARVEYOB:1944 (80 yo F)Acc No.[id number]:06/10/2024 Progress Note Patient: Mary TOVAR Provider: Nicho Meyers MD :1945 A ge:79 Y S ex:Female Date:06/10/2024 Address:[address] [place], [place] [phone] Subjective: * Chief Complaints: * 1 . HDF. * Medical History: Objective: * Vitals: Assessment: * Assessment: 1. E ncounter for immunization - Z23 (Primary) Plan: * Treatment: * Immunizations: Influenza High Dose : 0.5 mL (Dose No:1) (Route: Intramuscular) given by Harper Santiago , Office Staff on Left Deltoid * Procedure Codes: 9 0662 FLU VACC PRSV FREE INC ANTIG, G0008 ADMN FLU VAC NO FEE SCHED SAME DAY * Preventive Medicine: Immunizations: I nfluenza H ave you had a flu shot since the most recent June 02? Y es. * * The named appointment provid er may or may not be the originator of this progress note, and it is not deemed complete until electronically signed by the appointment provider. Sign off status: Pending * Provider: Nicho Meyers MD Date: 0 06/10/2024 Generated for Marc olivera/Britta/Dennisitting on: 10/14/2024 08:02 AM EST
--- OUTSIDE RECORDS SUMMARY | 2024-09-09 03:42 | XMS_ITS ---
Author Organization Larry Meyers MD Address [address] [place] [phone] Care Team Providers Care Sales Host Name Role Phone Mira Larry Primary Care Provider [phone] REASON FOR VISIT REFILL METAPROLOL Medications Medication SIG (Take, Route, Frequency, Duration) Notes Start Date End Date Status Metoprolol Tartrate 25 MG TAKE ONE TABLE T BY MOUTH EVERY DAY WITH FOOD Orally ONCE A DAY for 90 days Active Encounters Encounter Location Date Provider Diagnosis Larry Meyers MD 10 [facility] [address] [place] [phone] 09/09/2024 Larry Meyers Essential hypertension I10 Assessments Encounter Date Diagnosis (ICD Code) Assessment Notes Treatment Notes Treatment Clinical Notes Section Notes 09/09/2024 Essential hypertension (ICD-10 - I10) Plan Of Treatment Medication Medication Name Sig Start Date Stop Date Notes Metoprolol Tartrate 25 MG TAKE ONE TABLE T BY MOUTH EVERY DAY WITH FOOD Orally ONCE A DAY for 90 days Next Appt Details Provider Name:Larry house, 11/18/2025 07:00:00 AM, [address] [facility], [address] [place] [address], [phone], Provider Name:Larry Emery ier, 11/25/2025 11:00:00 AM, [address] [place] [address], Suite [facility], [place], [place], [phone], Provider Name:Larry Emery ier, 05/21/2026 07:30:00 AM, [address] [place] [address], Suite [facility], [place], [phone], Provider Name:Larry Emery ier, 05/28/2026 11:00:00 AM, [address] [place] [address], Suite [facility], [place], [phone], Progress Notes * Yaneth HARVEYOB:1944 (79 yo F)Acc No.[id number]:09/09/2024 Patient: Mary Qureshi :1945 A ge:79 Y S ex:Female Address:[address] [place] [address], [id number] * Refills Refill Metoprolol Tartrate Tablet, 25 MG, Orally, 90, TAKE ONE TABLET BY MOUTH EVERY DAY WITH FOOD, ONCE A DAY, 90 days, Refills=4 * true * Date: Generated for Marc olivera/Britta/Dennisitting on: 10/14/2024 08:03 AM EST
--- OUTSIDE RECORDS SUMMARY | 2024-10-08 04:32 | XMS_ITS ---
Author Organization Larry Meyers MD Address [address] [place] [address] [phone] Care Team Providers Care Biomedical Engineer Name Role Phone MiraLarry Primary Care Provider [phone] REASON FOR VISIT refill Medications Medication SIG (Take, Route, Fr equency, Duration) Notes Start Date End Date Status Warfarin Sodium 2.5 MG 1 tablet Orally O nce a day for 90 days Active Encounters Encounter Location Date Provider Diagnosis Larry Meyers MD [address] [place] [address] [phone] 10/08/2024 Larry Meyers Clotting disorder D68.9 Assessments Encounter Date Diagnosis (ICD Code) Assessment Notes Treatment Notes Treatment Clinical Notes Section Notes 10/08/2024 Clotting disorder (ICD-10 - D68.9) Plan Of Treatment Medication Medication Name Sig Start Date Stop Date Notes Warfarin Sodium 2.5 MG 1 tablet Orally O nce a day for 90 days Next Appt Details Provider Name:Larry house, 11/18/2025 07:00:00 AM, [address] [facility], [address] [place] [address], [phone], Provider Name:Larry Emery ier, 11/25/2025 11:00:00 AM, [address], [address], [place], [place], [phone], Provider Name:Larry Emery ier, 05/21/2026 07:30:00 AM, [address] [place] [address], Suite [facility], [place], [place], [phone], Provider Name:Larry Emery ier, 05/28/2026 11:00:00 AM, [address] [place] [address], Suite [facility], [place], [place], [phone], Progress Notes * Yaneth HARVEYOB:1944 (79 yo F)Acc No.[id number]:10/08/2024 Patient: Zafar Mary abreu :1945 A ge:79 Y S ex:Female Address:[address] [place] [address], [phone] * Refills Refill Warfarin Sodium Tablet, 2.5 MG, Orally, 90 Tablet, 1 tablet, Once a day, 90 days * true * Date: Generated for Marc olivera/Britta/Dennisitting on: 10/14/2024 08:02 AM EST
--- OUTSIDE RECORDS SUMMARY | 2024-10-24 02:45 | XMS_ITS ---
Author Organization Larry Meyers MD Address [address] [place] [phone] Care Team Providers Care Quality Technician Name Role Phone KennyBennie amaraln Primary Care Provider Results Component Value Reference Range Notes Vitamin D 25-OH Total Reviewed date:10/24/2024 05:34:57 PM Interpretation: Performing Lab:[facility], [address] [place] [phone] Notes/Report: Vitamin D 25-OH Total 23.7 >30 ng/mL Health Based Reference Values* < [...] confirmed with another method such as LC-MS/MS. REASON FOR VISIT vitmain D 25-OH total Encounters Encounter Location Date Provider Diagnosis Larry Meyers MD [address] [place] [address] [place] [id number] 10/24/2024 Larry Meyers Vitamin D deficiency E55.9 Assessments Encounter Date Diagnosis (ICD Code) Assessment Notes Treatment Notes Treatment Clinical Notes Section Notes 10/24/2024 Vitamin D deficiency (ICD-10 - E55.9) Plan Of Treatment Next Appt Details Provider Name:Larry house, 11/18/2025 07:00:00 AM, [address] [place] [address], [address] [place] [address], [phone], Provider Name:Larry house, 11/25/2025 11:00:00 AM, [address] [place] [address], [address], [phone], Provider Name:Larry house, 05/21/2026 07:30:00 AM, [address] [place] [address], [address], [phone], Provider Name:Larry house, 05/28/2026 11:00:00 AM, [address] [place] [address], [address], [phone], Progress Notes * VALDOMaye CORNELLJasonOB:1944 (80 yo F)Acc No.[id number]:10/24/2024 Progress Note Patient: Mary TOVAR Provider: Nicho Meyers MD :1945 A ge:79 Y S ex:Female Date:10/24/2024 Address:[address] [place], [place] [phone] Subjective: * Chief Complaints: * 1 . vitmain D 25-OH total. * Medical History: Objective: * Vitals: Assessment: * Assessment: 1. V itamin D deficiency - E55.9 (Primary) Plan: * Treatment: * Procedure Codes: 3 6415 VENIPUNCT, ROUTINE* * * The named appointment provid er may or may not be the originator of this progress note, and it is not deemed complete until electronically signed by the appointment provider. Sign off status: Pending * Provider: Nicho Meyers MD Date: 0 10/24/2024 Generated for Marc olivera/Britta/Rosemary on: 10/14/2024 08:03 AM EST
--- OUTSIDE RECORDS SUMMARY | 2025-04-21 02:15 | XMS_ITS ---
Author Organization Larry Meyers MD Address [address] [place] [phone] Care Team Providers Care Salvage Repairer Name Role Phone MiraBennien Primary Care Provider [phone] Results Component Value Reference Range Notes Complete Blood Count Auto Di ff Reviewed date:04/21/2025 07:32:40 PM Interpretation: Performing Lab:[facility], [address] [place] [phone] Notes/Report: White Blood Count 5.7 4.8-10.8 X10*3/uL [...] NRBC Abs Auto 0.000 0.0-0.012 X10*3/uL Comprehensive [place]. Panel Fa st Reviewed date:04/21/2025 07:31:28 PM Interpretation: Performing Lab:[facility], [address] [place] [phone] Notes/Report: Sodium 135 135-145 mmol/L Potassium 3.9 [...] Panel Reviewed date:04/21/2025 12:37:23 PM Interpretation: Performing Lab:[facility], [address] [place] [phone] Notes/Report: Triglycerides 78 <150 mg/dL Desirable Triglyceride: [...] Total Reviewed date:04/21/2025 12:38:15 PM Interpretation: Performing Lab:[facility], [address] [place] [phone] Notes/Report: Vitamin D 25-OH Total 25.8 >30 [...] T4 Reviewed date:04/21/2025 12:38:06 PM Interpretation: Performing Lab:[facility], [address] [place] [phone] Notes/Report: TSH reflex Free T4 3.84 0.32-4.0 uIU/mL UA ClnCatch+Micro w/rflx Cul t Reviewed date:04/21/2025 07:32:21 PM Interpretation: Performing Lab:[facility], [address] [place] [phone] Notes/Report: Urine, Clean Catch Color Urine Yellow Appearance Urine Turbid PH 6.5 5.0-9.0 Glucose Urine UA Negative Negative mg/dL Urine Blood Moderate (2+) Negative Specific [place] - Urine 1.015 1.005-1.025 Urine Protein Trace [...] Location Date Provider Diagnosis Larry Meyers MD [address] [place] [address] [place] [phone] 04/21/2025 Larry Meyers Blood tests for routine [...] Provider Name:Larry house, 11/18/2025 07:00:00 AM, [address] [facility], [address], [place], [place], [phone], Provider Name:Larry house, 11/25/2025 11:00:00 AM, [address] [facility], [address], [place], [place], [phone], Provider Name:Larry Emery ier, 05/21/2026 07:30:00 AM, [address] [facility], Suite [facility], [place], [place], [phone], Provider Name:Larry Emery ier, 05/28/2026 11:00:00 AM, [address] [facility], [address], [place], [place], [phone], Progress Notes * Yaneth HARVEYOB:1944 (80 yo F)Acc No.[id number]:04/21/2025 Progress Note Patient: Mary TOVAR Provider: Nicho Meyers MD :1945 A ge:80 Y S ex:Female Date:04/21/2025 Address:[address] [place], [place] [phone] Subjective: * Chief Complaints: * 1 . [...] - 04/21/2025 07:15 AM) L AB: Comprehensive [place]. Panel Fast (Collection Date & Time - [...] - 04/21/2025 07:15 AM) L AB: Comprehensive [place]. Panel Fast (Collection Date & Time - [...] - 04/21/2025 07:15 AM) L AB: Comprehensive [place]. Panel Fast (Collection Date & Time - [...] MD Date: 0 04/21/2025 Generated for Marc olivera/Britta/Rosemary on: 10/14/2024 08:03 AM EST
--- OUTSIDE RECORDS SUMMARY | 2025-04-24 07:44 | XMS_ITS ---
Author Organization Larry Meyers MD Address [address] [place] [phone] Care Team Providers Care Loading Dock Hand Name Role Phone Mira Larry Primary Care Provider [phone] Medications Medication SIG (Take, Route, Fr equency, Duration) Notes Start Date End Date Status Cephalexin 250 MG 1 capsule Orally twi ce a day for 7 days 04/24/2025 Active Encounters Encounter Location Date Provider Diagnosis Larry Meyers MD [address] [facility] [address] [place] [phone] 04/24/2025 Larry Meyers Plan Of Treatment Medication Medication Name Sig Start Date Stop Date Notes Cephalexin 250 MG 1 capsule Orally twice a day for 7 days 04/24/2025 Next Appt Details Provider Name:Larry house, 11/18/2025 07:00:00 AM, [address] [place] [address], [address] [place] [address], [phone], Provider Name:Larry house, 11/25/2025 11:00:00 AM, [address] [place] [address], [address], [phone], Provider Name:Larry Emery erumr, 05/21/2026 07:30:00 AM, [address] [facility], [address], [place], [phone], Provider Name:Larry Emery erumr, 05/28/2026 11:00:00 AM, [address] [facility], [address], [place], [phone], Progress Notes * Yaneth HARVEYOB:1944 (80 yo F)Acc No.[id number]:04/24/2025 Patient: Mary TOVAR :1945 A ge:80 Y S ex:Female Address:[address] [place] [address], [place] [address] * Refills Start Cephalexin Capsule, 250 MG, Orally, 14 Capsule, 1 capsule, twice a day, 7 days * true * Date: Generated for Marc olivera/Britta/Filomenasmitting on: 10/14/2024 08:03 AM EST
--- OUTSIDE RECORDS SUMMARY | 2025-05-23 06:00 | XMS_ITS ---
Author Organization Larry Meyers MD Address [address] [place] [phone] Care Team Providers Care Dumpster Operator Name Role Phone Larry Meyers Primary Care Provider [phone] Allergies No Known Allergies REASON FOR [...] Active Vitamin D (Ergocalciferol) 1 .25 MG (36842 UT) take 1 capsule by mouth 2 [...] Location Date Provider Diagnosis Larry Meyers MD [address] [place] [address] [place] [phone] 05/23/2025 Larry Meyers Annual physical exam Z00.00 [...] Up: 6 Months, Reason: Provider Name:Larry house, 11/18/2025 07:00:00 AM, [address] [place] [address], [address], [phone], Provider Name:Larry house, 11/25/2025 11:00:00 AM, [address] [place] [address], [address], [phone], Provider Name:Larry house, 05/21/2026 07:30:00 AM, [address] [facility], [address], [place], [place], [phone], Provider Name:Larry Emery ier, 05/28/2026 11:00:00 AM, [address] [facility], [address], [place], [place], [phone], Progress Notes * Yaneth HARVEYOB:1944 (80 yo F)Acc No.[id number]:05/23/2025 Progress Notes Patient: Mary TOVAR Provider: Nicho Meyers MD :1945 A ge:80 Y S ex:Female Date:05/23/2025 Address:[address] [place], [place] [phone] Subjective: * Chief Complaints: * A nnual [...] a day Vitamin D (Ergocalciferol) 1.25 MG (66480 UT) Capsule take 1 capsule by mouth [...] day Taking Vitamin D (Ergocalciferol) 1.25 MG (83656 UT) Capsule take 1 capsule by mouth [...] Auto 0.000 0.0-0.012 - X10*3/uL L ab:Comprehensive [place]. Panel Fast (Order Date - 04/21/2025) (Collection [...] Blood Moderate (2+) A Negative - Specific [place] - Urine 1.015 1.005-1.025 - Urine Protein [...] plan: C ounseling for abnormal BMI provided?Yes, Roselia justice Normal BMI Follow-up Nicho long encouragement to exercise. * Follow Up: 6 Months * * Sign off status: Completed true * Provider: Nicho Meyers MD Date: 0 05/23/2025 Generated for Marc olivera/Britta/Filomenasmitting on: 10/14/2024 08:03 AM EST History and Physical Notes * [...]
--- OUTSIDE RECORDS SUMMARY | 2025-06-06 02:45 | XMS_ITS ---
Author Organization Larry Meyers MD Address [address] [place] [phone] Care Team Providers Care Weapons Specialist Name Role Phone Larry Meyers Primary Care Provider REASON FOR VISIT HDF Immunizations Vaccine Route Administration Date Status Comme nts Influenza High Dose IM Intramuscular 06/06/2025 Administer ed Encounters Encounter Location Date Provider Diagnosis Larry Meyers MD 10 [facility] [address] [place] [phone] 06/06/2025 Larry Meyers Encounter for administration of vaccine Z23 Assessments Encounter Date Diagnosis (ICD Code) Assessment Notes Treatment Notes Treatment Clinical Notes Section Notes 06/06/2025 Encounter for administration of vaccine (ICD-10 - Z23) Plan Of Treatment Next Appt Details Provider Name:Larry house, 11/18/2025 07:00:00 AM, [address] [place] [address], [address], [phone], Provider Name:Larry house, 11/25/2025 11:00:00 AM, [address] [place] [address], [address], [place], [place], [phone], Provider Name:Larry Emery ier, 05/21/2026 07:30:00 AM, [address], [address], [place], [phone], Provider Name:Larry Emery ier, 05/28/2026 11:00:00 AM, [address] [facility], [address], [place], [place], [phone], Progress Notes * Yaneth HARVEYOB:1944 (80 yo F)Acc No.[id number]:06/06/2025 Progress Note Patient: Mary TOVAR Provider: Nicho Meyers MD :1945 A ge:80 Y S ex:Female Date:06/06/2025 Address:[address] [place], [place] [phone] Subjective: * Chief Complaints: * 1 . [...] Meyers MD Date: 0 06/06/2025 Generated for Marc olivera/Britta/Rosemary on: 10/14/2024 08:02 AM EST
--- OUTSIDE RECORDS SUMMARY | 2025-07-31 06:17 | XMS_ITS ---
Author Organization Larry Meyers MD Address 10 [facility] [address] [place] [phone] Care Team Providers Care Security Associate Name Role Phone Mira Larry Primary Care Provider REASON FOR VISIT refill Medications Medication SIG (Take, Route, Frequency, Duration) Notes Start Date End Date Status Pantoprazole Sodium 20 MG TAKE ONE TABLE T BY MOUTH EVERY DAY for 30 Active Encounters Encounter Location Date Provider Diagnosis Larry Meyers MD [address] [facility] [address] [place] [id number] 07/31/2025 Larry Meyers Plan Of Treatment Medication Medication Name Sig Start Date Stop Date Notes Pantoprazole Sodium 20 MG TAKE ONE TABLE T BY MOUTH EVERY DAY for 30 Next Appt Details Provider Name:Larry house, 11/18/2025 07:00:00 AM, [address] [place] [address], [address], [phone], Provider Name:Larry house, 11/25/2025 11:00:00 AM, [address] [place] [address], [address], [phone], Provider Name:Larry Emery ier, 05/21/2026 07:30:00 AM, [address] [facility], [address], [place], [phone], Provider Name:Larry Emery ier, 05/28/2026 11:00:00 AM, [address] [facility], [address], [place], [phone], Progress Notes * Yaneth HARVEYOB:1944 (80 yo F)Acc No.[id number]:07/31/2025 Patient: Mary TOVAR :1945 A ge:80 Y S ex:Female Address:[address] [place] [address], [address] * Refills Refill Pantoprazole Sodium Tablet Delayed Release, 20 MG, 30 Tablet, TAKE ONE TABLET BY MOUTH EVERY DAY, 30, Refills=12 * true * Date: Generated for Marc olivera/Britta/Filomenasmitting on: 10/14/2024 08:02 AM EST
--- OUTSIDE RECORDS SUMMARY | 2025-08-14 08:04 | XMS_ITS ---
Author Organization Unknown ENCOUNTERS Encounter Performer Location Date Diagnosis Diagnosis Status Emergency [address] [place] [phone] [facility] [address] [place] [address] [id number] [facility] [address] [place] [id number] [facility] Pre Admit [address] [phone] *Note: Encounters from your own facility or health system may be excluded. Allergies, Adverse Reactions, Alerts Allergen Type Severity Identification Date cat dander drug allergy [id number] Medications Name Date Quantity Days Supplied GPI Number
--- OUTSIDE RECORDS SUMMARY | 2025-08-14 08:04 | XMS_ITS | Patient Health Record ---
Author Organization Larry Meyers MD Address [address] [place] [address] [phone] Care Team Providers Care Associate Director Qa Name Role Phone Mira Larry Primary Care Provider Allergies No Known Allergies Results Component Value Reference Range Notes Vitamin D 25-OH Total Reviewed date:10/24/2024 05:34:57 PM Interpretation: Performing Lab:[facility], [address] [place] [phone] Notes/Report: Vitamin D 25-OH Total 23.7 >30 [...] ff Reviewed date:04/21/2025 07:32:40 PM Interpretation: Performing Lab:[facility], [address] [place] [phone] Notes/Report: White Blood Count 5.7 4.8-10.8 X10*3/uL [...] NRBC Abs Auto 0.000 0.0-0.012 X10*3/uL Comprehensive Sharon. Panel Fa st Reviewed date:04/21/2025 07:31:28 PM Interpretation: Performing Lab:[facility], [address] [place] [phone] Notes/Report: Sodium 135 135-145 mmol/L Potassium 3.9 [...] Panel Reviewed date:04/21/2025 12:37:23 PM Interpretation: Performing Lab:[address] [phone] Notes/Report: Triglycerides 78 <150 mg/dL Desirable Triglyceride: [...] Total Reviewed date:04/21/2025 12:38:15 PM Interpretation: Performing Lab:[address] [phone] Notes/Report: Vitamin D 25-OH Total 25.8 >30 [...] T4 Reviewed date:04/21/2025 12:38:06 PM Interpretation: Performing Lab:[address] [phone] Notes/Report: TSH reflex Free T4 3.84 0.32-4.0 uIU/mL UA ClnCatch+Micro w/rflx Cul t Reviewed date:04/21/2025 07:32:21 PM Interpretation: Performing Lab:[address] [phone] Notes/Report: Urine, Clean Catch Color Urine Yellow Appearance Urine Turbid PH 6.5 5.0-9.0 Glucose Urine UA Negative Negative mg/dL Urine Blood Moderate (2+) Negative Specific [place] - Urine 1.015 1.005-1.025 Urine Protein Trace Neg-Trace mg/dL Urine Ketones Negative Negative mg/dL Nitrite Urine Positive Negative Leukocyte Esterase Urine Large (3+) Negative RBC Urine 11-20 0-2 /HPF WBC Urine >50 0-5 /HPF Squamous Epithelial Cell Urine 3-5 0-2 /HPF Bacteria Urine 4+ None Seen Hyaline Casts Urine 0-2 0-2 /LPF INR WHOLE BLOOD POC Reviewed date:08/15/2024 12:42:03 PM Interpretation: Performing Lab:[address] [phone] Notes/Report: PT, INR - [facility] 2.1 0.9-1.1 METER #: [id number] INTERNATIONAL NORMALIZED RATIO (INR) REFERENCE RANGES Reference [...] OC Reviewed date:08/15/2024 12:41:55 PM Interpretation: Performing Lab:[facility], [address] [place] [phone] Notes/Report: Prothrombin Time Whole Bld POC 25.0 11.1-13.5 sec INR WHOLE BLOOD POC Reviewed date:09/12/2024 08:28:06 AM Interpretation: Performing Lab:[facility], [address] [place] [phone] Notes/Report: PT, INR - [facility] 2.4 0.9-1.1 METER #: [id number] INTERNATIONAL NORMALIZED RATIO (INR) REFERENCE RANGES Reference [...] OC Reviewed date:09/12/2024 08:28:13 AM Interpretation: Performing Lab:[facility], [address] [place] [phone] Notes/Report: Prothrombin Time Whole Bld POC 28.3 11.1-13.5 sec INR WHOLE BLOOD POC Reviewed date:10/10/2024 12:28:00 PM Interpretation: Performing Lab:[facility], [address] [place] [phone] Notes/Report: PT, INR - [facility] 3.4 0.9-1.1 METER #: [id number] INTERNATIONAL NORMALIZED RATIO (INR) REFERENCE RANGES Reference [...] OC Reviewed date:10/10/2024 12:28:08 PM Interpretation: Performing Lab:[facility], [address] [place] [phone] Notes/Report: Prothrombin Time Whole Bld POC 40.5 11.1-13.5 sec INR WHOLE BLOOD POC Reviewed date:11/11/2024 12:31:06 PM Interpretation: Performing Lab:[facility], [address] [place] [phone] Notes/Report: PT, INR - [facility] 2.2 0.9-1.1 METER #: [id number] INTERNATIONAL NORMALIZED RATIO (INR) REFERENCE RANGES Reference [...] OC Reviewed date:11/11/2024 12:30:58 PM Interpretation: Performing Lab:[facility], [address] [place] [phone] Notes/Report: Prothrombin Time Whole Bld POC 26.1 11.1-13.5 sec INR WHOLE BLOOD POC Reviewed date:12/09/2024 12:45:34 PM Interpretation: Performing Lab:[facility], [address] [place] [phone] Notes/Report: PT, INR - [facility] 3.1 0.9-1.1 METER #: [id number] INTERNATIONAL NORMALIZED RATIO (INR) REFERENCE RANGES Reference [...] OC Reviewed date:12/09/2024 12:33:13 PM Interpretation: Performing Lab:[facility], [address] [place] [phone] Notes/Report: Prothrombin Time Whole Bld POC 37.8 11.1-13.5 sec INR WHOLE BLOOD POC Reviewed date:01/01/2025 02:06:32 PM Interpretation: Performing Lab:[facility], [address] [place] [phone] Notes/Report: PT, INR - [facility] 2.1 0.9-1.1 METER #: [id number] INTERNATIONAL NORMALIZED RATIO (INR) REFERENCE RANGES Reference [...] OC Reviewed date:01/01/2025 02:06:39 PM Interpretation: Performing Lab:[facility], [address] [place] [phone] Notes/Report: Prothrombin Time Whole Bld POC 24.8 11.1-13.5 sec INR WHOLE BLOOD POC Reviewed date:01/30/2025 01:25:36 PM Interpretation: Performing Lab:[facility], [address] [place] [phone] Notes/Report: PT, INR - [facility] 2.2 0.9-1.1 METER #: [id number] INTERNATIONAL NORMALIZED RATIO (INR) REFERENCE RANGES Reference [...] OC Reviewed date:01/30/2025 02:55:34 PM Interpretation: Performing Lab:[facility], [address] [place] [phone] Notes/Report: Prothrombin Time Whole Bld POC 26.7 11.1-13.5 sec INR WHOLE BLOOD POC Reviewed date:02/27/2025 12:33:32 PM Interpretation: Performing Lab:[facility], [address] [place] [phone] Notes/Report: PT, INR - [facility] 3.0 0.9-1.1 METER #: [id number] INTERNATIONAL NORMALIZED RATIO (INR) REFERENCE RANGES Reference [...] OC Reviewed date:02/27/2025 12:35:18 PM Interpretation: Performing Lab:[facility], [address] [place] [phone] Notes/Report: Prothrombin Time Whole Bld POC 36.1 11.1-13.5 sec INR WHOLE BLOOD POC Reviewed date:03/27/2025 01:50:34 PM Interpretation: Performing Lab:[address] [phone] Notes/Report: PT, INR - [facility] 2.1 0.9-1.1 METER #: [id number] INTERNATIONAL NORMALIZED RATIO (INR) REFERENCE RANGES Reference [...] OC Reviewed date:03/27/2025 02:15:19 PM Interpretation: Performing Lab:[facility], [address] [place] [phone] Notes/Report: Prothrombin Time Whole Bld POC 25.2 11.1-13.5 sec Hold Gold Reviewed date:04/21/2025 12:36:24 PM Interpretation: Performing Lab:[facility], [address] [place] [phone] Notes/Report: [place] Gold See Note Specimen held untested for 24 hours; Call to request Chemistry testing. Urine Culture Reviewed date:04/24/2025 12:37:00 PM Interpretation: Performing Lab:[facility], [address] [place] [phone] Notes/Report: O:ESCCOL Escherichia coli Urine Culture Quant Urine Culture > 100,000 cfu/mL Ampicillin <=2 Cefazolin (Urine) <=1 Cefepime <=0.12 Ceftriaxone <=0.25 Ciprofloxacin <=0.06 Gentamicin <=1 Nitrofurantoin <=16 Trimethoprim/Sulfamethoxaz ole <=20 INR WHOLE BLOOD POC Reviewed date:04/24/2025 12:31:15 PM Interpretation: Performing Lab:[facility], [address] [place] [phone] Notes/Report: PT, INR - [facility] 3.0 0.9-1.1 METER #: [id number] INTERNATIONAL NORMALIZED RATIO (INR) REFERENCE RANGES Reference [...] OC Reviewed date:04/24/2025 12:31:23 PM Interpretation: Performing Lab:[facility], [address] [place] [phone] Notes/Report: Prothrombin Time Whole Bld POC 36.3 11.1-13.5 sec INR WHOLE BLOOD POC Reviewed date:05/01/2025 02:46:11 PM Interpretation: Performing Lab:[facility], [address] [place] [phone] Notes/Report: PT, INR - [facility] 1.6 0.9-1.1 METER #: [id number] INTERNATIONAL NORMALIZED RATIO (INR) REFERENCE RANGES Reference [...] OC Reviewed date:05/01/2025 02:46:04 PM Interpretation: Performing Lab:[facility], [address] [place] [phone] Notes/Report: Prothrombin Time Whole Bld POC 19.5 11.1-13.5 sec INR WHOLE BLOOD POC Reviewed date:05/09/2025 04:18:34 PM Interpretation: Performing Lab:[facility], [address] [place] [phone] Notes/Report: PT, INR - [facility] 2.3 0.9-1.1 METER #: [id number] INTERNATIONAL NORMALIZED RATIO (INR) REFERENCE RANGES Reference [...] OC Reviewed date:05/09/2025 04:18:24 PM Interpretation: Performing Lab:[facility], [address] [place] [phone] Notes/Report: Prothrombin Time Whole Bld POC 27.8 11.1-13.5 sec INR WHOLE BLOOD POC Reviewed date:06/06/2025 12:46:50 PM Interpretation: Performing Lab:[facility], [address] [place] [phone] Notes/Report: PT, INR - [facility] 2.1 0.9-1.1 METER #: [id number] INTERNATIONAL NORMALIZED RATIO (INR) REFERENCE RANGES Reference [...] OC Reviewed date:06/06/2025 12:48:16 PM Interpretation: Performing Lab:[facility], [address] [place] [phone] Notes/Report: Prothrombin Time Whole Bld POC 25.4 11.1-13.5 sec INR WHOLE BLOOD POC Reviewed date:07/04/2025 11:43:53 AM Interpretation: Performing Lab:[facility], [address] [place] [phone] Notes/Report: PT, INR - [facility] 3.3 0.9-1.1 METER #: [id number] INTERNATIONAL NORMALIZED RATIO (INR) REFERENCE RANGES Reference [...] OC Reviewed date:07/04/2025 11:40:32 AM Interpretation: Performing Lab:[address] [phone] Notes/Report: Prothrombin Time Whole Bld POC 39.4 11.1-13.5 sec INR WHOLE BLOOD POC Reviewed date:07/17/2025 12:56:34 PM Interpretation: Performing Lab:[facility], [address] [place] [phone] Notes/Report: PT, INR - [facility] 2.5 0.9-1.1 METER #: [id number] INTERNATIONAL NORMALIZED RATIO (INR) REFERENCE RANGES Reference [...] Prothrombin Time Whole Bld P OC Reviewed date:07/17/2025 06:08:50 PM Interpretation: Performing Lab:[facility], [address] [place] [phone] Notes/Report: Prothrombin Time Whole Bld POC 30.2 [...] Active Vitamin D (Ergocalciferol) 1 .25 MG (05250 UT) TAKE 1 CAPSULE BY MOUTH ONCE WEEKLY for 84 Active Immunizations Vaccine Route Administration Date Status Comme nts Flu Vaccine IM Intramuscular 05/24/2017 Administered Had f geno vaccine while a patient of Dr. Ace Delacruz'katherine. PPSV23 (Pnemovax) Unknown 06/19/2014 Administered Had a t [facility] Tetanus IM Intramuscular 12/25/[address] [facility] Fluarix Quadriv[facility] IM [facility] IM Intr[facility]cular 10/29/2018 Administered Fluarix Quadrivalent IM Intramuscular 06/11/2019 [facility] PPSV23 (Pnemovax) IM Intramuscular 06/20/2019 Administered Fluarix Quadrivalent IM Intramuscular 05/27/2020 [facility] Influenza High Dose [...] Problem Status W/U Status Risk Notes Problem 81526482 Age-related osteoporosis without current pathological fracture (M81.0) Active confirmed Problem 73225246 Vitamin D defici ency (E55.9) Active confirmed Problem 05074555 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) Active confirmed Problem 970688658 Other specified menopausal and perimenopausal disorders (N95.8) Active confirmed Problem 93545484 Essential hypert ension (I10) Active confirmed Problem 342024013 Acquired hypothyroidism (E03.9) Active confirmed Problem 242907690 History of pulmo nary embolism (Z86.711) Active confirmed Problem 998313792 History of CVA (cerebrovascular accident) (Z86.73) Active confirmed Problem 29176949 Reflux gastritis (K29.60) Active confirmed Problem Acute idiopathic gout of right hand (M10.041) Active confirmed Problem 97622609 Elevated cholest rena (E78.00) Active confirmed Problem 304477068 Microscopic qamar turia (R31.29) Active confirmed Problem 40488557 Hypercholesterem ia (E78.00) Active confirmed Problem 55685212 Clotting disorde r (D68.9) Active confirmed Problem 429229937 PFO (patent fora men ovale) (Q21.1) Active confirmed Problem 42880020 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 Vital [...] Larry Meyers MD [address] [place] [id number] 10/24/2024 Larry Meyers Vitamin D deficiency E55.9 Larry Meyers MD [address] [place] [id number] 04/21/2025 Larry Meyers Blood tests for routine general physical examination Z00.00 ; Elevated cholesterol E78.00 ; Acquired hypothyroidism E03.9 and Vitamin D deficiency E55.9 Larry Meyers MD [address] [place] [address] [id number] 06/06/2025 aLrry Meyers Encounter for administration of vaccine Z23 Larry Meyers MD [address] [place] [address] [id number] 05/23/2025 Larry Meyers Annual physical exam Z00.00 ; Acquired hypothyroidism E03.9 ; PFO (patent foramen ovale) Q21.1 and Incisional hernia without obstruction or gangrene K43.2 Larry Meyers MD [address] [place] [address] [id number] 09/09/2024 Larry Meyers Essential hypertensi on I10 Larry Meyers MD [address] [place] [address] [id number] 10/08/2024 Larry Meyers Clotting disorder D68.9 Larry Meyers MD [address] [place] [address] [id number] 04/24/2025 Larry Meyers MD [address] [place] [address] [place] [address] [id number] 07/31/2025 Larry Meyers Assessments Encounter Date Diagnosis (ICD [...] skeleton 04/19/2022 Next Appt Details Provider Name:Larry house, 11/18/2025 07:00:00 AM, [address] [place] [address], Suite [facility], [place], [place], [id number], Provider Name:Larry house, 11/25/2025 11:00:00 AM, [address] [place] [address], Suite [facility], [place], [place], [phone], Provider Name:Larry house, 05/21/2026 07:30:00 AM, [address] [place] [address], [place] [address], [place], [place], [phone], Provider Name:Larry house, 05/28/2026 11:00:00 AM, [address], [address], [place], [place], [id number], Insurance Providers Payer Name Payer Address Payer Phone Subscriber Number Group Number Insured Name Patient Relationship to Insured Coverage Start Date Coverage End Date [facility] are [employer] [address] [address] [place] [address] [id number] Regina trejo Mary Self - patient is the insured MEDICARE [employer] [address] [place] [id number] Regina trejo Mary Self - patient is the insured Medical (General) History Medical History History ICD Code Stroke X 2 in 11/08 and 08/10 Refuses Colonoscopy 04/20/18; refused 04/02 019 hematuria chronic and has been evaluated Surgical History Surgery Date(Month/Year) Repair gallstone ileius & Umbilical Serg ia (Dr. Wilson) 11/2018
[2025-08-14 08:11] LABS: Prothrombin Time Whole Bld POC 41.5 sec (11.1-13.5); ~PT, ~INR - Anti Coag Clinic 3.5 (0.9-1.1)
--- NOTE | 2025-08-14 08:14 | MHC.OFFVISCO ---
Intake Intake Visit Reasons: Anticoagulation Allergies cat dander (CATS) Adverse Reaction (Mild, Verified 08/14/25 08:06) RASH raspberry (RASPBERRY) Adverse Reaction (Mild, Verified 08/14/25 08:06) RASH Medication List - Last Reconciled 08/14/25 by Meenu Chaney RN aspirin (Adult Aspirin Regimen) 81 mg PO DAILY ergocalciferol (vitamin D2) 1,250 mcg PO QMONTH hydrochlorothiazide 25 mg PO QAM levothyroxine 25 mcg PO QAM metoprolol tartrate 25 mg PO DAILY pantoprazole (Protonix) 20 mg PO DAILY simvastatin 20 mg PO BEDTIME warfarin 2.5 mg See Protocol PO DAILY Nursing Note Pt to [facility] accompanied by daughter INR: 3.5 out of therapeutic range of 2-3 Medications and supplements reviewed Patient status: feels well other than arthritis pain for which she has been taking tylenol one tab 2X/day. Tylenol may be the reason the INR is high. Medications or supplements: no changes Diet: no changes Denies any signs and symptoms of bleeding or clotting or unusual bruising Bleeding, bruising, clotting discussed Nutritional guidance given: Food list reviewed. Pt instructed to have a serving of greens today. She said she will have broccoli and a can of ensure. She also has blueberries she may have. Will not decrease dose since pt will be having these foods. Dose: 2.5mg daily F/U INR Date: 4 weeks?? Patient and daughter verbalizing understanding of instructions given. Anti-Coag Initial Assessment Social Hx Patient Tobacco Use Status: Never used Tobacco alcohol intake: never Alcohol intake frequency: does not drink Coding Level of Care Code Est Patient Level 1 Diagnoses Current use of anticoagulant therapy Z79.01 Results AMB INR Fingerstick AMB INR Fingerstick 3.5 Last Edit by Meenu Chaney RN on 08/14/25 08:20 interface delay Assessment & Plan Assessment & Plan (1) Current use of anticoagulant therapy: Code(s): Z79.01 - FDC (current) use of anticoagulants Category: Medical
== END 2025-08-14 08:30 | disposition home or self-care (01) ==
LOC: HO.ACS 07:59
PROVIDERS: PCP Internal Medicine; Visit Provider Internal Medicine Medical Oncology
DX: Z79.01 Long term (current) use of anticoagulants (principal)

== ENCOUNTER → 2025-08-14 07:59 | Outpatient (BNVA) | payer MEDICARE, SELFPAY | PROVIDERS: PCP Internal Medicine; Visit Provider Internal Medicine Medical Oncology | DX: Z86.73 Personal history of transient ischemic attack (TIA), and cerebral infarction without residual deficits (principal); Z51.81 Encounter for therapeutic drug level monitoring; Z79.01 Long term (current) use of anticoagulants | CPT/HCPCS: 85610; 99211 ==

== ENCOUNTER 2025-09-08 11:34 | Emergency (ER) | payer MEDICARE, SELFPAY ==
--- NOTE | ~2025-09-08 | CT_ITS ---
EXAMINATION: CT HEAD WITHOUT IV CONTRAST HISTORY: left leg weakness. TECHNIQUE: Unenhanced helical CT of the head was performed per standard departmental protocol. Coronal and sagittal reformats of the head were also evaluated. One or more of the following techniques was used for dose reduction: Automated exposure control, adjustment of the mA and/or kV according to patient size, use of iterative reconstruction technique. DLP: 587 mGy-cm COMPARISON: There are no prior studies available for comparison. FINDINGS: The examination is degraded by patient motion. BRAIN: There are periventricular and subcortical hypodensities which are nonspecific, but often seen in the setting of small vessel ischemic disease. There is no mass effect or midline shift. The ventricular system is normal in size and configuration. No intra- or extra-axial fluid collections are identified. SINUSES: The visualized paranasal sinuses are clear. The mastoid air cells and middle ear cavities are well pneumatized. ORBITS: The visualized orbits are unremarkable. BONES/SOFT TISSUES: The extracranial soft tissues are unremarkable. The calvarium is intact. No suspicious lytic or sclerotic lesions. CT/CT head/brain wo IV con IMPRESSION: No acute intracranial abnormality. Electronically signed by: Vinnie Goodwin MD 09/08/2025 12:16 PM [facility]
--- NOTE | ~2025-09-08 | XR_ITS ---
EXAMINATION: XR KNEE 4 OR MORE VIEWS LEFT, XR TIBIA FIBULA 2 VIEWS LEFT HISTORY: knee pain and swelling COMPARISON: There are no prior studies available for comparison. FINDINGS: Four views of the left knee and AP and lateral views of the left tibia and fibula are submitted. Osseous mineralization is normal. There is no fracture or dislocation. There is severe osteoarthritis of the medial compartment of the knee and mild to moderate osteoarthritis of the lateral and patellofemoral compartments, with joint space narrowing and osteophyte formation. There is a moderate knee joint effusion. There are vascular calcifications. XR/XR knee LT 4V IMPRESSION: Moderate joint effusion. Osteoarthritis of the left knee as described. No plain film evidence of osteomyelitis. Electronically signed by: Vinnie Goodwin MD 09/08/2025 12:21 PM [facility]
--- NOTE | ~2025-09-08 | XR_ITS ---
EXAMINATION: XR KNEE 4 OR MORE VIEWS LEFT, XR TIBIA FIBULA 2 VIEWS LEFT HISTORY: knee pain and swelling COMPARISON: There are no prior studies available for comparison. FINDINGS: Four views of the left knee and AP and lateral views of the left tibia and fibula are submitted. Osseous mineralization is normal. There is no fracture or dislocation. There is severe osteoarthritis of the medial compartment of the knee and mild to moderate osteoarthritis of the lateral and patellofemoral compartments, with joint space narrowing and osteophyte formation. There is a moderate knee joint effusion. There are vascular calcifications. XR/XR tibia fibula LT 2V IMPRESSION: Moderate joint effusion. Osteoarthritis of the left knee as described. No plain film evidence of osteomyelitis. Electronically signed by: Vinnie Goodwin MD 09/08/2025 12:21 PM [facility]
--- NOTE | ~2025-09-08 | US_ITS ---
EXAMINATION: US TRIPLEX LOWER EXTREMITY, LEFT CLINICAL INFORMATION: [Pain COMPARISON: Correlation ultrasound right lower extremity 12/17/2022 TECHNIQUE: Color-flow triplex imaging with spectral analysis and compression Doppler were performed on the left lower extremity. FINDINGS: Respiratory variation, normal compression and augmented flow are noted throughout the left lower extremity. The visualized common femoral vein, superficial femoral vein, profunda femoral vein, popliteal vein and midcalf peroneal and posterior tibial venous segments show no evidence of deep venous thrombosis. Mildly complex popliteal fossa cyst measuring 6.9 x 1.7 x 2.1 cm. US/US venous duplex LE LT IMPRESSION: No evidence of deep venous thrombosis involving the left lower extremity. Mildly complex popliteal cyst measuring 6.9 cm. If the patient's symptoms persist, followup ultrasound in 5 days 7 days might be of value to exclude proximal propagation from a non-visualized calf vein. Electronically signed by: Mathieu Banegas MD 09/08/2025 01:14 PM [facility]
--- NOTE | 2025-09-08 11:42 | ED.GENADULT ---
HPI - General Adult General Chief complaint: Extremity Injury, Lower Stated complaint: LEG PAIN Time Seen by Provider: 09/08/25 16:32 Source: patient and family (Patient's 2 daughters are at the bedside) Mode of arrival: ambulatory Limitations: no limitations History of Present Illness ED Provider: INDU Dong HPI narrative: 80-year-old female with medical history of HTN, PFO, pulmonary embolism on warfarin presents to the ED due to 2 days of left knee pain. Patient states she woke up yesterday morning with pain in the left knee that started out as a dull ache and later progressed to worsening pain, pressure and inability to bear weight without significant pain. Patient denies any trauma/injury or fall however states that the day before the pain started she had both of her grandchildren sitting on her knees and legs and think this may have caused the pain. Patient denies fevers, chills chest pain, shortness of breath, abdominal pain, nausea, vomiting, headaches, visual changes, urinary symptoms, black/tarry stools, lightheadedness, dizziness MD complaint: L knee pain Related Data Home Medications ?Medication ?Instructions ?Recorded ?Confirmed ergocalciferol (vitamin D2) 1,250 1,250 mcg PO QMONTH 10/30/20 08/14/25 mcg (50,000 unit) capsule hydrochlorothiazide 25 mg tablet 25 mg PO QAM 10/30/20 08/14/25 levothyroxine 25 mcg tablet 25 mcg PO QAM 10/30/20 08/14/25 metoprolol tartrate 25 mg tablet 25 mg PO DAILY 10/30/20 08/14/25 pantoprazole 20 mg tablet,delayed 20 mg PO DAILY 10/30/20 08/14/25 release (Protonix) simvastatin 20 mg tablet 20 mg PO BEDTIME 10/30/20 08/14/25 aspirin 81 mg tablet,delayed 81 mg PO DAILY 02/18/21 08/14/25 release (Adult Aspirin Regimen) Previous Rx's ?Medication ?Instructions ?Recorded warfarin 2.5 mg tablet 2.5 mg PO DAILY #90 tabs 07/20/23 prednisone 20 mg tablet 40 mg (2 x 20 mg) PO BID #8 tabs 09/08/25 Allergies Allergy/AdvReac Type Severity Reaction Status Date / Time cat dander (CATS) AdvReac Mild RASH Verified 12/08/25 11:50 raspberry (RASPBERRY) AdvReac Mild RASH Verified 09/08/25 11:50 Review of Systems Review of Systems: Yes all other systems are reviewed and are negative [facility] Past Medical History Attestation statement: The following information was validated with the patient. Source: old records reviewed, obtained from family (Two daughters at the bedside) and nursing notes reviewed Medical History Essential hypertension Other pulmonary embolism without acute cor pulmonale PFO (patent foramen ovale) Pulmonary embolism Current use of anticoagulant therapy Surgical History History of umbilical hernia repair (12/07/18) Family History Family History Mother Family hx of colon cancer Family hx of melanoma Brother Family history of throat cancer Sister Acute Crohn's disease Social History Social History Household Members: None Housing: Apartment Are you a primary youth care specialist to a significant other at home: No Do you presently have visiting nurse or other home services: No Alcohol intake: never Patient Tobacco Use Status: Never used Tobacco Smoked in Last 30 Days: No Use of substances other than those prescribed or required for medical reasons: No Do you have a plan to hurt others: No Plan service: No Current occupational status: retired Physical Exam ED Vital Signs: Vital Signs - 24 hr 09/08/25 11:49 Temperature 97.4 F Pulse Rate 82 Respiratory Rate 18 Blood Pressure 184/82 H Pulse Oximetry 98 Oxygen Delivery Method Room Air BMI result Body Mass Index 36.1 GENERAL APPEARANCE: ?AxOx4, generally well-appearing, nontoxic appearing, no acute distress. HEENT: ?NC, AT. MMM. EOMI, clear conjunctiva, oropharynx clear. NECK: ?Supple without lymphadenopathy.? No stiffness or restricted ROM. HEART:? Normal rate and regular rhythm, normal S1/S2, no m/r/g LUNGS:? CTAB, moving air well. No crackles or wheezes are heard. ABDOMEN: ?Soft, nontender, nondistended BACK: No CVAT, no obvious deformity. EXTREMITIES: ?Without cyanosis, clubbing or edema. TTP of posterior left knee, no warmth, erythema or pitting edema to the area, popliteal pulses 2+, ROM fully intact however patient does have pain in flexion, SILT, the limb is neurovascularly intact NEUROLOGICAL: ?Grossly nonfocal. Alert and oriented, moving all 4 extremities. Patient currently in wheelchair as she is unable to bear weight on the L leg due to pain. Skin: ?Warm and dry without any rash. Course Course Course Narrative: Medical Screening exam performed Tressa King 09/08/25 [id number] 80-year-old female history of hypertension, PE, on Coumadin presented to ER today for evaluation of left leg pain and difficulty moving her left leg. Patient states she worried that it may be a stroke. However she does have leg pain upon movement. Patient stated this started yesterday morning. She is outside the TNK window with her last known normal. It is also anticoagulated this time not TNK candidate. Patient's symptom has started over 24 hours at this time. Due to these findings the patient will not be stroke activated. Basic lab INR will be assess. We will obtain a CT head as well. Medical Decision Making Medical Decision Making MDM Narrative: 80-year-old female with medical history of HTN, PFO, pulmonary embolism on warfarin presents to the ED due to 2 days of left knee pain. Patient states she woke up yesterday morning with pain in the left knee that started out as a dull ache and later progressed to worsening pain, pressure and inability to bear weight without significant pain. Patient had both grandchildren sitting on her knees the day prior to the start of pain, and thinks that this may be the cause of her pain. VS on initial observation-BP 184/82, pulse rate of 82, respiratory rate of 18, afebrile with oral temp of 97.4?, O2 saturation 98% on room air. On physical exam patient is nontoxic appearing, lungs clear to auscultation bilaterally, cardiac exam reveals normal rate and rhythm without murmurs/rubs/gallops, abdomen is soft, nondistended, no rigidity, nontender, the left lower extremity with TTP of posterior knee, popliteal pulses 2+, appropriate capillary refill time, full ROM intact however patient does have pain when in flexion, SILT, the limb is neurovascularly intact Plan: Labs, EKG, CT head/brain, XR L knee, XR L tib/fib, venous duplex ordered from triage provider EKG reveals normal sinus rhythm with a nonspecific T-wave abnormality, no significant ST-elevation/depression, lengthened QT Labs without leukocytosis/leukopenia, no evidence of anemia, hypokalemia of 3.2, elevated CRP of 8.8, elevated ESR of 57. INR in theraputic range at 2.[address] head/brain negative for acute intracranial abnormalities, XR tib-fib negative for fracture or dislocation. XR L knee reveals severe osteoarthritis, moderate joint effusion Venous duplex negative for DVT however does reveal a large complex popliteal cyst measuring 6.9 cm Patient with 2 days of dull achy pain and fullness of the L knee without warmth, erythema, very mild non pitting edema, patient with full ROM and limb is neurovascularly intact- less likely septic arthritis. Large popliteal cyst measuring 6.9 cm. I did bedside ultrasound with my attending physician Dr. King and discussed with the patient's the risk versus benefit of attempting aspiration. Patient is on warfarin and is bleeding risk, the artery is somewhat overlying the cyst. At this time, patient would like to trial conservative measures 5 day course of prednisone, compression and elevation, and follow up with orthopedics in office for further evaluation and management. I discussed with the patient PT evaluation and case management for STR however patient is adamant to go home and states her daughter lives right next door and can help take care of her. Patient with mild hypokalemia of 3.2 on labs but is asymptomatic. Patient being medicated with 40 mEq p.o. potassium for repletion, patient is asymptomatic without GI upset, chest pain, palpitations, lightheadedness or dizziness. I discussed with patient to follow up with her primary care to ensure resolution of her symptoms and to monitor her potassium. I counseled patient to follow with orthopedics for further evaluation and management of popliteal cyst/ osteoarthritis. I counseled patient on strict return precautions. Patient and her two daughters at the bedside are in agreement with the plan. Differential Diagnosis Differential Diagnoses: The differential diagnosis associated with the presentation includes Septic arthritis DVT Ligament injury Gout Popliteal cyst Admission/Observation Consideration of admission/observation: Escalation of care including admission/observation considered Lab Data MDM Lab Attestation statement: I reviewed the patient's lab results. 09/08/25 14:18 09/08/25 14:18 Labs: Lab Results 09/08/25 Range/Units 14:18 WBC 7.9 (4.8-10.8) X10*3/uL RBC 4.30 (4.20-5.50) X10*6/uL Hgb 12.4 (12.0-16.0) g/dl Hct 37.2 (37.0-47.0) % MCV 86.5 (80.0-98.0) fL MCH 28.8 (27.0-33.0) pg MCHC 33.3 (31.0-35.0) g/dl RDW 15.2 (11.0-16.0) % Plt Count 192 (160-400) X10*3/uL MPV 11.5 (9.4-12.3) fL Immature Gran % (Auto) 0.4 (0.0-0.4) % Neut % (Auto) 75.1 H (45-73) % Lymph % (Auto) 16.1 L (20-40) % Foard % (Auto) 7.9 (2-11) % Eos % (Auto) 0.1 (0-4) % Baso % (Auto) 0.4 (0-2) % Lymph # (Auto) 1.3 (1.2-4.9) X10*3/uL Foard # (Auto) 0.6 (0.1-1.2) X10*3/uL Eos # (Auto) 0.0 (0.0-0.4) X10*3/uL Baso # (Auto) 0.0 (0.0-0.2) X10*3/uL Abs Immat Gran (auto) 0.03 (0.00-0.03) X10*3/uL Absolute Neuts (auto) 6.0 (2.0-8.3) x10*3/uL Absolute Nucleated RBC 0.000 (0.0-0.012) X10*3/uL Nucleated RBC % (auto) 0.0 (0.0-0.2) /100WBC ESR 57 H (0-20) MM/HR PT 34.3 H (11.2-13.5) SEC INR 2.9 H (0.9-1.1) Sodium 135 (135-145) mmol/L Potassium 3.2 L (3.3-5.1) mmol/L Chloride 98 (96-108) mmol/L Carbon Dioxide 25 (22-29) mmol/L Anion Gap 15 (12-20) BUN 15 (9-16) mg/dL Creatinine 0.65 (0.5-1.4) mg/dL Estim Creat Clear Calc 68.5 Estimated GFR > 60 Random Glucose 97 (60-115) mg/dL Calcium 9.4 (8.4-10.2) mg/dL Total Bilirubin 0.8 (0.0-1.0) mg/dL AST 23 (5-31) U/L ALT 9 (0-31) U/L Alkaline Phosphatase 64 (39-117) U/L C-Reactive Protein 8.80 H (< or = 0.50) mg/dL Total Protein 7.5 (6.5-8.0) g/dL Albumin 4.1 (3.5-5.0) g/dL Independent Interpretation I performed an independent interpretation of an: EKG, Plain X-Ray and CT Scan Interpretation: I personally interpreted the EKG which reveals normal sinus rhythm with a nonspecific T-wave abnormality, no ST-elevation/depression, or acute ischemia seen, no lengthened QT Vent. Rate : 83 BPM Atrial Rate : 83 BPM P-R Int : 168 ms QRS Dur : 76 ms QT Int : 380 ms P-R-T Axes : 66 1 -1 degrees QTcB Int : 446 ms Normal sinus rhythm Nonspecific T wave abnormality Abnormal ECG When compared with ECG of 14-Jan-2021 12:38, Premature ventricular complexes are no longer Present Nonspecific T wave abnormality now evident in Anterior leads I personally interpreted the CT head/brain which was negative for acute intracranial abnormalities, I agree with the radiologist's interpretation I personally interpreted the XR L tib-fib which was negative for fracture or dislocation, I agree with the radiologist's interpretation I personally interpreted the XR L knee which reveals degenerative changes due to osteoarthritis, and moderate joint effusion without fracture or dislocation, I agree with the radiologist's interpretation I personally interpreted the venous duplex ultrasound study which was negative for DVT, however does reveal a large popliteal cyst, I agree with the radiologist's interpretation Radiology Impression Discussion of test interpretation with radiology: I have reviewed the radiologist's reading. Radiologist Impression: CT head/brain FINDINGS: The examination is degraded by patient motion. BRAIN: There are periventricular and subcortical hypodensities which are nonspecific, but often seen in the setting of small vessel ischemic disease. There is no mass effect or midline shift. The ventricular system is normal in size and configuration. No intra- or extra-axial fluid collections are identified. SINUSES: The visualized paranasal sinuses are clear. The mastoid air cells and middle ear cavities are well pneumatized. ORBITS: The visualized orbits are unremarkable. BONES/SOFT TISSUES: The extracranial soft tissues are unremarkable. The calvarium is intact. No suspicious lytic or sclerotic lesions. CT/CT head/brain wo IV con IMPRESSION: No acute intracranial abnormality. Electronically signed by: Vinnie Goodwin MD 09/08/2025 12:16 PM EST RP Dictated By: Vinnie Goodwin MD Signed By: <Electronically signed by Vinnie Goodwin MD in OV> 09/08/25 1216 XR L tib-fib FINDINGS: Four views of the left knee and AP and lateral views of the left tibia and fibula are submitted. Osseous mineralization is normal. There is no fracture or dislocation. There is severe osteoarthritis of the medial compartment of the knee and mild to moderate osteoarthritis of the lateral and patellofemoral compartments, with joint space narrowing and osteophyte formation. There is a moderate knee joint effusion. There are vascular calcifications. XR/XR tibia fibula LT 2V IMPRESSION: Moderate joint effusion. Osteoarthritis of the left knee as described. No plain film evidence of osteomyelitis. Electronically signed by: Vinnie Goodwin MD 09/08/2025 12:21 PM EST RP Dictated By: Vinnie Goodwin MD Signed By: <Electronically signed by Vinnie Goodwin MD in OV> 09/08/25 1221 XR L knee FINDINGS: Four views of the left knee and AP and lateral views of the left tibia and fibula are submitted. Osseous mineralization is normal. There is no fracture or dislocation. There is severe osteoarthritis of the medial compartment of the knee and mild to moderate osteoarthritis of the lateral and patellofemoral compartments, with joint space narrowing and osteophyte formation. There is a moderate knee joint effusion. There are vascular calcifications. XR/XR knee LT 4V IMPRESSION: Moderate joint effusion. Osteoarthritis of the left knee as described. No plain film evidence of osteomyelitis. Electronically signed by: Vinnie Goodwin MD 09/08/2025 12:21 PM EST RP Dictated By: Vinnie Goodwin MD Signed By: <Electronically signed by Vinnie Goodwin MD in OV> 09/08/25 1221 Venous duplex ultrasound FINDINGS: Respiratory variation, normal compression and augmented flow are noted throughout the left lower extremity. The visualized common femoral vein, superficial femoral vein, profunda femoral vein, popliteal vein and midcalf peroneal and posterior tibial venous segments show no evidence of deep venous thrombosis. Mildly complex popliteal fossa cyst measuring 6.9 x 1.7 x 2.1 cm. US/US venous duplex LE LT IMPRESSION: No evidence of deep venous thrombosis involving the left lower extremity. Mildly complex popliteal cyst measuring 6.9 cm. If the patient's symptoms persist, followup ultrasound in 5 days 7 days might be of value to exclude proximal propagation from a non-visualized calf vein. Electronically signed by: Mathieu Banegas MD 09/08/2025 01:14 PM EST RP Dictated By: Mathieu Banegas MD Signed By: <Electronically signed by Mathieu Banegas MD in OV> 09/08/25 1314 Independent Historian Clinical information obtained from an independent historian. History obtained from or confirmed by: Other (Two daughters at bedside) External Record Review External record reviewed: Inpatient record, Office record, Outpatient record and Prior outpatient labs Prescription Management I considered prescription management with: Antibiotic (Patient with 2 days of symptoms, no warmth, erythema, no leukocytosis, no indication for antibiotics at this time) Chronic Conditions Patient?s care impacted by: Hypertension and Other (Pulmonary embolism on Eliquis) Discharge Plan Discharge Clinical Impression: Popliteal cyst, Hypokalemia Patient Disposition: Home, Self-Care Instructions: Potassium Content of Foods List (ED), Hypokalemia (ED), Keane Cyst (ED) Additional Instructions: You were evaluated in the emergency department today for pain in the left knee. The x-ray of your left knee reveals severe osteoarthritis, and a large popliteal cyst measuring 6.9 cm. Popliteal cyst is nonemergent, we discussed drainage in the emergency room versus follow up with orthopedics as you do have risk factors due to being on warfarin, and due to location of the artery lying on top of the cyst. We discussed evaluation by Physical therapy and possible short-term rehab placement however you declined this and stated you felt more comfortable to go home and have adequate care at home. On your lab work today we found that your potassium was slightly low at 3.2 (normal range is 3.3-5.1) you were medicated with 40 mEq of oral potassium which should bring your potassium up to normal ranges of 3.3 to 3.4. Please follow up with your primary care doctor to ensure your potassium is in range and that you dont need oral supplements. You were given 975 mg of Tylenol today, and 40 mg of prednisone. You do not need to take another dose of Tylenol until 2:00 a.m. You are being prescribed a 4 day course of 20 mg prednisone that you will take twice daily. I recommend that you do light compression with Ron bandage, ice the area, and elevate to help drainage. I have referred you to [facility] [place] [place] orthopedics for further evaluation of your popliteal cyst, please call their office as they will not call you. Please return to the emergency department if you have fevers over 100.4?, worsening pain of your left knee, redness, warmth, or worsening swelling of the left knee, if you were still unable to put weight on the knee after your prednisone course or any new/worsening/concerning symptoms. Prescriptions: New prednisone 20 mg tablet 40 mg PO BID Qty: 8 0RF No Action metoprolol tartrate 25 mg tablet 25 mg PO DAILY simvastatin 20 mg tablet 20 mg PO BEDTIME hydrochlorothiazide 25 mg tablet 25 mg PO QAM levothyroxine 25 mcg tablet 25 mcg PO QAM ergocalciferol (vitamin D2) 1,250 mcg (50,000 unit) capsule 1,250 mcg PO QMONTH Rx Instructions: twice a month pantoprazole [Protonix] 20 mg tablet,delayed release (DR/EC) 20 mg PO DAILY aspirin [Adult Aspirin Regimen] 81 mg tablet,delayed release (DR/EC) 81 mg PO DAILY warfarin 2.5 mg tablet 2.5 mg PO DAILY Qty: 90 0RF Protocol: Dose Management Condition: Monday (Week One) Dose/Route: 2.5 mg Instruction: 1 x 2.5 mg tablet Condition: Monday Dose/Route: 2.5 mg Instruction: 1 x 2.5 mg tablet Condition: Monday Dose/Route: 2.5 mg Instruction: 1 x 2.5 mg tablet Condition: Monday Dose/Route: 2.5 mg Instruction: 1 x 2.5 mg tablet Condition: Dose/Route: 2.5 mg Instruction: 1 x 2.5 mg tablet Condition: Monday Dose/Route: 2.5 mg Instruction: 1 x 2.5 mg tablet Condition: Monday Dose/Route: 2.5 mg Instruction: 1 x 2.5 mg tablet Condition: Monday (Week Two) Dose/Route: 2.5 mg Instruction: 1 x 2.5 mg tablet Condition: Monday Dose/Route: 2.5 mg Instruction: 1 x 2.5 mg tablet Condition: Monday Dose/Route: 2.5 mg Instruction: 1 x 2.5 mg tablet Condition: Monday Dose/Route: 2.5 mg Instruction: 1 x 2.5 mg tablet Condition: Dose/Route: 2.5 mg Instruction: 1 x 2.5 mg tablet Condition: Monday Dose/Route: 2.5 mg Instruction: 1 x 2.5 mg tablet Condition: Monday Dose/Route: 2.5 mg Instruction: 1 x 2.5 mg tablet Protocol Text: Adjustment Start Date: 08/14/25 INR Value: 3.5 INR Date: 08/14/25 Recheck Date: 09/11/25 Print Language: Icelandic
--- NOTE | 2025-09-08 11:44 | ECG_ITS ---
Test Reason : SWELLING Blood Pressure : */* mmHG Vent. Rate : 83 BPM Atrial Rate : 83 BPM P-R Int : 168 ms QRS Dur : 76 ms QT Int : 380 ms P-R-T Axes : 66 1 -1 degrees QTcB Int : 446 ms Normal sinus rhythm Nonspecific T wave abnormality Abnormal ECG When compared with ECG of 14-Jan-2021 12:38, Premature ventricular complexes are no longer Present Nonspecific T wave abnormality now evident in Anterior leads Referred By: Tressa King Electronically Signed By: DUSTY WHITMAN MD
[2025-09-08 11:48] VITALS: BP 137/85; PULSE 86; O2SAT 98
[2025-09-08 11:49] VITALS: BP 184/82; PULSE 82; RESP 18; TEMP 36.3; O2SAT 98; BMI 36.1
--- NOTE | 2025-09-08 11:56 | ED.GENADULT ---
HPI - General Adult General Chief complaint: Extremity Injury, Lower Stated complaint: LEG PAIN Time Seen by Provider: 09/08/25 16:32 Related Data Home Medications ?Medication ?Instructions ?Recorded ?Confirmed ergocalciferol (vitamin D2) 1,250 1,250 mcg PO QMONTH 10/30/20 09/09/25 mcg (50,000 unit) capsule hydrochlorothiazide 25 mg tablet 25 mg PO QAM 10/30/20 09/09/25 levothyroxine 25 mcg tablet 25 mcg PO QAM 10/30/20 09/09/25 metoprolol tartrate 25 mg tablet 25 mg PO DAILY 10/30/20 09/09/25 pantoprazole 20 mg tablet,delayed 20 mg PO DAILY 10/30/20 09/09/25 release (Protonix) simvastatin 20 mg tablet 20 mg PO BEDTIME 10/30/20 09/09/25 aspirin 81 mg tablet,delayed 81 mg PO DAILY 02/18/21 09/09/25 release (Adult Aspirin Regimen) Previous Rx's ?Medication ?Instructions ?Recorded warfarin 2.5 mg tablet 2.5 mg PO DAILY #90 tabs 07/20/23 prednisone 20 mg tablet 40 mg (2 x 20 mg) PO BID #8 tabs 09/08/25 Allergies Allergy/AdvReac Type Severity Reaction Status Date / Time cat dander (CATS) AdvReac Mild RASH Verified 09/09/25 10:06 raspberry (RASPBERRY) AdvReac Mild RASH Verified 09/09/25 10:06 [facility] Past Medical History Medical History Essential hypertension Other pulmonary embolism without acute cor pulmonale PFO (patent foramen ovale) Pulmonary embolism Current use of anticoagulant therapy Surgical History History of umbilical hernia repair (12/07/18) Family History Family History Mother Family hx of colon cancer Family hx of melanoma Brother Family history of throat cancer Sister Acute Crohn's disease Social History Social History Household Members: None Housing: Apartment Are you a primary critical care clinical nurse specialist to a significant other at home: No Do you presently have visiting nurse or other home services: No Alcohol intake: never Patient Tobacco Use Status: Never used Tobacco service: No Current occupational status: retired Physical Exam ED Vital Signs: Vital Signs - 24 hr 09/08/25 11:49 Temperature 97.4 F Pulse Rate 82 Respiratory Rate 18 Blood Pressure 184/82 H Pulse Oximetry 98 Oxygen Delivery Method Room Air BMI result Body Mass Index 36.1 Course Course Course Narrative: RME: 80 year female history of PE stroke presents to ED for left knee left leg pain with swelling for 1 day. Patient denies any recent trauma fever or chills. On exam left leg slightly more swollen than right. X-ray labs ultrasound ordered. Medications Administered Discontinued Medications Generic Name Dose Route Start Last Admin Trade Name Freq PRN Reason Stop Dose Admin Acetaminophen 975 mg 09/08/25 16:43 09/08/25 17:07 Acetaminophen 325 Mg Tablet PO 09/08/25 16:44 975 mg ONCE ONE Administration Potassium Chloride 40 meq 09/08/25 16:43 09/08/25 17:07 Potassium Chloride Er 20 Meq Tab.Er.Prt PO 09/08/25 16:44 40 meq ONCE ONE Administration Prednisone 40 mg 09/08/25 16:57 09/08/25 17:07 Prednisone 20 Mg Tablet PO 09/08/25 16:58 40 mg ONCE ONE Administration Medical Decision Making Lab Data 09/08/25 14:18 09/08/25 14:18 Labs: Lab Results 09/08/25 Range/Units 14:18 WBC 7.9 (4.8-10.8) X10*3/uL RBC 4.30 (4.20-5.50) X10*6/uL Hgb 12.4 (12.0-16.0) g/dl Hct 37.2 (37.0-47.0) % MCV 86.5 (80.0-98.0) fL MCH 28.8 (27.0-33.0) pg MCHC 33.3 (31.0-35.0) g/dl RDW 15.2 (11.0-16.0) % Plt Count 192 (160-400) X10*3/uL MPV 11.5 (9.4-12.3) fL Immature Gran % (Auto) 0.4 (0.0-0.4) % Neut % (Auto) 75.1 H (45-73) % Lymph % (Auto) 16.1 L (20-40) % [place] % (Auto) 7.9 (2-11) % Eos % (Auto) 0.1 (0-4) % Baso % (Auto) 0.4 (0-2) % Lymph # (Auto) 1.3 (1.2-4.9) X10*3/uL [place] # (Auto) 0.6 (0.1-1.2) X10*3/uL Eos # (Auto) 0.0 (0.0-0.4) X10*3/uL Baso # (Auto) 0.0 (0.0-0.2) X10*3/uL Abs Immat Gran (auto) 0.03 (0.00-0.03) X10*3/uL Absolute Neuts (auto) 6.0 (2.0-8.3) x10*3/uL Absolute Nucleated RBC 0.000 (0.0-0.012) X10*3/uL Nucleated RBC % (auto) 0.0 (0.0-0.2) /100WBC ESR 57 H (0-20) MM/HR PT 34.3 H (11.2-13.5) SEC INR 2.9 H (0.9-1.1) Sodium 135 (135-145) mmol/L Potassium 3.2 L (3.3-5.1) mmol/L Chloride 98 (96-108) mmol/L Carbon Dioxide 25 (22-29) mmol/L Anion Gap 15 (12-20) BUN 15 (9-16) mg/dL Creatinine 0.65 (0.5-1.4) mg/dL Estim Creat Clear Calc 68.5 Estimated GFR > 60 Random Glucose 97 (60-115) mg/dL Calcium 9.4 (8.4-10.2) mg/dL Total Bilirubin 0.8 (0.0-1.0) mg/dL AST 23 (5-31) U/L ALT 9 (0-31) U/L Alkaline Phosphatase 64 (39-117) U/L C-Reactive Protein 8.80 H (< or = 0.50) mg/dL Total Protein 7.5 (6.5-8.0) g/dL Albumin 4.1 (3.5-5.0) g/dL Discharge Plan Discharge Clinical Impression: Popliteal cyst, Hypokalemia Patient Disposition: Home, Self-Care Instructions: Potassium Content of Foods List (ED), Hypokalemia (ED), Keane Cyst (ED) Additional Instructions: You were evaluated in the emergency department today for pain in the left knee. The x-ray of your left knee reveals severe osteoarthritis, and a large popliteal cyst measuring 6.9 cm. Popliteal cyst is nonemergent, we discussed drainage in the emergency room versus follow up with orthopedics as you do have risk factors due to being on warfarin, and due to location of the artery lying on top of the cyst. We discussed evaluation by Physical therapy and possible short-term rehab placement however you declined this and stated you felt more comfortable to go home and have adequate care at home. On your lab work today we found that your potassium was slightly low at 3.2 (normal range is 3.3-5.1) you were medicated with 40 mEq of oral potassium which should bring your potassium up to normal ranges of 3.3 to 3.4. Please follow up with your primary care doctor to ensure your potassium is in range and that you dont need oral supplements. You were given 975 mg of Tylenol today, and 40 mg of prednisone. You do not need to take another dose of Tylenol until 2:00 a.m. You are being prescribed a 4 day course of 20 mg prednisone that you will take twice daily. I recommend that you do light compression with Ron bandage, ice the area, and elevate to help drainage. I have referred you to [facility] for further evaluation of your popliteal cyst, please call their office as they will not call you. Please return to the emergency department if you have fevers over 100.4?, worsening pain of your left knee, redness, warmth, or worsening swelling of the left knee, if you were still unable to put weight on the knee after your prednisone course or any new/worsening/concerning symptoms. Prescriptions: New prednisone 20 mg tablet 40 mg PO BID Qty: 8 0RF No Action metoprolol tartrate 25 mg tablet 25 mg PO DAILY simvastatin 20 mg tablet 20 mg PO BEDTIME hydrochlorothiazide 25 mg tablet 25 mg PO QAM levothyroxine 25 mcg tablet 25 mcg PO QAM ergocalciferol (vitamin D2) 1,250 mcg (50,000 unit) capsule 1,250 mcg PO QMONTH Rx Instructions: twice a month pantoprazole [Protonix] 20 mg tablet,delayed release (DR/EC) 20 mg PO DAILY aspirin [Adult Aspirin Regimen] 81 mg tablet,delayed release (DR/EC) 81 mg PO DAILY warfarin 2.5 mg tablet 2.5 mg PO DAILY Qty: 90 0RF Protocol: Dose Management Condition: Monday (Week One) Dose/Route: 2.5 mg Instruction: 1 x 2.5 mg tablet Condition: Monday Dose/Route: 2.5 mg Instruction: 1 x 2.5 mg tablet Condition: Monday Dose/Route: 0 mg Instruction: 0 tablets Condition: Monday Dose/Route: 2.5 mg Instruction: 1 x 2.5 mg tablet Condition: Dose/Route: 2.5 mg Instruction: 1 x 2.5 mg tablet Condition: Monday Dose/Route: 1.25 mg Instruction: 0.5 x 2.5 mg tablets Condition: Monday Dose/Route: 2.5 mg Instruction: 1 x 2.5 mg tablet Condition: Monday (Week Two) Dose/Route: 1.25 mg Instruction: 0.5 x 2.5 mg tablets Condition: Monday Dose/Route: 2.5 mg Instruction: 1 x 2.5 mg tablet Condition: Monday Dose/Route: 2.5 mg Instruction: 1 x 2.5 mg tablet Condition: Monday Dose/Route: 2.5 mg Instruction: 1 x 2.5 mg tablet Condition: Dose/Route: 2.5 mg Instruction: 1 x 2.5 mg tablet Condition: Monday Dose/Route: 2.5 mg Instruction: 1 x 2.5 mg tablet Condition: Monday Dose/Route: 2.5 mg Instruction: 1 x 2.5 mg tablet Protocol Text: Adjustment Start Date: Monday09/09/25 INR Value: 2.9 INR Date: 09/08/25 Recheck Date: 09/15/25 Interventions: ED Discharge Assessment Last Done: 09/08/25 17:47 Discharge Date/Time: 09/08/25 17:47 Print Language: Vietnamese
[2025-09-08 14:27] LABS: MANUAL DIFF FLAG NO
[2025-09-08 14:29] LABS: Hematocrit 37.2 % (37.0-47.0); Hemoglobin 12.4 g/dl (12.0-16.0); Imm Gran Abs Auto 0.03 X10*3/uL (0.00-0.03); Imm Gran Pct Auto 0.4 % (0.0-0.4); Lymphocytes Absolute Auto 1.3 X10*3/uL (1.2-4.9); Mean Corpuscular HGB Conc 33.3 g/dl (31.0-35.0); Mean Corpuscular Hemoglobin 28.8 pg (27.0-33.0); Mean Corpuscular Volume 86.5 fL (80.0-98.0); NRBC Abs Auto 0.000 X10*3/uL (0.0-0.012); NRBC Pct Auto 0.0 /100WBC (0.0-0.2); Platelet Count 192 X10*3/uL (160-400); Red Blood Count 4.30 X10*6/uL (4.20-5.50); White Blood Count 7.9 X10*3/uL (4.8-10.8)
[2025-09-08 14:37] LABS: INTERNATIONAL NORM RATIO 2.9 (0.9-1.1); Prothrombin Time 34.3 SEC (11.2-13.5)
[2025-09-08 14:42] LABS: Alanine Aminotransferase 9 U/L (0-31); Albumin Level 4.1 g/dL (3.5-5.0); Alkaline Phosphatase 64 U/L (39-117); Anion Gap 15 (12-20); Aspartate Amino Transferase 23 U/L (5-31); Blood Urea Nitrogen 15 mg/dL (9-16); Calcium 9.4 mg/dL (8.4-10.2); Carbon Dioxide 25 mmol/L (22-29); Chloride 98 mmol/L (96-108); Creatinine Clr Calc Pharmacy 68.5; Estimated Glomerular Filt Rate > 60; Potassium 3.2 mmol/L (3.3-5.1); Sodium 135 mmol/L (135-145); Total Protein 7.5 g/dL (6.5-8.0)
[2025-09-08 15:09] LABS: Erythrocyte Sedimentation Rate 57 MM/HR (0-20)
[2025-09-08] MEDS: Potassium Chloride ER 20 MEQ TAB.ER.PRT 40 MEQ PO (17:07)
[2025-09-08 17:47] VITALS: BP 184/82; PULSE 82; RESP 18; TEMP 36.3; O2SAT 98
== END 2025-09-08 17:47 | disposition home or self-care (01) ==
PROVIDERS: Physician Assistant; Emergency Provider Student in an Organized Health Care Education/Training Program; PCP Internal Medicine
DX: M71.22 Synovial cyst of popliteal space [Baker], left knee (principal); M17.12 Unilateral primary osteoarthritis, left knee; E87.6 Hypokalemia; I10 Essential (primary) hypertension; Z86.711 Personal history of pulmonary embolism; Z79.01 Long term (current) use of anticoagulants; Z79.899 Other long term (current) drug therapy
CPT/HCPCS: 36415; 70450; 73564; 73590; 80053; 85025; 85610; 85652; 86140; 93005; 93971; 99284

== ENCOUNTER → 2025-09-08 11:44 | Outpatient (BNV) | payer MEDICARE, SELFPAY | PROVIDERS: Emergency Provider Student in an Organized Health Care Education/Training Program; Visit Provider Internal Medicine Cardiovascular Disease | DX: R94.31 Abnormal electrocardiogram [ECG] [EKG] (principal); R53.1 Weakness | CPT/HCPCS: 93010 ==

== ENCOUNTER → 2025-09-08 11:45 | Outpatient (BNV) | payer MEDICARE, SELFPAY | PROVIDERS: Visit Provider Radiology Diagnostic Radiology | DX: R53.1 Weakness (principal); M71.21 Synovial cyst of popliteal space [Baker], right knee; M17.12 Unilateral primary osteoarthritis, left knee; M25.462 Effusion, left knee | CPT/HCPCS: 70450; 73564; 73590; 93971 ==

== ENCOUNTER 2025-09-18 09:44 | Outpatient (AMB) | payer MEDICARE, SELFPAY ==
--- OUTSIDE RECORDS SUMMARY | 2024-09-09 03:42 | XMS_ITS ---
Author Organization Larry Meyers MD Address [address] [place] [phone] Care Team Providers Care Stacker And Sorter Operator Name Role Phone Mira Larry Primary Care Provider [phone] REASON FOR VISIT REFILL METAPROLOL Medications Medication SIG (Take, Route, Frequency, Duration) Notes Start Date End Date Status Metoprolol Tartrate 25 MG TAKE ONE TABLE T BY MOUTH EVERY DAY WITH FOOD Orally ONCE A DAY for 90 days Active Encounters Encounter Location Date Provider Diagnosis Larry Meyers MD 10 [facility] [address] [place] [phone] 09/09/2024 Larry Meyers Essential hypertension I10 Assessments [...] days Next Appt Details Provider Name:Larry house, 10/13/2025 08:30:00 AM, [address] [facility], [address] [place] [address], [phone], Provider Name:Larry Emery ier, 11/18/2025 07:00:00 AM, [address] [place] [address], [address], [place], [phone], Provider Name:Larry Emery ier, 11/25/2025 11:00:00 AM, [address] [place] [address], Suite [facility], [place], [place], [phone], Provider Name:Larry Emery ier, 05/21/2026 07:30:00 AM, [address] [place] [address], [address] [facility], [place], [place], [phone], Provider Name:Larry Emery ier, 05/28/2026 11:00:00 AM, [address] [place] [address], [place] [address], [place], [phone], Progress Notes * Yaneth HARVEYOB:1944 (79 yo F)Acc No.[id number]:09/09/2024 Patient: Zafar Mary abreu :1945 A ge:79 Y S ex:Female Address:[address] [place] [address], [phone] * Refills Refill Metoprolol Tartrate Tablet, 25 MG, Orally, 90, TAKE ONE TABLET BY MOUTH EVERY DAY WITH FOOD, ONCE A DAY, 90 days, Refills=4 * true * Date: Generated for Marc olivera/Britta/eTransmitting on: 1 11/19/2024 11:30 AM EST
--- OUTSIDE RECORDS SUMMARY | 2024-10-08 04:32 | XMS_ITS ---
Author Organization Larry eMyers MD Address [address] [place] [address] [phone] Care Team Providers Care Executive Wellness Programs Director Name Role Phone MiraLarry Primary Care Provider [phone] REASON FOR VISIT refill Medications Medication SIG (Take, Route, Fr equency, Duration) Notes Start Date End Date Status Warfarin Sodium 2.5 MG 1 tablet Orally O nce a day for 90 days Active Encounters Encounter Location Date Provider Diagnosis Larry Meyers MD [address] [place] [address] [phone] 10/08/2024 Larry Meyers Clotting disorder D68.9 Assessments Encounter Date Diagnosis (ICD Code) Assessment Notes Treatment Notes Treatment Clinical Notes Section Notes 10/08/2024 Clotting disorder (ICD-10 - D68.9) Plan Of Treatment Medication Medication Name Sig Start Date Stop Date Notes Warfarin Sodium 2.5 MG 1 tablet Orally O nce a day for 90 days Next Appt Details Provider Name:Larry house, 09/18/2025 11:30:00 AM, 10 [facility], [address] [place] [address], [phone], Provider Name:Larry Emery ier, 10/13/2025 08:30:00 AM, [address] [place] [address], Suite [facility], [place], [place], [phone], Provider Name:aLrry Emery ier, 11/18/2025 07:00:00 AM, [address] [place] [address], Suite [facility], [place], [place], [phone], Provider Name:Larry Emery ier, 11/25/2025 11:00:00 AM, [address] [place] [address], Suite [facility], [place], [place], [phone], Provider Name:Larry Emery ier, 05/21/2026 07:30:00 AM, [address] [place] [address], Suite [facility], [place], [place], [phone], Provider Name:Larry Emery ier, 05/28/2026 11:00:00 AM, [address] [place] [address], [place] [address], [place], [place], [phone], Progress Notes * Yaneth HARVEYOB:1944 (79 yo F)Acc No.[id number]:10/08/2024 Patient: Mary Qureshi :1945 A ge:79 Y S ex:Female Address:[address] [place] [address], [address] * Refills Refill Warfarin Sodium Tablet, 2.5 MG, Orally, 90 Tablet, 1 tablet, Once a day, 90 days * true * Date: Generated for Teoi joselin/Britta/eTransmitting on: 1 11/19/2024 11:27 AM EST
--- OUTSIDE RECORDS SUMMARY | 2025-04-21 02:15 | XMS_ITS ---
Author Organization Larry Meyers MD Address [address] [place] [phone] Care Team Providers Care Server Engineer Name Role Phone MiraBennien Primary Care Provider Results Component Value Reference Range Notes Complete Blood Count Auto Di ff Reviewed date:04/21/2025 07:32:40 PM Interpretation: Performing Lab:[facility], [address] [place] [phone] Notes/Report: White Blood Count 5.7 4.8-10.8 X10*3/uL Red Blood Count 4.15 4.20-5.50 X10*6/uL Hemoglobin 12.2 12.0-16.0 g/dl Hematocrit 36.2 37.0-47.0 % Mean Corpuscular Volume 87.2 80.0-98.0 fL Mean Corpuscular Hemoglobin 29.4 27.0-33.0 pg Mean Corpuscular HGB Conc 33.7 31.0-35.0 g/dl Red Cell Distribution Width 15.6 11.0-16.0 % Platelet Count 245 160-400 X10*3/uL Mean Platelet Volume 12.0 9.4-12.3 fL Neutrophils Percent Auto 57.5 45-73 % Imm Gran Pct Auto 0.2 0.0-0.4 % Lymphocytes Percent Auto 30.5 20-40 % Monocytes Percent Auto 8.4 2-11 % Eosinophils Percent Auto 2.5 0-4 % Basophils Percent Auto 0.9 0-2 % NRBC Pct Auto 0.0 0.0-0.2 /100WBC Neutrophils Absolute Auto 3.3 2.0-8.3 x10*3/u L Imm Gran Abs Auto 0.01 0.00-0.03 X10*3/uL Lymphocytes Absolute Auto 1.7 1.2-4.9 X10*3/u L Monocytes Absolute Auto 0.5 0.1-1.2 X10*3/uL Eosinophils Absolute Auto 0.1 0.0-0.4 X10*3/u L Basophils Absolute Auto 0.1 0.0-0.2 X10*3/uL NRBC Abs Auto 0.000 0.0-0.012 X10*3/uL Comprehensive [place]. Panel Fa st Reviewed date:04/21/2025 07:31:28 PM Interpretation: Performing Lab:[facility], [address] [place] [phone] Notes/Report: Sodium 135 135-145 mmol/L Potassium 3.9 3.3-5.1 mmol/L Chloride 96 96-108 mmol/L Carbon Dioxide 26 22-29 mmol/L Anion Gap 17 12-20 Blood Urea Nitrogen 11 9-16 mg/dL Creatinine 0.76 0.5-1.4 mg/dL Estimated Glomerular Filt Rate > 60 Chronic Kidney Disease: Estimated GFR < 60 mL/min/1.73m2 Severe Kidney Disease: Estimated GFR < 15 mL/min/1.73m2 Glucose Fasting 97 60-99 mg/dL Calcium 9.3 8.4-10.2 mg/dL Bilirubin Total 0.9 0.0-1.0 mg/dL Aspartate Amino Transferase 27 5-31 U/L Alanine Aminotransferase 6 0-31 U/L Total Protein 7.1 6.5-8.0 g/dL Albumin Level 3.9 3.5-5.0 g/dL Alkaline Phosphatase 59 39-117 U/L Lipid Panel Reviewed date:04/21/2025 12:37:23 PM Interpretation: Performing Lab:[facility], [address] [place] [phone] Notes/Report: Triglycerides 78 <150 mg/dL Desirable Triglyceride: less than 150 mg/dL Borderline High Triglyceride 150-199 mg/dL High Triglyceride: 200-499 mg/dL Very High Triglyceride: greater than or equal to 5OO mg/dL Cholesterol 142 <200 mg/dL Desirable Cholesterol: less than 200 mg/dL Borderline High Cholesterol: 200-239 mg/dL High Cholesterol: greater than 239 mg/dL LDL Cholesterol Calculated 55 <100 mg/dL Desirable LDL: less than 100 mg/dL Near Optimal/Above Optimal LDL: 110-129 mg/dL Borderline High LDL: 130-159 mg/dL High LDL: 160-189 mg/dL Very High LDL: greater than or equal to 190 mg/dL HDL Cholesterol 72 >40 mg/dL Desirable HDL: greater than 40 mg/dL Note: This HDL assay may give artificially low results in patients with liver disease. Vitamin D 25-OH Total Reviewed date:04/21/2025 12:38:15 PM Interpretation: Performing Lab:[facility], [address] [place] [phone] Notes/Report: Vitamin D 25-OH Total 25.8 >30 ng/mL Health Based Reference Values* < 20 ng/mL Deficient 20-30 ng/mL Insufficient > 30 ng/mL Sufficient *Thang JEROME. N Engl J Med. 2007;357:266-280 There is no well-established upper level of normal vitamin D levels. Some laboratories use 50 ng/mL as an upper limit of normal. However, toxicity is patient-dependent and may occur at any level. Careful correlation with the patient's presentation is necessary and, if there is concern for vitamin D toxicity, treatment should be considered irrespective of the serum level. Care must be taken in interpreting Vitamin [...] as LC-MS/MS. TSH reflex Free T4 Reviewed date:04/21/2025 12:38:06 PM Interpretation: Performing Lab:[facility], [address] [place] [phone] Notes/Report: TSH reflex Free T4 3.84 0.32-4.0 uIU/mL UA ClnCatch+Micro w/rflx Cul t Reviewed date:04/21/2025 07:32:21 PM Interpretation: Performing Lab:[facility], [address] [place] [phone] Notes/Report: Urine, Clean Catch Color Urine Yellow Appearance Urine Turbid PH 6.5 5.0-9.0 Glucose Urine UA Negative Negative mg/dL Urine Blood Moderate (2+) Negative Specific [place] - Urine 1.015 1.005-1.025 Urine Protein Trace Neg-Trace mg/dL Urine Ketones Negative Negative mg/dL Nitrite Urine Positive Negative Leukocyte Esterase Urine Large (3+) Negative RBC Urine 11-20 0-2 /HPF WBC Urine >50 0-5 /HPF Squamous Epithelial Cell Urine 3-5 0-2 /HPF Bacteria Urine 4+ None Seen Hyaline Casts Urine 0-2 0-2 /LPF REASON FOR VISIT yearly fasting labs Encounters Encounter Location Date Provider Diagnosis Larry Meyers MD [address] [place] [address] [place] [phone] 04/21/2025 Larry Meyers Blood tests for routine general physical examination Z00.00 ; Elevated cholesterol E78.00 ; Acquired hypothyroidism E03.9 and Vitamin D deficiency E55.9 Assessments Encounter Date Diagnosis (ICD Code) Assessment Notes Treatment Notes Treatment Clinical Notes Section Notes 04/21/2025 Blood tests for routine general physical examination (ICD-10 - Z00.00) 04/21/2025 Elevated cholesterol (ICD-10 - E78.00) 04/21/2025 Acquired hypothyroidism (ICD-10 - E03.9) 04/21/2025 Vitamin D deficiency (ICD-10 - E55.9) Plan Of Treatment Next Appt Details Provider Name:Larry house, 10/13/2025 08:30:00 AM, [address], [address], [place], [place], [phone], Provider Name:Larry house, 11/18/2025 07:00:00 AM, [address], [address], [place], [place], [phone], Provider Name:Larry Emery ier, 11/25/2025 11:00:00 AM, [address] [facility], [address], [place], [place], [phone], Provider Name:Larry Emery ier, 05/21/2026 07:30:00 AM, [address], Suite [facility], [place], [place], [phone], Provider Name:Larry Emery ier, 05/28/2026 11:00:00 AM, 10 [facility], Suite [facility], [place], [place], [phone], Progress Notes * Yaneth HARVEYOB:1944 (80 yo F)Acc No.[id number]:04/21/2025 Progress Note Patient: Mary TOVAR Provider: Nicho Meyers MD :1945 A ge:80 Y S ex:Female Date:04/21/2025 Address:[address] [place], [place] [phone] Subjective: * Chief Complaints: * 1 . Yearly fasting labs. * Medical History: Objective: * Vitals: Assessment: * Assessment: 1. B lood tests for routine general physical examination - Z00.00 (Primary) 2 .?Elevated cholesterol - E78.00 3 . A cquired hypothyroidism - E03.9 ? 4 . V itamin D deficiency - E55.9 Plan: * Treatment: 2. E levated cholesterol L AB: Complete Blood Count Auto Diff (Collection Date & Time - 04/21/2025 07:15 AM) L AB: Comprehensive [place]. Panel Fast (Collection Date & Time - 04/21/2025 07:15 AM) L AB: Lipid Panel (Collection Date & Time - 04/21/2025 07:15 AM) L AB: Vitamin D 25-OH Total (Collection Date & Time - 04/21/2025 07:15 AM) L AB: TSH reflex Free T4 (Collection Date & Time - 04/21/2025 07:15 AM) L AB: UA ClnCatch+Micro w/rflx Cult (Collection Date & Time - 04/21/2025 07:15 AM) 3. A cquired hypothyroidism L AB: Complete Blood Count Auto Diff (Collection Date & Time - 04/21/2025 07:15 AM) L AB: Comprehensive [place]. Panel Fast (Collection Date & Time - 04/21/2025 07:15 AM) L AB: Lipid Panel (Collection Date & Time - 04/21/2025 07:15 AM) L AB: Vitamin D 25-OH Total (Collection Date & Time - 04/21/2025 07:15 AM) L AB: TSH reflex Free T4 (Collection Date & Time - 04/21/2025 07:15 AM) L AB: UA ClnCatch+Micro w/rflx Cult (Collection Date & Time - 04/21/2025 07:15 AM) 4. V itamin D deficiency L AB: Complete Blood Count Auto Diff (Collection Date & Time - 04/21/2025 07:15 AM) L AB: Comprehensive [place]. Panel Fast (Collection Date & Time - 04/21/2025 07:15 AM) L AB: Lipid Panel (Collection Date & Time - 04/21/2025 07:15 AM) L AB: Vitamin D 25-OH Total (Collection Date & Time - 04/21/2025 07:15 AM) L AB: TSH reflex Free T4 (Collection Date & Time - 04/21/2025 07:15 AM) L AB: UA ClnCatch+Micro w/rflx Cult (Collection Date & Time - 04/21/2025 07:15 AM) * Procedure Codes: 3 6415 VENIPUNCT, ROUTINE* * * The named appointment provid er may or may not be the originator of this progress note, and it is not deemed complete until electronically signed by the appointment provider. Sign off status: Pending * Provider: Nicho Meyers MD Date: 0 04/21/2025 Generated for Marc olivera/Britta/Dennisitting on: 1 11/19/2024 11:30 AM EST
--- OUTSIDE RECORDS SUMMARY | 2025-04-24 07:44 | XMS_ITS ---
Author Organization Larry Meyers MD Address [address] [place] [phone] Care Team Providers Care Athletic Shoe Designer Name Role Phone Mira Larry Primary Care Provider [phone] Medications Medication SIG (Take, Route, Fr equency, Duration) Notes Start Date End Date Status Cephalexin 250 MG 1 capsule Orally twi ce a day for 7 days 04/24/2025 Active Encounters Encounter Location Date Provider Diagnosis Larry Meyers MD [address] [facility] [address] [place] [phone] 04/24/2025 Larry Meyers Plan Of Treatment Medication Medication Name Sig Start Date Stop Date Notes Cephalexin 250 MG 1 capsule Orally twice a day for 7 days 04/24/2025 Next Appt Details Provider Name:Larry house, 10/13/2025 08:30:00 AM, [address] [place] [address], [address] [place] [address], [phone], Provider Name:Larry house, 11/18/2025 07:00:00 AM, [address] [place] [address], [address], [phone], Provider Name:Larry Emery ier, 11/25/2025 11:00:00 AM, [address] [place] [address], [address], [place], [place], [phone], Provider Name:Larry Emery ier, 05/21/2026 07:30:00 AM, [address] [place] [address], Suite [facility], [place], [phone], Provider Name:Larry Emery ier, 05/28/2026 11:00:00 AM, [address] [place] [address], Suite [facility], [place], [phone], Progress Notes * Yaneth HARVEYOB:1944 (80 yo F)Acc No.[id number]:04/24/2025 Patient: Zafar Mary ROSARIO :1945 A ge:80 Y S ex:Female Address:[address] [place] [address], [address] * Refills Start Cephalexin Capsule, 250 MG, Orally, 14 Capsule, 1 capsule, twice a day, 7 days * true * Date: Generated for Marc olivera/Britta/Filomenasmitting on: 11/19/2024 11:30 AM EST
--- OUTSIDE RECORDS SUMMARY | 2025-05-23 06:00 | XMS_ITS ---
Author Organization Larry Meyers MD Address [address] [place] [phone] Care Team Providers Care Cardiac Sonographer Name Role Phone Larry Meyers Primary Care Provider [phone] Allergies No Known Allergies REASON FOR VISIT annual visit Medications Medication SIG (Take, Route, Frequency, Duration) Notes Start Date End Date Status Metoprolol Tartrate 25 MG TAKE ONE TABLE T BY MOUTH EVERY DAY WITH FOOD Orally ONCE A DAY for 90 days Active Jantoven 2.5 MG TAKE 1 TABLET BY MOUTH ONCE A DAY. for 90 Active Simvastatin 20 MG TAKE ONE TABLET BY MOUTH EVERY DAY IN THE EVENING for 90 Active Pantoprazole Sodium 20 MG TAKE ONE TABLE T BY MOUTH EVERY DAY for 30 Active hydroCHLOROthiazide 25 MG TAKE ONE TABLE T BY MOUTH EVERY MORNING for 90 Active Levothyroxine Sodium 25 MCG TAKE ONE TAB LET BY MOUTH EVERY MORNING ON AN EMPTY STOMACH for 90 Active Aspir-81 81 MG 1 tablet Orally Once a day for 30 day(s) Active Vitamin D (Ergocalciferol) 1 .25 MG (58947 UT) take 1 capsule by mouth 2 times a month.. Orally once a week for 90 days Active Social History Tobacco Use: Social History Observation Description Date Details (start date - stop date) Never Smoker NA - NA Tobacco Use/Smoking Question Answer Notes Patient is a nonsmoker Additional Findings: Tobacco Non-User Cu rrent non-smoker, currently using no form of tobacco Alcohol Screen Question Answer Notes Did you have a drink containing alcohol in the p ast year? No Points 0 Interpretation Negative Vital Signs Blood pressure systolic 118 mm Hg 05/23/20 25 Blood pressure diastolic 84 mm Hg 025 Height 58 in 05/23/2025 Weight 183 lbs 05/23/2025 BMI 38.24 kg/m2 05/23/2025 weight is up 3 pounds since 05-16-24 Encounters Encounter Location Date Provider Diagnosis Larry Meyers MD [address] [place] [address] [place] [phone] 05/23/2025 Larry Meyers Annual physical exam Z00.00 ; Acquired hypothyroidism E03.9 ; PFO (patent foramen ovale) Q21.1 and Incisional hernia without obstruction or gangrene K43.2 Assessments Encounter Date Diagnosis (ICD Code) Assessment Notes Treatment Notes Treatment Clinical Notes Section Notes 05/23/2025 Annual physical exam (ICD-10 - Z00.00) Labs reviewed and discussed with patient 05/23/2025 Acquired hypothyroidism (ICD-10 - E03.9) doing well 05/23/2025 PFO (patent foramen ovale) (ICD-10 - Q21.1) remains on coumadin 05/23/2025 Incisional hernia without obstruction or gangrene (ICD-10 - K43.2) Plan Of Treatment Treatment Notes Assessment Notes Annual physical exam Labs reviewed and d iscussed with patient Acquired hypothyroidism doing well PFO (patent foramen ovale) remains on co umadin Next Appt Details Follow Up: 6 Months, Reason: Provider Name:Larry house, 09/18/2025 11:30:00 AM, [address] [place] [address], [address], [phone], Provider Name:Larry house, 10/13/2025 08:30:00 AM, [address] [place] [address], [address], [phone], Provider Name:Larry house, 11/18/2025 07:00:00 AM, [address] [facility], [address], [place], [place], [phone], Provider Name:Larry Emery ier, 11/25/2025 11:00:00 AM, [address] [place] [address], Suite [facility], [place], [place], [phone], Provider Name:Larry Emery ier, 05/21/2026 07:30:00 AM, [address] [place] [address], Suite [facility], [place], [place], [phone], Provider Name:Larry Emery ier, 05/28/2026 11:00:00 AM, [address] [place] [address], Suite [facility], [place], [place], [phone], Progress Notes * CATRACHITOClayton MayeJasonOB:1944 (80 yo F)Acc No.[id number]:05/23/2025 Progress Notes Patient: Zafar GONZALEZClaytonMary Provider: Nicho Meyers MD :1945 A ge:80 Y S ex:Female Date:05/23/2025 Address:[address] [place], [place] [phone] Subjective: * Chief Complaints: * A nnual visit * HPI: D epression Screening: PHQ-9 L ittle interest or pleasure in doing things N ot at all, F eeling down, depressed, or hopeless N ot at all, T rouble falling or staying asleep, or sleeping too much N ot at all, F eeling tired or having little energy N ot at all, P oor appetite or overeating N ot at all, F eeling bad about yourself or that you are a failure, or have let yourself or your family down N ot at all, T rouble concentrating on things, such as reading the newspaper or watching television N ot at all, M oving or speaking so slowly that other people could have noticed; or the opposite, being so fidgety or restless that you have been moving around a lot more than usual N ot at all, T houghts that you would be better off or of hurting yourself in some way N ot at all, T otal Score 0 . I nterpretation and Intervention D epression Screening Findings N egative, F ollow-Up for Depression : review of PHQ-9 found negative result, no follow-up needed. C ommunication Needs: Communication Needs D oes the patient have a hearing impairment N o, D oes the patient have a vision impairment? Y es, I f yes, what is the vision impairment? G lasses, D oes the patient have a cognition impairment? N o. F all Risk: History H ave you had any falls with injury in the past year? N o, H ave you had two or more falls in the past year? N o. S BETTY Questions: SDOH Questions I n the past year have you been worried about losing housing? N o, I n the past year have you or any family members you live with been unable to get any of the following when it was really needed? Check all that apply: N one. S ymptom(s): patient is a 80 yo female here for annual visit with review of recent labs and follow up of chronic issues. * ROS: G eneral/Constitutional: Change in appetite d enies. C hills d enies. F ever d enies. O phthalmologic: Blurred vision d enies. D ischarge d enies. P ain d enies. E NT: Decreased hearing d enies. S ore throat d enies.?Swollen glands d enies. E ndocrine: Cold intolerance d enies. E xcessive thirst d enies. H eat intolerance d enies. W eight loss d enies. R espiratory: Cough d enies. S hortness of breath at rest d enies. S hortness of breath with exertion d enies. W heezing d enies. C ardiovascular: Chest pain at rest d enies. C hest pain with exertion?denies. I rregular heartbeat d enies. S hortness of breath d enies. ? G astrointestinal: Abdominal pain d enies. C hange in bowel habits d enies. D iarrhea d enies. N ausea d enies. R ectal bleeding d enies. V omiting d enies . G enitourinary: Blood in urine d enies. D ifficulty urinating d enies. F requent urination d enies. U rinary incontinence D enies. M usculoskeletal: Painful joints d enies. W eakness d enies. ? S kin: Dry skin d enies. I tching d enies. D enies?Mole(s), changes in moles, new moles or any lesions of concern. D enies P hotosensitivity. R tito d enies. N eurologic: Dizziness d enies. F ainting d enies. H eadache?denies. * Medical History: * Surgical History: * Hospitalization/Major Diagno stic Procedure: * Family History: F ather: 91 yrs. M other: 91 yrs. 4 daughter(s) . . 1 brother 65 Throat cancer Sister 54 Crohn's 1 dceased son Dirt bike accident 34 Father- cardiac Mother Melanoma and colon cancer, Denies mental health/substance abuse family history, Denies mental health/substance abuse family history, Denies mental health/substance abuse family history, Denies mental health/substance abuse family history, No pertinent family medical history. * Social History: T obacco Use: T obacco Use/Smoking P atient is a n onsmoker, A dditional Findings: Tobacco Non-User C urrent non-smoker, currently using no form of tobacco. D rugs/Alcohol: A lcohol Screen D id you have a drink containing alcohol in the past year? N o, P oints 0 , I nterpretation N egative. M iscellaneous: C affeine: yes, frequency:, 1-2 cups per day. Children: yes. Community involvements: no. Exercise: no. Home smoke detector use: yes. Housing: renting. Living with: alone. Marital status: single. Occupation: weeks/months/years, retired. * Medications: T akingAspir-81 81 MG Tablet Delayed Release 1 tablet Orally Once a day Vitamin D (Ergocalciferol) 1.25 MG (23298 UT) Capsule take 1 capsule by mouth 2 times a month.. Orally once a week hydroCHLOROthiazide 25 MG Tablet TAKE ONE TABLET BY MOUTH EVERY MORNING Levothyroxine Sodium 25 MCG Tablet TAKE ONE TABLET BY MOUTH EVERY MORNING ON AN EMPTY STOMACH Simvastatin 20 MG Tablet TAKE ONE TABLET BY MOUTH EVERY DAY IN THE EVENING Pantoprazole Sodium 20 MG Tablet Delayed Release TAKE ONE TABLET BY MOUTH EVERY DAY Metoprolol Tartrate 25 MG Tablet TAKE ONE TABLET BY MOUTH EVERY DAY WITH FOOD Orally ONCE A DAY Jantoven 2.5 MG Tablet TAKE 1 TABLET BY MOUTH ONCE A DAY. Taking Aspir-81 81 MG Tablet Delayed Release 1 tablet Orally Once a day Taking Vitamin D (Ergocalciferol) 1.25 MG (48599 UT) Capsule take 1 capsule by mouth 2 times a month.. Orally once a week Taking hydroCHLOROthiazide 25 MG Tablet TAKE ONE TABLET BY MOUTH EVERY MORNING Taking Levothyroxine Sodium 25 MCG Tablet TAKE ONE TABLET BY MOUTH EVERY MORNING ON AN EMPTY STOMACH Taking Simvastatin 20 MG Tablet TAKE ONE TABLET BY MOUTH EVERY DAY IN THE EVENING Taking Pantoprazole Sodium 20 MG Tablet Delayed Release TAKE ONE TABLET BY MOUTH EVERY DAY Taking Metoprolol Tartrate 25 MG Tablet TAKE ONE TABLET BY MOUTH EVERY DAY WITH FOOD Orally ONCE A DAY Taking Jantoven 2.5 MG Tablet TAKE 1 TABLET BY MOUTH ONCE A DAY. DiscontinuedCephalexin 250 MG Capsule 1 capsule Orally twice a day Medication List reviewed and reconciled with the patientDiscontinued Cephalexin 250 MG Capsule 1 capsule Orally twice a day Medication List reviewed and reconciled with the patient * Allergies: N .K.D.A.yes[Allergies Verified] Objective: * Vitals: H t: 58, Wt: 183, BMI:38.24, BP:118/84, Wt-k.01. weight is up 3 pounds since 05-16-24. * P ast Orders: L ab:Vitamin D 25-OH Total (Order Date - 04/21/2025) (Collection Date & Time - 04/21/2025 07:15 AM) Value Reference Range Vitamin D 25-OH Total 25.8 L >30 - ng/mL L ab:TSH reflex Free T4 (Order Date - 04/21/2025) (Collection Date & Time - 04/21/2025 07:15 AM) Value Reference Range TSH reflex Free T4 3.84 0.32-4.0 - uIU/mL L ab:Lipid Panel (Order Date - 04/21/2025) (Collection Date & Time - 04/21/2025 07:15 AM) Value Reference Range Triglycerides 78 <150 - mg/dL Cholesterol 142 <200 - mg/dL LDL Cholesterol Calculated 55 <100 - mg/dL HDL Cholesterol 72 >40 - mg/dL L ab:Complete Blood Count Auto Diff (Order Date - 04/21/2025) (Collection Date & Time - 04/21/2025 07:15 AM) Value Reference Range White Blood Count 5.7 4.8-10.8 - X10*3/uL Red Blood Count 4.15 L 4.20-5.50 - X10*6/uL Hemoglobin 12.2 12.0-16.0 - g/dl Hematocrit 36.2 L 37.0-47.0 - % Mean Corpuscular Volume 87.2 80.0-98.0 - fL Mean Corpuscular Hemoglobin 29.4 27.0-33.0 - pg Mean Corpuscular HGB Conc 33.7 31.0-35.0 - g/ dl Red Cell Distribution Width 15.6 11.0-16.0 - % Platelet Count 245 160-400 - X10*3/uL Mean Platelet Volume 12.0 9.4-12.3 - fL Neutrophils Percent Auto 57.5 45-73 - % Imm Gran Pct Auto 0.2 0.0-0.4 - % Lymphocytes Percent Auto 30.5 20-40 - % Monocytes Percent Auto 8.4 2-11 - % Eosinophils Percent Auto 2.5 0-4 - % Basophils Percent Auto 0.9 0-2 - % NRBC Pct Auto 0.0 0.0-0.2 - /100WBC Neutrophils Absolute Auto 3.3 2.0-8.3 - x10* 3/uL Imm Gran Abs Auto 0.01 0.00-0.03 - X10*3/uL Lymphocytes Absolute Auto 1.7 1.2-4.9 - X10* 3/uL Monocytes Absolute Auto 0.5 0.1-1.2 - X10*3/ uL Eosinophils Absolute Auto 0.1 0.0-0.4 - X10* 3/uL Basophils Absolute Auto 0.1 0.0-0.2 - X10*3/ uL NRBC Abs Auto 0.000 0.0-0.012 - X10*3/uL L ab:Comprehensive [place]. Panel Fast (Order Date - 04/21/2025) (Collection Date & Time - 04/21/2025 07:15 AM) Value Reference Range Sodium 135 135-145 - mmol/L Bilirubin Total 0.9 0.0-1.0 - mg/dL Aspartate Amino Transferase 27 5-31 - U/L Alanine Aminotransferase 6 0-31 - U/L Total Protein 7.1 6.5-8.0 - g/dL Albumin Level 3.9 3.5-5.0 - g/dL Alkaline Phosphatase 59 39-117 - U/L Potassium 3.9 3.3-5.1 - mmol/L Chloride 96 96-108 - mmol/L Carbon Dioxide 26 22-29 - mmol/L Anion Gap 17 12-20 - Blood Urea Nitrogen 11 9-16 - mg/dL Creatinine 0.76 0.5-1.4 - mg/dL Estimated Glomerular Filt Rate > 60 - Glucose Fasting 97 60-99 - mg/dL Calcium 9.3 8.4-10.2 - mg/dL L ab:Urine Culture (Order Date - 04/21/2025) (Collection Date & Time - 04/21/2025) Value Reference Range O:ESCCOL Escherichia coli - Urine Culture > 100,000 cfu/mL - Ampicillin <=2 S - Ceftriaxone <=0.25 S - Gentamicin <=1 S - Nitrofurantoin <=16 S - Trimethoprim/Sulfamethoxazole <=20 S - Cefepime <=0.12 S - Ciprofloxacin <=0.06 S - Cefazolin (Urine) <=1 S - L ab:UA ClnCatch+Micro w/rflx Cult (Order Date - 04/21/2025) (Collection Date & Time - 04/21/2025 07:15 AM) Value Reference Range Color Urine Yellow - Appearance Urine Turbid - PH 6.5 5.0-9.0 - Glucose Urine UA Negative Negative - mg/dL Urine Blood Moderate (2+) A Negative - Specific [place] - Urine 1.015 1.005-1.025 - Urine Protein Trace Neg-Trace - mg/dL Urine Ketones Negative Negative - mg/dL Nitrite Urine Positive A Negative - Leukocyte Esterase Urine Large (3+) A Negative - RBC Urine 11-20 A 0-2 - /HPF WBC Urine >50 A 0-5 - /HPF Squamous Epithelial Cell Urine 3-5 0-2 - /HP F Bacteria Urine 4+ None Seen - Hyaline Casts Urine 0-2 0-2 - /LPF * Examination: G eneral Examination: GENERAL APPEARANCE: w ell developed, well nourished, in no acute distress. HEAD: n ormocephalic, atraumatic. EYES: p upils equal, round, reactive to light and accommodation, sclera non-icteric. EARS: n ormal. ORAL CAVITY: m ucosa moist. THROAT: c lear. NECK/THYROID: n maryjane supple, full range of motion, no cervical lymphadenopathy, no bruits. SKIN: w arm and dry, no suspicious lesions. HEART: r egular rate and rhythm, S1, S2 normal, no murmurs.? LUNGS: c lear to auscultation bilaterally. BREASTS: N o mass, no lump. ABDOMEN: s oft, nontender, nondistended, bowel sounds present, normal, no organomegaly , no masses palpable, abnormal with large incisional hernia. RECTAL EXAM: d eclined. FEMALE GENITOURINARY: n ot done. EXTREMITIES: n o clubbing, cyanosis, or edema. NEUROLOGIC: n onfocal, motor strength normal upper and lower extremities, sensory exam intact. Assessment: * Assessment: 1. A nnual physical exam - Z00.00 (Primary) 2 . A cquired hypothyroidism - E03.9 3 . P FO (patent foramen ovale) - Q21.1 4 . I ncisional hernia without obstruction or gangrene - K43.2 Plan: * Treatment: 2. A cquired hypothyroidism Notes: doing well 3. P FO (patent foramen ovale) Notes: remains on coumadin * Procedure Codes: * Preventive Medicine: Counseling: C are goal follow-up plan: C ounseling for abnormal BMI provided?Yes, A reshma Normal BMI Follow-up G iving encouragement to exercise. * Follow Up: 6 Months * * Sign off status: Completed true * Provider: Nicho Meyers MD Date: 0 05/23/2025 Generated for Marc olivera/Britta/eTransmitting on: 1 11/19/2024 11:28 AM EST History and Physical Notes * HPI (History of Present Illness) Category Sub-Category Detail Notes Category Not es Symptom(s) patient is a 80 yo female here for annual visit with review of recent labs and follow up of chronic issues Depression Screening PHQ-9 Little inte rest or pleasure in doing things: Not at all Feeling down, depressed, or hopeless: No t at all Trouble falling or staying asleep, or sl eeping too much: Not at all Feeling tired or having little energy: N ot at all Poor appetite or overeating: Not at all Feeling bad about yourself o r that you are a failure, or have let yourself or your family down: Not at all Trouble concentrating on thi ngs, such as reading the newspaper or watching television: Not at all Moving or speaking so slowly that other people could have noticed; or the opposite, being so fidgety or restless that you have been moving around a lot more than usual: Not at all Thoughts that you would be b holden off or of hurting yourself in some way: Not at all Total Score: 0 Interpretation and Intervention Depression Ruma olmstead Findings: Negative Follow-Up for Depression: : review of PH Q-9 found negative result, no follow-up needed SDOH Questions SDOH Questions In the past year have you been worried about losing housing?: No In the past year have you or any family members you live with been unable to get any of the following when it was really needed? Check all that apply:: None Fall Risk History Have you had any falls with injury i n the past year?: No Have you had two or more falls in the st year?: No Communication Needs Communication Needs Does the patient have a hearing impairment: No Does the patient have a vision impairmen t?: Yes If yes, what is the vision impairment?: Glasses Does the patient have a cognition impair ment?: No Examination Category Sub-Category Detail Notes Category Not es General Examination GENERAL APPEARANCE: well dev eloped, well nourished, in no acute distress HEAD: normocephalic, atrau matic EYES: pupils equal, round, reactive to light and accommodation, sclera non-icteric EARS: normal THROAT: clear NECK/THYROID: neck supple, full ra nge of motion, no cervical lymphadenopathy, no bruits HEART: regular rate and rhy thm, S1, S2 normal, no murmurs LUNGS: clear to auscultatio n bilaterally ABDOMEN: soft, nontender, non distended, bowel sounds present, normal, no organomegaly , no masses palpable, abnormal with large incisional hernia NEUROLOGIC: nonfocal, motor stre ngth normal upper and lower extremities, sensory exam intact SKIN: warm and dry, no yair picious lesions EXTREMITIES: no clubbing, cyanosi s, or edema BREASTS: No mass, no lump RECTAL EXAM: declined FEMALE GENITOURINARY: not done ORAL CAVITY: mucosa moist
--- OUTSIDE RECORDS SUMMARY | 2025-06-06 02:45 | XMS_ITS ---
Author Organization Larry Meyers MD Address [address] [place] [phone] Care Team Providers Care Vfx Artist Name Role Phone Larry Meyers Primary Care Provider REASON FOR VISIT HDF Immunizations Vaccine Route Administration Date Status Comme nts Influenza High Dose IM Intramuscular 06/06/2025 Administer ed Encounters Encounter Location Date Provider Diagnosis Larry Meyers MD 10 [facility] [address] [place] [phone] 06/06/2025 Larry Meyers Encounter for administration of vaccine Z23 Assessments Encounter Date Diagnosis (ICD Code) Assessment Notes Treatment Notes Treatment Clinical Notes Section Notes 06/06/2025 Encounter for administration of vaccine (ICD-10 - Z23) Plan Of Treatment Next Appt Details Provider Name:Larry house, 09/18/2025 11:30:00 AM, [address] [place] [address], [address], [phone], Provider Name:Larry house, 10/13/2025 08:30:00 AM, [address] [place] [address], [address], [phone], Provider Name:Larry Emery ier, 11/18/2025 07:00:00 AM, [facility], [address], [place], [phone], Provider Name:Larry Emery ier, 11/25/2025 11:00:00 AM, [facility], [address] [facility], [place], [phone], Provider Name:Larry Emery ier, 05/21/2026 07:30:00 AM, [address] [facility], [address], [place], [place], [phone], Provider Name:Larry Emery ier, 05/28/2026 11:00:00 AM, [address] [place] [address], [address] [facility], [place], [phone], Progress Notes * ZITAYaneth BRAMBILAOB:1944 (80 yo F)Acc No.[id number]:06/06/2025 Progress Note Patient: Mary TOVAR Provider: Nicho Meyers MD :1945 A ge:80 Y S ex:Female Date:06/06/2025 Address:[address] [place], [place] [phone] Subjective: * Chief Complaints: * 1 . HDF. * Medical History: Objective: * Vitals: Assessment: * Assessment: 1. E ncounter for administration of vaccine - Z23 (Primary) Plan: * Treatment: * Immunizations: Influenza High Dose : 0.5 mL (Dose No:1) (Route: Intramuscular) given by Harper Santiago , Office Staff on Left Deltoid * Procedure Codes: 9 0662 FLU VACC PRSV FREE INC ANTIG, G0008 ADMN FLU VAC NO FEE SCHED SAME DAY * * The named appointment provid er may or may not be the originator of this progress note, and it is not deemed complete until electronically signed by the appointment provider. Sign off status: Pending * Provider: Nicho Meyers MD Date: 0 06/06/2025 Generated for Printi ng/Britta/Rosemary on: 1 11/19/2024 11:27 AM EST
--- OUTSIDE RECORDS SUMMARY | 2025-07-31 06:17 | XMS_ITS ---
Author Organization Larry Meyers MD Address [address] [facility] [address] [place] [phone] Care Team Providers Care Extension Forester Name Role Phone Mira Larry Primary Care Provider [phone] REASON FOR VISIT refill Medications Medication SIG (Take, Route, Frequency, Duration) Notes Start Date End Date Status Pantoprazole Sodium 20 MG TAKE ONE TABLE T BY MOUTH EVERY DAY for 30 Active Encounters Encounter Location Date Provider Diagnosis Larry Meyers MD [address] [facility] [address] [place] [id number] 07/31/2025 Larry Meyers Plan Of Treatment Medication Medication Name Sig Start Date Stop Date Notes Pantoprazole Sodium 20 MG TAKE ONE TABLE T BY MOUTH EVERY DAY for 30 Next Appt Details Provider Name:Larry house, 09/18/2025 11:30:00 AM, [address] [place] [address], [address], [phone], Provider Name:Larry house, 10/13/2025 08:30:00 AM, [address] [place] [address], [phone], Provider Name:Larry Emery ier, 11/18/2025 07:00:00 AM, [address] [place] [address], [address], [place], [phone], Provider Name:Larry Emery ier, 11/25/2025 11:00:00 AM, [address] [place] [address], Suite [facility], [place], [phone], Provider Name:Larry Emery ier, 05/21/2026 07:30:00 AM, [address] [place] [address], Suite [facility], [place], [place], [phone], Provider Name:Larry Emery ier, 05/28/2026 11:00:00 AM, [address] [place] [address], Suite [facility], [place], [phone], Progress Notes * Yaneth HARVEYOB:1944 (80 yo F)Acc No.[id number]:07/31/2025 Patient: Zafar Mary ROSARIO :1945 A ge:80 Y S ex:Female Address:[address] [place] [address], [id number] * Refills Refill Pantoprazole Sodium Tablet Delayed Release, 20 MG, 30 Tablet, TAKE ONE TABLET BY MOUTH EVERY DAY, 30, Refills=12 * true * Date: Generated for Marc olivera/Britta/Filomenasmitting on: 11/19/2024 11:27 AM EST
--- OUTSIDE RECORDS SUMMARY | 2025-09-12 08:00 | XMS_ITS ---
Author Organization Larry Meyers MD Address [address] [place] [phone] Care Team Providers Care Contact Center Manager Name Role Phone Larry Meyers Primary Care Provider REASON FOR VISIT ER Encounters Encounter Location Date Provider Diagnosis Larry Meyers MD [facility] [address] [place] [phone] 09/12/2025 Larry Meyers Plan Of Treatment Next Appt Details Provider Name:Larry house, 09/18/2025 11:30:00 AM, [address] [place] [address], [address], [phone], Provider Name:Larry house, 10/13/2025 08:30:00 AM, [address] [place] [address], [address], [phone], Provider Name:Larry house, 11/18/2025 07:00:00 AM, [address] [place] [address], [address], [phone], Provider Name:Larry Emery ier, 11/25/2025 11:00:00 AM, [address], [address], [place], [place], [phone], Provider Name:Larry Emery ier, 05/21/2026 07:30:00 AM, [address] [facility], [address], [place], [place], [phone], Provider Name:Larry Emery ier, 05/28/2026 11:00:00 AM, [address], [address], [place], [place], [phone], Progress Notes * Yaneth HARVEYOB:1944 (80 yo F)Acc No.[id number]:09/12/2025 Patient: Zafar ROASRIO Mary :1945 A ge:80 Y S ex:Female Address:[address] [place] [address], [id number] * true * Date: Generated for Marc olivera/Britta/eTransmitting on: 11/19/2024 11:27 AM EST
--- OUTSIDE RECORDS SUMMARY | 2025-09-18 06:30 | XMS_ITS ---
Author Organization Larry Meyers MD Address [address] [place] [phone] Care Team Providers Care Securities Sales Associate Name Role Phone Larry Meyers Primary Care Provider Allergies No Known Allergies REASON FOR VISIT F/U ERV Popliteal cyst, Needs to see Ortho Medications Medication SIG (Take, Route, Frequency, Duration) Notes Start Date End Date Status Simvastatin 20 MG TAKE ONE TABLET BY MOUTH EVERY DAY IN THE EVENING for 90 Active Vitamin D (Ergocalciferol) 1 .25 MG (24047 UT) TAKE 1 CAPSULE BY MOUTH ONCE WEEKLY for 84 Active hydroCHLOROthiazide 25 MG TAKE ONE TABLE T BY MOUTH EVERY MORNING for 90 Active Levothyroxine Sodium 25 MCG TAKE ONE TAB LET BY MOUTH EVERY MORNING ON AN EMPTY STOMACH for 90 Active Pantoprazole Sodium 20 MG TAKE ONE TABLE T BY MOUTH EVERY DAY for 30 Active Metoprolol Tartrate 25 MG TAKE ONE TABLE T BY MOUTH EVERY DAY WITH FOOD Orally ONCE A DAY for 90 days Active Jantoven 2.5 MG TAKE 1 TABLET BY MOUTH ONCE A DAY. for 90 Active Aspir-81 81 MG 1 tablet Orally Once a day for 30 day(s) Active Vital Signs Blood pressure systolic 122 mm Hg 09/18/20 25 Blood pressure diastolic 84 mm Hg 025 Height 58 in 09/18/2025 Weight 188 lbs 09/18/2025 BMI 39.29 kg/m2 09/18/2025 weight is up 5 pounds since 05-23-25 Encounters Encounter Location Date Provider Diagnosis Larry Meyers MD [address] [place] [address] [place] [phone] 09/18/2025 Larry Meyers Plan Of Treatment Next Appt Details Provider Name:Larry danielsonr, 09/18/2025 11:30:00 AM, [address] [place] [address], [place] [address], [place], [place], [phone], Provider Name:Larry house, 10/13/2025 08:30:00 AM, [address] [place] [address], [address], [phone], Provider Name:Larry danielsonr, 11/18/2025 07:00:00 AM, [address] [place] [address], [address], [phone], Provider Name:Larry danielsonr, 11/25/2025 11:00:00 AM, [address] [place] [address], [address], [phone], Provider Name:Larry danielsonr, 05/21/2026 07:30:00 AM, [address] [place] [address], [address], [phone], Provider Name:Larry danielsonr, 05/28/2026 11:00:00 AM, [address] [place] [address], [address], [phone], Progress Notes * Yaneth HARVEYOB:1944 (80 yo F)Acc No.[id number]:09/18/2025 Progress Notes Patient: Zafar JESIMARY ALICEClaytonMary Provider: Nicho Meyers MD :1945 A ge:80 Y S ex:Female Date:09/18/2025 Address:[address] [place], [place] [phone] Subjective: * Chief Complaints: * 1 . F/U ERV Popliteal cyst. 2. Needs to see Ortho. * HPI: S ymptom(s): patient is a 80 yo female here for follow up to recent ER visit. * ROS: G eneral/Constitutional: Denies C hills. D enies F atigue. D enies F ever. D enies H eadache. E NT: Denies S ore throat. R espiratory: Denies C ough. D enies S hortness of breath at rest. D enies S hortness of breath with exertion. G astrointestinal: Denies D iarrhea. D enies N ausea. * Medical History: S troke X 2 in 11/08 and 08/10, Refuses Colonoscopy 04/20/18; refused 04/2019, Hematuria chronic and has been evaluated. * Medications: T aking Aspir-81 81 MG Tablet Delayed Release 1 tablet Orally Once a day , Taking Metoprolol Tartrate 25 MG Tablet TAKE ONE TABLET BY MOUTH EVERY DAY WITH FOOD Orally ONCE A DAY , Taking Jantoven 2.5 MG Tablet TAKE 1 TABLET BY MOUTH ONCE A DAY. , Taking hydroCHLOROthiazide 25 MG Tablet TAKE ONE TABLET BY MOUTH EVERY MORNING , Taking Simvastatin 20 MG Tablet TAKE ONE TABLET BY MOUTH EVERY DAY IN THE EVENING , Taking Vitamin D (Ergocalciferol) 1.25 MG (57988 UT) Capsule TAKE 1 CAPSULE BY MOUTH ONCE WEEKLY , Taking Levothyroxine Sodium 25 MCG Tablet TAKE ONE TABLET BY MOUTH EVERY MORNING ON AN EMPTY STOMACH , Taking Pantoprazole Sodium 20 MG Tablet Delayed Release TAKE ONE TABLET BY MOUTH EVERY DAY , Medication List reviewed and reconciled with the patient * Allergies: N .K.D.A. Objective: * Vitals: H t: 58, Wt: 188, BMI:39.29, BP:122/84, Wt-k.28. weight is up 5 pounds since 05-23-25. Assessment: Plan: * Treatment: * * The named appointment provid er may or may not be the originator of this progress note, and it is not deemed complete until electronically signed by the appointment provider. Sign off status: Pending * Provider: Nicho Meyers MD Date: 11/19/2024 Generated for Marc olivera/Britta/Dennisitting on: 11/19/2024 11:28 AM EST History and Physical Notes * HPI (History of Present Illness) Category Sub-Category Detail Notes Category Not es Symptom(s) patient is a 80 yo female here for follow up to recent ER visit
[2025-09-18 10:01] LABS: Prothrombin Time Whole Bld POC 35.9 sec (11.1-13.5); ~PT, ~INR - Anti Coag Clinic 3.0 (0.9-1.1)
--- NOTE | 2025-09-18 10:08 | MHC.OFFVISCO ---
Intake Intake Visit Reasons: Anticoagulation Allergies cat dander (CATS) Adverse Reaction (Mild, Verified 09/18/25 09:53) RASH raspberry (RASPBERRY) Adverse Reaction (Mild, Verified 09/18/25 09:53) RASH Medication List - Last Reconciled 09/18/25 by Consuelo Knowles RN aspirin (Adult Aspirin Regimen) 81 mg PO DAILY ergocalciferol (vitamin D2) 1,250 mcg PO QMONTH hydrochlorothiazide 25 mg PO QAM levothyroxine 25 mcg PO QAM metoprolol tartrate 25 mg PO DAILY pantoprazole (Protonix) 20 mg PO DAILY prednisone 40 mg (2 x 20 mg) PO BID simvastatin 20 mg PO BEDTIME warfarin 2.5 mg See Protocol PO DAILY Nursing Note PT.FINISHED PREDNISONE 1 WEEK AGO, AND HAS MINIMAL LEG DISCOMFORT. PT.IS WALKING WELL WITH THE WALKER AND DENIES ANY CP,SOB OR SX OF BLEEDING. CONTINUE 2.5MGM DAILY AND FOLLOW-UP IN 4 WEEKS GOOD UNDERSTANDING OF DOSING INSTR. 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
--- OUTSIDE RECORDS SUMMARY | 2025-09-18 11:31 | XMS_ITS | Patient Health Record ---
Author Organization Larry Meyers MD Address [address] [place] [phone] Care Team Providers Care Heel Sander Name Role Phone Mira Larry Primary Care Provider Allergies No Known Allergies Results Component Value Reference Range Notes Vitamin D 25-OH Total Reviewed date:10/24/2024 05:34:57 PM Interpretation: Performing Lab:[facility], [address] [place] [phone] Notes/Report: Vitamin D 25-OH Total 23.7 >30 [...] ff Reviewed date:04/21/2025 07:32:40 PM Interpretation: Performing Lab:[facility], [address] [place] [phone] Notes/Report: White Blood Count 5.7 4.8-10.8 X10*3/uL [...] NRBC Abs Auto 0.000 0.0-0.012 X10*3/uL Comprehensive Ham[place]. Panel Fa st Reviewed date:04/21/2025 07:31:28 PM Interpretation: Performing Lab:[facility], [address] [place] [phone] Notes/Report: Sodium 135 135-145 mmol/L Potassium 3.9 [...] Panel Reviewed date:04/21/2025 12:37:23 PM Interpretation: Performing Lab:[address] [phone] Notes/Report: Triglycerides 78 <150 mg/dL Desirable Triglyceride: [...] Total Reviewed date:04/21/2025 12:38:15 PM Interpretation: Performing Lab:[address] [phone] Notes/Report: Vitamin D 25-OH Total 25.8 >30 [...] T4 Reviewed date:04/21/2025 12:38:06 PM Interpretation: Performing Lab:[address] [phone] Notes/Report: TSH reflex Free T4 3.84 0.32-4.0 uIU/mL UA ClnCatch+Micro w/rflx Cul t Reviewed date:04/21/2025 07:32:21 PM Interpretation: Performing Lab:[address] [phone] Notes/Report: Urine, Clean Catch Color Urine Yellow Appearance Urine Turbid PH 6.5 5.0-9.0 Glucose Urine UA Negative Negative mg/dL Urine Blood Moderate (2+) Negative Specific Laurel - Urine 1.015 1.005-1.025 Urine Protein Trace Neg-Trace mg/dL Urine Ketones Negative Negative mg/dL Nitrite Urine Positive Negative Leukocyte Esterase Urine Large (3+) Negative RBC Urine 11-20 0-2 /HPF WBC Urine >50 0-5 /HPF Squamous Epithelial Cell Urine 3-5 0-2 /HPF Bacteria Urine 4+ None Seen Hyaline Casts Urine 0-2 0-2 /LPF INR WHOLE BLOOD POC Reviewed date:10/10/2024 12:28:00 PM Interpretation: Performing Lab:[address] [phone] Notes/Report: PT, INR - [facility] 3.4 0.9-1.1 METER #: [id number] INTERNATIONAL NORMALIZED RATIO (INR) REFERENCE RANGES Reference [...] OC Reviewed date:10/10/2024 12:28:08 PM Interpretation: Performing Lab:[facility], [address] [place] [phone] Notes/Report: Prothrombin Time Whole Bld POC 40.5 11.1-13.5 sec INR WHOLE BLOOD POC Reviewed date:11/11/2024 12:31:06 PM Interpretation: Performing Lab:[facility], [address] [place] [phone] Notes/Report: PT, INR - [facility] 2.2 0.9-1.1 METER #: [id number] INTERNATIONAL NORMALIZED RATIO (INR) REFERENCE RANGES Reference [...] OC Reviewed date:11/11/2024 12:30:58 PM Interpretation: Performing Lab:[facility], [address] [place] [phone] Notes/Report: Prothrombin Time Whole Bld POC 26.1 11.1-13.5 sec INR WHOLE BLOOD POC Reviewed date:12/09/2024 12:45:34 PM Interpretation: Performing Lab:[facility], [address] [place] [phone] Notes/Report: PT, INR - [facility] 3.1 0.9-1.1 METER #: [id number] INTERNATIONAL NORMALIZED RATIO (INR) REFERENCE RANGES Reference [...] OC Reviewed date:12/09/2024 12:33:13 PM Interpretation: Performing Lab:[facility], [address] [place] [phone] Notes/Report: Prothrombin Time Whole Bld POC 37.8 11.1-13.5 sec INR WHOLE BLOOD POC Reviewed date:01/01/2025 02:06:32 PM Interpretation: Performing Lab:[facility], [address] [place] [phone] Notes/Report: PT, INR - [facility] 2.1 0.9-1.1 METER #: [id number] INTERNATIONAL NORMALIZED RATIO (INR) REFERENCE RANGES Reference [...] OC Reviewed date:01/01/2025 02:06:39 PM Interpretation: Performing Lab:[facility], [address] [place] [phone] Notes/Report: Prothrombin Time Whole Bld POC 24.8 11.1-13.5 sec INR WHOLE BLOOD POC Reviewed date:01/30/2025 01:25:36 PM Interpretation: Performing Lab:[facility], [address] [place] [phone] Notes/Report: PT, INR - [facility] 2.2 0.9-1.1 METER #: [id number] INTERNATIONAL NORMALIZED RATIO (INR) REFERENCE RANGES Reference [...] OC Reviewed date:01/30/2025 02:55:34 PM Interpretation: Performing Lab:[facility], [address] [place] [phone] Notes/Report: Prothrombin Time Whole Bld POC 26.7 11.1-13.5 sec INR WHOLE BLOOD POC Reviewed date:02/27/2025 12:33:32 PM Interpretation: Performing Lab:[facility], [address] [place] [phone] Notes/Report: PT, INR - [facility] 3.0 0.9-1.1 METER #: [id number] INTERNATIONAL NORMALIZED RATIO (INR) REFERENCE RANGES Reference [...] OC Reviewed date:02/27/2025 12:35:18 PM Interpretation: Performing Lab:[facility], [address] [place] [phone] Notes/Report: Prothrombin Time Whole Bld POC 36.1 11.1-13.5 sec INR WHOLE BLOOD POC Reviewed date:03/27/2025 01:50:34 PM Interpretation: Performing Lab:[facility], [address] [place] [phone] Notes/Report: PT, INR - [facility] 2.1 0.9-1.1 METER #: [id number] INTERNATIONAL NORMALIZED RATIO (INR) REFERENCE RANGES Reference [...] OC Reviewed date:03/27/2025 02:15:19 PM Interpretation: Performing Lab:[address] [phone] Notes/Report: Prothrombin Time Whole Bld POC 25.2 11.1-13.5 sec Hold Gold Reviewed date:04/21/2025 12:36:24 PM Interpretation: Performing Lab:[address] [phone] Notes/Report: [place] Gold See Note Specimen held untested for 24 hours; Call to request Chemistry testing. Urine Culture Reviewed date:04/24/2025 12:37:00 PM Interpretation: Performing Lab:[facility], [address] [place] [phone] Notes/Report: O:ESCCOL Escherichia coli Urine Culture Quant Urine Culture > 100,000 cfu/mL Ampicillin <=2 Cefazolin (Urine) <=1 Cefepime <=0.12 Ceftriaxone <=0.25 Ciprofloxacin <=0.06 Gentamicin <=1 Nitrofurantoin <=16 Trimethoprim/Sulfamethoxaz ole <=20 INR WHOLE BLOOD POC Reviewed date:04/24/2025 12:31:15 PM Interpretation: Performing Lab:[address] [phone] Notes/Report: PT, INR - [facility] 3.0 0.9-1.1 METER #: [id number] INTERNATIONAL NORMALIZED RATIO (INR) REFERENCE RANGES Reference [...] OC Reviewed date:04/24/2025 12:31:23 PM Interpretation: Performing Lab:[facility], [address] [place] [phone] Notes/Report: Prothrombin Time Whole Bld POC 36.3 11.1-13.5 sec INR WHOLE BLOOD POC Reviewed date:05/01/2025 02:46:11 PM Interpretation: Performing Lab:[facility], [address] [place] [phone] Notes/Report: PT, INR - [facility] 1.6 0.9-1.1 METER #: [id number] INTERNATIONAL NORMALIZED RATIO (INR) REFERENCE RANGES Reference [...] OC Reviewed date:05/01/2025 02:46:04 PM Interpretation: Performing Lab:[facility], [address] [place] [phone] Notes/Report: Prothrombin Time Whole Bld POC 19.5 11.1-13.5 sec INR WHOLE BLOOD POC Reviewed date:05/09/2025 04:18:34 PM Interpretation: Performing Lab:[facility], [address] [place] [phone] Notes/Report: PT, INR - [facility] 2.3 0.9-1.1 METER #: [id number] INTERNATIONAL NORMALIZED RATIO (INR) REFERENCE RANGES Reference [...] OC Reviewed date:05/09/2025 04:18:24 PM Interpretation: Performing Lab:[facility], [address] [place] [phone] Notes/Report: Prothrombin Time Whole Bld POC 27.8 11.1-13.5 sec INR WHOLE BLOOD POC Reviewed date:06/06/2025 12:46:50 PM Interpretation: Performing Lab:[facility], [address] [place] [phone] Notes/Report: PT, INR - [facility] 2.1 0.9-1.1 METER #: [id number] INTERNATIONAL NORMALIZED RATIO (INR) REFERENCE RANGES Reference [...] OC Reviewed date:06/06/2025 12:48:16 PM Interpretation: Performing Lab:[facility], [address] [place] [phone] Notes/Report: Prothrombin Time Whole Bld POC 25.4 11.1-13.5 sec INR WHOLE BLOOD POC Reviewed date:07/04/2025 11:43:53 AM Interpretation: Performing Lab:[facility], [address] [place] [phone] Notes/Report: PT, INR - [facility] 3.3 0.9-1.1 METER #: [id number] INTERNATIONAL NORMALIZED RATIO (INR) REFERENCE RANGES Reference [...] OC Reviewed date:07/04/2025 11:40:32 AM Interpretation: Performing Lab:[facility], [address] [place] [phone] Notes/Report: Prothrombin Time Whole Bld POC 39.4 11.1-13.5 sec INR WHOLE BLOOD POC Reviewed date:07/17/2025 12:56:34 PM Interpretation: Performing Lab:[facility], [address] [place] [phone] Notes/Report: PT, INR - [facility] 2.5 0.9-1.1 METER #: [id number] INTERNATIONAL NORMALIZED RATIO (INR) REFERENCE RANGES Reference [...] OC Reviewed date:07/17/2025 06:08:50 PM Interpretation: Performing Lab:[facility], [address] [place] [phone] Notes/Report: Prothrombin Time Whole Bld POC 30.2 11.1-13.5 sec INR WHOLE BLOOD POC Reviewed date:08/14/2025 12:43:35 PM Interpretation: Performing Lab:[facility], [address] [place] [phone] Notes/Report: PT, INR - [facility] 3.5 0.9-1.1 METER #: [id number] INTERNATIONAL NORMALIZED RATIO (INR) REFERENCE RANGES Reference [...] Prothrombin Time Whole Bld P OC Reviewed date:08/14/2025 12:43:50 PM Interpretation: Performing Lab:[facility], [address] [place] [phone] Notes/Report: Prothrombin Time Whole Bld POC 41.5 11.1-13.5 sec INR WHOLE BLOOD POC (Not yet reviewed by provider) Interpretation: Performing Lab:[facility], [address] [place] [phone] Notes/Report: PT, INR - [facility] 3.0 0.9-1.1 METER #: [id number] INTERNATIONAL NORMALIZED RATIO (INR) REFERENCE RANGES Reference [...] (Not yet reviewed by provider) Interpretation: Performing Lab:[facility], [address] [place] [phone] Notes/Report: Prothrombin Time Whole Bld POC 35.9 11.1-13.5 sec Reason For Referral No Information Medications Medication SIG (Take, Route, Frequency, Duration) Notes Start Date End Date Status Simvastatin 20 MG TAKE ONE TABLET BY MOUTH EVERY DAY IN THE EVENING for 90 Active Vitamin D (Ergocalciferol) 1 .25 MG (05951 UT) TAKE 1 CAPSULE BY MOUTH ONCE [...] Once a day for 30 day(s) Active Levothyroxine Sodium 25 MCG TAKE ONE TAB LET BY MOUTH EVERY MORNING ON AN EMPTY STOMACH for 90 Active Pantoprazole Sodium 20 MG TAKE ONE TABLE T BY MOUTH EVERY DAY for 30 Active Immunizations Vaccine Route Administration Date Status Comme nts Flu Vaccine IM Intramuscular 05/24/2017 Administered Had f geno vaccine while a patient of Dr. Ace Delacruz's. PPSV23 (Pnemovax) Unknown 06/19/2014 Administered Had a t [facility] [place] Tetanus IM Intramuscular 12/25/[address] [facility] Fluarix Quadrivalent IM Intramuscular 06/25/2018 [facility] mauri Prevnar 13 IM Intramuscular 10/29/2018 Administered Fluarix Quadrivalent IM Intramuscular 06/11/2019 [facility]i PPSV23 (Pnemovax) IM Intramuscular 06/20/2019 Administered Fluarix Quadrivalent IM Intramuscular 05/27/2020 [facility] Influenza High Dose IM Intramuscular [...] Problem Status W/U Status Risk Notes Problem 56446163 Age-related osteoporosis without current pathological fracture (M81.0) Active confirmed Problem 09094073 Vitamin D defici ency (E55.9) Active confirmed Problem 74374744 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) Active confirmed Problem 536746872 Other specified menopausal and perimenopausal disorders (N95.8) Active confirmed Problem 86518051 Essential hypert ension (I10) Active confirmed Problem 717381954 Acquired hypothyroidism (E03.9) Active confirmed Problem 015691113 History of pulmo nary embolism (Z86.711) Active confirmed Problem 276286940 History of CVA (cerebrovascular accident) (Z86.73) Active confirmed Problem 74612788 Reflux gastritis (K29.60) Active confirmed Problem Acute idiopathic gout of right hand (M10.041) Active confirmed Problem 22687790 Elevated cholest rena (E78.00) Active confirmed Problem 984305961 Microscopic qamar turia (R31.29) Active confirmed Problem 95541501 Hypercholesterem ia (E78.00) Active confirmed Problem 19437624 Clotting disorde r (D68.9) Active confirmed Problem 251986224 PFO (patent fora men ovale) (Q21.1) Active confirmed Problem 18816045 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 Vital Signs Blood pressure diastolic 84 mm Hg 09/18/2025 km ght is up 5 pounds since 05-23-25 Height 58 in 09/18/2025 weight is up 5 pounds since 05-23-25 Blood pressure systolic 122 mm Hg 09/18/2025 weig ht is up 5 pounds since 05-23-25 Weight 188 lbs 09/18/2025 weight is up 5 pounds since 05-23-25 BMI 39.29 kg/m2 09/18/2025 weight is up 5 pounds since 05-23-25 Encounters Encounter Location Date Provider Diagnosis Larry Meyers MD [address] [place] [id number] 10/24/2024 Larry Meyers Vitamin D deficiency E55.9 Larry Meyers MD [address] [place] [id number] 04/21/2025 Larry Meyers Blood tests for routine general physical examination Z00.00 ; Elevated cholesterol E78.00 ; Acquired hypothyroidism E03.9 and Vitamin D deficiency E55.9 Larry Meyers MD [address] [place] [id number] 06/06/2025 Larry Meyers Encounter for administration of vaccine Z23 Larry Meyers MD [address] [place] [id number] 09/18/2025 Larry Meyers MD [address] [place] [id number] 05/23/2025 Larry Meyers Annual physical exam Z00.00 ; Acquired hypothyroidism E03.9 ; PFO (patent foramen ovale) Q21.1 and Incisional hernia without obstruction or gangrene K43.2 Larry Meyers MD [address] [place] [address] [id number] 10/08/2024 Larry Meyers Clotting disorder D68.9 Larry Meyers MD [address] [place] [id number] 04/24/2025 Larry Meyers MD [address] [place] [address] [id number] 07/31/2025 Larry Meyers MD [address] [place] [address] [place] [id number] 09/12/2025 Larry Meyers Assessments Encounter Date Diagnosis (ICD [...] Acquired hypothyroidism (ICD-10 - E03.9) doing well 10/08/2024 Clotting disorder (ICD-10 - D68.9) 04/21/2025 [...] BILATERAL SCREEN 04/14 INR WHOLE BLOOD POC 09/18/2025 Prothrombin Time Whole Bld POC XR DEXA axial skeleton 04/19/2022 Next Appt Details Provider Name:Larry house, 10/13/2025 08:30:00 AM, [address] [place] [address], [place] [address], [place], [place], [phone], Provider Name:Larry house, 11/18/2025 07:00:00 AM, [address] [place] [address], [address], [phone], Provider Name:Larry house, 11/25/2025 11:00:00 AM, [address] [place] [address], [address], [phone], Provider Name:Larry Emery ier, 05/21/2026 07:30:00 AM, [address], [address], [place], [phone], Provider Name:Larry Emery ier, 05/28/2026 11:00:00 AM, [address], [address], [place], [phone], Insurance Providers Payer Name Payer Address Payer Phone Subscriber Number Group Number Insured Name Patient Relationship to Insured Coverage Start Date Coverage End Date [facility] [employer] [address] [address] [place] [address] [id number] Regina Maye trejoe Self - patient is the insured MEDICARE [employer] [address] [place] [id number] Mary Turcios Self - patient is the insured Medical (General) History Medical History History ICD Code Stroke X 2 in 11/08 and 08/10 Refuses Colonoscopy 04/20/18; refused 04/02 019 hematuria chronic and has been evaluated Surgical History Surgery Date(Month/Year) Repair gallstone ileius & Umbilical Serg ia (Dr. Wilson) 11/2018
== END 2025-09-18 10:11 | disposition home or self-care (01) ==
LOC: HO.ACS 09:44
PROVIDERS: PCP Internal Medicine; Visit Provider Internal Medicine Medical Oncology
DX: Z79.01 Long term (current) use of anticoagulants (principal)

== ENCOUNTER → 2025-09-18 09:44 | Outpatient (BNVA) | payer MEDICARE, SELFPAY | PROVIDERS: PCP Internal Medicine; Visit Provider Internal Medicine Medical Oncology | DX: Z86.73 Personal history of transient ischemic attack (TIA), and cerebral infarction without residual deficits (principal); Z79.01 Long term (current) use of anticoagulants; Z51.81 Encounter for therapeutic drug level monitoring | CPT/HCPCS: 80051; 85610; 99211 ==

== ENCOUNTER 2025-09-18 13:11 | Outpatient (REF) | payer MEDICARE, SELFPAY ==
[2025-09-18 13:44] LABS: Anion Gap 13 (12-20); Carbon Dioxide 29 mmol/L (22-29); Chloride 95 mmol/L (96-108); Potassium 3.7 mmol/L (3.3-5.1); Sodium 133 mmol/L (135-145)
== END 2025-09-18 13:12 | disposition home or self-care (01) ==
LOC: HO.LNP 13:11
PROVIDERS: Visit Provider Internal Medicine
DX: E87.6 Hypokalemia (principal)
CPT/HCPCS: 80051